=== PATIENT | female | born 1940 | race Caucasian/White ===

== ENCOUNTER 2017-02-07 16:03 | Inpatient (IN) | payer OTHER, MEDICARE ==
[2017-02-07] VITALS (15 sets, daily range): BP systolic 81–124; BP diastolic 44–97; PULSE 28–76; RESP 14–15; TEMP 98–98.2; O2SAT 91–100
[~2017-02-07] VITALS: Ht 167.6 cm; Wt 81.4 kg
[~2017-02-07 16:03] MED LIST: ADVA250A INH; AMLO5TAB96 PO; ARIP1TAB5 PO; BUPR150T3 PO; DIGO.125 PO; FOLI400T30 PO; METO25 PO; OMEP20CA5 PO; REST15CA PO
[2017-02-07] MEDS ORDERED: ATROPINE SULFATE 1 MG/10 ML SYRINGE ONE (16:15)
[2017-02-07] MEDS ORDERED: SODIUM CHLOR 0.9% 1000 ML INJ 1,000 ML IV ONE (16:18)
[2017-02-07] MEDS ORDERED: ATROPINE SULFATE 1 MG/10 ML SYRINGE IV PUSH ONE ×2 (16:30→16:45)
[2017-02-07] MEDS ORDERED: SODIUM CHLORIDE 0.9% FLUSH 10 ML FLUSH IVF PRN (16:30)
[2017-02-07] MEDS ORDERED: DIGOXIN IMMUNE FAB INJ 400 MG in SODIUM CHLORIDE 0.9% INJ 50 ML IV ONE (16:45)
[2017-02-07 16:55] LABS: AUTOMATED NEUTROPHIL # 12.4 TH/MM3 (1.8-7.7); BASOPHIL % 0.3 % (0.0-2.0); EOSINOPHIL # 0.1 TH/MM3 (0-0.4); EOSINOPHIL % 0.6 % (0.0-4.0); HEMATOCRIT 38.3 % (35.0-46.0); HEMO FLAGS DIFF FINAL; LYMPH % 9.5 % (9.0-44.0); LYMPHOCYTE # 1.4 TH/MM3 (1.0-4.8); MEAN CELL VOLUME 77.4 FL (80.0-100.0); MONO % 3.8 % (0.0-8.0); NEUT % 85.8 % (16.0-70.0); PLATELET COUNT 342 TH/MM3 (150-450); RED BLOOD COUNT 4.95 MIL/MM3 (4.00-5.30); RED CELL DISTRIBUTION WIDTH 19.1 % (11.6-17.2); WHITE BLOOD COUNT 14.4 TH/MM3 (4.0-11.0)
[2017-02-07 16:58] LABS: APTT (PATIENT) 44.5 SEC (24.3-30.1); INTERNATIONAL NORMALIZED RATIO 3.6 RATIO
[2017-02-07 17:09] LABS: ANION GAP 11 MEQ/L (5-15); AST (GOT) 56 U/L (15-37); BICARBONATE 18.8 MEQ/L (21.0-32.0); BLOOD UREA NITROGEN 31 MG/DL (7-18); CHLORIDE 109 MEQ/L (98-107); GLOMERULAR FILTRATION RATE 18 ML/MIN (>89); MAGNESIUM 2.1 MG/DL (1.5-2.5); POTASSIUM 5.4 MEQ/L (3.5-5.1); SODIUM (NA) 139 MEQ/L (136-145)
[2017-02-07 17:24] LABS: ALKALINE PHOSPHATASE 109 U/L (45-117); ALT (GPT) 38 U/L (10-53); DIGOXIN 0.1 NG/ML (0.8-2.0); TOTAL BILIRUBIN ADULT 0.3 MG/DL (0.2-1.0)
[2017-02-07 17:25] LABS: CREATINE KINASE 95 U/L (26-192)
--- NOTE | 2017-02-07 17:41 | PD ---
HPI Chief Complaint: bradycardia Time Seen by Provider: 16:22 Travel History International Travel<30 days: No Contact w/Intl Traveler<30days: No History of Present Illness HPI Patient is a 76-year-old female who presents to emergency room with complaints of possible nasal bone fracture. Patient reports that she is feeling weak and dizzy for the past month, reports that she was in the bathroom today and had a syncopal episode. Reports that she is feeling lightheaded and dizzy prior to this. patient reports that when she fell, she hit her face on the toilet, patient does admit to taking Coumadin as she has history of atrial fibrillation. Patient reports that she did have loss of consciousness. Patient followed up with her primary care doctor one hour prior to presenting to the emergency room, she was told to go to the ER for possible nasal bone fracture. Patient presents to ER bradycardic with a HR of 30's. She is currently on digoxin for afib. She does follow up with Dr. Mercer with cardiology. 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) Neurologic: Yes (HX MIGRAINES) Psychiatric: Yes (ANXIETY / DEPRESSION) Respiratory: Yes (SOB - NO DIAGNOSIS) Thyroid Disease: No Past Surgical History Abdominal Surgery: Yes (APPENDECTOMY) AICD: No Cardiac Surgery: No Ear Surgery: No Endocrine Surgery: No Eye Surgery: No Genitourinary Surgery: No Gynecologic Surgery: Yes (HYSTERECTOMY) Joint Replacement: Yes Pacemaker: No Thoracic Surgery: No Social History Alcohol Use: No Tobacco Use: No Substance Use: No Allergies-Medications (Allergen,Severity, Reaction): Coded Allergies: No Known Allergies (Verified , 02/07/17) Reported Meds & Prescriptions Reported Meds & Active Scripts Active Reported Vesicare (Solifenacin) 5 Mg Tab 5 Mg PO DAILY Ferrous Sulfate DR (Ferrous Sulfate) 325 Mg Tabdr 325 Mg PO DAILY Fenofibrate 160 Mg Tab 160 Mg PO DAILY Namenda (Memantine) 5 Mg Tab 5 Mg PO DAILY Risperidone 1 Mg Tab 1 Mg PO DAILY Trazodone HCl 150 Mg Tablet 150 Mg PO HS Zetia (Ezetimibe) 10 Mg Tab 10 Mg PO DAILY Warfarin 3 Mg Tab 3 Mg PO DAILY Tricor (Fenofibrate) 145 Mg Tab 145 Mg PO DAILY Take with food. Omeprazole 20 Mg Tab 40 Mg PO DAILY Metoprolol Tartrate 100 Mg Tab 100 Mg PO BID Lovastatin 40 Mg Tab 40 Mg PO HS Lisinopril 10 Mg Tab 10 Mg PO DAILY [place] (Hydrocodone-Acetaminophen) 10-325 Mg Tab 1 Tab PO Q6H PRN Wellbutrin Xl 24 HR (Bupropion HCl) 150 Mg Tab 150 Mg PO DAILY Biotin 1,000 Mcg Tab 1,000 Mg PO DAILY Aspirin Adult Low Strength (Aspirin) 81 Mg Tabdr 81 Mg PO DAILY Amlodipine (Amlodipine Besylate) 10 Mg Tab 10 Mg PO DAILY Abilify (Aripiprazole) 2 Mg Tab 2 Mg PO DAILY Review of Systems General / Constitutional: No: Fever Eyes: No: Visual changes HENT: Positive: Headaches Cardiovascular: Positive: Irregular Rhythm, No: Chest Pain or Discomfort Respiratory: No: Shortness of Breath Gastrointestinal: No: Abdominal Pain Genitourinary: No: Dysuria Musculoskeletal: No: Pain Skin: No Rash Neurologic: No: Weakness Psychiatric: No: Depression Endocrine: No: Polydipsia Hematologic/Lymphatic: No: Easy Bruising Physical Exam Narrative GENERAL: moderate distress SKIN: Focused skin assessment warm/dry. HEAD: Atraumatic. Normocephalic. EYES: Pupils equal and round. No scleral icterus. No injection or drainage. ENT: No nasal bleeding or discharge. Mucous membranes pink and moist. NECK: Trachea midline. No JVD. CARDIOVASCULAR: bradycardic. No murmur appreciated. RESPIRATORY: No accessory muscle use. Clear to auscultation. Breath sounds equal bilaterally. GASTROINTESTINAL: Abdomen soft, non-tender, nondistended. Hepatic and splenic margins not palpable. MUSCULOSKELETAL: No obvious deformities. No clubbing. No cyanosis. No edema. NEUROLOGICAL: Awake and alert. No obvious cranial nerve deficits. Motor grossly within normal limits. Normal speech. PSYCHIATRIC: Appropriate mood and affect; insight and judgment normal. Data Data Last Documented VS Vital Signs Date Time Temp Pulse Resp B/P Pulse Ox O2 Delivery O2 Flow Rate FiO2 02/07/17 19:17 48 14 100/49 97 Ventilator 100 02/07/17 18:13 15 02/07/17 18:06 98.1 Orders Atropine Inj (Atropine Inj) (02/07/17 16:15) Complete Blood Count With Diff (02/07/17 16:18) Comprehensive Metabolic Panel (02/07/17 16:18) Magnesium (Mg) (02/07/17 16:18) B-Type Natriuretic Peptide (02/07/17 16:18) Ckmb (Isoenzyme) Profile (02/07/17 16:18) Troponin I (02/07/17 16:18) Act Partial Throm Time (Ptt) (02/07/17 16:18) Prothrombin Time / Inr (Pt) (02/07/17 16:18) Urinalysis - C+S If Indicated (02/07/17 16:18) Chest, Single Ap (02/07/17 16:18) Ct Brain W/O Iv Contrast(Rout) (02/07/17 16:18) Ct Cerv Spine W/O Contrast (02/07/17 16:18) Blood Glucose (02/07/17 16:18) Ecg Monitoring (02/07/17 16:18) Iv Access Insert/Monitor (02/07/17 16:18) Oximetry (02/07/17 16:18) Sodium Chloride 0.9% Flush (Ns Flush) (02/07/17 16:30) Sodium Chlor 0.9% 1000 Ml Inj (Ns 1000 M (02/07/17 16:18) Digoxin (02/07/17 16:18) Ct Facial Bones W/O Iv Cont (02/07/17 ) Atropine Inj (Atropine Inj) (02/07/17 16:30) Atropine Inj (Atropine Inj) (02/07/17 16:45) Digoxin Immune Brady Inj (Digibind Inj) (02/07/17 16:45) ^ Infusion (02/07/17 18:00) Isoproterenol Inj (Isuprel Inj) (02/07/17 18:00) ^ Infusion (02/07/17 ) Dopamine Inj Premix (Dopamine Inj Premix (02/07/17 18:15) Dopamine Inj Premix (Dopamine Inj Premix (02/07/17 18:02) Electrocardiogram (02/07/17 16:10) Ondansetron Inj (Zofran Inj) (02/07/17 18:26) Norepinephrine Inj (Levophed Inj) (02/07/17 18:40) Ondansetron Inj (Zofran Inj) (02/07/17 18:50) Midazolam Inj (Versed Inj) (02/07/17 18:55) Midazolam Inj (Versed Inj) (02/07/17 19:00) Admit To Inpatient (02/07/17 ) Code Status (02/07/17 19:05) Vital Signs (Adult) ERICA.Q1H (02/07/17 19:05) Activity Bed Rest (02/07/17 19:05) ^ Elevate Head Of Bed (02/07/17 19:05) Neuro Checks . ORDERED (02/07/17 19:05) Intake + Output Q1H (02/07/17 19:05) Diet Tube Feed Only (02/08/17 Breakfast) Sodium Chlor 0.9% 1000 Ml Inj (Ns 1000 M (02/07/17 19:05) Sodium Chloride 0.9% Flush (Ns Flush) (02/07/17 19:15) Sodium Chloride 0.9% Flush (Ns Flush) (02/07/17 21:00) Acetaminophen (Tylenol) (02/07/17 19:15) Morphine Inj (Morphine Inj) (02/07/17 19:15) Famotidine Inj (Pepcid Inj) (02/07/17 21:00) Artificial Tears Opth Soln (Tears Natura (02/08/17 09:00) Ondansetron Inj (Zofran Inj) (02/07/17 19:15) Metoclopramide Inj (Reglan Inj) (02/07/17 19:15) Prochlorperazine Supp (Compazine Supp) (02/07/17 19:15) Albuterol-Ipratropium Neb (Duoneb Neb) (02/07/17 22:00) Albuterol-Ipratropium Neb (Duoneb Neb) (02/07/17 19:15) Complete Blood Count With Diff (02/08/17 04:00) Comprehensive Metabolic Panel (02/08/17 04:00) Prothrombin Time / Inr (Pt) (02/08/17 04:00) Magnesium (Mg) (02/08/17 04:00) Phosphorus (Po4) (02/08/17 04:00) Chest, Single Ap (02/08/17 ) Electrocardiogram (02/07/17 19:15) Electrocardiogram (02/08/17 01:15) Electrocardiogram (02/08/17 07:15) Electrocardiogram (02/08/17 13:15) Electrocardiogram (02/08/17 19:15) Arterial Blood Gas (Abg) (02/07/17 ) Pt Request For Service (02/07/17 19:05) Consult Cardiology (02/07/17 ) Cut Off Saw Set Up Operator / Telemetry ERICA.Q8H (02/07/17 19:05) Scd Bilateral/Knee High ERICA.BID (02/07/17 19:05) Brenden Bilateral/Knee High ERICA.QSHIFT (02/07/17 19:05) ^ Initiate Protocol (02/07/17 19:05) ^ Instruction (02/07/17 19:05) Misc Nursing Information (02/07/17 19:15) Chlorhexidine 2% Cloth (Chlorhexidine 2% (02/08/17 04:00) Chlorhexidine 2% Cloth (Chlorhexidine 2% (02/07/17 19:15) Mrsa Pcr Surveillance (02/07/17 19:05) Docusate Sodium-Senna (Masha-Colace) (02/07/17 21:00) Magnesium Hydroxide Liq (Milk Of Magnesi (02/07/17 19:15) Sennosides (Senokot) (02/07/17 19:15) Bisacodyl Supp (Dulcolax Supp) (02/07/17 19:15) Lactulose Liq (Lactulose Liq) (02/07/17 19:15) Midazolam Inj (Versed Inj) (02/07/17 19:15) Neurological Rass Scale Q30MX2,Q2HX4,Q4H (02/07/17 19:05) Neurological Rass Scale Q30MX2,Q2HX4,Q4H (02/07/17 19:05) Fentanyl Drip (Fentanyl Drip) (02/07/17 19:15) Inpatient Certification (02/07/17 ) Tube Feeding 08,20 (02/07/17 19:05) Chest, Single Ap (02/07/17 19:12) Admit Order (Ed Use Only) (02/07/17 19:33) Labs Laboratory Tests Test 02/07/17 02/07/17 16:15 19:33 White Blood Count 14.4 TH/MM3 Red Blood Count 4.95 MIL/MM3 Hemoglobin 11.9 GM/DL Hematocrit 38.3 % Mean Corpuscular Volume 77.4 FL Mean Corpuscular Hemoglobin 24.0 PG Mean Corpuscular Hemoglobin 31.0 % Concent Red Cell Distribution Width 19.1 % Platelet Count 342 TH/MM3 Mean Platelet Volume 7.8 FL Neutrophils (%) (Auto) 85.8 % Lymphocytes (%) (Auto) 9.5 % Monocytes (%) (Auto) 3.8 % Eosinophils (%) (Auto) 0.6 % Basophils (%) (Auto) 0.3 % Neutrophils # (Auto) 12.4 TH/MM3 Lymphocytes # (Auto) 1.4 TH/MM3 Monocytes # (Auto) 0.5 TH/MM3 Eosinophils # (Auto) 0.1 TH/MM3 Basophils # (Auto) 0.0 TH/MM3 CBC Comment DIFF FINAL Differential Comment Prothrombin Time 42.0 SEC Prothromb Time International 3.6 RATIO Ratio Activated Partial 44.5 SEC Thromboplast Time Sodium Level 139 MEQ/L Potassium Level 5.4 MEQ/L Chloride Level 109 MEQ/L Carbon Dioxide Level 18.8 MEQ/L Anion Gap 11 MEQ/L Blood Urea Nitrogen 31 MG/DL Creatinine 2.60 MG/DL Estimat Glomerular Filtration 18 ML/MIN Rate Random Glucose 131 MG/DL Calcium Level 8.9 MG/DL Magnesium Level 2.1 MG/DL Total Bilirubin 0.3 MG/DL Aspartate Amino Transf 56 U/L (AST/SGOT) Alanine Aminotransferase 38 U/L (ALT/SGPT) Alkaline Phosphatase 109 U/L Total Creatine Kinase 95 U/L Troponin I LESS THAN 0.02 NG/ML B-Type Natriuretic Peptide 170 PG/ML Total Protein 7.4 GM/DL Albumin 3.2 GM/DL Digoxin Level 0.1 NG/ML Urine Color YELLOW Urine Turbidity HAZY Urine pH 5.0 Urine Specific [place] 1.010 Urine Protein 30 mg/dL Urine Glucose (UA) NEG mg/dL Urine Ketones NEG mg/dL Urine Occult Blood TRACE Urine Nitrite NEG Urine Bilirubin NEG Urine Urobilinogen LESS THAN 2.0 MG/DL Urine Leukocyte Esterase MOD Urine RBC 1 /hpf Urine WBC 2 /hpf Urine Squamous Epithelial 1 /hpf Cells Urine Amorphous Sediment FEW Urine Mucus FEW /lpf Microscopic Urinalysis Comment CULT NOT INDICATED MDM Medical Decision Making Medical Screen Exam Complete: Yes Emergency Medical Condition: Yes Interpretation(s) EKG: afib at 34bpm, qt/qtc: 525/418 Vital Signs Date Time Temp Pulse Resp B/P Pulse Ox O2 Delivery O2 Flow Rate FiO2 02/07/17 19:17 48 14 100/49 97 Ventilator 100 02/07/17 19:07 54 14 97/51 94 Ventilator 100 02/07/17 19:00 14 94 Ventilator 100 02/07/17 18:15 29 14 81/44 97 Non-Rebreather 02/07/17 18:13 30 16 97 Non-Rebreather 15 02/07/17 18:06 98.1 28 14 123/57 97 02/07/17 17:00 28 123/57 02/07/17 16:20 33 15 124/97 97 Room Air Laboratory Tests Test 02/07/17 16:15 White Blood Count 14.4 TH/MM3 (4.0-11.0) Red Blood Count 4.95 MIL/MM3 (4.00-5.30) Hemoglobin 11.9 GM/DL (11.6-15.3) Hematocrit 38.3 % (35.0-46.0) Mean Corpuscular Volume 77.4 FL (80.0-100.0) Mean Corpuscular Hemoglobin 24.0 PG (27.0-34.0) Mean Corpuscular Hemoglobin 31.0 % Concent (32.0-36.0) Red Cell Distribution Width 19.1 % (11.6-17.2) Platelet Count 342 TH/MM3 (150-450) Mean Platelet Volume 7.8 FL (7.0-11.0) Neutrophils (%) (Auto) 85.8 % (16.0-70.0) Lymphocytes (%) (Auto) 9.5 % (9.0-44.0) Monocytes (%) (Auto) 3.8 % (0.0-8.0) Eosinophils (%) (Auto) 0.6 % (0.0-4.0) Basophils (%) (Auto) 0.3 % (0.0-2.0) Neutrophils # (Auto) 12.4 TH/MM3 (1.8-7.7) Lymphocytes # (Auto) 1.4 TH/MM3 (1.0-4.8) Monocytes # (Auto) 0.5 TH/MM3 (0-0.9) Eosinophils # (Auto) 0.1 TH/MM3 (0-0.4) Basophils # (Auto) 0.0 TH/MM3 (0-0.2) CBC Comment DIFF FINAL Differential Comment Prothrombin Time 42.0 SEC (9.8-11.6) Prothromb Time International 3.6 RATIO Ratio Activated Partial 44.5 SEC Thromboplast Time (24.3-30.1) Sodium Level 139 MEQ/L (136-145) Potassium Level 5.4 MEQ/L (3.5-5.1) Chloride Level 109 MEQ/L (98-107) Carbon Dioxide Level 18.8 MEQ/L (21.0-32.0) Anion Gap 11 MEQ/L (5-15) Blood Urea Nitrogen 31 MG/DL (7-18) Creatinine 2.60 MG/DL (0.50-1.00) Estimat Glomerular Filtration 18 ML/MIN (>89) Rate Random Glucose 131 MG/DL (74-106) Calcium Level 8.9 MG/DL (8.5-10.1) Magnesium Level 2.1 MG/DL (1.5-2.5) Total Bilirubin 0.3 MG/DL (0.2-1.0) Aspartate Amino Transf 56 U/L (15-37) (AST/SGOT) Alanine Aminotransferase 38 U/L (10-53) (ALT/SGPT) Alkaline Phosphatase 109 U/L (45-117) Total Creatine Kinase 95 U/L (26-192) Troponin I LESS THAN 0.02 NG/ML (0.02-0.05) B-Type Natriuretic Peptide 170 PG/ML (0-100) Total Protein 7.4 GM/DL (6.4-8.2) Albumin 3.2 GM/DL (3.4-5.0) Digoxin Level 0.1 NG/ML (0.8-2.0) Differential Diagnosis Medication reaction, cardiogenic shock, intracranial hemorrhage, electrolyte abnormality Narrative Course Patient is a 76-year-old female who presents to emergency room for evaluation of possible nasal bone fracture. Patient reports that she was at home today, reports that she had a syncopal episode in her bathroom, reports that she fell and hit her nose. Return to their primary care doctor and was told to come to the emergency room for evaluation. Upon arrival to the emergency room, patient' s heart rate was in the 20s to 30s. Patient was immediately placed on director of reimbursement, pads were placed on patient. Attempt was made to transcutaneously pace her, there was no capture. Patient is on digoxin - concern that symptoms may be due to dig toxicity, Digibind ordered and dig level ordered. Patient was initially stable with SBP' s in the 120's. She was mentating well. 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 Digibind should be in consideration if dig level is elevated. Consideration for isoproterenol or dopamine gtt. We did not have isoproterenol emergency room , dopamine was started via peripheral line. Patient then became hypotensive with systolic blood pressures in the 50s to 70s, please of central line. Because her INR of 3.7, I did obtain femoral access. Once femoral access was obtained, and dopamine was started through the right femoral line. Patient became hypoxic and complaint of shortness of breath after central line, decision was to intubate patient for airway protection. Patient was intubated with no complications, patient's vss after intubation and central line placement with pressors. Case reviewed with Dr. Johnson who accepts pt to service Critical Care Narrative Aggregate critical care time was 60 minutes. Time to perform other separately billable procedures was not included in the critical care time. My time did not include minutes spent treating any other patients simultaneously or on activities that did not directly contribute to the patient's treatment. The services I provided to this patient were to treat and/or prevent clinically significant deterioration that could result in: , decompensation, deterioration I provided critical care services requiring my management, as noted below: Chart data review, documentation time, medication orders and management, vital sign assessments/reviewing monitor data, ordering and reviewing lab tests, ordering and interpreting/reviewing x-rays and diagnostic studies, care of the patient and discussion of the patient with the admitting physicians. Procedures Procedure Narrative Verbal consent obtained by patient, family provided written consent CENTRAL VENOUS LINE: The site was prepped with Betadine and sterilely draped. It was infiltrated with 1% lidocaine plain. The deep vein was cannulated using normal Seldinger technique. A triple lumen central line was placed in the right femoral vein site and secured with simple interrupted suture. The site was sterilely dressed. The patient tolerated the procedure well. After the risks and benefits were discussed the following procedure was performed: INTUBATION: The patient was put in optimal position for the procedure. Rapid sequence intubation was initiated by me using 20 milligrams of etomidate IV and 10 milligrams of Succinocholine IV. The patient was intubated with a [-] cuffed endotracheal tube. Tube placement was confirmed by visualization of the tube and balloon passing through the cords, capnometry and subsequent chest x-ray. Breath sounds were equal and well aerated bilaterally postintubation. No breath sounds over stomach. Patient tolerated procedure well. Physician Communication Physician Communication Dr Johnson accepts pt to service Diagnosis Primary Impression: Cardiogenic shock Admitting Information Admitting Physician Requests: Lis Michel DO February 07, 2017 17:41
[2017-02-07] MEDS ORDERED: DOPamine INJ PREMIX 500 ML ONE (18:02)
--- NOTE | 2017-02-07 18:13 | RADRPT ---
EXAM DATE/TIME: 02/07/2017 16:36 [facility] COMPARISON: No previous studies available for comparison. INDICATIONS : Short of breath. MEDICAL HISTORY : None. SURGICAL HISTORY : None. ENCOUNTER: Initial ACUITY: 1 day PAIN SCORE: 4/10 LOCATION: Bilateral chest FINDINGS: Single AP view of the chest. The lungs are clear. Cardiomediastinal silhouette within normal limits. No evidence of pleural effusion or pneumothorax. CONCLUSION: No acute cardiopulmonary disease identified. Angel Laguna MD on February 07, 2017 at 18:11 Board Certified Radiologist. This report was verified electronically.
[2017-02-07] MEDS ORDERED: DOPamine INJ PREMIX 500 ML IV SCH ×2 (18:15→23:00)
--- NOTE | 2017-02-07 18:21 | RADRPT ---
EXAM DATE/TIME: 02/07/2017 17:54 [facility] COMPARISON: No previous studies available for comparison. INDICATIONS : Evaluate for Syncope. RADIATION DOSE: 32.92 CTDIvol (mGy) MEDICAL HISTORY : Diabetes mellitus type 2. Hypertension. Cardiovascular disease SURGICAL HISTORY : Appendectomy. Hysterectomy. ENCOUNTER: Initial ACUITY: 1 day PAIN SCALE: Non-responsive LOCATION: Bilateral cranial TECHNIQUE: Multiple contiguous axial images were obtained of the head. Using automated exposure control and adj ustment of the mA and/or kV according to patient size, radiation dose was kept as low as reasonably a chievable to obtain optimal diagnostic quality images. FINDINGS: CEREBRUM: Extensive periventricular low attenuation change consistent with chronic small vessel ischemic change . A more focal area of decreased density is seen within the left frontal lobe. This involves the george ex and underlying white matter. No mass effect. The ventricles are normal for age. No evidence of mi dline shift, mass lesion, hemorrhage or acute infarction. No extra-axial fluid collections are seen. POSTERIOR FOSSA: The cerebellum and brainstem are intact. The 4th ventricle is midline. The cerebellopontine angle i s unremarkable. EXTRACRANIAL: The visualized portion of the orbits is intact. SKULL: The calvaria is intact. No evidence of skull fracture. CONCLUSION: 1. Chronic small vessel ischemic change. 2. Area of encephalomalacia involving the left frontal lobe. 3. No acute intracranial abnormality. Armaan Suresh Jr., MD on February 07, 2017 at 18:16 Board Certified Radiologist. This report was verified electronically.
--- NOTE | 2017-02-07 18:25 | RADRPT ---
EXAM DATE/TIME: 02/07/2017 17:54 [facility] COMPARISON: No previous studies available for comparison. INDICATIONS : Evaluate for Syncope. RADIATION DOSE: 30.92 CTDIvol (mGy) MEDICAL HISTORY : Diabetes mellitus type 2. Congestive heart failure. Hypertension. SURGICAL HISTORY : Appendectomy. Hysterectomy. ENCOUNTER: Initial ACUITY: 1 day PAIN SCORE: Non-responsive LOCATION: Bilateral facial region. TECHNIQUE: Volumetric scanning of the facial bones was performed. Using automated exposure control and adjustme nt of the mA and/or kV according to patient size, radiation dose was kept as low as reasonably achiev able to obtain optimal diagnostic quality images. FINDINGS: ORBITS: The orbital and infraorbital osseous structures are intact. The retroconal structures have a normal configuration. No radiopaque foreign bodies are seen. NASAL BONE: The nasal bone and maxillary spine are intact ZYGOMATIC ARCHES: Symmetric without evidence of fracture. SINUSES: The maxillary, ethmoid and frontal sinuses are intact. No air-fluid levels seen. NASAL CAVITY: The nasal septum is intact and midline. The lacrimal ducts are intact. SOFT TISSUES: No radiopaque foreign bodies seen. No soft-tissue swelling is seen. INTRACRANIAL: No intracranial air seen. CRIBIFORM PLATE: Grossly intact. CONCLUSION: Normal examination. Armaan Suresh Jr., MD on February 07, 2017 at 18:21 Board Certified Radiologist. This report was verified electronically.
[2017-02-07] MEDS ORDERED: ONDANSETRON HCL 4 MG/2 ML VIAL ONE ×2 (18:26→18:50)
--- NOTE | 2017-02-07 18:36 | RADRPT ---
EXAM DATE/TIME: 02/07/2017 17:54 [facility] COMPARISON: No previous studies available for comparison. INDICATIONS : Evaluate for Syncope. RADIATION DOSE: 20.66 CTDIvol (mGy) MEDICAL HISTORY : Diabetes mellitus type 2. Hypertension. Cardiovascular disease SURGICAL HISTORY : Appendectomy. Hysterectomy. ENCOUNTER: Initial ACUITY: 1 day PAIN SCALE: Non-responsive LOCATION: Bilateral neck TECHNIQUE: Volumetric scanning of the cervical spine was performed. Multiplanar reconstructions in the sagittal, coronal and oblique axial planes were performed. Using automated exposure control and adjustment o f the mA and/or kV according to patient size, radiation dose was kept as low as reasonably achievable to obtain optimal diagnostic quality images. FINDINGS: VERTEBRAE: No evidence of fracture. Prominent hypertrophic changes at C1-2 anteriorly. ALIGNMENT: No evidence of subluxation. C2-C3: Bilateral facet arthrosis. No evidence of focal disc protrusion. Central canal normal diameter. Neura l foraminal diameters within normal limits. Bony fusion is left-sided facet joint. C3-C4: Severe right-sided facet arthrosis. Broad-based disc osteophyte complex. Mild right neural foraminal narrowing. Bony fusion right-sided facet joint. C4-C5: Severe bilateral facet arthrosis. Broad-based disc bulge. Mild central canal narrowing. Mild bilatera l neural foraminal narrowing. C5-C6: Broad-based disc osteophyte complex and bilateral facet arthrosis. Moderate central canal narrowing m oderate bilateral neural foraminal narrowing. C6-C7: Bilateral facet arthrosis. No evidence of focal disc protrusion. Central canal normal diameter. Neura l foraminal diameters within normal limits. C7-T1: No evidence of focal disc protrusion. Central canal normal diameter. Neural foraminal diameters withi n normal limits. CONCLUSION: No evidence of fracture. Degenerative findings most prominent at C5-6. Angel Laguna MD on February 07, 2017 at 18:30 Board Certified Radiologist. This report was verified electronically.
[2017-02-07] MEDS ORDERED: NOREPINEPHRINE 4 MG/4 ML AMP ONE (18:40)
[2017-02-07] MEDS ORDERED: MIDAZOLAM HCL 5 MG/ML VIAL (1 ML) ONE (18:55)
[2017-02-07] MEDS ORDERED: MIDAZOLAM 100 MG/NS 100 ML DRIP Premix IV SCH (19:00)
[2017-02-07] MEDS ORDERED: SODIUM CHLOR 0.9% 1000 ML INJ 1,000 ML IV SCH (19:05)
[2017-02-07] MEDS ORDERED: MAGNESIUM HYDROXIDE SUSP 30 ML CUP PO PRN (19:15)
[2017-02-07] MEDS ORDERED: ONDANSETRON HCL 4 MG/2 ML VIAL IV PRN (19:15)
[2017-02-07] MEDS ORDERED: CHLORHEXIDINE GLUCONATE 2 % 1 PACK (2 CLOTHS) TOP PRN (19:15)
[2017-02-07] MEDS ORDERED: LACTULOSE SYRUP 20 GM/30 ML CUP PO PRN (19:15)
[2017-02-07] MEDS ORDERED: SENNOSIDES 8.6 MG TAB PO PRN (19:15)
[2017-02-07] MEDS ORDERED: BISACODYL 10 MG SUPP RECTAL PRN (19:15)
[2017-02-07] MEDS ORDERED: SODIUM CHLORIDE 0.9% FLUSH 10 ML FLUSH PRN (19:15)
[2017-02-07] MEDS ORDERED: fentaNYL DRIP 250 ML IV SCH (19:15)
[2017-02-07] MEDS ORDERED: RESP: ALBUTEROL 2.5 MG/IPRATROPIUM 0.5 MG NEB (PRN) INH (19:15)
[2017-02-07] MEDS ORDERED: PROCHLORPERAZINE 25 MG SUPP RECTAL PRN (19:15)
[2017-02-07] MEDS ORDERED: MIDAZOLAM 100 MG/ML INJ 100 ML IV SCH (19:15)
[2017-02-07] MEDS ORDERED: MISCELLANEOUS NURSING INFORMATION XX SCH (19:15)
[2017-02-07] MEDS ORDERED: METOCLOPRAMIDE HCL 10 MG/2 ML VIAL IV PRN (19:15)
--- NOTE | 2017-02-07 19:17 | HHI.HP ---
HPI Service Critical Care Medicine Primary Care Physician Ted Watts MD Admission Diagnosis Diagnosis: Travel History International Travel<30 Days: No Contact w/Intl Traveler <30 Da: No Traveled to Known Affected Are: No History of Present Illness 76-year-old female who presents with complaints of possible nasal bone fracture. Per medical record she was feeling weak and dizzy for the past month , reports that she was in the bathroom today and had a syncopal episode. Reports that she is feeling lightheaded and dizzy prior to this. patient reports that when she fell, she hit her face on the toilet, patient does admit to taking Coumadin as she has history of atrial fibrillation. Patient reports that she did have loss of consciousness. She is also on digoxin for rate control. In the emergency department she was found to be bradycardic at the heart rate of 30s. She does follow up with Dr. Mercer with cardiology. She became hypotensive and hypoxemic and was intubated by ED attending for an airway protection. 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 Omeprazole 20 Mg Tab 40 Mg PO DAILY Metoprolol Tartrate 100 Mg Tab 100 Mg PO BID Lovastatin 40 Mg Tab 40 Mg PO HS Lisinopril 10 Mg Tab 10 Mg PO DAILY [place] (Hydrocodone-Acetaminophen) 10-325 Mg Tab 1 Tab PO Q6H PRN Wellbutrin Xl 24 HR (Bupropion HCl) 150 Mg Tab 150 Mg PO DAILY Biotin 1,000 Mcg Tab 1,000 Mg PO DAILY Aspirin Adult Low Strength (Aspirin) 81 Mg Tabdr 81 Mg PO DAILY Amlodipine (Amlodipine Besylate) 10 Mg Tab 10 Mg PO DAILY Abilify (Aripiprazole) 2 Mg Tab 2 Mg PO DAILY Active Ordered Medications Current Medications Medications (Trade) Dose Ordered Sig/Brandon Route PRN Reason Start Time Stop Time Status Last Admin Dose Admin Isoproterenol HCl 2 mg/Dextrose 260 ml @ 0 mls/hr TITRATE IV 02/07/17 18:00 02/07/17 19:42 Dopamine HCl/ Dextrose 500 ml @ 0 mls/hr TITRATE IV 02/07/17 18:15 02/07/17 19:42 Midazolam HCl 100 ml @ 0 mls/hr TITRATE IV 02/07/17 19:00 Sodium Chloride (NS 1000 ml Inj) 1,000 ml @ 84 mls/hr [id number] IV 02/07/17 19:05 Sodium Chloride (NS Flush) 2 ml UNSCH PRN .XX FLUSH AFTER USING IV ACCESS 02/07/17 19:15 Sodium Chloride (NS Flush) 2 ml BID .XX 02/07/17 21:00 Acetaminophen (Tylenol) 650 mg Q6H PRN PO FEVER >101F 02/07/17 19:15 Morphine Sulfate (Morphine Inj) 2 mg Q2H PRN IV PAIN SCALE 6 TO 10 02/07/17 19:15 Famotidine (Pepcid Inj) 10 mg Q12HR IV PUSH 02/07/17 21:00 Artificial Tears (Tears Naturale Opth Soln) 1 drop TID EACH EYE 02/08/17 09:00 Ondansetron HCl (Zofran Inj) 4 mg Q6H PRN IV NAUSEA OR VOMITING 02/07/17 19:15 Metoclopramide HCl (Reglan Inj) 5 mg Q6H PRN IV NAUSEA OR VOMITING 02/07/17 19:15 Prochlorperazine (Compazine Supp) 25 mg Q12H PRN RECTAL NAUSEA OR VOMITING 02/07/17 19:15 Miscellaneous Information 1 [id number] XX 02/07/17 19:15 Chlorhexidine Gluconate (Chlorhexidine 2% Cloth) 3 pack Taper DAILY@04 TOP 02/08/17 04:00 02/04/18 03:59 Chlorhexidine Gluconate (Chlorhexidine 2% Cloth) 3 pack UNSCH PRN TOP HYGIENIC CARE 02/07/17 19:15 Senna/Docusate Sodium (Masha-Colace) 1 tab BID PO 02/07/17 21:00 Magnesium Hydroxide (Milk Of Maci Fischer) 30 ml Q12H PRN PO MILD - MODERATE CONSTIPATION 02/07/17 19:15 Sennosides (Senokot) 17.2 mg Q12H PRN PO MODERATE - SEVERE CONSTIPATION 02/07/17 19:15 Bisacodyl (Dulcolax Supp) 10 mg DAILY PRN RECTAL SEVERE CONSITIPATION 02/07/17 19:15 Lactulose 30 ml 30 ml DAILY PRN PO SEVERE CONSITIPATION 02/07/17 19:15 Midazolam HCl 100 ml @ 0 mls/hr TITRATE IV 02/07/17 19:15 02/07/17 21:47 Fentanyl Citrate (fentaNYL DRIP) 250 ml @ 0 mls/hr TITRATE IV 02/07/17 19:15 02/07/17 21:47 Family History Noncontributory Social History Negative 3 Physical Exam Vital Signs Vital Signs Date Time Temp Pulse Resp B/P Pulse Ox O2 Delivery O2 Flow Rate FiO2 02/07/17 19:07 54 14 97/51 94 Ventilator 100 02/07/17 18:15 29 14 81/44 97 Non-Rebreather 02/07/17 18:13 30 16 97 Non-Rebreather 15 02/07/17 18:06 98.1 28 14 123/57 97 Physical Exam GENERAL: Obese elderly woman sedated and intubated SKIN: Warm and dry. HEAD: Normocephalic. EYES: No scleral icterus. No injection or drainage. NECK: Supple, trachea midline. No JVD or lymphadenopathy. CARDIOVASCULAR: Regular rate and rhythm without murmurs, gallops, or rubs. RESPIRATORY: Breath sounds equal bilaterally. No accessory muscle use. GASTROINTESTINAL: Abdomen soft, non-tender, nondistended. MUSCULOSKELETAL: No cyanosis, or edema. BACK: Nontender without obvious deformity. No CVA tenderness. EXTREMITIES: No clubbing cyanosis or edema Laboratory Laboratory Tests Test 02/07/17 16:15 White Blood Count 14.4 Red Blood Count 4.95 Hemoglobin 11.9 Hematocrit 38.3 Mean Corpuscular Volume 77.4 Mean Corpuscular Hemoglobin 24.0 Mean Corpuscular Hemoglobin 31.0 Concent Red Cell Distribution Width 19.1 Platelet Count 342 Mean Platelet Volume 7.8 Neutrophils (%) (Auto) 85.8 Lymphocytes (%) (Auto) 9.5 Monocytes (%) (Auto) 3.8 Eosinophils (%) (Auto) 0.6 Basophils (%) (Auto) 0.3 Neutrophils # (Auto) 12.4 Lymphocytes # (Auto) 1.4 Monocytes # (Auto) 0.5 Eosinophils # (Auto) 0.1 Basophils # (Auto) 0.0 CBC Comment DIFF FINAL Differential Comment Prothrombin Time 42.0 Prothromb Time International 3.6 Ratio Activated Partial 44.5 Thromboplast Time Sodium Level 139 Potassium Level 5.4 Chloride Level 109 Carbon Dioxide Level 18.8 Anion Gap 11 Blood Urea Nitrogen 31 Creatinine 2.60 Estimat Glomerular Filtration 18 Rate Random Glucose 131 Calcium Level 8.9 Magnesium Level 2.1 Total Bilirubin 0.3 Aspartate Amino Transf 56 (AST/SGOT) Alanine Aminotransferase 38 (ALT/SGPT) Alkaline Phosphatase 109 Total Creatine Kinase 95 Troponin I LESS THAN 0.02 B-Type Natriuretic Peptide 170 Total Protein 7.4 Albumin 3.2 Digoxin Level 0.1 Result Diagram: 02/07/17 1615 02/07/171614 Imaging Last 24 hours Impressions Chest X-Ray 02/07/17 191 Signed Impressions: Service Date/Time: Tuesday, February 07, 2017 19:22 - CONCLUSION: 1. Tip of the endotracheal tube within the orifice of the right mainstem bronchus. 2. Volume loss involving the left hemithorax likely due to the position of the endotracheal tube. 3. Patchy parenchymal consolidation throughout the left lung. This may be in part due to the volume loss representing atelectasis. Armaan Suresh Jr., MD Head CT 02/07/171617 Signed Impressions: Service Date/Time: Tuesday, February 07, 2017 17:54 - CONCLUSION: 1. Chronic small vessel ischemic change. 2. Area of encephalomalacia involving the left frontal lobe. 3. No acute intracranial abnormality. Armaan Suresh Jr., MD Chest X-Ray 02/07/171617 Signed Impressions: Service Date/Time: Tuesday, February 07, 2017 16:36 - CONCLUSION: No acute cardiopulmonary disease identified. Angel Laguna MD Cervical Spine CT 02/07/171617 Signed Impressions: Service Date/Time: Tuesday, February 07, 2017 17:54 - CONCLUSION: No evidence of fracture. Degenerative findings most prominent at C5-6. Angel Laguna MD Maxillofacial CT 02/07/17 0000 Signed Impressions: Service Date/Time: Tuesday, February 07, 2017 17:54 - CONCLUSION: Normal examination. Armaan Suresh Jr., MD Assessment and Plan Assessment and Plan Acute respiratory failure - Intubated for an airway protection - Due to cardiogenic shock - SBT and weaning when hemodynamically more stable - Chest x-ray and ABG a.m. Bradycardia - Most likely due to medications - Digoxin toxicity - Agonists administered in the ED - Dopamine drip - Further per cardiology Atrial fibrillation - Cardiology evaluation - Hold digoxin due to bradycardia toxicity - Continue Coumadin anticoagulation Acute kidney injury - Dehydration - Unknown baseline creatinine - Gentle hydration IV - Metal urine output and creatinine and electrolytes Diabetes mellitus - Insulin sliding scale DVT GI prophylaxis - Coumadin/Pepcid Critical Care: The total critical care time was 35 minutes. Time to perform other separately billable procedures was not included in the critical care time. iTm Johnson MD February 07, 2017 19:17
[2017-02-07] MEDS: ISOPROTERENOL INJ 2 MG in DEXTROSE 5% IN WATER INJ 250 ML IV SCH ×2 (19:42)
[2017-02-07 19:50] LABS: BLOOD, URINE TRACE (NEG); COMMENT (UR) CULT NOT INDICATED; CULTURE IF INDICATED CULT NOT INDICATED; GLUCOSE,URINE NEG (NEG); KETONE, URINE NEG (NEG); MUCUS URINE FEW /lpf (OCC); NITRITE,URINE NEG (NEG); SQUAMOUS EPITHELIAL CELL URINE 1 /hpf (0-5); URINE COLOR YELLOW (YELLW/STRAW)
--- NOTE | 2017-02-07 19:50 | RADRPT ---
EXAM DATE/TIME: 02/07/2017 19:22 [facility] COMPARISON: CHEST SINGLE AP, February 07, 2017, 16:36. INDICATIONS : Post intubation. MEDICAL HISTORY : None. SURGICAL HISTORY : None. ENCOUNTER: Initial ACUITY: 1 day PAIN SCORE: Non-responsive. LOCATION: Bilateral chest FINDINGS: A single portable frontal view of the chest shows the tip of the endotracheal tube within the right m ainstem bronchus. Patchy parenchymal infiltrate throughout the left lung. Left lung volume loss noted with elevation left hemidiaphragm. Right lung is clear. Heart is normal in size. CONCLUSION: 1. Tip of the endotracheal tube within the orifice of the right mainstem bronchus. 2. Volume loss involving the left hemithorax likely due to the position of the endotracheal tube. 3. Patchy parenchymal consolidation throughout the left lung. This may be in part due to the volume l oss representing atelectasis. Armaan Suresh Jr., MD on February 07, 2017 at 19:47 Board Certified Radiologist. This report was verified electronically.
[2017-02-07] MEDS ORDERED: VECURONIUM BROMIDE 10 MG VIAL IV PUSH ONE (20:00)
[2017-02-07] MEDS ORDERED: ETOMIDATE 20 MG/10 ML VIAL IV PUSH ONE (20:00)
[2017-02-07] MEDS: RESP: ALBUTEROL 2.5 MG/IPRATROPIUM 0.5 MG NEB (SCH) INH ×2 (20:05→22:10)
[2017-02-07 20:17] LABS: BLOOD GAS BASE EXCESS -13.5 mmol/L (-2-2); BLOOD GAS CARBOXYHEMOGLOBIN 0.5 % (0-4); BLOOD GAS HCO3 13 mmol/L (22-26); BLOOD GAS METHEMOGLOBIN 0.9 % (0-2); BLOOD GAS O2 HGB SATURATION 96 % (90-100); BLOOD GAS OXYGEN CONTENT 15.8 Vol % (12.0-20.0); BLOOD GAS PCO2 38 mmHg (38-42); BLOOD GAS PO2 129 mmHG (61-120); BLOOD GAS TOTAL HGB 11.5 G/DL (12.0-16.0); TEMP CORR TO 98.6
[2017-02-07 20:18] LABS: CRITICAL VALUE YES; OXYGEN DEVICE VENT
[2017-02-07 20:19] LABS: DRAW SITE LT RADIAL; FIO2 100 %; NUMBER OF ARTERIAL PUNCTURES 1; STAT YES; ULNAR PULSE PRESENT; VENT SETTINGS VAC/14/500/PEEP5
[2017-02-07] MEDS ORDERED: ASPI1TAB91 PO (20:33)
[2017-02-07] MEDS ORDERED: RISP1TAB2 PO (20:33)
[2017-02-07] MEDS ORDERED: FENO160T PO (20:33)
[2017-02-07] MEDS ORDERED: LISI10TA3 PO (20:33)
[2017-02-07] MEDS ORDERED: ZETI10TA5 PO (20:33)
[2017-02-07] MEDS ORDERED: VESI5TAB PO (20:33)
[2017-02-07] MEDS ORDERED: FENO50TA PO (20:33)
[2017-02-07] MEDS ORDERED: BIOT1000 PO (20:33)
[2017-02-07] MEDS ORDERED: WARF-58 PO (20:33)
[2017-02-07] MEDS ORDERED: FERR325T2 PO (20:33)
[2017-02-07] MEDS ORDERED: BUPR150XL PO (20:33)
[2017-02-07] MEDS ORDERED: LOVA40TA PO (20:33)
[2017-02-07] MEDS ORDERED: NAME5TAB2 PO (20:33)
[2017-02-07] MEDS ORDERED: AMLO10TA2 PO (20:33)
[2017-02-07] MEDS ORDERED: OMEP20TA PO (20:33)
[2017-02-07] MEDS ORDERED: TRAZ1TAB45 PO (20:33)
[2017-02-07] MEDS ORDERED: METO100T PO (20:33)
[2017-02-07] MEDS ORDERED: HYDR-3366 PO (20:33)
[2017-02-07] MEDS ORDERED: ABIL2TAB2 PO (20:33)
[2017-02-07] MEDS ORDERED: TERBUTALINE INJ 1 MG/ML AMP SQ PRN (23:00)
[2017-02-07] MEDS: FAMOTIDINE 20 MG/2 ML VIAL IV PUSH SCH (23:24)
[2017-02-07] MEDS: SODIUM CHLORIDE 0.9% FLUSH 10 ML FLUSH SCH (23:24)
[2017-02-07] MEDS: DOCUSATE SODIUM 50 MG/SENNA 8.6 MG TAB PO SCH (23:24)
[2017-02-08] VITALS (17 sets, daily range): BP systolic 102–118; BP diastolic 48–67; PULSE 69–126; RESP 14–24; TEMP 97.9–99.2; O2SAT 92–99
[2017-02-08] MEDS: ISOPROTERENOL INJ 2 MG in DEXTROSE 5% IN WATER INJ 250 ML IV SCH ×2 (02:49)
[2017-02-08] MEDS: RESP: ALBUTEROL 2.5 MG/IPRATROPIUM 0.5 MG NEB (SCH) INH ×4 (03:56→21:52)
[2017-02-08] MEDS: CHLORHEXIDINE GLUCONATE 2 % 1 PACK (2 CLOTHS) TOP SCH (04:00)
--- NOTE | 2017-02-08 05:01 | RADRPT ---
EXAM DATE/TIME: 02/08/2017 04:19 [facility] COMPARISON: CHEST SINGLE AP, February 07, 2017, 19:22. INDICATIONS : Shortness of breath, possible pulmonary disease. MEDICAL HISTORY : None. SURGICAL HISTORY : None. ENCOUNTER: Subsequent ACUITY: 2 days PAIN SCORE: Non-responsive. LOCATION: Bilateral chest FINDINGS: Endotracheal tube is present in good position with tip several centimeters above the hien. Nasogast alexandria tube descends into the stomach. There has been slight improvement in aeration with decrease in co nfluence of left lung infiltrates. Cardiac contour is grossly stable. CONCLUSION: Slight improvement in aeration Larry Phelps MD on February 08, 2017 at 4:58 Board Certified Radiologist. This report was verified electronically.
[2017-02-08 05:10] LABS: AUTOMATED NEUTROPHIL # 10.3 TH/MM3 (1.8-7.7); BASOPHIL % 0.2 % (0.0-2.0); EOSINOPHIL % 0.1 % (0.0-4.0); HEMATOCRIT 31.5 % (35.0-46.0); HEMO FLAGS DIFF FINAL; LYMPH % 8.8 % (9.0-44.0); LYMPHOCYTE # 1.1 TH/MM3 (1.0-4.8); MEAN CELL VOLUME 76.7 FL (80.0-100.0); MEAN CORPUSCULAR HEMOGLOBIN 25.5 PG (27.0-34.0); MEAN CORPUSCULAR HGB CONC 33.3 % (32.0-36.0); MONO % 8.8 % (0.0-8.0); NEUT % 82.1 % (16.0-70.0); PLATELET COUNT 261 TH/MM3 (150-450); RED CELL DISTRIBUTION WIDTH 18.2 % (11.6-17.2); WHITE BLOOD COUNT 12.6 TH/MM3 (4.0-11.0)
[2017-02-08 05:11] LABS: INTERNATIONAL NORMALIZED RATIO 4.3 RATIO; PROTHROMBIN TIME - PATIENT 50.9 SEC (9.8-11.6)
[2017-02-08 05:15] LABS: BLOOD GAS BASE EXCESS -13.9 mmol/L (-2-2); BLOOD GAS HCO3 12 mmol/L (22-26); BLOOD GAS METHEMOGLOBIN 1.4 % (0-2); BLOOD GAS O2 HGB SATURATION 96 % (90-100); BLOOD GAS OXYGEN CONTENT 14.4 Vol % (12.0-20.0); BLOOD GAS PCO2 32 mmHg (38-42); BLOOD GAS PO2 146 mmHg (61-120); BLOOD GAS TOTAL HGB 10.4 G/DL (12.0-16.0); TEMP CORR TO 98.6
[2017-02-08 05:16] LABS: CRITICAL VALUE YES; FIO2 75 %; OXYGEN DEVICE VENTILATOR; VENT SETTINGS AC 14/500/5PEEP
[2017-02-08 05:17] LABS: DRAW SITE RT BRACHIAL; NUMBER OF ARTERIAL PUNCTURES 1; STAT NO
[2017-02-08 05:35] LABS: ALT (GPT) 67 U/L (10-53); ANION GAP 13 MEQ/L (5-15); AST (GOT) 82 U/L (15-37); BICARBONATE 15.8 MEQ/L (21.0-32.0); BLOOD UREA NITROGEN 32 MG/DL (7-18); CHLORIDE 111 MEQ/L (98-107); GLOMERULAR FILTRATION RATE 17 ML/MIN (>89); MAGNESIUM 1.6 MG/DL (1.5-2.5); POTASSIUM 4.2 MEQ/L (3.5-5.1); SODIUM (NA) 140 MEQ/L (136-145)
[2017-02-08 05:36] LABS: ALKALINE PHOSPHATASE 89 U/L (45-117); TOTAL BILIRUBIN ADULT 0.3 MG/DL (0.2-1.0)
[2017-02-08] MEDS: SODIUM BICARBONATE 8.4% INJ 150 MEQ in DEXTROSE 5% IN WATE 1000ML INJ 1,000 ML IV SCH ×4 (06:32→18:00)
--- NOTE | 2017-02-08 07:42 | EKG ---
Date Performed: 02/07/2017 Time Performed: 19:27:24 PTAGE: 76 years EKG: SINUS BRADYCARDIA WITH SHORT AL INTERVAL MINIMAL ST DEPRESSION PROLONGED QT INTERVAL ABNORM AL ECG PREVIOUS TRACING : 02/07/2017 16.10 Compared to the previous tracing, now in sinus bradycardia DOCTOR: Sreedhar Hicks Interpretating Date/Time 02/08/2017 07:41:43
--- NOTE | 2017-02-08 08:04 | EKG ---
Date Performed: 02/07/2017 Time Performed: 16:10:58 PTAGE: 76 years EKG: ATRIAL FIBRILLATION WITH SLOW VENTRICULAR RESPONSE POSSIBLE INFERIOR MYOCARDIAL INFARCTION ABNORMAL RHYTHM ECG INTERPRETATION BASED ON A DEFAULT AGE OF 40 YEARS PREVIOUS TRACING : 11/26/2014 10.52 Compared to the previous tracing, rate has slowed DOCTOR: Sreedhar Hicks Interpretating Date/Time 02/08/2017 08:03:10
--- NOTE | 2017-02-08 08:32 | MB ---
cc: KARINA LOPEZ MD DATE OF CONSULTATION 02/08/2017 REASON FOR CONSULTATION Syncope and bradycardia. HISTORY OF PRESENT ILLNESS Ms. Susannah Pryor is a 76-year-old patient of mine who does have a history of atrial fibrillation, hypertension and diabetes. The patient presented to the emergency room after a syncopal episode. She apparently was feeling weak and dizzy for the last month and had a syncopal episode yesterday in the bathroom. She was seen in the emergency room and reported that she was dizzy and fell hitting her face on the toilet. She presented in the emergency room with a heart rate in the 30s. The patient is currently intubated and unable to give any direct history. Thus the history is per her records. PAST MEDICAL HISTORY Significant for - 1. Atrial fibrillation with a CHADS-VASc score of 5 (greater than 75, female, hypertension and diabetes). 2. She also has a history of left renal cancer. 3. Diabetes. 4. Degenerative arthritis in her spine. 5. Migraines. 6. Anxiety. 7. Shortness of breath. PAST SURGICAL HISTORY 1. Appendectomy. 2. Hysterectomy. SOCIAL HISTORY The patient does not drink or smoke. ALLERGIES No known drug allergies. OUTPATIENT MEDICATIONS 1. Iron. 2. Fenofibrate. 3. Namenda. 4. Risperidone. 5. Trazodone. 6. Zetia. 7. Warfarin. 8. Tricor. 9. Metoprolol. 10. Lovastatin. 11. Lisinopril. 12. Gypsum. 13. Wellbutrin. 14. Amlodipine. 15. Aspirin. REVIEW OF SYSTEMS and FAMILY HISTORY Unable. PHYSICAL EXAMINATION CURRENT VITAL SIGNS: 97.7, 75, 14, with 102/48. IN GENERAL: She is a well-appearing female who is in no apparent distress, intubated on the ventilator. NECK: Free from JVD. LUNGS: Bilaterally clear to auscultation. CARDIOVASCULAR EXAMINATION: She has a normal S1 and S2. I did not appreciate any murmurs, rubs or gallops. ABDOMEN: Soft. EXTREMITIES: Free from edema. LABORATORY VALUE White count of 14.4 on arrival. Her creatinine is 2.74. The troponin is less than 0.02. ASSESSMENT AND PLAN Bradycardia - The patient was bradycardic on arrival. She is currently on dopamine. This does appear to be likely related to a combination of problems. Certainly there is a large component from her metoprolol which will wear off. Additionally, the patient does appear to be obviously in respiratory failure and with significant renal insufficiency likely due to profound dehydration. The bradycardia is most likely secondary to her profound dehydration and metoprolol. The digoxin level was quite low. Obviously we will continue to hold her metoprolol. Acute kidney injury and dehydration - This will be managed by the ICU team. Atrial fibrillation - With have a CHADS-VASc score of 5, I do agree with continuing her Coumadin. I will continue to follow with you. Karina Lopez M.D. JASON /8:02 AM /8:15 AM
[2017-02-08 08:57] LABS: CREATINE KINASE 60 U/L (26-192)
[2017-02-08] MEDS: ARTIFICIAL TEARS OPTH SOLN 15 ML BTL EACH EYE SCH ×3 (09:00→18:00)
[2017-02-08] MEDS: FAMOTIDINE 20 MG/2 ML VIAL IV PUSH SCH ×2 (09:31→21:00)
[2017-02-08] MEDS: DOCUSATE SODIUM 50 MG/SENNA 8.6 MG TAB PO SCH ×2 (09:31→21:00)
[2017-02-08] MEDS: SODIUM CHLORIDE 0.9% FLUSH 10 ML FLUSH SCH ×2 (09:32→21:00)
--- NOTE | 2017-02-08 09:48 | EKG ---
Date Performed: 02/08/2017 Time Performed: 06:45:46 PTAGE: 76 years EKG: Sinus rhythm Possible inferior infarct - age undetermined Lateral ST-T changes may be due to myocardial ischemia Abnormal ECG PREVIOUS TRACING : 02/08/2017 01.36 Compared to prior tracing no significant change DOCTOR: Sreedhar Hicks Interpretating Date/Time 02/08/2017 09:46:54
--- NOTE | 2017-02-08 10:53 | HHI.CCPN ---
Subjective Remarks/Hospital Course 02/07: 76-year-old female who presents with complaints of possible nasal bone fracture. Per medical record she was feeling weak and dizzy for the past month , reports that she was in the bathroom today and had a syncopal episode. Reports that she is feeling lightheaded and dizzy prior to this. patient reports that when she fell, she hit her face on the toilet, patient does admit to taking Coumadin as she has history of atrial fibrillation. Patient reports that she did have loss of consciousness. She is also on digoxin for rate control. In the emergency department she was found to be bradycardic at the heart rate of 30s. She does follow up with Dr. Mercer with cardiology. She became hypotensive and hypoxemic and was intubated by ED attending for airway protection. 02/08: Remains sedated, orally intubated on mechanical ventilation. On dopamine 15 mics per KG per minute and isopropyl 6 mics per minute. On tube feeds. Objective Vital Signs Date Time Temp Pulse Resp B/P Pulse Ox O2 Delivery O2 Flow Rate FiO2 02/08/17 08:52 99 55 02/08/17 07:36 76 02/08/17 07:15 98.7 20 102/49 02/07/17 20:19 Ventilator 02/07/17 18:13 15 Result Diagram: 02/08/17 0455 02/08/17 0455 Other Results Laboratory Tests Test 02/07/17 02/08/17 20:03 05:00 Blood Gas Puncture Site LT RADIAL RT BRACHIAL Blood Gas Patient Temperature 98.6 98.6 Blood Gas HCO3 13 mmol/L 12 mmol/L (22-26) (22-26) Blood Gas Base Excess -13.5 mmol/L -13.9 mmol/L (-2-2) (-2-2) Blood Gas Oxygen Saturation 96 % (90-100) 96 % (90-100) Arterial Blood pH 7.17 7.21 (7.380-7.420) (7.380-7.420) Arterial Blood Partial 38 mmHg (38-42) 32 mmHg (38-42) Pressure CO2 Arterial Blood Partial 129 mmHG 146 mmHg Pressure O2 (61-120) (61-120) Arterial Blood Oxygen Content 15.8 Vol % 14.4 Vol % (12.0-20.0) (12.0-20.0) Arterial Blood 0.5 % (0-4) 1.0 % (0-4) Carboxyhemoglobin Arterial Blood Methemoglobin 0.9 % (0-2) 1.4 % (0-2) Blood Gas Hemoglobin 11.5 G/DL 10.4 G/DL (12.0-16.0) (12.0-16.0) Oxygen Delivery Device VENT VENTILATOR Blood Gas Ventilator Setting VAC/14/500/PEEP5 AC 14/500/5PEEP Blood Gas Inspired Oxygen 100 % 75 % Imaging Last 24 hours Impressions Chest X-Ray 02/07/17 191 Signed Impressions: Service Date/Time: Tuesday, February 07, 2017 19:22 - CONCLUSION: 1. Tip of the endotracheal tube within the orifice of the right mainstem bronchus. 2. Volume loss involving the left hemithorax likely due to the position of the endotracheal tube. 3. Patchy parenchymal consolidation throughout the left lung. This may be in part due to the volume loss representing atelectasis. Armaan Suresh Jr., MD Head CT 02/07/178 Signed Impressions: Service Date/Time: Tuesday, February 07, 2017 17:54 - CONCLUSION: 1. Chronic small vessel ischemic change. 2. Area of encephalomalacia involving the left frontal lobe. 3. No acute intracranial abnormality. Armaan Suresh Jr., MD Chest X-Ray 02/07/171617 Signed Impressions: Service Date/Time: Tuesday, February 07, 2017 16:36 - CONCLUSION: No acute cardiopulmonary disease identified. Angel Laguna MD Cervical Spine CT 02/07/17 1618 Signed Impressions: Service Date/Time: Tuesday, February 07, 2017 17:54 - CONCLUSION: No evidence of fracture. Degenerative findings most prominent at C5-6. Angel Laguna MD Maxillofacial CT 02/07/17 0000 Signed Impressions: Service Date/Time: Tuesday, February 07, 2017 17:54 - CONCLUSION: Normal examination. Armaan Suresh Jr., MD Objective Remarks GENERAL: Obese elderly woman sedated and intubated SKIN: Warm and dry. HEAD: Normocephalic. EYES: No scleral icterus. No injection or drainage. NECK: Supple, trachea midline. No JVD or lymphadenopathy. CARDIOVASCULAR: Regular rate and rhythm without murmurs, gallops, or rubs. RESPIRATORY: Breath sounds equal bilaterally. No accessory muscle use. GASTROINTESTINAL: Abdomen soft, non-tender, nondistended. MUSCULOSKELETAL: No cyanosis, or edema. BACK: Nontender without obvious deformity. No CVA tenderness. EXTREMITIES: No clubbing cyanosis or edema A/P Assessment and Plan Neuro: Syncope On sedation with Versed/fentanyl. We will discontinue fentanyl gtt. Daily sedation vacation. Follow neuro status. Acute respiratory failure - Intubated for an airway protection - Due to cardiogenic shock - SBT and weaning when hemodynamically more stable. Bradycardia/ hypotension - Most likely due to metoprolol - Digoxin level low-continue to hold digoxin and metoprolol. - Agonists administered in the ED - Continue Dopamine drip, attempt to titrate off Isoproterenol gtt. Follow-up 2 -D echo - Further recommendations per cardiology-Dr. Mercer Atrial fibrillation - Cardiology evaluation - Hold digoxin/metoprolol due to bradycardia - Continue Coumadin anticoagulation Acute kidney injury - Dehydration - Unknown baseline creatinine - Gentle hydration IV - Metal urine output and creatinine and electrolytes Diabetes mellitus - Insulin sliding scale DVT GI prophylaxis - Coumadin/Pepcid Critical Care: The total critical care time was 35 minutes. Time to perform other separately billable procedures was not included in the critical care time. Efren Webster MD Feb 08, 2017 10:53
--- NOTE | 2017-02-08 11:28 | EKG ---
Date Performed: 02/08/2017 Time Performed: 01:36:40 PTAGE: 76 years EKG: Sinus rhythm Possible inferior infarct - age undetermined Septal and lateral ST-T changes are nonspecific Abnorma l ECG PREVIOUS TRACING : 02/07/2017 19.27 Compared to prior tracing no significant change DOCTOR: Sreedhar Hicks Interpretating Date/Time 02/08/2017 11:27:34
--- NOTE | 2017-02-08 12:42 | EC ---
Study Study Date:02/08/2017 STUDY CONCLUSIONS SUMMARY - Left ventricle: The cavity size was normal. Wall thickness was normal. Systolic function was normal. The estimated ejection fraction was in the range of 55% to 60%. Wall motion was normal; there were no regional wall motion abnormalities. - Mitral valve: Calcified annulus. Mild regurgitation. - Tricuspid valve: Mild regurgitation. - Pulmonary arteries: PA peak pressure: 41mm Hg (S). If LV function is below 40, please consider prescribing an ACEI or ARB or document rationale for non-use. PROCEDURE DATA STUDY STATUS: Elective. Procedure: Transthoracic echocardiography. Image quality was good. Scanning was performed from the parasternal, apical, and subcostal acoustic windows. Study completion: The patient tolerated the procedure well. Transthoracic echocardiography. M-mode, complete 2D, complete spectral Doppler, and color Doppler. Patient status: Inpatient. CARDIAC ANATOMY LEFT VENTRICLE: The cavity size was normal. Wall thickness was normal. Systolic function was normal. The estimated ejection fraction was in the range of 55% to 60%. Wall motion was normal; there were no regional wall motion abnormalities. AORTIC VALVE: Trileaflet; normal thickness leaflets. Doppler: Transvalvular velocity was within the normal range. There was no stenosis. No regurgitation. AORTA: Aortic root: The aortic root was normal in size. MITRAL VALVE: Calcified annulus. Doppler: Transvalvular velocity was within the normal range. There was no evidence for stenosis. Mild regurgitation. Peak gradient: 3mm Hg (D). LEFT ATRIUM: The atrium was normal in size. RIGHT VENTRICLE: The cavity size was normal. Wall thickness was normal. PULMONIC VALVE: Doppler: Transvalvular velocity was within the normal range. There was no evidence for stenosis. No regurgitation. TRICUSPID VALVE: Structurally normal valve. Doppler: Transvalvular velocity was within the normal range. Mild regurgitation. PULMONARY ARTERY: The main pulmonary artery was normal-sized. Systolic pressure was within the normal range. RIGHT ATRIUM: The atrium was normal in size. PERICARDIUM: There was no pericardial effusion. SYSTEMIC VEINS: Inferior vena cava: The vessel was normal in size. BASIC MEASUREMENTS ADULT Normal Left ventricle LV internal dimension, ED, chordal level, *42.6 mm 43-52 PLAX LV internal dimension, ES, chordal level, 31.2 mm 23-38 PLAX Fractional shortening, chordal level, PLAX *27 % >29 LV posterior wall thickness, ED 11.6 mm IVS/LVPW ratio, ED 0.93 <1.3 Ventricular septum Septal thickness, ED 10.8 mm Aortic valve Leaflet separation 20 mm 15-26 Right ventricle RV internal dimension, ED, PLAX 29.2 mm 19-38 BASIC MEASUREMENTS ADULT Normal Aortic valve Leaflet separation 20 mm 15-26 Aorta Root diameter, ED 35 mm 20-37 Left atrium Anterior-posterior dimension, ES 38 mm 19-40 LA/aortic root ratio 1.09 DOPPLER MEASUREMENTS ADULT Normal Main pulmonary artery Pressure, S *41 mm Hg =30 Mitral valve Peak E-wave velocity 85.9 cm/s Peak A-wave velocity 75.5 cm/s Peak gradient, D 3 mm Hg Peak E/A ratio 1.1 Tricuspid valve Regurgitant peak velocity 277 cm/s Peak RV-RA gradient, S 31 mm Hg Systemic veins Estimated CVP 10 mm Hg Right ventricle RV pressure, S *41 mm Hg <30 LEGEND: Mean values are shown as u=mean value. Asterisk (*) rodoñez values outside specified normal range. Prepared and signed by Travis Barbosa [id number]
[2017-02-09] VITALS (17 sets, daily range): BP systolic 90–138; BP diastolic 54–85; PULSE 101–132; RESP 12–20; TEMP 97.9–99.8; O2SAT 86–96
[2017-02-09] MEDS: CHLORHEXIDINE GLUCONATE 2 % 1 PACK (2 CLOTHS) TOP SCH (01:10)
[2017-02-09] MEDS: RESP: ALBUTEROL 2.5 MG/IPRATROPIUM 0.5 MG NEB (SCH) INH ×4 (04:56→21:25)
[2017-02-09] MEDS: SODIUM BICARBONATE 8.4% INJ 150 MEQ in DEXTROSE 5% IN WATE 1000ML INJ 1,000 ML IV SCH ×4 (05:43→16:52)
[2017-02-09 06:15] LABS: AUTOMATED NEUTROPHIL # 8.3 TH/MM3 (1.8-7.7); BASOPHIL % 0.1 % (0.0-2.0); EOSINOPHIL % 0.1 % (0.0-4.0); HEMATOCRIT 32.1 % (35.0-46.0); HEMO FLAGS DIFF FINAL; LYMPH % 7.3 % (9.0-44.0); LYMPHOCYTE # 0.7 TH/MM3 (1.0-4.8); MEAN CELL VOLUME 74.8 FL (80.0-100.0); MEAN CORPUSCULAR HEMOGLOBIN 24.8 PG (27.0-34.0); MEAN CORPUSCULAR HGB CONC 33.2 % (32.0-36.0); MONO % 5.8 % (0.0-8.0); NEUT % 86.7 % (16.0-70.0); PLATELET COUNT 266 TH/MM3 (150-450); RED CELL DISTRIBUTION WIDTH 18.8 % (11.6-17.2); WHITE BLOOD COUNT 9.5 TH/MM3 (4.0-11.0)
[2017-02-09 06:53] LABS: ALKALINE PHOSPHATASE 88 U/L (45-117); ALT (GPT) 49 U/L (10-53); ANION GAP 7 MEQ/L (5-15); AST (GOT) 29 U/L (15-37); BICARBONATE 26.2 MEQ/L (21.0-32.0); BLOOD UREA NITROGEN 21 MG/DL (7-18); CHLORIDE 107 MEQ/L (98-107); GLOMERULAR FILTRATION RATE 34 ML/MIN (>89); POTASSIUM 4.4 MEQ/L (3.5-5.1); SODIUM (NA) 140 MEQ/L (136-145); TOTAL BILIRUBIN ADULT 0.4 MG/DL (0.2-1.0)
--- NOTE | 2017-02-09 07:09 | PD.CARD.PN ---
Subjective Subjective Remarks Pt responsive on vent Objective Vital Signs / I&O Vital Signs Date Time Temp Pulse Resp B/P Pulse Ox O2 Delivery O2 Flow Rate FiO2 02/09/17 04:56 94 55 02/09/17 03:00 60 02/09/17 03:00 99.1 126 15 111/60 94 02/08/17 23:00 60 02/08/17 23:00 99.1 126 15 103/67 94 02/08/17 19:00 60 02/08/17 19:00 99.2 116 24 118/63 93 02/08/17 16:22 95 50 02/08/17 15:00 50 02/08/17 15:00 98.3 69 17 113/55 94 02/08/17 15:00 69 02/08/17 12:00 99 50 02/08/17 11:13 76 02/08/17 11:12 98.5 78 16 105/50 95 02/08/17 11:12 65 02/08/17 08:52 99 55 02/08/17 07:40 99 65 02/08/17 07:36 76 02/08/17 07:15 98.7 80 20 102/49 95 02/08/17 07:15 65 I/O 02/08/17 02/08/17 02/08/17 02/09/17 02/09/17 02/09/17 07:00 15:00 23:00 07:00 15:00 23:00 Intake Total 1978 ml 2683 ml 2200 ml Output Total 200 ml 550 ml 2050 ml Balance 1778 ml 2133 ml 150 ml Intake IV Total 1932 ml 2200 ml 1768 ml Tube Feeding 46 ml 363 ml 372 ml Tube Irrigant 60 ml Other 120 ml Output Urine Total 200 ml 550 ml 2050 ml Stool Total 0 ml # Bowel Movements 0 1 Physical Exam GENERAL: Well developed, well nourished. No acute distress on vent HEENT: Jugular venous pressure is normal. CHEST: Lungs clear to auscultation bilaterally. Unlabored respiratory effort. CARDIAC: irregular rate and rhythm, tachy, without S3, S4, or murmur. ABDOMEN: Soft, nontender, no hepatosplenomegaly. Bowel sounds present. EXTREMITIES: No clubbing, cyanosis, or edema. Laboratory Laboratory Tests Test 02/08/17 02/09/17 12:48 05:30 Total Creatine Kinase 81 U/L White Blood Count 9.5 TH/MM3 Red Blood Count 4.30 MIL/MM3 Hemoglobin 10.7 GM/DL Hematocrit 32.1 % Mean Corpuscular Volume 74.8 FL Mean Corpuscular Hemoglobin 24.8 PG Mean Corpuscular Hemoglobin 33.2 % Concent Red Cell Distribution Width 18.8 % Platelet Count 266 TH/MM3 Mean Platelet Volume 7.7 FL Neutrophils (%) (Auto) 86.7 % Lymphocytes (%) (Auto) 7.3 % Monocytes (%) (Auto) 5.8 % Eosinophils (%) (Auto) 0.1 % Basophils (%) (Auto) 0.1 % Neutrophils # (Auto) 8.3 TH/MM3 Lymphocytes # (Auto) 0.7 TH/MM3 Monocytes # (Auto) 0.5 TH/MM3 Eosinophils # (Auto) 0.0 TH/MM3 Basophils # (Auto) 0.0 TH/MM3 CBC Comment DIFF FINAL Differential Comment Sodium Level 140 MEQ/L Potassium Level 4.4 MEQ/L Chloride Level 107 MEQ/L Carbon Dioxide Level 26.2 MEQ/L Anion Gap 7 MEQ/L Blood Urea Nitrogen 21 MG/DL Creatinine 1.51 MG/DL Estimat Glomerular Filtration 34 ML/MIN Rate Random Glucose 171 MG/DL Calcium Level 8.2 MG/DL Total Bilirubin 0.4 MG/DL Aspartate Amino Transf 29 U/L (AST/SGOT) Alanine Aminotransferase 49 U/L (ALT/SGPT) Alkaline Phosphatase 88 U/L Total Protein 5.9 GM/DL Albumin 2.2 GM/DL Assessment and Plan Assessment and Plan Bradycardia - The patient was bradycardic on arrival. She is currently on dopamine. This does appear to be likely related to a combination of problems. Certainly there is a large component from her metoprolol which will wear off. The digoxin level was quite low. Dehydration exacerbating problem as well. 6/2 tachy today- nursing weaning dopamine Respiratory Failure- on vent per [facility] -I do not feel bradycardia explains her respiratory failure Acute kidney injury and dehydration - better, per [facility] Atrial fibrillation - CHADS-VASc score of 5, -Coumadin for target INR 2-3. -wean dopamine Evi Mercer MD Feb 09, 2017 07:09
[2017-02-09] MEDS: FAMOTIDINE 20 MG/2 ML VIAL IV PUSH SCH ×2 (08:50→21:48)
[2017-02-09] MEDS: SODIUM CHLORIDE 0.9% FLUSH 10 ML FLUSH SCH ×2 (08:50→21:49)
[2017-02-09] MEDS: DOCUSATE SODIUM 50 MG/SENNA 8.6 MG TAB PO SCH ×2 (08:50→21:00)
[2017-02-09] MEDS: ARTIFICIAL TEARS OPTH SOLN 15 ML BTL EACH EYE SCH ×3 (08:55→18:00)
--- NOTE | 2017-02-09 09:27 | HHI.CCPN ---
Subjective Remarks/Hospital Course 02/07: 76-year-old female who presents with complaints of possible nasal bone fracture. Per medical record she was feeling weak and dizzy for the past month , reports that she was in the bathroom today and had a syncopal episode. Reports that she is feeling lightheaded and dizzy prior to this. patient reports that when she fell, she hit her face on the toilet, patient does admit to taking Coumadin as she has history of atrial fibrillation. Patient reports that she did have loss of consciousness. She is also on digoxin for rate control. In the emergency department she was found to be bradycardic at the heart rate of 30s. She does follow up with Dr. Mercer with cardiology. She became hypotensive and hypoxemic and was intubated by ED attending for airway protection. 02/08: Remains sedated, orally intubated on mechanical ventilation. On dopamine 15 mics per KG per minute and isopropyl 6 mics per minute. On tube feeds. 02/09: Arouses of sedation, orally intubated on mechanical ventilation. Tolerating tube feeds. Off Isuprel. Dopamine at 5 mics per kg per minute this morning. Objective Vital Signs Date Time Temp Pulse Resp B/P Pulse Ox O2 Delivery O2 Flow Rate FiO2 02/09/17 09:04 90 50 02/09/17 08:00 99.8 120 16 90/57 02/07/17 20:19 Ventilator 02/07/17 18:13 15 Intake and Output 02/08/17 02/08/17 02/09/17 08:00 16:00 00:00 Intake Total 1978 ml 2683 ml Output Total 200 ml 550 ml Balance 1778 ml 2133 ml Result Diagram: 02/09/17 0530 02/09/17 0530 Imaging Last 24 hours Impressions Chest X-Ray 02/07/17 1912 Signed Impressions: Service Date/Time: Tuesday, February 07, 2017 19:22 - CONCLUSION: 1. Tip of the endotracheal tube within the orifice of the right mainstem bronchus. 2. Volume loss involving the left hemithorax likely due to the position of the endotracheal tube. 3. Patchy parenchymal consolidation throughout the left lung. This may be in part due to the volume loss representing atelectasis. Armaan Suresh Jr., MD Head CT 02/07/17 1618 Signed Impressions: Service Date/Time: Tuesday, February 07, 2017 17:54 - CONCLUSION: 1. Chronic small vessel ischemic change. 2. Area of encephalomalacia involving the left frontal lobe. 3. No acute intracranial abnormality. Armaan Suresh Jr., MD Chest X-Ray 02/07/17 1618 Signed Impressions: Service Date/Time: Tuesday, February 07, 2017 16:36 - CONCLUSION: No acute cardiopulmonary disease identified. Angel Laguna MD Cervical Spine CT 02/07/17 1618 Signed Impressions: Service Date/Time: Tuesday, February 07, 2017 17:54 - CONCLUSION: No evidence of fracture. Degenerative findings most prominent at C5-6. Angel Laguna MD Maxillofacial CT 02/07/17 0000 Signed Impressions: Service Date/Time: Tuesday, February 07, 2017 17:54 - CONCLUSION: Normal examination. Armaan Suresh Jr., MD Objective Remarks GENERAL: Obese elderly woman sedated, and intubated SKIN: Warm and dry. HEAD/ Neuro: Normocephalic. Sedated, arousable, moves both upper extremities, orally intubated on mechanical ventilation EYES: No scleral icterus. No injection or drainage. NECK: Supple, trachea midline. No JVD or lymphadenopathy. CARDIOVASCULAR: Regular rate and rhythm without murmurs, gallops, or rubs. RESPIRATORY: Orally intubated on mechanical ventilation, Breath sounds equal bilaterally. No wheezing or crackles. Scattered rhonchi GASTROINTESTINAL: Abdomen soft, non-tender, nondistended. MUSCULOSKELETAL: No cyanosis, or edema. BACK: Nontender without obvious deformity. No CVA tenderness. EXTREMITIES: No clubbing cyanosis or edema A/P Assessment and Plan Neuro: Syncope On sedation with Versed. Off fentanyl gtt. Daily sedation vacation. Follow neuro status. Acute respiratory failure - Intubated for airway protection - On mechanical ventilation. Daily C Pap trials to decide extubation. Bradycardia/ hypotension - Most likely due to metoprolol - Digoxin level low-continue to hold digoxin and metoprolol. - Agonists administered in the ED - Continue Dopamine drip, attempt to titrate off Isoproterenol gtt. Follow-up 2 -D echo - Further recommendations per cardiology-Dr. Mercer Atrial fibrillation - Cardiology evaluation - Hold digoxin/metoprolol due to bradycardia - Continue Coumadin anticoagulation Acute kidney injury - Dehydration - Unknown baseline creatinine - Gentle hydration IV - Metal urine output and creatinine and electrolytes Diabetes mellitus - Insulin sliding scale DVT GI prophylaxis - Coumadin/Pepcid Critical Care: The total critical care time was 35 minutes. Time to perform other separately billable procedures was not included in the critical care time. Efren Webster MD Feb 09, 2017 09:27
[2017-02-09] MEDS ORDERED: FUROSEMIDE 20 MG/2 ML VIAL IV PUSH ONE (10:00)
[2017-02-09] MEDS: METOPROLOL TARTRATE 5 MG/5 ML VIAL IV PUSH SCH ×3 (10:03→21:48)
--- NOTE | 2017-02-09 10:27 | RADRPT ---
EXAM DATE/TIME: 02/09/2017 09:39 [facility] COMPARISON: CHEST SINGLE AP, February 08, 2017, 4:19. INDICATIONS : Follow Up Respiratory Failure MEDICAL HISTORY : Hypertension. Renal Ca, Atrial Fibrillation SURGICAL HISTORY : None. ENCOUNTER: Subsequent ACUITY: 3 days PAIN SCORE: 0/10 LOCATION: Bilateral chest FINDINGS: Single AP view of the chest. Left lower lobe consolidation with air bronchograms more defined than on comparison study. Patchy left midlung opacity is also now seen. Right lung clear. No evidence of ple ural effusion or pneumothorax. Cardiomediastinal silhouette unchanged. CONCLUSION: Increasing left lower lobe consolidation. Angel Laguna MD on February 09, 2017 at 10:25 Board Certified Radiologist. This report was verified electronically.
[2017-02-09] MEDS ORDERED: DIGOXIN 0.5 MG/2 ML VIAL IV PUSH ONE (11:00)
[2017-02-09] MEDS: MORPHINE SULFATE 4 MG/ML INJ IV PRN ×2 (12:34→21:51)
--- NOTE | 2017-02-09 12:35 | EKG ---
Date Performed: 02/08/2017 Time Performed: 20:01:00 PTAGE: 76 years EKG: Atrial fibrillation with rapid ventricular response Extensive ST-T changes may be due to my ocardial ischemia Abnormal ECG Atrial fibrillation is new since prior tracing Clinical correlation is recommended. PREVIOUS TRACING : 02/08/2017 06.45 DOCTOR: Sotero Cruz Interpretating Date/Time 02/09/2017 12:34:13
[2017-02-09] MEDS ORDERED: AMIODARONE 150 MG/D5W 97 ML BOLUS 60 MINUTES IV ONE ×2 (14:00)
[2017-02-09] MEDS: AMIODARONE INJ 450 MG in D5W (EXCEL BAG) 241 ML IV SCH (15:02)
[2017-02-10] VITALS (10 sets, daily range): BP systolic 100–166; BP diastolic 54–84; PULSE 65–116; RESP 12–22; TEMP 97.4–98.8; O2SAT 93–97
[2017-02-10] MEDS: AMIODARONE INJ 450 MG in D5W (EXCEL BAG) 241 ML IV SCH ×2 (02:54→16:07)
[2017-02-10] MEDS: MORPHINE SULFATE 4 MG/ML INJ IV PRN (02:55)
[2017-02-10] MEDS: CHLORHEXIDINE GLUCONATE 2 % 1 PACK (2 CLOTHS) TOP SCH (04:00)
[2017-02-10] MEDS: RESP: ALBUTEROL 2.5 MG/IPRATROPIUM 0.5 MG NEB (SCH) INH ×4 (04:37→22:18)
[2017-02-10] MEDS: METOPROLOL TARTRATE 5 MG/5 ML VIAL IV PUSH SCH ×4 (05:01→22:00)
[2017-02-10] MEDS: SODIUM BICARBONATE 8.4% INJ 150 MEQ in DEXTROSE 5% IN WATE 1000ML INJ 1,000 ML IV SCH ×2 (05:02)
--- NOTE | 2017-02-10 08:28 | HHI.CCPN ---
Subjective Remarks/Hospital Course 02/07: 76-year-old female who presents with complaints of possible nasal bone fracture. Per medical record she was feeling weak and dizzy for the past month , reports that she was in the bathroom today and had a syncopal episode. Reports that she is feeling lightheaded and dizzy prior to this. patient reports that when she fell, she hit her face on the toilet, patient does admit to taking Coumadin as she has history of atrial fibrillation. Patient reports that she did have loss of consciousness. She is also on digoxin for rate control. In the emergency department she was found to be bradycardic at the heart rate of 30s. She does follow up with Dr. Mercer with cardiology. She became hypotensive and hypoxemic and was intubated by ED attending for airway protection. 02/08: Remains sedated, orally intubated on mechanical ventilation. On dopamine 15 mics per KG per minute and isopropyl 6 mics per minute. On tube feeds. 02/09: Arouses off sedation, orally intubated on mechanical ventilation. Tolerating tube feeds. Off Isuprel. Dopamine at 5 mics per kg per minute this morning. 02/10: Patient extubated on 02/09. On partial rebreather currently. Diuresed with Lasix yesterday. Started on amiodarone drip per cardiology on he remains in A. fib with heart rate going up to 130s. Received 1 dose of digoxin 0.5 mg IV on 02/09 and was started on IV Lopressor. She is awake and alert, following commands. Objective Vital Signs Date Time Temp Pulse Resp B/P Pulse Ox O2 Delivery O2 Flow Rate FiO2 02/10/17 06:15 93 Partial Rebreather 13.00 02/10/17 03:00 116 02/10/17 03:00 97.7 18 130/81 02/09/17 09:55 70 Intake and Output 02/09/17 02/09/17 02/09/17 07:59 15:59 23:59 Intake Total 2200 ml 1284 ml Output Total 2050 ml 2950 ml Balance 150 ml -1666 ml Result Diagram: 02/09/17 0530 02/09/17 0530 Imaging Last 24 hours Impressions Chest X-Ray 02/07/17 1912 Signed Impressions: Service Date/Time: Tuesday, February 07, 2017 19:22 - CONCLUSION: 1. Tip of the endotracheal tube within the orifice of the right mainstem bronchus. 2. Volume loss involving the left hemithorax likely due to the position of the endotracheal tube. 3. Patchy parenchymal consolidation throughout the left lung. This may be in part due to the volume loss representing atelectasis. Armaan Suresh Jr., MD Head CT 02/07/17 1618 Signed Impressions: Service Date/Time: Tuesday, February 07, 2017 17:54 - CONCLUSION: 1. Chronic small vessel ischemic change. 2. Area of encephalomalacia involving the left frontal lobe. 3. No acute intracranial abnormality. Armaan Suresh Jr., MD Chest X-Ray 02/07/171617 Signed Impressions: Service Date/Time: Tuesday, February 07, 2017 16:36 - CONCLUSION: No acute cardiopulmonary disease identified. Angel Laguna MD Cervical Spine CT 02/07/17 1618 Signed Impressions: Service Date/Time: Tuesday, February 07, 2017 17:54 - CONCLUSION: No evidence of fracture. Degenerative findings most prominent at C5-6. Angel Laguna MD Maxillofacial CT 02/07/17 0000 Signed Impressions: Service Date/Time: Tuesday, February 07, 2017 17:54 - CONCLUSION: Normal examination. Armaan Suresh Jr., MD Objective Remarks GENERAL: Obese elderly woman laying in bed on partial rebreather. SKIN: Warm and dry. HEAD/ Neuro: Normocephalic. Pallor present. Awake alert oriented 3, moving all 4 extremities. EYES: No scleral icterus. No injection or drainage. NECK: Supple, trachea midline. No JVD or lymphadenopathy. CARDIOVASCULAR: Regular rate and rhythm without murmurs, gallops, or rubs. RESPIRATORY: Air entry decreased bilaterally at bases. No wheezing or crackles. Scattered rhonchi GASTROINTESTINAL: Abdomen soft, non-tender, nondistended. MUSCULOSKELETAL: No cyanosis, or edema. EXTREMITIES: No clubbing cyanosis or edema A/P Assessment and Plan Neuro: Syncope Sedatives discontinued on 02/09 and patient was extubated. Follow neuro status. Acute respiratory failure -Extubated on 02/09 following C Pap trial. On partial rebreather currently being diuresed. Bronchodilators as needed. Initiating Levaquin for left lower lobe consolidation to cover for pneumonia. Bradycardia/ hypotension(resolved) A. fib with RVR - Most likely due to metoprolol - Digoxin level low on admission. - off Isoproterenol/ dopamine gtt. Follow-up 2-D echo - Metoprolol 2.5 g IV every 6 hourly started on 02/09 for A. fib with RVR and increase to 5 mg IV every 6 hourly on 02/10. Started on amiodarone drip by cardiology on 02/09. Being diuresed with Lasix to mobilize fluid - Further recommendations per cardiology-Dr. Mercer - Continue Coumadin anticoagulation Acute kidney injury -Received IV fluids earlier on admission. - Unknown baseline creatinine -Strict intake output, monitor and replete electro lites, follow BUN/creatinine. - Being diuresed with Lasix to mobilize fluid Diabetes mellitus - Insulin sliding scale DVT GI prophylaxis - Coumadin/Pepcid Efren Webster MD Feb 10, 2017 08:28
[2017-02-10] MEDS ORDERED: FUROSEMIDE 20 MG/2 ML VIAL IV PUSH ONE (09:30)
[2017-02-10] MEDS ORDERED: POTASSIUM CHLORIDE 20 MEQ CONTROLLED RELEASE TAB PO ONE (09:30)
[2017-02-10] MEDS: LEVOFLOXACIN 500 MG PREMIX INJ 100 ML IV SCH (10:07)
[2017-02-10] MEDS: FAMOTIDINE 20 MG/2 ML VIAL IV PUSH SCH ×2 (10:08→21:00)
[2017-02-10] MEDS: DOCUSATE SODIUM 50 MG/SENNA 8.6 MG TAB PO SCH ×2 (10:08→21:00)
[2017-02-10] MEDS: ARTIFICIAL TEARS OPTH SOLN 15 ML BTL EACH EYE SCH ×3 (10:09→18:00)
[2017-02-10] MEDS: SODIUM CHLORIDE 0.9% FLUSH 10 ML FLUSH SCH ×2 (10:09→21:00)
--- NOTE | 2017-02-10 11:54 | PD.CARD.PN ---
Subjective Subjective Remarks Pt was extubated, doing well. Objective Medications Administered Medications Medications (Trade) Dose Ordered Sig/Brandon Route PRN Reason Start Time Stop Time Status Last Admin Dose Admin Isoproterenol HCl/ Dextrose (Isuprel Inj/D5W Inj) 260 ml @ 0 mls/hr TITRATE IV 02/07/17 18:00 02/08/17 02:49 Sodium Chloride (NS Flush) 2 ml BID .XX 02/07/17 21:00 02/10/17 10:09 Morphine Sulfate (Morphine Inj) 2 mg Q2H PRN IV PAIN SCALE 6 TO 10 02/07/17 19:15 02/10/17 02:55 Famotidine (Pepcid Inj) 10 mg Q12HR IV PUSH 02/07/17 21:00 02/10/17 10:08 Artificial Tears (Tears Naturale Opth Soln) 1 drop TID EACH EYE 02/08/17 09:00 02/10/17 10:09 Miscellaneous Information 1 [id number] XX 02/07/17 19:15 02/07/17 23:24 Chlorhexidine Gluconate (Chlorhexidine 2% Cloth) 3 pack Taper DAILY@04 TOP 02/08/17 04:00 02/04/18 03:59 02/09/17 01:10 Senna/Docusate Sodium 1 tab 1 tab BID PO 02/07/17 21:00 02/10/17 10:08 Midazolam HCl 100 ml @ 0 mls/hr TITRATE IV 02/07/17 19:15 02/07/17 21:47 Dopamine HCl/ Dextrose 500 ml @ 9.113 mls/ hr TITRATE IV 02/07/17 23:00 02/09/17 05:43 Sodium Bicarbonate 150 meq/Dextrose 1,150 ml @ 100 mls/hr [id number] IV 02/08/17 06:30 02/10/17 05:02 Amiodarone HCl/ Dextrose (Cordarone Inj/ D5W ([place]) Inj) 250 ml @ 0 mls/hr CONTINUOUS IV 02/09/17 14:00 02/10/17 02:54 Metoprolol Tartrate 5 mg 5 mg Q6H IV PUSH 02/10/17 10:00 02/10/17 10:07 Levofloxacin/ Dextrose (Levaquin 500 Mg Premix Inj) 100 ml @ 100 mls/hr Q24H IV 02/10/17 10:00 02/10/17 10:07 Vital Signs / I&O Vital Signs Date Time Temp Pulse Resp B/P Pulse Ox O2 Delivery O2 Flow Rate FiO2 02/10/17 11:00 107 02/10/17 11:00 98.8 107 22 112/81 96 02/10/17 09:42 95 Partial Rebreather 13.00 02/10/17 07:00 98.4 95 22 112/81 97 02/10/17 07:00 95 02/10/17 06:15 93 Partial Rebreather 13.00 02/10/17 03:00 116 02/10/17 03:00 97.7 114 18 130/81 97 02/10/17 03:00 18 02/09/17 23:00 98.2 124 18 132/73 94 02/09/17 23:00 127 02/09/17 21:26 96 Partial Rebreather 15.00 02/09/17 19:00 97.9 118 18 138/85 95 02/09/17 19:00 118 02/09/17 16:00 132 02/09/17 15:00 119 02/09/17 15:00 98.2 122 20 92/75 93 02/09/17 12:00 119 I/O 02/09/17 02/09/17 02/09/17 02/10/17 02/10/17 02/10/17 07:00 15:00 23:00 07:00 15:00 23:00 Intake Total 2200 ml 1284 ml 1762 ml Output Total 2050 ml 2950 ml 2800 ml Balance 150 ml -1666 ml -1038 ml Intake IV Total 1768 ml 1163 ml 1762 ml Tube Feeding 372 ml 121 ml Tube Irrigant 60 ml Output Urine Total 2050 ml 2950 ml 2800 ml # Bowel Movements 1 1 0 Physical Exam GENERAL: This is a well-nourished, well-developed patient, in no apparent distress. CARDIOVASCULAR: Regular rate and rhythm without murmurs, gallops, or rubs. RESPIRATORY: Clear to auscultation. Breath sounds equal bilaterally. No wheezes , rales, or rhonchi. GASTROINTESTINAL: Abdomen soft, non-tender, nondistended. Normal active bowel sounds MUSCULOSKELETAL: Extremities without clubbing, cyanosis, or edema. NEURO: Alert & Oriented x4 to person, place, time, situation. Moves all ext x4 Imaging Last Impressions Chest X-Ray 02/09/17 0000 Signed Impressions: Service Date/Time: Thursday, February 09, 2017 09:39 - CONCLUSION: Increasing left lower lobe consolidation. Angel Laguna MD Head CT 02/07/17 1618 Signed Impressions: Service Date/Time: Tuesday, February 07, 2017 17:54 - CONCLUSION: 1. Chronic small vessel ischemic change. 2. Area of encephalomalacia involving the left frontal lobe. 3. No acute intracranial abnormality. Armaan Suresh Jr., MD Cervical Spine CT 02/07/17 1618 Signed Impressions: Service Date/Time: Sunday, February 07, 2017 17:54 - CONCLUSION: No evidence of fracture. Degenerative findings most prominent at C5-6. Angel Laguna MD Maxillofacial CT 02/07/17 0000 Signed Impressions: Service Date/Time: Tuesday, February 07, 2017 17:54 - CONCLUSION: Normal examination. Armaan Suresh Jr., MD Assessment and Plan Problem List: (1) Cardiogenic shock Assessment and Plan: multi-organ involvement, improved w/ fluids and dopamine which is now off; Cr. decreasing (2) Atrial fibrillation Assessment and Plan: currently on amio ggt, will add low dose cardizem try to get her off ggt. Will ask for pharmacy to dose warfarin Joey Patel MD Feb 10, 2017 11:54
[2017-02-10] MEDS ORDERED: PHENYLEPH/NS 1000 MCG/10 ML SYR IV ONE (12:00)
[2017-02-10] MEDS ORDERED: SODIUM CHLORID 0.9% 500 ML INJ 500 ML IV ONE (12:00)
[2017-02-10] MEDS ORDERED: ETOMIDATE 20 MG/10 ML VIAL IV PUSH ONE (12:00)
[2017-02-10] MEDS ORDERED: LACTATED RINGER'S 1000 ML INJ 1,000 ML IV ONE (12:00)
[2017-02-10] MEDS ORDERED: NORMOSOL R INJ 2,000 ML IV ONE (12:00)
[2017-02-10] MEDS ORDERED: ONDANSETRON HCL 4 MG/2 ML VIAL IV PUSH ONE (12:00)
[2017-02-10 13:00] LABS: INTERNATIONAL NORMALIZED RATIO 1.9 RATIO; PROTHROMBIN TIME - PATIENT 21.4 SEC (9.8-11.6)
[2017-02-10] MEDS: DILTIAZEM HCL 30 MG TAB PO SCH ×3 (13:29→21:00)
[2017-02-10] MEDS: ACETAMINOPHEN 325 MG TAB PO PRN (13:50)
[2017-02-10] MEDS ORDERED: WARFARIN SOD 3 MG TAB PO SCH (16:00)
[2017-02-10] MEDS ORDERED: SODIUM CHLOR 0.9% 250 ML INJ 250 ML IV ONE ×2 (17:45→19:00)
[2017-02-10] MEDS ORDERED: PHYTONADIONE INJ 10 MG in SODIUM CHLORIDE 0.9% INJ 50 ML IV ONE (17:45)
[2017-02-10] MEDS ORDERED: IODIXANOL 320 MG/ML 10 ML VIAL (for Rad CT) IV ONE (18:27)
[2017-02-10 18:50] LABS: HEMATOCRIT 26.3 % (35.0-46.0); MEAN CELL VOLUME 76.3 FL (80.0-100.0); MEAN CORPUSCULAR HEMOGLOBIN 24.6 PG (27.0-34.0); MEAN CORPUSCULAR HGB CONC 32.2 % (32.0-36.0); PLATELET COUNT 276 TH/MM3 (150-450); RED BLOOD COUNT 3.44 MIL/MM3 (4.00-5.30); RED CELL DISTRIBUTION WIDTH 18.2 % (11.6-17.2); REVIEW FLAG FINAL; WHITE BLOOD COUNT 11.5 TH/MM3 (4.0-11.0)
--- NOTE | 2017-02-10 18:57 | RADRPT ---
EXAM DATE/TIME: 02/10/2017 18:04 [facility] COMPARISON: No previous studies available for comparison. INDICATIONS : Right groin hematoma post central line removal. ORAL CONTRAST: No oral contrast ingested. RADIATION DOSE: 12.51 CTDIvol (mGy) MEDICAL HISTORY : None SURGICAL HISTORY : Appendectomy. Hysterectomy.hip. ENCOUNTER: Initial ACUITY: 1 day PAIN SCALE: 8/10 LOCATION: Bilateral abdomen. TECHNIQUE: Volumetric scanning of the abdomen and pelvis was performed. Using automated exposure control and ad justment of the mA and/or kV according to patient size, radiation dose was kept as low as reasonably achievable to obtain optimal diagnostic quality images. FINDINGS: Noncontrast CT abdomen and pelvis was performed. There is a large right proximal thigh hematoma invo lving the rectus muscles with the right rectus measuring up to 6.8 cm in AP dimension. No enlargemen t of the iliac as R. psoas muscle. No evidence of retroperitoneal hematoma. Pessary and Ocampo meliza ter in place.. There are bilateral small pleural effusions measuring up to 2.2 cm in thickness. There is dependent atelectasis/consolidation in both lower lungs. Diffuse fatty change of the liver. Multiple calcifie d gallstones measuring up to 1.8 cm in dimension. There is abnormal appearance the midpole of the le ft kidney with an exophytic masslike lesion measuring 2.8 cm in containing some flocculent calcificat ions along the inner margin. The right kidney is of normal appearance. The spleen, pancreas, adrena l glands, and aorta are intact. Mildly dilated loops of small bowel in the midabdomen measuring up t o 3.3 cm. Wide windows for bony detail demonstrate moderate degenerative changes in the posterior el ements of the lumbar spine and a right total hip arthroplasty. A rounded device is present in the ri ght gluteal musculature.. CONCLUSION: 1. Large proximal right thigh hematoma without extension into the retroperitoneum. 2. Gallstones. 3. Abnormal appearance the left kidney with an exophytic mass with punctate calcifications medially. 4. Bilateral pleural effusions and atelectasis lower lungs. 5. Mild dilation of loops of small bowel with air-fluid levels. Armaan Buckley MD on February 10, 2017 at 18:51 Board Certified Radiologist. This report was verified electronically.
[2017-02-10] MEDS ORDERED: HEPARIN SODIUM - SQ 10,000 UNITS/ML VIAL ONE (19:36)
[2017-02-10] MEDS ORDERED: HEPARIN SODIUM - IV 10,000 UNITS/10 ML VIAL ONE (19:41)
[2017-02-10] MEDS ORDERED: ALBUMIN HUMAN 5% 12.5 GM/250 ML BOTTLE IV ONE (19:53)
[2017-02-10] MEDS ORDERED: ACETAMINOPHEN 1000 MG/100 ML VIAL IV ONE (20:33)
[2017-02-10] MEDS ORDERED: PROTAMINE SULFATE 50 MG/5 ML VIAL ONE (20:33)
[2017-02-10 21:19] LABS: MEAN CELL VOLUME 79.6 FL (80.0-100.0); PLATELET COUNT 133 TH/MM3 (150-450); RED BLOOD COUNT 2.55 MIL/MM3 (4.00-5.30); RED CELL DISTRIBUTION WIDTH 17.9 % (11.6-17.2); WHITE BLOOD COUNT 9.9 TH/MM3 (4.0-11.0)
--- NOTE | 2017-02-10 21:19 | PD.VS.CON ---
History of Present Illness Chief Complaint: right groin pain. Consult Requested by: History of Present Illness 76 year old female admitted to the CVICU for bradycardia. Had right groin venous line placed in ER. Once removed today expanding hematoma with hypotension. Findings of arterial extravasation on CTA and Duplex US with pseudoaneurysm right groin. Neck of pseduoaneurysm could not be identified. 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 Omeprazole 20 Mg Tab 40 Mg PO DAILY Metoprolol Tartrate 100 Mg Tab 100 Mg PO BID Lovastatin 40 Mg Tab 40 Mg PO HS Lisinopril 10 Mg Tab 10 Mg PO DAILY [place] (Hydrocodone-Acetaminophen) 10-325 Mg Tab 1 Tab PO Q6H PRN Wellbutrin Xl 24 HR (Bupropion HCl) 150 Mg Tab 150 Mg PO DAILY Biotin 1,000 Mcg Tab 1,000 Mg PO DAILY Aspirin Adult Low Strength (Aspirin) 81 Mg Tabdr 81 Mg PO DAILY Amlodipine (Amlodipine Besylate) 10 Mg Tab 10 Mg PO DAILY Abilify (Aripiprazole) 2 Mg Tab 2 Mg PO DAILY Home Medications Reported Medications Solifenacin (Vesicare)5 Mg Tab5 Mg PO DAILY #30 TAB Ref 0 02/07/[address] 325 Mg [id number] Mg PO DAILY 02/07/17 Fenofibrate 160 Mg [id number] Mg PO DAILY #30 TAB Ref 0 02/07/17 Memantine (Namenda)5 Mg Tab5 Mg PO DAILY #30 TAB Ref 0 02/07/17 Risperidone 1 Mg Tab1 Mg PO DAILY #30 TAB Ref 0 02/07/17 Trazodone HCl 150 Mg [id number] Mg PO HS 02/07/17 Ezetimibe (Zetia)10 Mg Tab10 Mg PO DAILY #30 TAB Ref 0 02/07/17 Warfarin 3 Mg Tab3 Mg PO DAILY #30 TAB Ref 0 02/07/17 Fenofibrate (Tricor)145 Mg [id number] Mg PO DAILY #30 TAB Ref 0 Take with food. 02/07/17 Omeprazole 20 Mg Tab40 Mg PO DAILY #30 TAB Ref 0 02/07/17 Metoprolol Tartrate 100 Mg [id number] Mg PO BID #60 TAB Ref 0 02/07/17 Lovastatin 40 Mg Tab40 Mg PO HS #30 TAB Ref 0 02/07/17 Lisinopril 10 Mg Tab10 Mg PO DAILY #30 TAB Ref 0 02/07/17 Hydrocodone-Acetaminophen ([place])10-325 Mg Tab1 Tab PO Q6H PRN (PAIN) Ref 0 02/07/17 Bupropion HCl ER 24 HR (Wellbutrin Xl 24 HR)150 Mg [id number] Mg PO DAILY Ref 0 02/07/17 Biotin 1,000 Mcg Tab1,000 Mg PO DAILY #1 BOTTLE 02/07/[address] (Aspirin Adult Low Strength)81 Mg [id number] Mg PO DAILY 02/07/17 Amlodipine 10 Mg Tab10 Mg PO DAILY #30 TAB Ref 0 02/07/17 Aripiprazole (Abilify)2 Mg Tab2 Mg PO DAILY #30 TAB Ref 0 02/07/17 Coded Allergies: No Known Allergies (Verified , 02/07/17) Review of Systems Except as stated in HPI: all other systems reviewed are Neg Physical Exam Vitals/I&O Date Time Temp Pulse Resp B/P Pulse Ox O2 Delivery O2 Flow Rate FiO2 02/10/17 15:00 98.1 87 20 110/55 94 02/10/17 15:00 87 02/10/17 11:00 107 02/10/17 11:00 98.8 107 22 112/81 96 02/10/17 09:42 95 Partial Rebreather 13.00 02/10/17 07:00 98.4 95 22 112/81 97 02/10/17 07:00 95 02/10/17 06:15 93 Partial Rebreather 13.00 02/10/17 03:00 116 02/10/17 03:00 97.7 114 18 130/81 97 02/10/17 03:00 18 02/09/17 23:00 98.2 124 18 132/73 94 02/09/17 23:00 127 02/09/17 21:26 96 Partial Rebreather 15.00 02/10/17 02/10/17 02/10/17 07:00 15:00 23:00 Intake Total 1762 ml 1428 ml Output Total 2800 ml 3250 ml Balance -1038 ml -1822 ml Neuro: Alert but distressed with right thigh pain. Neck: supple Heart: irregular Lungs: CTA Abdomen: soft and nondistended. Vascular: right DP signal noted. Right groin tense and tender from inguinal crease approaching the mid thigh. Laboratory Tests Test 02/10/17 02/10/17 02/10/17 02/10/17 12:43 18:27 18:30 18:47 Prothrombin Time 21.4 Prothromb Time International 1.9 Ratio Blood Type AB POSITIVE AB POSITIVE Antibody Screen POSITIVE Antibody Identification Non-Specific Agglutinin Blood Bank Comment White Blood Count 11.5 Red Blood Count 3.44 Hemoglobin 8.4 Hematocrit 26.3 Mean Corpuscular Volume 76.3 Mean Corpuscular Hemoglobin 24.6 Mean Corpuscular Hemoglobin 32.2 Concent Red Cell Distribution Width 18.2 Platelet Count 276 Mean Platelet Volume 7.4 Crossmatch Leukocyte-Reduced Red Blood Cells Test 02/10/17 20:53 Blood Bank Comment Last 48 hours Impressions Abdomen/Pelvis CT 02/10/17 0000 Signed Impressions: Service Date/Time: Friday, February 10, 2017 18:04 - CONCLUSION: 1. Large proximal right thigh hematoma without extension into the retroperitoneum. 2. Gallstones. 3. Abnormal appearance the left kidney with an exophytic mass with punctate calcifications medially. 4. Bilateral pleural effusions and atelectasis lower lungs. 5. Mild dilation of loops of small bowel with air-fluid levels. Armaan Buckley MD Chest X-Ray 02/09/17 0000 Signed Impressions: Service Date/Time: Thursday, February 09, 2017 09:39 - CONCLUSION: Increasing left lower lobe consolidation. Angel Laguna MD Assessment and Plan Assessment: (1) Atrial fibrillation Status: Acute (2) Pseudoaneurysm of femoral artery Status: Acute Plan This is a 76 year old female with a hx of central venous line in the right groin. When removed the patient had an expanding hematoma. CTA and carotid US show pseudoaneurysm from SFA. Was not able to tolerate compression tx for this expanding pseudoaneurysm and I could not safely identify the neck. Suspect complex pseudoaneurysm (VIA SFA to Femoral vein?) with hypotension. Will take emergently to OR for repair of Right SFA pseudoaneurysm repair. Patient understands risks and benefits of procedure. Son contacted before proceeding to the OR. Maury Delgadillo DO, FACS [employer] [facility] /Maury Ram DO Feb 10, 2017 21:19
--- NOTE | 2017-02-10 21:23 | HHI.PR ---
Immediate Post Op Note Procedure Date: Feb 10, 2017 Pre Op Diagnosis: (1) Pseudoaneurysm of femoral artery Post Op Diagnosis: (1) Pseudoaneurysm of femoral artery Surgeon: Maury Delgadillo Mine Development Engineer(s): Miguel Kolb Procedure: Repair of right SFA (anterior wall with bovine patch, posterior wall with interrupted U stitches) pseudoaneurysm Repair of right femoral vein. Findings: Holes anterior and posterior SFA and anterior femoral vein. Large cavernous hematoma sac. Additional Information: NA Complications: None Specimen(s) removed: Clot Estimated blood loss: 500 cc Anesthesia: General Drains: CUBA Fluids: 3 liters crystalloid and 2 units ffp and 2 units PRBCs IVF, PRBC, FFP Tourniquet time (min at mmHg) NA Patient to: PACU Patient Condition: Good Implant/Devices: Other Date/Time of Procedure: Other Maury Delgadillo DO Feb 10, 2017 21:23
[2017-02-10 21:26] LABS: BLOOD GAS BASE EXCESS -0.6 mmol/L (-2-2); BLOOD GAS CARBOXYHEMOGLOBIN 1.9 % (0-4); BLOOD GAS HCO3 24 mmol/L (22-26); BLOOD GAS METHEMOGLOBIN 1.3 % (0-2); BLOOD GAS O2 HGB SATURATION 95 % (90-100); BLOOD GAS OXYGEN CONTENT 9.5 Vol % (12.0-20.0); BLOOD GAS PCO2 42 mmHg (38-42); BLOOD GAS PO2 104 mmHg (61-120); BLOOD GAS TOTAL HGB 6.9 G/DL (12.0-16.0); TEMP CORR TO 98.6
[2017-02-10 21:27] LABS: FIO2 90 %
[2017-02-10 21:28] LABS: BLOOD GAS BASE EXCESS -2.2 mmol/L (-2-2); BLOOD GAS CARBOXYHEMOGLOBIN 1.8 % (0-4); BLOOD GAS HCO3 23 mmol/L (22-26); BLOOD GAS METHEMOGLOBIN 1.4 % (0-2); BLOOD GAS O2 HGB SATURATION 95 % (90-100); BLOOD GAS OXYGEN CONTENT 9.2 Vol % (12.0-20.0); BLOOD GAS PCO2 41 mmHg (38-42); BLOOD GAS PO2 115 mmHg (61-120); BLOOD GAS TOTAL HGB 6.7 G/DL (12.0-16.0); TEMP CORR TO 98.6
[2017-02-10 21:28] LABS: DRAW SITE O.R. ABG; STAT YES
[2017-02-10 21:29] LABS: CRITICAL VALUE YES; FIO2 100 %; OXYGEN DEVICE O.R. ABG; STAT YES
--- NOTE | 2017-02-10 21:29 | PD.VS.PN ---
Subjective POD #: 0 Procedure(s): Right SFA pseudoaneurysm repair Right Femoral vein Repair Objective Neuro: sedated Pulmonary: intubated Vascular: triphasic right DP and PT. Drains: Right 7 CUBA Laboratory Laboratory Tests Test 02/10/17 02/10/17 02/10/17 02/10/17 12:43 18:27 18:30 18:47 Prothrombin Time 21.4 Prothromb Time International 1.9 Ratio Blood Type AB POSITIVE AB POSITIVE Antibody Screen POSITIVE Antibody Identification Non-Specific Agglutinin Blood Bank Comment White Blood Count 11.5 Red Blood Count 3.44 Hemoglobin 8.4 Hematocrit 26.3 Mean Corpuscular Volume 76.3 Mean Corpuscular Hemoglobin 24.6 Mean Corpuscular Hemoglobin 32.2 Concent Red Cell Distribution Width 18.2 Platelet Count 276 Mean Platelet Volume 7.4 Crossmatch Leukocyte-Reduced Red Blood Cells Test 02/10/17 20:53 Blood Bank Comment Imaging Last 48 hours Impressions Abdomen/Pelvis CT 02/10/17 0000 Signed Impressions: Service Date/Time: Friday, February 10, 2017 18:04 - CONCLUSION: 1. Large proximal right thigh hematoma without extension into the retroperitoneum. 2. Gallstones. 3. Abnormal appearance the left kidney with an exophytic mass with punctate calcifications medially. 4. Bilateral pleural effusions and atelectasis lower lungs. 5. Mild dilation of loops of small bowel with air-fluid levels. Armaan Buckley MD Chest X-Ray 02/09/17 0000 Signed Impressions: Service Date/Time: Thursday, February 09, 2017 09:39 - CONCLUSION: Increasing left lower lobe consolidation. Angel Laguna MD Assessment and Plan Assessment: (1) Atrial fibrillation Status: Acute (2) Pseudoaneurysm of femoral artery Status: Acute Plan This is a 76 year old female with a hx of central venous line in the right groin. When removed the patient had an expanding hematoma. Found to have pseudoaneurysm of right SFA with anterior and posterior injury with femoral vein bleeding. Status post repair. Vascular checks in ICU. CUBA drain for 24-48 hours based on output. Dr. Johnson will manage blood products H/H 6.9/20.3 and extubation (possible this evening). Maury Delgadillo DO, FACS Senior Finance Manager of Vascular Surgery [facility]YLA/Maury Ram DO Feb 10, 2017 21:29
[2017-02-10 21:30] LABS: REVIEW FLAG AUTO DIFF
[2017-02-10] MEDS ORDERED: ONDANSETRON HCL 4 MG/2 ML VIAL IV PUSH PRN (21:30)
[2017-02-10] MEDS ORDERED: MORPHINE SULFATE 4 MG/ML INJ IV PRN (21:30)
[2017-02-10] MEDS ORDERED: POTASSIUM PHOSPHATE INJ 21 MMOL in SODIUM CHLOR 0.9% 250 ML INJ 250 ML IV PRN (21:30)
[2017-02-10] MEDS ORDERED: MAGNESIUM SULFATE 1 GM PREMIX 200 ML IV PRN (21:30)
[2017-02-10] MEDS ORDERED: SODIUM CHLORIDE 0.9% FLUSH 10 ML FLUSH IV FLUSH PRN (21:30)
[2017-02-10] MEDS ORDERED: ENOXAPARIN SODIUM 30 MG/0.3 ML SYRINGE SQ SCH (21:30)
[2017-02-10] MEDS ORDERED: POTASSIUM CHLOR 20 MEQ PREMIX 100 ML IV PRN (21:30)
[2017-02-10 21:32] LABS: HEMATOCRIT 20.3 % (35.0-46.0)
[2017-02-10 21:36] LABS: APTT (PATIENT) 36.4 SEC (24.3-30.1); INTERNATIONAL NORMALIZED RATIO 1.6 RATIO; PROTHROMBIN TIME - PATIENT 18.1 SEC (9.8-11.6)
[2017-02-10 21:51] LABS: BICARBONATE 26.8 MEQ/L (21.0-32.0); POTASSIUM 4.7 MEQ/L (3.5-5.1)
[2017-02-10 22:04] LABS: CALCIUM-PROTEIN CORRECTED 8.4 MG/DL (8.5-10.1)
[2017-02-10] MEDS ORDERED: LABETALOL HCL 100 MG/20 ML VIAL ONE (22:15)
[2017-02-10] MEDS ORDERED: MIDAZOLAM HCL 2 MG/2 ML VIAL ONE ×2 (22:23)
[2017-02-10] MEDS ORDERED: fentaNYL CITRATE 250 MCG/5 ML AMP ONE (22:24)
[2017-02-10] MEDS ORDERED: LABETALOL HCL 100 MG/20 ML VIAL IV ONE ×2 (22:30→23:00)
--- NOTE | 2017-02-10 23:02 | RADRPT ---
EXAM DATE/TIME: 02/10/2017 18:37 [facility] COMPARISON: No previous studies available for comparison. INDICATIONS : Severe swelling post procedure. MEDICAL HISTORY : Hypertension. Anxiety. Depression. Left kidney cancer. Arthritis. Anticoagulant therapy. Migraine s. Incontinence. Diabetes. SURGICAL HISTORY : Hysterectomy. Appendectomy. Right hip replacement. ENCOUNTER: Initial ACUITY: 1 day PAIN SCORE: 10/10 LOCATION: Right groin. AREA EVALUATED: Right proximal groin. FINDINGS: Real-time ultrasound examination was performed of right groin hematoma. There is evidence of active bleeding and increased flow seen on color Doppler in the proximal thigh. Direct pressure was applied for 5 minutes and upon rescanning, flow is seen within the hematoma. CONCLUSION: Active bleeding pre-and post direct manual compression in the proximal right thigh. Armaan Buckley MD on February 10, 2017 at 22:59 Board Certified Radiologist. This report was verified electronically.
--- NOTE | 2017-02-10 23:13 | RADRPT ---
EXAM DATE/TIME: 02/10/2017 18:17 [facility] COMPARISON: CT ABDOMEN & PELVIS W/O CONTRAST, February 10, 2017, 18:04. INDICATIONS : Right groin hematoma post central line removal. IV CONTRAST: 100 cc Visipaque (iodixanol) IV ORAL CONTRAST: No oral contrast ingested. RADIATION DOSE: 15.51 CTDIvol (mGy) MEDICAL HISTORY : None SURGICAL HISTORY : Appendectomy. Hysterectomy. ENCOUNTER: Initial ACUITY: 1 day PAIN SCALE: 5/10 LOCATION: Right groin TECHNIQUE: Volumetric scanning was performed using a multi-row detector CT scanner. The data was post processed with a variety of visualization algorithms including full volume maximum intensity projection, multi -planar sliding thin slab reformation, curved planar reformation, and surface rendering techniques. Using automated exposure control and adjustment of the mA and/or kV according to patient size, radiat ion dose was kept as low as reasonably achievable to obtain optimal diagnostic quality images. FINDINGS: Examination was performed to evaluate a right proximal thigh hematoma status post removal of femoral central line. There is evidence of active bleeding into the hematoma with a focal collection of cont rast centrally within the rectus muscles measuring 1.8 cm. The point of bleeding is not seen with ce rtainty; there is streak artifact from the right total hip arthroplasty hardware which obscures the f ine detail of the right femoral vessels. The rectus muscle in the right thigh measures 7.2 cm in AP dimension. No evidence of retroperitoneal hematoma. The right psoas and iliac is muscles are normal in size. There is a mass in the left midpole kidney was measured as 3.2 cm and demonstrates an inhomogeneous p attern of enhancement. The mass is transcortical and exophytic. Bilateral pleural effusions and compressive atelectasis. Several calcified gallstones. The abdominal aorta is normal in diameter. The renal arteries are normal in dimension without eviden ce of ostial stenosis. The celiac and SMA origins are normal in diameter. The the femoral arteries are symmetric in diameter. The diameter of the superficial femoral artery is symmetric and there is flow seen down to the popliteal region bilaterally. The right femoral artery is displaced posteriorl y due to the hematoma, but the diameter is normal. CONCLUSION: 1. There is evidence of active bleeding into the right anterior thigh 7 cm hematoma. The point of le akage is not identified with certainty. 2. 3 cm left renal mass demonstrates a heterogeneous pattern of enhancement. 3. No vessel truncation or significant luminal narrowing in the aorta, iliac vessels or thigh vessels . 4. 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 Armaan Buckley MD on February 10, 2017 at 23:01 Board Certified Radiologist. This report was verified electronically.
[2017-02-11] VITALS (16 sets, daily range): BP systolic 110–166; BP diastolic 5–70; PULSE 63–111; RESP 13–32; TEMP 97.6–99; O2SAT 92–98
[2017-02-11 01:43] LABS: REVIEW FLAG FINAL
[2017-02-11] MEDS ORDERED: DEXAMETHASONE SOD PHOS 20 MG/5 ML VIAL ONE (01:43)
[2017-02-11] MEDS: ceFAZolin 2 GM PREMIX 50 ML IV SCH ×3 (02:00→18:21)
[2017-02-11] MEDS: RESP: ALBUTEROL 2.5 MG/IPRATROPIUM 0.5 MG NEB (SCH) INH ×4 (03:40→20:58)
[2017-02-11] MEDS: CHLORHEXIDINE GLUCONATE 2 % 1 PACK (2 CLOTHS) TOP SCH (04:00)
[2017-02-11] MEDS: METOPROLOL TARTRATE 5 MG/5 ML VIAL IV PUSH SCH ×4 (04:00→22:00)
--- NOTE | 2017-02-11 04:33 | RADRPT ---
EXAM DATE/TIME: 02/11/2017 04:01 [facility] COMPARISON: CHEST SINGLE AP, February 09, 2017, 9:39. INDICATIONS : Shortness of breath, possible pulmonary disease. MEDICAL HISTORY : Hypertension. Renal Ca A-Fib SURGICAL HISTORY : None. ENCOUNTER: Subsequent ACUITY: 4 - 6 days PAIN SCORE: Non-responsive. LOCATION: Bilateral chest FINDINGS: ET tube is present with tip overlapping approximately 3 cm above the hien. There is mild degree of perivascular interstitial process may represent pulmonary edema. Heart and mediastinum are unremarkab le for technique. CONCLUSION: Probable mild pulmonary edema. Shelby Hayward MD on February 11, 2017 at 4:31 Board Certified Radiologist. This report was verified electronically.
[2017-02-11 04:44] LABS: AUTOMATED NEUTROPHIL # 9.4 TH/MM3 (1.8-7.7); BASOPHIL % 0.1 % (0.0-2.0); EOSINOPHIL % 0.5 % (0.0-4.0); HEMATOCRIT 27.1 % (35.0-46.0); HEMO FLAGS DIFF FINAL; LYMPH % 4.8 % (9.0-44.0); LYMPHOCYTE # 0.5 TH/MM3 (1.0-4.8); MEAN CELL VOLUME 79.1 FL (80.0-100.0); MEAN CORPUSCULAR HEMOGLOBIN 27.8 PG (27.0-34.0); MEAN CORPUSCULAR HGB CONC 35.2 % (32.0-36.0); MONO % 3.2 % (0.0-8.0); NEUT % 91.4 % (16.0-70.0); PLATELET COUNT 174 TH/MM3 (150-450); RED BLOOD COUNT 3.43 MIL/MM3 (4.00-5.30); RED CELL DISTRIBUTION WIDTH 16.4 % (11.6-17.2); WHITE BLOOD COUNT 10.3 TH/MM3 (4.0-11.0)
[2017-02-11 05:08] LABS: ALKALINE PHOSPHATASE 78 U/L (45-117); ALT (GPT) 25 U/L (10-53); ANION GAP 6 MEQ/L (5-15); AST (GOT) 18 U/L (15-37); BICARBONATE 27.6 MEQ/L (21.0-32.0); BLOOD UREA NITROGEN 15 MG/DL (7-18); CHLORIDE 104 MEQ/L (98-107); GLOMERULAR FILTRATION RATE 55 ML/MIN (>89); MAGNESIUM 1.6 MG/DL (1.5-2.5); POTASSIUM 4.1 MEQ/L (3.5-5.1); SODIUM (NA) 138 MEQ/L (136-145); TOTAL BILIRUBIN ADULT 4.3 MG/DL (0.2-1.0)
[2017-02-11] MEDS: PROPOFOL 1000 MG/100 ML IV SCH ×2 (06:07→12:07)
--- NOTE | 2017-02-11 08:26 | PD.CARD.PN ---
Subjective Subjective Remarks Events of yesterday noted; currently in afib, mildly fast, on amio ggt, intubated. Objective Medications Administered Medications Medications (Trade) Dose Ordered Sig/Brandon Route PRN Reason Start Time Stop Time Status Last Admin Dose Admin Isoproterenol HCl/ Dextrose (Isuprel Inj/D5W Inj) 260 ml @ 0 mls/hr TITRATE IV 02/07/17 18:00 02/08/17 02:49 Sodium Chloride (NS Flush) 2 ml BID .XX 02/07/17 21:00 02/10/17 10:09 Acetaminophen (Tylenol) 650 mg Q6H PRN PO FEVER >101F 02/07/17 19:15 02/10/17 13:50 Morphine Sulfate (Morphine Inj) 2 mg Q2H PRN IV PAIN SCALE 6 TO 10 02/07/17 19:15 02/10/17 02:55 Famotidine (Pepcid Inj) 10 mg Q12HR IV PUSH 02/07/17 21:00 02/10/17 10:08 Artificial Tears (Tears Naturale Opth Soln) 1 drop TID EACH EYE 02/08/17 09:00 02/10/17 13:29 Miscellaneous Information 1 Q361D XX 02/07/17 19:15 02/07/17 23:24 Chlorhexidine Gluconate (Chlorhexidine 2% Cloth) 3 pack Taper DAILY@04 TOP 02/08/17 04:00 02/04/18 03:59 02/11/17 04:00 Senna/Docusate Sodium 1 tab 1 tab BID PO 02/07/17 21:00 02/10/17 10:08 Midazolam HCl 100 ml @ 0 mls/hr TITRATE IV 02/07/17 19:15 02/07/17 21:47 Dopamine HCl/ Dextrose 500 ml @ 9.113 mls/ hr TITRATE IV 02/07/17 23:00 02/09/17 05:43 Amiodarone HCl/ Dextrose (Cordarone Inj/ D5W ([place]) Inj) 250 ml @ 0 mls/hr CONTINUOUS IV 02/09/17 14:00 02/10/17 16:07 Metoprolol Tartrate 5 mg 5 mg Q6H IV PUSH 02/10/17 10:00 02/11/17 04:00 Levofloxacin/ Dextrose (Levaquin 500 Mg Premix Inj) 100 ml @ 100 mls/hr Q24H IV 02/10/17 10:00 02/10/17 10:07 Diltiazem HCl (Cardizem) 30 mg QID PO 02/10/17 13:00 02/10/17 13:29 Warfarin Sodium 3 mg 3 mg DAILY@1600 PO 02/10/17 16:00 02/10/17 16:08 Sodium Chloride 250 ml @ 15 mls/hr ONCE ONCE IV 02/10/17 19:00 02/11/17 11:39 02/10/17 23:00 Cefazolin Sodium/ Dextrose 50 ml @ 100 mls/hr Q8H IV 02/11/17 02:00 02/11/17 18:29 02/11/17 02:00 Propofol (Diprivan 1000 Mg/100ml Inj) 100 ml @ 0 mls/hr TITRATE IV 02/10/17 20:35 02/11/17 06:07 Vital Signs / I&O Vital Signs Date Time Temp Pulse Resp B/P Pulse Ox O2 Delivery O2 Flow Rate FiO2 02/11/17 07:58 97 50 02/11/17 07:00 69 02/11/17 07:00 98.8 69 32 119/5 96 125/56 02/11/17 07:00 60 02/11/17 04:00 110 02/11/17 04:00 97.8 111 13 128/70 92 125/64 02/11/17 04:00 60 02/11/17 03:42 94 60 02/11/17 00:41 93 50 02/11/17 00:00 97.6 65 17 166/67 95 02/11/17 00:00 50 02/10/17 23:30 50 02/10/17 23:00 70 02/10/17 23:00 65 02/10/17 23:00 97.6 65 17 156/84 95 166/67 02/10/17 23:00 97.4 80 20 142/70 93 02/10/17 22:35 70 02/10/17 22:05 95 90 02/10/17 22:00 100 02/10/17 22:00 90 02/10/17 22:00 97.9 101 12 100/57 94 117/54 02/10/17 15:00 98.1 87 20 110/55 94 02/10/17 15:00 87 02/10/17 11:00 107 02/10/17 11:00 98.8 107 22 112/81 96 02/10/17 09:42 95 Partial Rebreather 13.00 I/O 02/10/17 02/10/17 02/10/17 02/11/17 02/11/17 02/11/17 07:00 15:00 23:00 07:00 15:00 23:00 Intake Total 1762 ml 1428 ml 935 ml Output Total 2800 ml 3250 ml 1500 ml Balance -1038 ml -1822 ml -565 ml Intake Oral 720 ml 0 ml IV Total 1762 ml 708 ml 435 ml Packed Cells 500 ml Output Urine Total 2800 ml 3250 ml 1390 ml Drainage Total 110 ml # Bowel Movements 0 0 0 Physical Exam GENERAL: Intubated but awake currently CARDIOVASCULAR: Mildly rapid rate and irregular rhythm without murmurs, gallops , or rubs. RESPIRATORY: Clear to auscultation. Breath sounds equal bilaterally. No wheezes , rales, or rhonchi. GASTROINTESTINAL: Abdomen soft, non-tender, nondistended. Normal active bowel sounds MUSCULOSKELETAL: Extremities without clubbing, cyanosis, or edema. NEURO: Intubated Laboratory Laboratory Tests Test 02/10/17 02/10/17 02/10/17 02/10/17 12:43 18:27 18:30 18:47 Prothrombin Time 21.4 SEC Prothromb Time International 1.9 RATIO Ratio Blood Type AB POSITIVE AB POSITIVE Antibody Screen POSITIVE Antibody Identification Non-Specific Agglutinin Blood Bank Comment White Blood Count 11.5 TH/MM3 Red Blood Count 3.44 MIL/MM3 Hemoglobin 8.4 GM/DL Hematocrit 26.3 % Mean Corpuscular Volume 76.3 FL Mean Corpuscular Hemoglobin 24.6 PG Mean Corpuscular Hemoglobin 32.2 % Concent Red Cell Distribution Width 18.2 % Platelet Count 276 TH/MM3 Mean Platelet Volume 7.4 FL Crossmatch Leukocyte-Reduced Red Blood Cells Test 02/10/17 02/10/17 02/10/17 02/10/17 19:48 20:44 20:45 20:53 Blood Gas Puncture Site O.R. ABG Blood Gas Patient Temperature 98.6 98.6 Blood Gas HCO3 24 mmol/L 23 mmol/L Blood Gas Base Excess -0.6 mmol/L -2.2 mmol/L Blood Gas Oxygen Saturation 95 % 95 % Arterial Blood pH 7.37 7.36 Arterial Blood Partial 42 mmHg 41 mmHg Pressure CO2 Arterial Blood Partial 104 mmHg 115 mmHg Pressure O2 Arterial Blood Oxygen Content 9.5 Vol % 9.2 Vol % Arterial Blood 1.9 % 1.8 % Carboxyhemoglobin Arterial Blood Methemoglobin 1.3 % 1.4 % Blood Gas Hemoglobin 6.9 G/DL 6.7 G/DL Blood Gas Inspired Oxygen 90 % 100 % Oxygen Delivery Device O.R. ABG White Blood Count 9.9 TH/MM3 Red Blood Count 2.55 MIL/MM3 Hemoglobin 6.9 GM/DL Hematocrit 20.3 % Mean Corpuscular Volume 79.6 FL Mean Corpuscular Hemoglobin 27.0 PG Mean Corpuscular Hemoglobin 34.0 % Concent Red Cell Distribution Width 17.9 % Platelet Count 133 TH/MM3 Mean Platelet Volume 7.5 FL Prothrombin Time 18.1 SEC Prothromb Time International 1.6 RATIO Ratio Activated Partial 36.4 SEC Thromboplast Time Sodium Level 138 MEQ/L Potassium Level 4.7 MEQ/L Chloride Level 102 MEQ/L Carbon Dioxide Level 26.8 MEQ/L Anion Gap 9 MEQ/L Blood Urea Nitrogen 14 MG/DL Creatinine 0.97 MG/DL Estimat Glomerular Filtration 56 ML/MIN Rate Random Glucose 134 MG/DL Calcium Level 6.8 MG/DL Protein Corrected Calcium 8.4 MG/DL Total Protein 4.2 GM/DL Blood Bank Comment Test 02/10/17 02/11/17 02/11/17 21:20 01:00 04:20 Crossmatch Leukocyte-Reduced Red Blood Cells Blood Bank Comment Hemoglobin 8.5 GM/DL 9.5 GM/DL Hematocrit 24.0 % 27.1 % White Blood Count 10.3 TH/MM3 Red Blood Count 3.43 MIL/MM3 Mean Corpuscular Volume 79.1 FL Mean Corpuscular Hemoglobin 27.8 PG Mean Corpuscular Hemoglobin 35.2 % Concent Red Cell Distribution Width 16.4 % Platelet Count 174 TH/MM3 Mean Platelet Volume 7.4 FL Neutrophils (%) (Auto) 91.4 % Lymphocytes (%) (Auto) 4.8 % Monocytes (%) (Auto) 3.2 % Eosinophils (%) (Auto) 0.5 % Basophils (%) (Auto) 0.1 % Neutrophils # (Auto) 9.4 TH/MM3 Lymphocytes # (Auto) 0.5 TH/MM3 Monocytes # (Auto) 0.3 TH/MM3 Eosinophils # (Auto) 0.0 TH/MM3 Basophils # (Auto) 0.0 TH/MM3 CBC Comment DIFF FINAL Differential Comment Sodium Level 138 MEQ/L Potassium Level 4.1 MEQ/L Chloride Level 104 MEQ/L Carbon Dioxide Level 27.6 MEQ/L Anion Gap 6 MEQ/L Blood Urea Nitrogen 15 MG/DL Creatinine 0.98 MG/DL Estimat Glomerular Filtration 55 ML/MIN Rate Random Glucose 127 MG/DL Calcium Level 8.0 MG/DL Phosphorus Level 3.2 MG/DL Magnesium Level 1.6 MG/DL Total Bilirubin 4.3 MG/DL Aspartate Amino Transf 18 U/L (AST/SGOT) Alanine Aminotransferase 25 U/L (ALT/SGPT) Alkaline Phosphatase 78 U/L Total Protein 5.5 GM/DL Albumin 2.4 GM/DL Imaging Last Impressions Chest X-Ray 02/11/17 0600 Signed Impressions: Service Date/Time: Saturday, February 11, 2017 04:01 - CONCLUSION: Probable mild pulmonary edema. Shelby Hayward MD Lower Extremity Ultrasound 02/10/17 0000 Signed Impressions: Service Date/Time: Friday, February 10, 2017 18:37 - CONCLUSION: Active bleeding pre-and post direct manual compression in the proximal right thigh. Armaan Buckley MD Abdomen/Pelvis CT 02/10/17 0000 Signed Impressions: Service Date/Time: Friday, February 10, 2017 18:17 - CONCLUSION: 1. There is evidence of active bleeding into the right anterior thigh 7 cm hematoma. The point of leakage is not identified with certainty. 2. 3 cm left renal mass demonstrates a heterogeneous pattern of enhancement. 3. No vessel truncation or significant luminal narrowing in the aorta, iliac vessels or thigh vessels . 4. 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 Armaan Buckley MD Head CT 02/07/17 1618 Signed Impressions: Service Date/Time: Tuesday, February 07, 2017 17:54 - CONCLUSION: 1. Chronic small vessel ischemic change. 2. Area of encephalomalacia involving the left frontal lobe. 3. No acute intracranial abnormality. Armaan Suresh Jr., MD Cervical Spine CT 02/07/17 1618 Signed Impressions: Service Date/Time: Tuesday, February 07, 2017 17:54 - CONCLUSION: No evidence of fracture. Degenerative findings most prominent at C5-6. Angel Laguna MD Maxillofacial CT 02/07/17 0000 Signed Impressions: Service Date/Time: Sunday, February 07, 2017 17:54 - CONCLUSION: Normal examination. Armaan Suresh Jr., MD Assessment and Plan Problem List: (1) Groin hematoma Assessment and Plan: s/p surgical repair; warfarin held for now until clear hemostasis (2) Cardiogenic shock Assessment and Plan: multi-organ involvement, improved w/ fluids and dopamine which is now off; Cr. stable (3) Atrial fibrillation Assessment and Plan: currently on amio ggt. Will ask for pharmacy to dose warfarin but on hold for now Problem Qualifiers (1) Atrial fibrillation: Qualified Code: I48.0 - Paroxysmal atrial fibrillation Joey Patel MD Feb 11, 2017 08:26
[2017-02-11] MEDS ORDERED: METOPROLOL TARTRATE 5 MG/5 ML VIAL IV PUSH PRN (08:30)
[2017-02-11] MEDS ORDERED: FUROSEMIDE 40 MG/4 ML VIAL ONE (08:48)
[2017-02-11] MEDS: DOCUSATE SODIUM 50 MG/SENNA 8.6 MG TAB PO SCH ×2 (09:00→22:25)
[2017-02-11] MEDS: SODIUM CHLORIDE 0.9% FLUSH 10 ML FLUSH IV FLUSH SCH ×2 (09:00→21:00)
[2017-02-11] MEDS: ASPIRIN EC 81 MG TABEC PO SCH (09:00)
[2017-02-11] MEDS: DILTIAZEM HCL 30 MG TAB PO SCH ×4 (09:00→22:25)
[2017-02-11] MEDS: SODIUM CHLORIDE 0.9% FLUSH 10 ML FLUSH SCH ×2 (09:00→21:00)
[2017-02-11] MEDS ORDERED: DEXAMETHASONE SOD PHOS 20 MG/5 ML VIAL IV PUSH SCH (09:00)
[2017-02-11] MEDS: AMIODARONE INJ 450 MG in D5W (EXCEL BAG) 241 ML IV SCH (09:00)
[2017-02-11] MEDS: FAMOTIDINE 20 MG/2 ML VIAL IV PUSH SCH ×2 (09:01→22:25)
--- NOTE | 2017-02-11 10:10 | PD.VS.PN ---
Subjective POD #: 1 Procedure(s): Right SFA pseudoaneurysm repair Right Femoral vein Repair Subjective/Hospital Course intubated but responsive SORENSEN moving R foot well Objective Vitals/I&O Date Time Temp Pulse Resp B/P Pulse Ox O2 Delivery O2 Flow Rate FiO2 02/11/17 09:08 96 45 02/11/17 09:08 45 02/11/17 07:58 97 50 02/11/17 07:00 69 02/11/17 07:00 98.8 69 32 119/5 96 125/56 02/11/17 07:00 60 02/11/17 04:00 110 02/11/17 04:00 97.8 111 13 128/70 92 125/64 02/11/17 04:00 60 02/11/17 03:42 94 60 02/11/17 00:41 93 50 02/11/17 00:00 97.6 65 17 166/67 95 02/11/17 00:00 50 02/10/17 23:30 50 02/10/17 23:00 70 02/10/17 23:00 65 02/10/17 23:00 97.6 65 17 156/84 95 166/67 02/10/17 23:00 97.4 80 20 142/70 93 02/10/17 22:35 70 02/10/17 22:05 95 90 02/10/17 22:00 100 02/10/17 22:00 90 02/10/17 22:00 97.9 101 12 100/57 94 117/54 02/10/17 15:00 98.1 87 20 110/55 94 02/10/17 15:00 87 02/10/17 11:00 107 02/10/17 11:00 98.8 107 22 112/81 96 Exam: Groin incision covered with VAC Mild fullness but appropriate Pulses: Strong Doppler signal R DP Incisions: covered with VAC CUBA 110, dark Laboratory Laboratory Tests Test 02/10/17 02/10/17 02/10/17 02/10/17 12:43 18:27 18:30 18:47 Prothrombin Time 21.4 Prothromb Time International 1.9 Ratio Blood Type AB POSITIVE AB POSITIVE Antibody Screen POSITIVE Antibody Identification Non-Specific Agglutinin Blood Bank Comment White Blood Count 11.5 Red Blood Count 3.44 Hemoglobin 8.4 Hematocrit 26.3 Mean Corpuscular Volume 76.3 Mean Corpuscular Hemoglobin 24.6 Mean Corpuscular Hemoglobin 32.2 Concent Red Cell Distribution Width 18.2 Platelet Count 276 Mean Platelet Volume 7.4 Crossmatch Leukocyte-Reduced Red Blood Cells Test 02/10/17 02/10/17 02/10/17 02/10/17 19:48 20:44 20:45 20:53 Blood Gas Puncture Site O.R. ABG Blood Gas Patient Temperature 98.6 98.6 Blood Gas HCO3 24 23 Blood Gas Base Excess -0.6 -2.2 Blood Gas Oxygen Saturation 95 95 Arterial Blood pH 7.37 7.36 Arterial Blood Partial 42 41 Pressure CO2 Arterial Blood Partial 104 115 Pressure O2 Arterial Blood Oxygen Content 9.5 9.2 Arterial Blood 1.9 1.8 Carboxyhemoglobin Arterial Blood Methemoglobin 1.3 1.4 Blood Gas Hemoglobin 6.9 6.7 Blood Gas Inspired Oxygen 90 100 Oxygen Delivery Device O.R. ABG White Blood Count 9.9 Red Blood Count 2.55 Hemoglobin 6.9 Hematocrit 20.3 Mean Corpuscular Volume 79.6 Mean Corpuscular Hemoglobin 27.0 Mean Corpuscular Hemoglobin 34.0 Concent Red Cell Distribution Width 17.9 Platelet Count 133 Mean Platelet Volume 7.5 Prothrombin Time 18.1 Prothromb Time International 1.6 Ratio Activated Partial 36.4 Thromboplast Time Sodium Level 138 Potassium Level 4.7 Chloride Level 102 Carbon Dioxide Level 26.8 Anion Gap 9 Blood Urea Nitrogen 14 Creatinine 0.97 Estimat Glomerular Filtration 56 Rate Random Glucose 134 Calcium Level 6.8 Protein Corrected Calcium 8.4 Total Protein 4.2 Blood Bank Comment Test 02/10/17 02/11/17 02/11/17 21:20 01:00 04:20 Crossmatch Leukocyte-Reduced Red Blood Cells Blood Bank Comment Hemoglobin 8.5 9.5 Hematocrit 24.0 27.1 White Blood Count 10.3 Red Blood Count 3.43 Mean Corpuscular Volume 79.1 Mean Corpuscular Hemoglobin 27.8 Mean Corpuscular Hemoglobin 35.2 Concent Red Cell Distribution Width 16.4 Platelet Count 174 Mean Platelet Volume 7.4 Neutrophils (%) (Auto) 91.4 Lymphocytes (%) (Auto) 4.8 Monocytes (%) (Auto) 3.2 Eosinophils (%) (Auto) 0.5 Basophils (%) (Auto) 0.1 Neutrophils # (Auto) 9.4 Lymphocytes # (Auto) 0.5 Monocytes # (Auto) 0.3 Eosinophils # (Auto) 0.0 Basophils # (Auto) 0.0 CBC Comment DIFF FINAL Differential Comment Sodium Level 138 Potassium Level 4.1 Chloride Level 104 Carbon Dioxide Level 27.6 Anion Gap 6 Blood Urea Nitrogen 15 Creatinine 0.98 Estimat Glomerular Filtration 55 Rate Random Glucose 127 Calcium Level 8.0 Phosphorus Level 3.2 Magnesium Level 1.6 Total Bilirubin 4.3 Aspartate Amino Transf 18 (AST/SGOT) Alanine Aminotransferase 25 (ALT/SGPT) Alkaline Phosphatase 78 Total Protein 5.5 Albumin 2.4 Assessment and Plan Assessment: (1) Atrial fibrillation Status: Acute (2) Pseudoaneurysm of femoral artery Status: Acute Plan Hct 27, stable Weaning to extubate Successful repair of pseudoaneurysm Leave CUBA in for now Continue to hold anticoagulation Problem Qualifiers (1) Atrial fibrillation: Qualified Code: I48.0 - Paroxysmal atrial fibrillation Joshua Garcia MD Feb 11, 2017 10:09
[2017-02-11] MEDS: ARTIFICIAL TEARS OPTH SOLN 15 ML BTL EACH EYE SCH ×3 (10:11→18:21)
[2017-02-11] MEDS: MORPHINE SULFATE 4 MG/ML INJ IV PRN ×2 (10:30→13:28)
[2017-02-11] MEDS: LEVOFLOXACIN 500 MG PREMIX INJ 100 ML IV SCH (10:42)
--- NOTE | 2017-02-11 10:44 | HHI.CCPN ---
Subjective Remarks/Hospital Course 02/07: 76-year-old female who presents with complaints of possible nasal bone fracture. Per medical record she was feeling weak and dizzy for the past month , reports that she was in the bathroom today and had a syncopal episode. Reports that she is feeling lightheaded and dizzy prior to this. patient reports that when she fell, she hit her face on the toilet, patient does admit to taking Coumadin as she has history of atrial fibrillation. Patient reports that she did have loss of consciousness. She is also on digoxin for rate control. In the emergency department she was found to be bradycardic at the heart rate of 30s. She does follow up with Dr. Mercer with cardiology. She became hypotensive and hypoxemic and was intubated by ED attending for airway protection. 02/08: Remains sedated, orally intubated on mechanical ventilation. On dopamine 15 mics per KG per minute and isopropyl 6 mics per minute. On tube feeds. 02/09: Arouses off sedation, orally intubated on mechanical ventilation. Tolerating tube feeds. Off Isuprel. Dopamine at 5 mics per kg per minute this morning. 02/10: Patient extubated on 02/09. On partial rebreather currently. Diuresed with Lasix yesterday. Started on amiodarone drip per cardiology on he remains in A. fib with heart rate going up to 130s. Received 1 dose of digoxin 0.5 mg IV on 02/09 and was started on IV Lopressor. She is awake and alert, following commands. 02/11: Patient developed an expanding groin hematoma following removal of central line yesterday. Underwent stat CTA which showed a large hematoma and pseudoaneurysm in the right groin. Vascular surgery was consulted and I discussed the case with Dr. Delgadillo in CAT scan. Patient received vitamin K as well as FFP and was taken emergently to the OR and underwent exploration with patch repair of SFA and femoral vein with evacuation of hematoma under general anesthesia by Dr. Sanchez. She received 4 units of PRBCs 3 units of FFP and was subsequently transferred to CVICU kept intubated overnight. She did not have a cuff leak postoperatively and was started on IV Decadron. She remains on mechanical ventilation this morning and time of my evaluation. Objective Vital Signs Date Time Temp Pulse Resp B/P Pulse Ox O2 Delivery O2 Flow Rate FiO2 02/11/17 09:08 96 45 02/11/17 07:00 69 02/11/17 07:00 98.8 32 119/5 125/56 02/10/17 09:42 Partial Rebreather 13.00 Intake and Output 02/10/17 02/10/17 02/11/17 08:00 16:00 00:00 Intake Total 1762 ml 1428 ml Output Total 2800 ml 3250 ml Balance -1038 ml -1822 ml Result Diagram: 02/11/17 0420 02/11/17 0420 Other Results Laboratory Tests Test 02/10/17 02/10/17 02/10/17 02/10/17 12:43 18:27 18:30 18:47 Prothrombin Time 21.4 SEC Prothromb Time International 1.9 RATIO Ratio Blood Type AB POSITIVE AB POSITIVE Antibody Screen POSITIVE Antibody Identification Non-Specific Agglutinin Blood Bank Comment White Blood Count 11.5 TH/MM3 Red Blood Count 3.44 MIL/MM3 Hemoglobin 8.4 GM/DL Hematocrit 26.3 % Mean Corpuscular Volume 76.3 FL Mean Corpuscular Hemoglobin 24.6 PG Mean Corpuscular Hemoglobin 32.2 % Concent Red Cell Distribution Width 18.2 % Platelet Count 276 TH/MM3 Mean Platelet Volume 7.4 FL Crossmatch Leukocyte-Reduced Red Blood Cells Test 02/10/17 02/10/17 02/10/17 02/10/17 19:48 20:44 20:45 20:53 Blood Gas Puncture Site O.R. ABG Blood Gas Patient Temperature 98.6 98.6 Blood Gas HCO3 24 mmol/L 23 mmol/L Blood Gas Base Excess -0.6 mmol/L -2.2 mmol/L Blood Gas Oxygen Saturation 95 % 95 % Arterial Blood pH 7.37 7.36 Arterial Blood Partial 42 mmHg 41 mmHg Pressure CO2 Arterial Blood Partial 104 mmHg 115 mmHg Pressure O2 Arterial Blood Oxygen Content 9.5 Vol % 9.2 Vol % Arterial Blood 1.9 % 1.8 % Carboxyhemoglobin Arterial Blood Methemoglobin 1.3 % 1.4 % Blood Gas Hemoglobin 6.9 G/DL 6.7 G/DL Blood Gas Inspired Oxygen 90 % 100 % Oxygen Delivery Device O.R. ABG White Blood Count 9.9 TH/MM3 Red Blood Count 2.55 MIL/MM3 Hemoglobin 6.9 GM/DL Hematocrit 20.3 % Mean Corpuscular Volume 79.6 FL Mean Corpuscular Hemoglobin 27.0 PG Mean Corpuscular Hemoglobin 34.0 % Concent Red Cell Distribution Width 17.9 % Platelet Count 133 TH/MM3 Mean Platelet Volume 7.5 FL Prothrombin Time 18.1 SEC Prothromb Time International 1.6 RATIO Ratio Activated Partial 36.4 SEC Thromboplast Time Sodium Level 138 MEQ/L Potassium Level 4.7 MEQ/L Chloride Level 102 MEQ/L Carbon Dioxide Level 26.8 MEQ/L Anion Gap 9 MEQ/L Blood Urea Nitrogen 14 MG/DL Creatinine 0.97 MG/DL Estimat Glomerular Filtration 56 ML/MIN Rate Random Glucose 134 MG/DL Calcium Level 6.8 MG/DL Protein Corrected Calcium 8.4 MG/DL Total Protein 4.2 GM/DL Blood Bank Comment Test 02/10/17 02/11/17 02/11/17 21:20 01:00 04:20 Crossmatch Leukocyte-Reduced Red Blood Cells Blood Bank Comment Hemoglobin 8.5 GM/DL 9.5 GM/DL Hematocrit 24.0 % 27.1 % White Blood Count 10.3 TH/MM3 Red Blood Count 3.43 MIL/MM3 Mean Corpuscular Volume 79.1 FL Mean Corpuscular Hemoglobin 27.8 PG Mean Corpuscular Hemoglobin 35.2 % Concent Red Cell Distribution Width 16.4 % Platelet Count 174 TH/MM3 Mean Platelet Volume 7.4 FL Neutrophils (%) (Auto) 91.4 % Lymphocytes (%) (Auto) 4.8 % Monocytes (%) (Auto) 3.2 % Eosinophils (%) (Auto) 0.5 % Basophils (%) (Auto) 0.1 % Neutrophils # (Auto) 9.4 TH/MM3 Lymphocytes # (Auto) 0.5 TH/MM3 Monocytes # (Auto) 0.3 TH/MM3 Eosinophils # (Auto) 0.0 TH/MM3 Basophils # (Auto) 0.0 TH/MM3 CBC Comment DIFF FINAL Differential Comment Sodium Level 138 MEQ/L Potassium Level 4.1 MEQ/L Chloride Level 104 MEQ/L Carbon Dioxide Level 27.6 MEQ/L Anion Gap 6 MEQ/L Blood Urea Nitrogen 15 MG/DL Creatinine 0.98 MG/DL Estimat Glomerular Filtration 55 ML/MIN Rate Random Glucose 127 MG/DL Calcium Level 8.0 MG/DL Phosphorus Level 3.2 MG/DL Magnesium Level 1.6 MG/DL Total Bilirubin 4.3 MG/DL Aspartate Amino Transf 18 U/L (AST/SGOT) Alanine Aminotransferase 25 U/L (ALT/SGPT) Alkaline Phosphatase 78 U/L Total Protein 5.5 GM/DL Albumin 2.4 GM/DL Imaging Last 48 hours Impressions Chest X-Ray 02/11/17 0600 Signed Impressions: Service Date/Time: Saturday, February 11, 2017 04:01 - CONCLUSION: Probable mild pulmonary edema. Shelby Hayward MD Lower Extremity Ultrasound 02/10/17 0000 Signed Impressions: Service Date/Time: Friday, February 10, 2017 18:37 - CONCLUSION: Active bleeding pre-and post direct manual compression in the proximal right thigh. Armaan Buckley MD Abdomen/Pelvis CT 02/10/17 0000 Signed Impressions: Service Date/Time: Friday, February 10, 2017 18:17 - CONCLUSION: 1. There is evidence of active bleeding into the right anterior thigh 7 cm hematoma. The point of leakage is not identified with certainty. 2. 3 cm left renal mass demonstrates a heterogeneous pattern of enhancement. 3. No vessel truncation or significant luminal narrowing in the aorta, iliac vessels or thigh vessels . 4. 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 Armaan Buckley MD Abdomen/Pelvis CT 02/10/17 0000 Signed Impressions: Service Date/Time: Friday, February 10, 2017 18:04 - CONCLUSION: 1. Large proximal right thigh hematoma without extension into the retroperitoneum. 2. Gallstones. 3. Abnormal appearance the left kidney with an exophytic mass with punctate calcifications medially. 4. Bilateral pleural effusions and atelectasis lower lungs. 5. Mild dilation of loops of small bowel with air-fluid levels. Armaan Buckley MD Last 24 hours Impressions Chest X-Ray 02/07/17 191 Signed Impressions: Service Date/Time: Tuesday, February 07, 2017 19:22 - CONCLUSION: 1. Tip of the endotracheal tube within the orifice of the right mainstem bronchus. 2. Volume loss involving the left hemithorax likely due to the position of the endotracheal tube. 3. Patchy parenchymal consolidation throughout the left lung. This may be in part due to the volume loss representing atelectasis. Armaan Suresh Jr., MD Head CT 02/07/17 1618 Signed Impressions: Service Date/Time: Tuesday, February 07, 2017 17:54 - CONCLUSION: 1. Chronic small vessel ischemic change. 2. Area of encephalomalacia involving the left frontal lobe. 3. No acute intracranial abnormality. Armaan Suresh Jr., MD Chest X-Ray 02/07/171617 Signed Impressions: Service Date/Time: Tuesday, February 07, 2017 16:36 - CONCLUSION: No acute cardiopulmonary disease identified. Angel Laguna MD Cervical Spine CT 02/07/17 1618 Signed Impressions: Service Date/Time: Tuesday, February 07, 2017 17:54 - CONCLUSION: No evidence of fracture. Degenerative findings most prominent at C5-6. Angel Laguna MD Maxillofacial CT 02/07/17 0000 Signed Impressions: Service Date/Time: Tuesday, February 07, 2017 17:54 - CONCLUSION: Normal examination. Armaan Suresh Jr., MD Objective Remarks GENERAL: Obese elderly woman laying in bed on partial rebreather. SKIN: Warm and dry. HEAD/ Neuro: Normocephalic. Pallor present. Awake alert oriented 3, moving all 4 extremities. EYES: No scleral icterus. No injection or drainage. NECK: Supple, trachea midline. No JVD or lymphadenopathy. CARDIOVASCULAR: Regular rate and rhythm without murmurs, gallops, or rubs. RESPIRATORY: Air entry decreased bilaterally at bases. No wheezing or crackles. Scattered rhonchi GASTROINTESTINAL: Abdomen soft, non-tender, nondistended. MUSCULOSKELETAL: No cyanosis, or edema. EXTREMITIES: No clubbing cyanosis or edema Urinary Catheter: Yes Assessment to: Continue A/P Assessment and Plan Neuro: Syncope Reintubated on 02/10 for emergent surgery for right groin hematoma. Propofol for sedation as needed. Morphine when necessary for pain. Daily sedation vacation Follow neuro status. Acute respiratory failure -Extubated on 02/09 following C Pap trial. She was diuresed and was down to 5 L nasal cannula however required reintubation for emergent evacuation of right groin hematoma on 02/10 evening. Bronchodilators as needed. Started Levaquin on 02/10 for left lower lobe consolidation to cover for pneumonia. -Started on Decadron as patient did not have a cuff leak postoperatively. Daily C Pap trials to decide extubation. Being diuresed. Bradycardia/ hypotension(resolved) A. fib with RVR - Most likely due to metoprolol - Digoxin level low on admission. - off Isoproterenol/ dopamine gtt. Follow-up 2-D echo - Metoprolol 2.5 g IV every 6 hourly started on 02/09 for A. fib with RVR and increase to 5 mg IV every 6 hourly on 02/10. Started on amiodarone drip by cardiology on 02/09. - Received 4 units PRBCs, 3 units FFP and a liter normal saline bolus emergently last evening for acute blood loss secondary to right groin hematoma. Being diuresed with Lasix to mobilize fluid - Further recommendations per cardiology-Dr. Mercer -Hold anticoagulation until cleared by vascular surgery in view of right groin hematoma status post repair of SFA and femoral vein on 02/10. Right groin hematoma status post repair of SFA and right femoral vein on 02/10 -Status post 4 units PRBCs, 2 units FFP and vitamin K. Coumadin held. Follow CBC. Being followed by vascular surgery. Acute kidney injury -Strict intake output, monitor and replete electro lites, follow BUN/creatinine. - Being diuresed with Lasix to mobilize fluid Diabetes mellitus - Insulin sliding scale DVT GI prophylaxis - Coumadin on hold. Continue Pepcid. Lovenox cleared by vascular surgery. Condition critical Time spent on critical care excluding procedures 35 minutes Efren Webster MD Feb 11, 2017 10:44
[2017-02-11] MEDS ORDERED: LORazepam 2 MG/ML VIAL IV PUSH ONE (14:45)
[2017-02-11] MEDS ORDERED: FUROSEMIDE 20 MG/2 ML VIAL IV PUSH ONE (14:45)
[2017-02-11] MEDS ORDERED: RESP: RACEPINEPHRINE 2.25% 0.5 ML NEB NEB PRN (15:00)
[2017-02-11] MEDS: DEXMEDETOMIDINE INJ 200 MCG in SODIUM CHLORIDE 0.9% INJ 50 ML IV SCH ×2 (15:41→22:26)
[2017-02-11] MEDS: ENOXAPARIN SODIUM 30 MG/0.3 ML SYRINGE SQ SCH (22:48)
[2017-02-12] VITALS (9 sets, daily range): BP systolic 114–147; BP diastolic 52–75; PULSE 56–100; RESP 16–24; TEMP 98.1–98.8; O2SAT 94–97
[2017-02-12] MEDS: AMIODARONE INJ 450 MG in D5W (EXCEL BAG) 241 ML IV SCH (02:14)
[2017-02-12] MEDS: METOPROLOL TARTRATE 5 MG/5 ML VIAL IV PUSH SCH ×4 (04:00→21:26)
[2017-02-12] MEDS: CHLORHEXIDINE GLUCONATE 2 % 1 PACK (2 CLOTHS) TOP SCH (04:00)
--- NOTE | 2017-02-12 04:38 | RADRPT ---
EXAM DATE/TIME: 02/12/2017 03:38 [facility] COMPARISON: CHEST SINGLE AP, February 11, 2017, 4:01. INDICATIONS : Shortness of breath, possible pulmonary disease. MEDICAL HISTORY : Hypertension. Renal Ca, A-Fib SURGICAL HISTORY : None. ENCOUNTER: Subsequent ACUITY: 1 week PAIN SCORE: Non-responsive. LOCATION: Bilateral chest FINDINGS: A single view of the chest demonstrates perhaps some elevation left hemidiaphragm with some volume lo ss left lower lobe could be atelectasis. The rest of lungs are grossly clear. Is no visible pneumotho rax. Minimal atelectasis right lower lobe. The cardiomediastinal contours are unremarkable. Osseous structures are intact. CONCLUSION: Increased density in both lung bases with mild indistinctness of the hemidiaphragms could be bilatera l atelectasis left greater than right. I believe slightly worst than on the fourth. Travis Westbrook MD on February 12, 2017 at 4:35 Board Certified Radiologist. This report was verified electronically.
[2017-02-12 06:02] LABS: AUTOMATED NEUTROPHIL # 7.8 TH/MM3 (1.8-7.7); BASOPHIL % 0.1 % (0.0-2.0); HEMATOCRIT 26.2 % (35.0-46.0); HEMO FLAGS DIFF FINAL; LYMPH % 7.9 % (9.0-44.0); LYMPHOCYTE # 0.7 TH/MM3 (1.0-4.8); MEAN CELL VOLUME 80.7 FL (80.0-100.0); MEAN CORPUSCULAR HEMOGLOBIN 27.6 PG (27.0-34.0); MEAN CORPUSCULAR HGB CONC 34.2 % (32.0-36.0); MONO % 6.5 % (0.0-8.0); NEUT % 85.5 % (16.0-70.0); PLATELET COUNT 194 TH/MM3 (150-450); RED BLOOD COUNT 3.25 MIL/MM3 (4.00-5.30); WHITE BLOOD COUNT 9.1 TH/MM3 (4.0-11.0)
[2017-02-12 06:13] LABS: PROTHROMBIN TIME - PATIENT 11.6 SEC (9.8-11.6)
[2017-02-12 06:27] LABS: ANION GAP 10 MEQ/L (5-15); AST (GOT) 17 U/L (15-37); BICARBONATE 25.9 MEQ/L (21.0-32.0); BLOOD UREA NITROGEN 25 MG/DL (7-18); CHLORIDE 101 MEQ/L (98-107); GLOMERULAR FILTRATION RATE 47 ML/MIN (>89); POTASSIUM 3.5 MEQ/L (3.5-5.1); SODIUM (NA) 137 MEQ/L (136-145)
[2017-02-12 06:28] LABS: ALT (GPT) 20 U/L (10-53)
[2017-02-12 06:30] LABS: ALKALINE PHOSPHATASE 82 U/L (45-117); TOTAL BILIRUBIN ADULT 3.7 MG/DL (0.2-1.0)
--- NOTE | 2017-02-12 07:04 | PD.CARD.PN ---
Subjective Subjective Remarks Pt reports fatigue Objective Medications Current Medications Medications (Trade) Dose Ordered Sig/Brandon Route Start Time Stop Time Status Last Admin (NS Flush) 2 ml UNSCH PRN .XX 02/07/17 19:15 (NS Flush) 2 ml BID .XX 02/07/17 21:00 02/11/17 09:00 (Tylenol) 650 mg Q6H PRN PO 02/07/17 19:15 02/10/17 13:50 (Morphine Inj) 2 mg Q2H PRN IV 02/07/17 19:15 02/11/17 13:28 (Pepcid Inj) 10 mg Q12HR IV PUSH 02/07/17 21:00 02/11/17 22:25 (Tears Naturale Opth Soln) 1 drop TID EACH EYE 02/08/17 09:00 02/11/17 18:21 (Reglan Inj) 5 mg Q6H PRN IV 02/07/17 19:15 (Compazine Supp) 25 mg Q12H PRN RECTAL 02/07/17 19:15 Miscellaneous Information 1 Q361D XX 02/07/17 19:15 02/07/17 23:24 (Chlorhexidine 2% Cloth) 3 pack Taper DAILY@04 TOP 02/08/17 04:00 02/04/18 03:59 02/12/17 04:00 (Chlorhexidine 2% Cloth) 3 pack UNSCH PRN TOP 02/07/17 19:15 (Masha-Colace) 1 tab BID PO 02/07/17 21:00 02/11/17 22:25 (Milk Of Magnesia Liq) 30 ml Q12H PRN PO 02/07/17 19:15 (Senokot) 17.2 mg Q12H PRN PO 02/07/17 19:15 (Dulcolax Supp) 10 mg DAILY PRN RECTAL 02/07/17 19:15 (Lactulose Liq) 30 ml DAILY PRN PO 02/07/17 19:15 Terbutaline Sulfate 1 mg 1 mg UNSCH PRN SQ 02/07/17 23:00 (Cordarone Inj/ D5W ([place]) Inj) 250 ml @ 0 mls/hr CONTINUOUS IV 02/09/17 14:00 02/12/17 02:14 Metoprolol Tartrate 5 mg 5 mg Q6H IV PUSH 02/10/17 10:00 02/11/17 16:18 (Levaquin 500 Mg Premix Inj) 100 ml @ 100 mls/hr Q24H IV 02/10/17 10:00 02/11/17 10:42 Diltiazem HCl 30 mg 30 mg QID PO 02/10/17 13:00 02/11/17 22:25 (Coumadin Consult Pharmacy) 0 ml @ 0 mls/hr UNSCH OTHER 02/10/17 12:00 (Coumadin) 3 mg DAILY@1600 PO 02/10/17 16:00 Hold 02/10/17 16:08 (Morphine Inj) 4 mg Q4H PRN IV PUSH 02/10/17 17:45 (NS Flush) 2 ml UNSCH PRN IV FLUSH 02/10/17 21:30 Sodium Chloride 2 ml 2 ml BID IV FLUSH 02/11/17 09:00 02/11/17 09:00 Potassium Chloride 100 ml @ 50 mls/hr UNSCH PRN IV 02/10/17 21:30 Potassium Phosphate 21 mmol/ Sodium Chloride 257 ml @ 41.7 mls/hr UNSCH PRN IV 02/10/17 21:30 (Magnesium Sulfate 1 Gm Premix) 200 ml @ 100 mls/hr UNSCH PRN IV 02/10/17 21:30 (Zofran Inj) 4 mg Q6H PRN IV PUSH 02/10/17 21:30 (Roxicodone) 7.5 mg Q4H PRN PO 02/10/17 21:30 (Morphine Inj) 4 mg Q1H PRN IV 02/10/17 21:30 (Ecotrin Ec) 81 mg DAILY PO 02/11/17 09:00 (Lovenox Inj) 30 mg Q24H SQ 02/11/17 22:00 02/11/17 22:48 Metoprolol Tartrate 5 mg 5 mg Q6H PRN IV PUSH 02/11/17 08:30 (Precedex Inj/NS Inj) 52 ml @ 0 mls/hr TITRATE IV 02/11/17 14:45 02/11/17 22:26 Lorazepam 1 mg 1 mg Q6H PRN IV 02/11/17 17:30 (Magnesium Sulfate 1 Gm Premix) 100 ml @ 100 mls/hr Q1H IV 02/12/17 06:45 02/12/17 08:44 Vital Signs / I&O Vital Signs Date Time Temp Pulse Resp B/P Pulse Ox O2 Delivery O2 Flow Rate FiO2 02/12/17 03:00 97 Venturi Mask 50 02/12/17 03:00 98.8 56 16 117/64 96 114/57 02/12/17 03:00 56 02/11/17 23:00 99.0 70 18 116/67 94 131/59 02/11/17 23:00 95 Venturi Mask 50 02/11/17 23:00 67 02/11/17 20:58 95 Venturi Mask 6.00 50 02/11/17 19:00 96 Venturi Mask 50 02/11/17 19:00 63 02/11/17 19:00 98.8 66 20 115/63 94 110/58 02/11/17 16:00 78 02/11/17 15:00 98.1 77 30 132/59 97 02/11/17 15:00 77 02/11/17 14:30 96 Venturi Mask 50 02/11/17 14:30 96 Venturi Mask 6 35 02/11/17 14:09 97 45 02/11/17 11:00 108 02/11/17 11:00 60 02/11/17 11:00 98.7 108 23 119/64 97 118/61 02/11/17 10:32 98 45 02/11/17 09:08 96 45 02/11/17 09:08 45 02/11/17 07:58 97 50 I/O 02/11/17 02/11/17 02/11/17 02/12/17 02/12/17 02/12/17 07:00 15:00 23:00 07:00 15:00 23:00 Intake Total 935 ml 380 ml 540 ml Output Total 1500 ml 3130 ml 690 ml Balance -565 ml -2750 ml -150 ml Intake Oral 0 ml 120 ml 240 ml IV Total 435 ml 260 ml 300 ml Packed Cells 500 ml Output Urine Total 1390 ml 3050 ml 670 ml Drainage Total 110 ml 80 ml 20 ml # Bowel Movements 0 0 0 Physical Exam GENERAL: Well developed, well nourished. No acute distress on vent HEENT: Jugular venous pressure is normal. CHEST: Lungs clear to auscultation bilaterally. Unlabored respiratory effort. CARDIAC: regular rate and rhythm, tachy, without S3, S4, or murmur. ABDOMEN: Soft, nontender, no hepatosplenomegaly. Bowel sounds present. EXTREMITIES: No clubbing, cyanosis, or edema. Laboratory Laboratory Tests Test 02/12/17 04:50 White Blood Count 9.1 TH/MM3 Red Blood Count 3.25 MIL/MM3 Hemoglobin 9.0 GM/DL Hematocrit 26.2 % Mean Corpuscular Volume 80.7 FL Mean Corpuscular Hemoglobin 27.6 PG Mean Corpuscular Hemoglobin 34.2 % Concent Red Cell Distribution Width 17.0 % Platelet Count 194 TH/MM3 Mean Platelet Volume 7.6 FL Neutrophils (%) (Auto) 85.5 % Lymphocytes (%) (Auto) 7.9 % Monocytes (%) (Auto) 6.5 % Eosinophils (%) (Auto) 0.0 % Basophils (%) (Auto) 0.1 % Neutrophils # (Auto) 7.8 TH/MM3 Lymphocytes # (Auto) 0.7 TH/MM3 Monocytes # (Auto) 0.6 TH/MM3 Eosinophils # (Auto) 0.0 TH/MM3 Basophils # (Auto) 0.0 TH/MM3 CBC Comment DIFF FINAL Differential Comment Prothrombin Time 11.6 SEC Prothromb Time International 1.0 RATIO Ratio Sodium Level 137 MEQ/L Potassium Level 3.5 MEQ/L Chloride Level 101 MEQ/L Carbon Dioxide Level 25.9 MEQ/L Anion Gap 10 MEQ/L Blood Urea Nitrogen 25 MG/DL Creatinine 1.12 MG/DL Estimat Glomerular Filtration 47 ML/MIN Rate Random Glucose 149 MG/DL Calcium Level 8.3 MG/DL Total Bilirubin 3.7 MG/DL Aspartate Amino Transf 17 U/L (AST/SGOT) Alanine Aminotransferase 20 U/L (ALT/SGPT) Alkaline Phosphatase 82 U/L Total Protein 6.2 GM/DL Albumin 2.3 GM/DL Assessment and Plan Problem List: (1) Groin hematoma (2) Cardiogenic shock (3) Atrial fibrillation Assessment and Plan Atrial fibrillation - CHADS-VASc score of 5, in NSR, amio to PO Respiratory Failure-off vent s/p pseudoaneurysm repair Problem Qualifiers (1) Atrial fibrillation: Qualified Code: I48.0 - Paroxysmal atrial fibrillation Evi Mercer MD Feb 12, 2017 07:04
[2017-02-12] MEDS: LORazepam 2 MG/ML VIAL IV PRN ×3 (07:28→21:26)
[2017-02-12] MEDS: MAGNESIUM SULFATE 1 GM PREMIX 100 ML IV SCH ×2 (07:46→07:47)
--- NOTE | 2017-02-12 08:43 | MP ---
cc: EMY TESFAYE DO DATE OF SURGERY: 02/10/2017. PREOPERATIVE DIAGNOSIS: 1. Expanding pseudoaneurysm right groin. 2. Hypotension. POSTOPERATIVE DIAGNOSIS: 1. Expanding pseudoaneurysm right groin. 2. Hypotension. OPERATION: 1. Repair of right superficial femoral artery with bovine patch. 2. Repair of right femoral vein with primary repair. SURGEON: Emy Tesfaye DO. OCCUPATIONAL THERAPIST'S ASSISTANT: Joshua Kolb. IV FLUIDS: 3 liters of crystalloid. 2 units of fresh frozen plasma. 2 units of packed red blood cells. ESTIMATED BLOOD LOSS: 500 cc. COMPLICATIONS: None. DISPOSITION: To post-anesthesia care unit. DESCRIPTION OF THE PROCEDURE IN DETAIL: The patient was prepped and draped from the abdomen through the right lower extremity to the foot after being given 1 gram of IV Vancomycin. I used a scalpel and electrocautery and dissected down over the anterior surface of below the right inguinal crease with a scalpel and electrocautery. I dissected through a hematoma where there was active bleeding from the superficial femoral artery and the vein. I put a 5-0 and a BV-1 stitch through the vein to control it. I heparinized the patient to an ACT greater than 200 and used pediatric profunda clamps to control the proximal and distal superficial femoral artery. I opened it with a #11 blade and Mulligan scissors. There was a through and through hole in the anterior and posterior wall of the superficial femoral artery and at the anterior surface of the right superficial femoral vein. I used three 7-0 Prolene U stitches in the posterior wall and irrigated the vessel. I then used a 0.8 x 8 bovine patch, which was trimmed down and sewn in with 5-0 and BV-1. Afterwards I did use two 6-0 Prolene correction stitches. There was a large hematoma that was irrigated and removed during the procedure. I did use electrocautery and multiple small and medium clips in order to tie off branches of crossing veins and different vessels in this cavernous hematoma sac. It should be noted that this was about the size of a softball. The patient afterwards had a good signal and palpable pulse in the posterior tibial artery. The signals were triphasic in the dorsalis pedis and posterior tibial distributions. I did use Micheline and snow for hemostasis and closed the potential space with interrupted 2-0 vicryl stitches and a 3-0 vicryl running stitch. I did reverse the heparin and I used a #7 Grzegorz-Edge drain through a separate stab incision inferior to my incision which was closed with a 4-0 monocryl stitch. We placed a wound VAC, a Prevena VAC, over the right groin at the end of the procedure. The patient tolerated the procedure well and was taken to the CVICU at the end of the case. DO GIN Elias/KACI /9:06 PM /8:42 AM MTDLatosha
[2017-02-12] MEDS: FAMOTIDINE 20 MG/2 ML VIAL IV PUSH SCH ×2 (09:00→21:26)
[2017-02-12] MEDS: ARTIFICIAL TEARS OPTH SOLN 15 ML BTL EACH EYE SCH ×3 (09:36→17:35)
[2017-02-12] MEDS: SODIUM CHLORIDE 0.9% FLUSH 10 ML FLUSH SCH ×2 (09:36→21:29)
[2017-02-12] MEDS: SODIUM CHLORIDE 0.9% FLUSH 10 ML FLUSH IV FLUSH SCH ×2 (09:36→21:00)
[2017-02-12] MEDS: DILTIAZEM HCL 30 MG TAB PO SCH ×4 (09:37→21:28)
[2017-02-12] MEDS: ASPIRIN EC 81 MG TABEC PO SCH (09:37)
[2017-02-12] MEDS: LEVOFLOXACIN 500 MG PREMIX INJ 100 ML IV SCH (09:37)
[2017-02-12] MEDS: AMIODARONE 200 MG TAB PO SCH (09:37)
[2017-02-12] MEDS: DOCUSATE SODIUM 50 MG/SENNA 8.6 MG TAB PO SCH ×2 (09:37→21:28)
--- NOTE | 2017-02-12 09:38 | PD.VS.PN ---
Subjective POD #: 2 Procedure(s): Right SFA pseudoaneurysm repair Right Femoral vein Repair Subjective/Hospital Course Pt awake extubated with NR in place/responsive Pt w/o complaints Wound vac/CUBA drain intact to RLE (Samantha Crowley) Objective Vitals/I&O Date Time Temp Pulse Resp B/P Pulse Ox O2 Delivery O2 Flow Rate FiO2 02/12/17 08:36 95 Venturi Mask 6.00 50 02/12/17 07:00 61 02/12/17 07:00 98.7 61 24 142/59 94 130/55 02/12/17 07:00 94 Venturi Mask 50 02/12/17 03:00 97 Venturi Mask 50 02/12/17 03:00 98.8 56 16 117/64 96 114/57 02/12/17 03:00 56 02/11/17 23:00 99.0 70 18 116/67 94 131/59 02/11/17 23:00 95 Venturi Mask 50 02/11/17 23:00 67 02/11/17 20:58 95 Venturi Mask 6.00 50 02/11/17 19:00 96 Venturi Mask 50 02/11/17 19:00 63 02/11/17 19:00 98.8 66 20 115/63 94 110/58 02/11/17 16:00 78 02/11/17 15:00 98.1 77 30 132/59 97 02/11/17 15:00 77 02/11/17 14:30 96 Venturi Mask 50 02/11/17 14:30 96 Venturi Mask 6 35 02/11/17 14:09 97 45 02/11/17 11:00 108 02/11/17 11:00 60 02/11/17 11:00 98.7 108 23 119/64 97 118/61 02/11/17 10:32 98 45 02/12/17 02/12/17 02/12/17 07:00 15:00 23:00 Intake Total 540 ml Output Total 690 ml Balance -150 ml Exam: GENERAL: Awake alert responsive SKIN: Warm and dry/ R groin with wound vac intact no hematoma CARDIOVASCULAR: RRR RESPIRATORY: No accessory muscle use. GASTROINTESTINAL: Abdomen soft, non-tender MUSCULOSKELETAL: No cyanosis, or edema/ Pt moves BLE without difficulty BLE warm with motor intact Strong Palpable R DP Pulses: Palpable R DP Incisions: Wound Vac intact to R groin region No hematoma Laboratory Laboratory Tests Test 02/12/17 04:50 White Blood Count 9.1 Red Blood Count 3.25 Hemoglobin 9.0 Hematocrit 26.2 Mean Corpuscular Volume 80.7 Mean Corpuscular Hemoglobin 27.6 Mean Corpuscular Hemoglobin 34.2 Concent Red Cell Distribution Width 17.0 Platelet Count 194 Mean Platelet Volume 7.6 Neutrophils (%) (Auto) 85.5 Lymphocytes (%) (Auto) 7.9 Monocytes (%) (Auto) 6.5 Eosinophils (%) (Auto) 0.0 Basophils (%) (Auto) 0.1 Neutrophils # (Auto) 7.8 Lymphocytes # (Auto) 0.7 Monocytes # (Auto) 0.6 Eosinophils # (Auto) 0.0 Basophils # (Auto) 0.0 CBC Comment DIFF FINAL Differential Comment Prothrombin Time 11.6 Prothromb Time International 1.0 Ratio Sodium Level 137 Potassium Level 3.5 Chloride Level 101 Carbon Dioxide Level 25.9 Anion Gap 10 Blood Urea Nitrogen 25 Creatinine 1.12 Estimat Glomerular Filtration 47 Rate Random Glucose 149 Calcium Level 8.3 Total Bilirubin 3.7 Aspartate Amino Transf 17 (AST/SGOT) Alanine Aminotransferase 20 (ALT/SGPT) Alkaline Phosphatase 82 Total Protein 6.2 Albumin 2.3 (Samantha Crowley) Assessment and Plan Assessment: (1) Atrial fibrillation Status: Acute (2) Pseudoaneurysm of femoral artery Status: Acute Plan Plan Pt doing well this am Continue to hold anticoagulation CUBA to remain intact for the next 24-48 hours Samantha WATERS [facility] [phone] (Samantha Crowley) Plan Looks good, extubated and neuro intact Groin soft. Palp DP Leave CUBA in place and VAC on for now. Hold anticoagulation. (Joshua Garcia MD) Problem Qualifiers (1) Atrial fibrillation: Qualified Code: I48.0 - Paroxysmal atrial fibrillation Samantha Crowley Feb 12, 2017 09:38 Joshua Garcia MD Feb 12, 2017 10:39
--- NOTE | 2017-02-12 12:03 | HHI.CCPN ---
Subjective Remarks/Hospital Course 02/07: 76-year-old female who presents with complaints of possible nasal bone fracture. Per medical record she was feeling weak and dizzy for the past month , reports that she was in the bathroom today and had a syncopal episode. Reports that she is feeling lightheaded and dizzy prior to this. patient reports that when she fell, she hit her face on the toilet, patient does admit to taking Coumadin as she has history of atrial fibrillation. Patient reports that she did have loss of consciousness. She is also on digoxin for rate control. In the emergency department she was found to be bradycardic at the heart rate of 30s. She does follow up with Dr. Mercer with cardiology. She became hypotensive and hypoxemic and was intubated by ED attending for airway protection. 02/08: Remains sedated, orally intubated on mechanical ventilation. On dopamine 15 mics per KG per minute and isopropyl 6 mics per minute. On tube feeds. 02/09: Arouses off sedation, orally intubated on mechanical ventilation. Tolerating tube feeds. Off Isuprel. Dopamine at 5 mics per kg per minute this morning. 02/10: Patient extubated on 02/09. On partial rebreather currently. Diuresed with Lasix yesterday. Started on amiodarone drip per cardiology on he remains in A. fib with heart rate going up to 130s. Received 1 dose of digoxin 0.5 mg IV on 02/09 and was started on IV Lopressor. She is awake and alert, following commands. 02/11: Patient developed an expanding groin hematoma following removal of central line yesterday. Underwent stat CTA which showed a large hematoma and pseudoaneurysm in the right groin. Vascular surgery was consulted and I discussed the case with Dr. Delgadillo in CAT scan. Patient received vitamin K as well as FFP and was taken emergently to the OR and underwent exploration with patch repair of SFA and femoral vein with evacuation of hematoma under general anesthesia by Dr. Sanchez. She received 4 units of PRBCs 3 units of FFP and was subsequently transferred to CVICU kept intubated overnight. She did not have a cuff leak postoperatively and was started on IV Decadron. She remains on mechanical ventilation this morning and time of my evaluation. 02/12: Extubated yesterday. On 35% Ventimask today. Breathing better. Diuresed with Lasix yesterday. Objective Vital Signs Date Time Temp Pulse Resp B/P Pulse Ox O2 Delivery O2 Flow Rate FiO2 02/12/17 11:00 70 02/12/17 11:00 95 Nasal Cannula 4.00 02/12/17 11:00 98.8 20 136/74 Arterial Line 02/12/17 08:36 50 Intake and Output 02/11/17 02/11/17 02/12/17 08:00 16:00 00:00 Intake Total 935 ml 380 ml Output Total 1500 ml 3130 ml Balance -565 ml -2750 ml Result Diagram: 02/12/17 0450 02/12/17 0450 Imaging Last 48 hours Impressions Chest X-Ray 02/11/17 0600 Signed Impressions: Service Date/Time: Saturday, February 11, 2017 04:01 - CONCLUSION: Probable mild pulmonary edema. Shelby Hayward MD Lower Extremity Ultrasound 02/10/17 0000 Signed Impressions: Service Date/Time: Friday, February 10, 2017 18:37 - CONCLUSION: Active bleeding pre-and post direct manual compression in the proximal right thigh. Armaan Buckley MD Abdomen/Pelvis CT 02/10/17 0000 Signed Impressions: Service Date/Time: Friday, February 10, 2017 18:17 - CONCLUSION: 1. There is evidence of active bleeding into the right anterior thigh 7 cm hematoma. The point of leakage is not identified with certainty. 2. 3 cm left renal mass demonstrates a heterogeneous pattern of enhancement. 3. No vessel truncation or significant luminal narrowing in the aorta, iliac vessels or thigh vessels . 4. 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 Armaan Buckley MD Abdomen/Pelvis CT 02/10/17 0000 Signed Impressions: Service Date/Time: Friday, February 10, 2017 18:04 - CONCLUSION: 1. Large proximal right thigh hematoma without extension into the retroperitoneum. 2. Gallstones. 3. Abnormal appearance the left kidney with an exophytic mass with punctate calcifications medially. 4. Bilateral pleural effusions and atelectasis lower lungs. 5. Mild dilation of loops of small bowel with air-fluid levels. Armaan Bucklye MD Last 24 hours Impressions Chest X-Ray 02/07/17 191 Signed Impressions: Service Date/Time: Tuesday, February 07, 2017 19:22 - CONCLUSION: 1. Tip of the endotracheal tube within the orifice of the right mainstem bronchus. 2. Volume loss involving the left hemithorax likely due to the position of the endotracheal tube. 3. Patchy parenchymal consolidation throughout the left lung. This may be in part due to the volume loss representing atelectasis. Araman Suresh Jr., MD Head CT 02/07/171617 Signed Impressions: Service Date/Time: Tuesday, February 07, 2017 17:54 - CONCLUSION: 1. Chronic small vessel ischemic change. 2. Area of encephalomalacia involving the left frontal lobe. 3. No acute intracranial abnormality. Armaan Suresh Jr., MD Chest X-Ray 02/07/171617 Signed Impressions: Service Date/Time: Tuesday, February 07, 2017 16:36 - CONCLUSION: No acute cardiopulmonary disease identified. Angel Laguna MD Cervical Spine CT 02/07/171617 Signed Impressions: Service Date/Time: Tuesday, February 07, 2017 17:54 - CONCLUSION: No evidence of fracture. Degenerative findings most prominent at C5-6. Angel Laguna MD Maxillofacial CT 02/07/17 0000 Signed Impressions: Service Date/Time: Tuesday, February 07, 2017 17:54 - CONCLUSION: Normal examination. Armaan Suresh Jr., MD Objective Remarks GENERAL: Obese elderly woman laying in bed on Ventimask 35% at the time of my evaluation this morning. SKIN: Warm and dry. HEAD/ Neuro: Normocephalic. Pallor present. Awake alert oriented 3, moving all 4 extremities. EYES: No scleral icterus. No injection or drainage. NECK: Supple, trachea midline. No JVD or lymphadenopathy. CARDIOVASCULAR: Regular rate and rhythm without murmurs, gallops, or rubs. RESPIRATORY: Air entry decreased bilaterally at bases. No wheezing or crackles. Scattered rhonchi GASTROINTESTINAL: Abdomen soft, non-tender, nondistended. MUSCULOSKELETAL: No cyanosis, or edema. EXTREMITIES: No clubbing cyanosis or edema. Dressing over right groin surgical site, CUBA drain in place with minimal serosanguineous drainage. A/P Assessment and Plan Neuro: Syncope Reintubated on 02/10 for emergent surgery for right groin hematoma. Propofol for sedation as needed. Morphine when necessary for pain. Daily sedation vacation Follow neuro status. Acute respiratory failure -Extubated on 02/09 following C Pap trial. She was diuresed and was down to 5 L nasal cannula however required reintubation for emergent evacuation of right groin hematoma on 02/10 evening. Bronchodilators as needed. Started Levaquin on 02/10 for left lower lobe consolidation to cover for pneumonia. -Started on Decadron as patient did not have a cuff leak postoperatively. Extubated on 02/11 partial rebreather and subsequently diuresed and down to 35% Ventimask. Bradycardia/ hypotension(resolved) A. fib with RVR - Most likely due to metoprolol - Digoxin level low on admission. - off Isoproterenol/ dopamine gtt. Follow-up 2-D echo - Metoprolol 2.5 g IV every 6 hourly started on 02/09 for A. fib with RVR and increase to 5 mg IV every 6 hourly on 02/10. Started on amiodarone drip by cardiology on 02/09. - Received 4 units PRBCs, 3 units FFP and a liter normal saline bolus emergently 02/10 evening for acute blood loss secondary to right groin hematoma. Being diuresed with Lasix to mobilize fluid - Further recommendations per cardiology-Dr. Mercer -Hold anticoagulation until cleared by vascular surgery in view of right groin hematoma status post repair of SFA and femoral vein on 02/10. Right groin hematoma status post repair of SFA and right femoral vein on 02/10 -Status post 4 units PRBCs, 2 units FFP and vitamin K. Coumadin held. Follow CBC. Being followed by vascular surgery. Acute kidney injury -Strict intake output, monitor and replete electro lites, follow BUN/creatinine. - Diuresed with Lasix to mobilize fluid Diabetes mellitus - Insulin sliding scale DVT GI prophylaxis - Coumadin on hold. Continue Pepcid. Lovenox cleared by vascular surgery. Efren Webster MD Feb 12, 2017 12:03
[2017-02-12] MEDS: ENOXAPARIN SODIUM 30 MG/0.3 ML SYRINGE SQ SCH (21:28)
[2017-02-13 03:00] VITALS: BP 117/70; PULSE 108; PULSE 112; RESP 22; TEMP 98.7; O2SAT 94
[2017-02-13] MEDS: CHLORHEXIDINE GLUCONATE 2 % 1 PACK (2 CLOTHS) TOP SCH (04:00)
[2017-02-13] MEDS: METOPROLOL TARTRATE 5 MG/5 ML VIAL IV PUSH SCH (04:33)
[2017-02-13] MEDS: LORazepam 2 MG/ML VIAL IV PRN (05:37)
[2017-02-13 05:57] LABS: AUTOMATED NEUTROPHIL # 9.2 TH/MM3 (1.8-7.7); BASOPHIL % 0.1 % (0.0-2.0); EOSINOPHIL % 0.1 % (0.0-4.0); HEMATOCRIT 29.1 % (35.0-46.0); LYMPH % 12.7 % (9.0-44.0); LYMPHOCYTE # 1.5 TH/MM3 (1.0-4.8); MEAN CELL VOLUME 81.5 FL (80.0-100.0); MEAN CORPUSCULAR HEMOGLOBIN 26.9 PG (27.0-34.0); MONO % 8.7 % (0.0-8.0); NEUT % 78.4 % (16.0-70.0); PLATELET COUNT 264 TH/MM3 (150-450); RED BLOOD COUNT 3.57 MIL/MM3 (4.00-5.30); RED CELL DISTRIBUTION WIDTH 17.7 % (11.6-17.2); WHITE BLOOD COUNT 11.7 TH/MM3 (4.0-11.0)
[2017-02-13 06:01] LABS: HEMO FLAGS AUTO DIFF
[2017-02-13 06:06] LABS: PROTHROMBIN TIME - PATIENT 11.1 SEC (9.8-11.6)
[2017-02-13 06:31] LABS: ALKALINE PHOSPHATASE 95 U/L (45-117); ALT (GPT) 27 U/L (10-53); ANION GAP 9 MEQ/L (5-15); AST (GOT) 30 U/L (15-37); BICARBONATE 24.4 MEQ/L (21.0-32.0); BLOOD UREA NITROGEN 28 MG/DL (7-18); CHLORIDE 105 MEQ/L (98-107); GLOMERULAR FILTRATION RATE 47 ML/MIN (>89); MAGNESIUM 2.2 MG/DL (1.5-2.5); POTASSIUM 3.3 MEQ/L (3.5-5.1); SODIUM (NA) 138 MEQ/L (136-145); TOTAL BILIRUBIN ADULT 2.4 MG/DL (0.2-1.0)
[2017-02-13 06:41] LABS: BANDS 1 % (0-6); METAMYELOCYTES 1 % (0-1); MYELOCYTES 1 % (0-0); NEUTROPHIL # MANUAL DIFF 8.1 TH/MM3 (1.8-7.7); POLYS (SEG NEUTROPHILS) 66 % (16-70); WBC DIFF SAMPLE 100
[2017-02-13 06:42] LABS: OVALOCYTES 1+ (NORMAL); SCAN/DIFF FINAL DIFF MANUAL
--- NOTE | 2017-02-13 06:57 | PD.CARD.PN ---
Subjective Subjective Remarks Pt without complaints Objective Medications Current Medications Medications (Trade) Dose Ordered Sig/Brandon Route Start Time Stop Time Status Last Admin (NS Flush) 2 ml UNSCH PRN .XX 02/07/17 19:15 (NS Flush) 2 ml BID .XX 02/07/17 21:00 02/12/17 21:29 (Tylenol) 650 mg Q6H PRN PO 02/07/17 19:15 02/10/17 13:50 (Morphine Inj) 2 mg Q2H PRN IV 02/07/17 19:15 02/11/17 13:28 (Pepcid Inj) 10 mg Q12HR IV PUSH 02/07/17 21:00 02/12/17 21:26 (Tears Naturale Opth Soln) 1 drop TID EACH EYE 02/08/17 09:00 02/12/17 17:35 (Reglan Inj) 5 mg Q6H PRN IV 02/07/17 19:15 (Compazine Supp) 25 mg Q12H PRN RECTAL 02/07/17 19:15 Miscellaneous Information 1 Q361D XX 02/07/17 19:15 02/07/17 23:24 (Chlorhexidine 2% Cloth) Taper DAILY@04 TOP 02/08/17 04:00 02/04/18 03:59 02/13/17 04:00 (Chlorhexidine 2% Cloth) 3 pack UNSCH PRN TOP 02/07/17 19:15 (Masha-Colace) 1 tab BID PO 02/07/17 21:00 02/12/17 21:28 (Milk Of Magnesia Liq) 30 ml Q12H PRN PO 02/07/17 19:15 (Senokot) 17.2 mg Q12H PRN PO 02/07/17 19:15 (Dulcolax Supp) 10 mg DAILY PRN RECTAL 02/07/17 19:15 (Lactulose Liq) 30 ml DAILY PRN PO 02/07/17 19:15 (Brethine Inj) 1 mg UNSCH PRN SQ 02/07/17 23:00 Metoprolol Tartrate 5 mg 5 mg Q6H IV PUSH 02/10/17 10:00 02/13/17 04:33 (Levaquin 500 Mg Premix Inj) 100 ml @ 100 mls/hr Q24H IV 02/10/17 10:00 02/12/17 09:37 Diltiazem HCl 30 mg 30 mg QID PO 02/10/17 13:00 02/12/17 21:28 (Coumadin Consult Pharmacy) 0 ml @ 0 mls/hr UNSCH OTHER 02/10/17 12:00 (Coumadin) 3 mg DAILY@1600 PO 02/10/17 16:00 Hold 02/10/17 16:08 (Morphine Inj) 4 mg Q4H PRN IV PUSH 02/10/17 17:45 (NS Flush) 2 ml UNSCH PRN IV FLUSH 02/10/17 21:30 Sodium Chloride 2 ml 2 ml BID IV FLUSH 02/11/17 09:00 02/12/17 09:36 Potassium Chloride 100 ml @ 50 mls/hr UNSCH PRN IV 02/10/17 21:30 Potassium Phosphate 21 mmol/ Sodium Chloride 257 ml @ 41.7 mls/hr UNSCH PRN IV 02/10/17 21:30 (Magnesium Sulfate 1 Gm Premix) 200 ml @ 100 mls/hr UNSCH PRN IV 02/10/17 21:30 (Zofran Inj) 4 mg Q6H PRN IV PUSH 02/10/17 21:30 (Roxicodone) 7.5 mg Q4H PRN PO 02/10/17 21:30 (Morphine Inj) 4 mg Q1H PRN IV 02/10/17 21:30 (Ecotrin Ec) 81 mg DAILY PO 02/11/17 09:00 02/12/17 09:37 (Lovenox Inj) 30 mg Q24H SQ 02/11/17 22:00 02/12/17 21:28 Metoprolol Tartrate 5 mg 5 mg Q6H PRN IV PUSH 02/11/17 08:30 (Precedex Inj/NS Inj) 52 ml @ 0 mls/hr TITRATE IV 02/11/17 14:45 02/11/17 22:26 (Ativan Inj) 1 mg Q6H PRN IV 02/11/17 17:30 02/13/17 05:37 (Cordarone) 200 mg DAILY PO 02/12/17 09:00 02/12/17 09:37 Vital Signs / I&O Vital Signs Date Time Temp Pulse Resp B/P Pulse Ox O2 Delivery O2 Flow Rate FiO2 02/13/17 03:00 98.7 112 22 117/70 94 02/13/17 03:00 108 02/13/17 03:00 94 Nasal Cannula 2.00 02/12/17 23:00 96 Nasal Cannula 2.00 02/12/17 23:00 98.4 100 20 137/64 97 02/12/17 23:00 95 02/12/17 20:15 95 Nasal Cannula 2.00 02/12/17 19:00 98.6 81 24 147/75 94 02/12/17 19:00 95 Nasal Cannula 2.00 02/12/17 19:00 79 02/12/17 16:21 97 Nasal Cannula 2.00 02/12/17 15:00 98.1 70 20 128/52 94 02/12/17 15:00 74 02/12/17 15:00 94 Nasal Cannula 4.00 02/12/17 11:00 70 02/12/17 11:00 95 Nasal Cannula 4.00 02/12/17 11:00 98.8 65 20 136/74 95 Arterial Line 02/12/17 08:36 95 Venturi Mask 6.00 50 02/12/17 07:00 61 02/12/17 07:00 98.7 61 24 142/59 94 130/55 02/12/17 07:00 94 Venturi Mask 50 I/O 02/12/17 02/12/17 02/12/17 02/13/17 02/13/17 02/13/17 07:00 15:00 23:00 07:00 15:00 23:00 Intake Total 540 ml 1140 ml 480 ml Output Total 690 ml 850 ml 2390 ml Balance -150 ml 290 ml -1910 ml Intake Oral 240 ml 840 ml 480 ml IV Total 300 ml 300 ml Output Urine Total 670 ml 800 ml 2350 ml Drainage Total 20 ml 50 ml 40 ml # Bowel Movements 0 0 0 Physical Exam GENERAL: Well developed, well nourished. No acute distress on vent HEENT: Jugular venous pressure is normal. CHEST: Lungs rales to auscultation bilaterally. Unlabored respiratory effort. CARDIAC: irregular rate and rhythm, tachy, without S3, S4, or murmur. ABDOMEN: Soft, nontender, no hepatosplenomegaly. Bowel sounds present. EXTREMITIES: No clubbing, cyanosis, or edema. Laboratory Laboratory Tests Test 02/13/17 05:13 White Blood Count 11.7 TH/MM3 Red Blood Count 3.57 MIL/MM3 Hemoglobin 9.6 GM/DL Hematocrit 29.1 % Mean Corpuscular Volume 81.5 FL Mean Corpuscular Hemoglobin 26.9 PG Mean Corpuscular Hemoglobin 33.0 % Concent Red Cell Distribution Width 17.7 % Platelet Count 264 TH/MM3 Mean Platelet Volume 7.4 FL Neutrophils (%) (Auto) 78.4 % Lymphocytes (%) (Auto) 12.7 % Monocytes (%) (Auto) 8.7 % Eosinophils (%) (Auto) 0.1 % Basophils (%) (Auto) 0.1 % Neutrophils # (Auto) 9.2 TH/MM3 Lymphocytes # (Auto) 1.5 TH/MM3 Monocytes # (Auto) 1.0 TH/MM3 Eosinophils # (Auto) 0.0 TH/MM3 Basophils # (Auto) 0.0 TH/MM3 CBC Comment AUTO DIFF Differential Total Cells 100 Counted Neutrophils % (Manual) 66 % Band Neutrophils % 1 % Lymphocytes % 21 % Monocytes % 10 % Neutrophils # (Manual) 8.1 TH/MM3 Metamyelocytes 1 % Myelocytes 1 % Differential Comment FINAL DIFF MANUAL Ovalocytes 1+ Prothrombin Time 11.1 SEC Prothromb Time International 1.0 RATIO Ratio Sodium Level 138 MEQ/L Potassium Level 3.3 MEQ/L Chloride Level 105 MEQ/L Carbon Dioxide Level 24.4 MEQ/L Anion Gap 9 MEQ/L Blood Urea Nitrogen 28 MG/DL Creatinine 1.13 MG/DL Estimat Glomerular Filtration 47 ML/MIN Rate Random Glucose 78 MG/DL Calcium Level 8.1 MG/DL Magnesium Level 2.2 MG/DL Total Bilirubin 2.4 MG/DL Aspartate Amino Transf 30 U/L (AST/SGOT) Alanine Aminotransferase 27 U/L (ALT/SGPT) Alkaline Phosphatase 95 U/L Total Protein 6.3 GM/DL Albumin 2.3 GM/DL Imaging Last 72 hours Impressions Chest X-Ray 02/12/17 0700 Signed Impressions: Service Date/Time: Sunday, February 12, 2017 03:38 - CONCLUSION: Increased density in both lung bases with mild indistinctness of the hemidiaphragms could be bilateral atelectasis left greater than right. I believe slightly worst than on the fourth. Travis Westbrook MD Chest X-Ray 02/11/17 0600 Signed Impressions: Service Date/Time: Saturday, February 11, 2017 04:01 - CONCLUSION: Probable mild pulmonary edema. Shelby Hayward MD Assessment and Plan Problem List: (1) Groin hematoma (2) Cardiogenic shock (3) Atrial fibrillation Assessment and Plan Atrial fibrillation - CHADS-VASc score of 5, in AF 110=> increase O cardizem Respiratory Failure-off vent, add IS s/p pseudoaneurysm repair Problem Qualifiers (1) Atrial fibrillation: Qualified Code: I48.0 - Paroxysmal atrial fibrillation Evi Mercer MD Feb 13, 2017 06:57
[2017-02-13 07:00] VITALS: BP 147/88; PULSE 118; PULSE 95; RESP 20; TEMP 98.2; O2SAT 96
[2017-02-13] MEDS ORDERED: DILTIAZEM HCL 30 MG TAB PO PRN (07:00)
[2017-02-13] MEDS: DILTIAZEM HCL 60 MG TAB PO SCH ×3 (08:00→20:26)
[2017-02-13] MEDS: FUROSEMIDE 20 MG TAB PO SCH (08:34)
[2017-02-13] MEDS: POTASSIUM CHLORIDE 10 MEQ CONTROLLED RELEASE TAB PO SCH (08:34)
[2017-02-13] MEDS: ASPIRIN EC 81 MG TABEC PO SCH (08:34)
[2017-02-13] MEDS: DOCUSATE SODIUM 50 MG/SENNA 8.6 MG TAB PO SCH ×2 (08:34→20:26)
[2017-02-13] MEDS: AMIODARONE 200 MG TAB PO SCH (08:34)
[2017-02-13] MEDS: SODIUM CHLORIDE 0.9% FLUSH 10 ML FLUSH SCH ×2 (08:35→20:27)
[2017-02-13] MEDS: MORPHINE SULFATE 4 MG/ML INJ IV PUSH PRN ×2 (08:35→15:39)
[2017-02-13] MEDS: FAMOTIDINE 20 MG/2 ML VIAL IV PUSH SCH ×2 (08:35→20:26)
[2017-02-13] MEDS: LEVOFLOXACIN 500 MG PREMIX INJ 100 ML IV SCH (08:36)
[2017-02-13] MEDS: ARTIFICIAL TEARS OPTH SOLN 15 ML BTL EACH EYE SCH ×3 (08:49→18:00)
[2017-02-13] MEDS: SODIUM CHLORIDE 0.9% FLUSH 10 ML FLUSH IV FLUSH SCH ×2 (08:49→20:27)
[2017-02-13] MEDS ORDERED: POTASSIUM CHLORIDE 20 MEQ CONTROLLED RELEASE TAB PO ONE (12:00)
[2017-02-13 14:48] VITALS: O2SAT 94
[2017-02-13 15:00] VITALS: BP 130/72; PULSE 100; PULSE 106; RESP 20; TEMP 98; O2SAT 96
--- NOTE | 2017-02-13 16:28 | PD.VS.PN ---
Subjective POD #: 3 Procedure(s): Right SFA pseudoaneurysm repair Right Femoral vein Repair Subjective/Hospital Course Extubated, feels well overall No motor dysfunction Objective Vitals/I&O Date Time Temp Pulse Resp B/P Pulse Ox O2 Delivery O2 Flow Rate FiO2 02/13/17 14:48 94 Nasal Cannula 2.00 02/13/17 07:00 98.2 118 20 147/88 96 02/13/17 07:00 95 02/13/17 07:00 96 Nasal Cannula 2.00 02/13/17 03:00 98.7 112 22 117/70 94 02/13/17 03:00 108 02/13/17 03:00 94 Nasal Cannula 2.00 02/12/17 23:00 96 Nasal Cannula 2.00 02/12/17 23:00 98.4 100 20 137/64 97 02/12/17 23:00 95 02/12/17 20:15 95 Nasal Cannula 2.00 02/12/17 19:00 98.6 81 24 147/75 94 02/12/17 19:00 95 Nasal Cannula 2.00 02/12/17 19:00 79 02/13/17 02/13/17 02/13/17 06:59 14:59 22:59 Intake Total 480 ml Output Total 2390 ml Balance -1910 ml Exam: R groin with VAC in place Dark venous blood around gauze around CUBA drain Minimal fullness of R thigh R foot motor intact Pulses: Palpable DP/PT Laboratory Laboratory Tests Test 02/13/17 05:13 White Blood Count 11.7 Red Blood Count 3.57 Hemoglobin 9.6 Hematocrit 29.1 Mean Corpuscular Volume 81.5 Mean Corpuscular Hemoglobin 26.9 Mean Corpuscular Hemoglobin 33.0 Concent Red Cell Distribution Width 17.7 Platelet Count 264 Mean Platelet Volume 7.4 Neutrophils (%) (Auto) 78.4 Lymphocytes (%) (Auto) 12.7 Monocytes (%) (Auto) 8.7 Eosinophils (%) (Auto) 0.1 Basophils (%) (Auto) 0.1 Neutrophils # (Auto) 9.2 Lymphocytes # (Auto) 1.5 Monocytes # (Auto) 1.0 Eosinophils # (Auto) 0.0 Basophils # (Auto) 0.0 CBC Comment AUTO DIFF Differential Total Cells 100 Counted Neutrophils % (Manual) 66 Band Neutrophils % 1 Lymphocytes % 21 Monocytes % 10 Neutrophils # (Manual) 8.1 Metamyelocytes 1 Myelocytes 1 Differential Comment FINAL DIFF MANUAL Ovalocytes 1+ Prothrombin Time 11.1 Prothromb Time International 1.0 Ratio Sodium Level 138 Potassium Level 3.3 Chloride Level 105 Carbon Dioxide Level 24.4 Anion Gap 9 Blood Urea Nitrogen 28 Creatinine 1.13 Estimat Glomerular Filtration 47 Rate Random Glucose 78 Calcium Level 8.1 Magnesium Level 2.2 Total Bilirubin 2.4 Aspartate Amino Transf 30 (AST/SGOT) Alanine Aminotransferase 27 (ALT/SGPT) Alkaline Phosphatase 95 Total Protein 6.3 Albumin 2.3 Assessment and Plan Assessment: (1) Atrial fibrillation Status: Acute (2) Pseudoaneurysm of femoral artery Status: Acute Plan Leave CUBA in place Ok to start OOB/WBAT with PT ok to slowly restart anticoagulation Continue diuresis Problem Qualifiers (1) Atrial fibrillation: Qualified Code: I48.0 - Paroxysmal atrial fibrillation Joshua Garcia MD Feb 13, 2017 16:28
--- NOTE | 2017-02-13 16:48 | HHI.PR ---
Subjective Remarks Deferred entry, patient seen earlier at 11: 20 am Case discussed with RN. Patient was very confused this a.m., however no better. Potassium noted to be 3.3 The patient denies any chest pain or shortness of breath 80 fibrillation on telemetry which is rate controlled The rest of the vital signs seem stable. Objective Vitals Vital Signs Date Time Temp Pulse Resp B/P Pulse Ox O2 Delivery O2 Flow Rate FiO2 02/13/17 14:48 94 Nasal Cannula 2.00 02/13/17 07:00 98.2 118 20 147/88 96 02/13/17 07:00 95 02/13/17 07:00 96 Nasal Cannula 2.00 02/13/17 03:00 98.7 112 22 117/70 94 02/13/17 03:00 108 02/13/17 03:00 94 Nasal Cannula 2.00 02/12/17 23:00 96 Nasal Cannula 2.00 02/12/17 23:00 98.4 100 20 137/64 97 02/12/17 23:00 95 02/12/17 20:15 95 Nasal Cannula 2.00 02/12/17 19:00 98.6 81 24 147/75 94 02/12/17 19:00 95 Nasal Cannula 2.00 02/12/17 19:00 79 I/O 02/12/17 02/12/17 02/12/17 02/13/17 02/13/17 02/13/17 07:00 15:00 23:00 07:00 15:00 23:00 Intake Total 540 ml 1140 ml 480 ml Output Total 690 ml 850 ml 2390 ml Balance -150 ml 290 ml -1910 ml Intake Oral 240 ml 840 ml 480 ml IV Total 300 ml 300 ml Output Urine Total 670 ml 800 ml 2350 ml Drainage Total 20 ml 50 ml 40 ml # Bowel Movements 0 0 0 Result Diagram: 02/13/1751202/13/17512 Imaging Last Impressions Chest X-Ray 02/12/17 07 Signed Impressions: Service Date/Time: Sunday, February 12, 2017 03:38 - CONCLUSION: Increased density in both lung bases with mild indistinctness of the hemidiaphragms could be bilateral atelectasis left greater than right. I believe slightly worst than on the fourth. Travis Westbrook MD Lower Extremity Ultrasound 02/10/17 0000 Signed Impressions: Service Date/Time: Friday, February 10, 2017 18:37 - CONCLUSION: Active bleeding pre-and post direct manual compression in the proximal right thigh. Armaan Buckley MD Abdomen/Pelvis CT 02/10/17 0000 Signed Impressions: Service Date/Time: Friday, February 10, 2017 18:17 - CONCLUSION: 1. There is evidence of active bleeding into the right anterior thigh 7 cm hematoma. The point of leakage is not identified with certainty. 2. 3 cm left renal mass demonstrates a heterogeneous pattern of enhancement. 3. No vessel truncation or significant luminal narrowing in the aorta, iliac vessels or thigh vessels . 4. 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 Armaan Buckley MD Head CT 02/07/17 1618 Signed Impressions: Service Date/Time: Tuesday, February 07, 2017 17:54 - CONCLUSION: 1. Chronic small vessel ischemic change. 2. Area of encephalomalacia involving the left frontal lobe. 3. No acute intracranial abnormality. Armaan Suresh Jr., MD Cervical Spine CT 02/07/178 Signed Impressions: Service Date/Time: Tuesday, February 07, 2017 17:54 - CONCLUSION: No evidence of fracture. Degenerative findings most prominent at C5-6. Angel Laguna MD Maxillofacial CT 02/07/17 0000 Signed Impressions: Service Date/Time: Tuesday, February 07, 2017 17:54 - CONCLUSION: Normal examination. Armaan Suresh Jr., MD Objective Remarks GENERAL: Obese elderly woman laying in bed on nasal canula. SKIN: Warm and dry. HEAD/ Neuro: Normocephalic. Pallor present. Awake alert oriented 3, moving all 4 extremities. EYES: No scleral icterus. No injection or drainage. NECK: Supple, trachea midline. No JVD or lymphadenopathy. CARDIOVASCULAR: Regular rate and rhythm without murmurs, gallops, or rubs. RESPIRATORY: Air entry decreased bilaterally at bases. No wheezing or crackles. GASTROINTESTINAL: Abdomen soft, non-tender, nondistended. MUSCULOSKELETAL: No cyanosis, or edema. EXTREMITIES: No clubbing cyanosis or edema. Dressing over right groin surgical site, CUBA drain in place with minimal serosanguineous drainage. Procedures sp Repair of pseudoaneurysm on the right groin on 02/10/17. Medications and IVs Current Medications Medications (Trade) Dose Ordered Sig/Brandon Route Start Time Stop Time Status Last Admin (NS Flush) 2 ml UNSCH PRN .XX 02/07/17 19:15 (NS Flush) 2 ml BID .XX 02/07/17 21:00 02/13/17 08:35 (Tylenol) 650 mg Q6H PRN PO 02/07/17 19:15 02/10/17 13:50 (Morphine Inj) 2 mg Q2H PRN IV 02/07/17 19:15 02/11/17 13:28 (Pepcid Inj) 10 mg Q12HR IV PUSH 02/07/17 21:00 02/13/17 08:35 (Tears Naturale Opth Soln) 1 drop TID EACH EYE 02/08/17 09:00 02/13/17 13:00 (Reglan Inj) 5 mg Q6H PRN IV 02/07/17 19:15 (Compazine Supp) 25 mg Q12H PRN RECTAL 02/07/17 19:15 Miscellaneous Information 1 Q361D XX 02/07/17 19:15 02/07/17 23:24 (Chlorhexidine 2% Cloth) Taper DAILY@04 TOP 02/08/17 04:00 02/04/18 03:59 02/13/17 04:00 (Chlorhexidine 2% Cloth) 3 pack UNSCH PRN TOP 02/07/17 19:15 (Masha-Colace) 1 tab BID PO 02/07/17 21:00 02/13/17 08:34 (Milk Of Magnesia Liq) 30 ml Q12H PRN PO 02/07/17 19:15 (Senokot) 17.2 mg Q12H PRN PO 02/07/17 19:15 (Dulcolax Supp) 10 mg DAILY PRN RECTAL 02/07/17 19:15 (Lactulose Liq) 30 ml DAILY PRN PO 02/07/17 19:15 Terbutaline Sulfate 1 mg 1 mg UNSCH PRN SQ 02/07/17 23:00 Levofloxacin/ Dextrose 100 ml @ 100 mls/hr Q24H IV 02/10/17 10:00 02/13/17 08:36 (Coumadin Consult Pharmacy) 0 ml @ 0 mls/hr UNSCH OTHER 02/10/17 12:00 (Coumadin) 3 mg DAILY@1600 PO 02/10/17 16:00 Hold 02/10/17 16:08 (Morphine Inj) 4 mg Q4H PRN IV PUSH 02/10/17 17:45 02/13/17 15:39 (NS Flush) 2 ml UNSCH PRN IV FLUSH 02/10/17 21:30 Sodium Chloride 2 ml 2 ml BID IV FLUSH 02/11/17 09:00 02/13/17 08:49 Potassium Chloride 100 ml @ 50 mls/hr UNSCH PRN IV 02/10/17 21:30 Potassium Phosphate 21 mmol/ Sodium Chloride 257 ml @ 41.7 mls/hr UNSCH PRN IV 02/10/17 21:30 (Magnesium Sulfate 1 Gm Premix) 200 ml @ 100 mls/hr UNSCH PRN IV 02/10/17 21:30 (Zofran Inj) 4 mg Q6H PRN IV PUSH 02/10/17 21:30 (Roxicodone) 7.5 mg Q4H PRN PO 02/10/17 21:30 (Morphine Inj) 4 mg Q1H PRN IV 02/10/17 21:30 (Ecotrin Ec) 81 mg DAILY PO 02/11/17 09:00 02/13/17 08:34 Enoxaparin Sodium 30 mg 30 mg Q24H SQ 02/11/17 22:00 02/12/17 21:28 (Precedex Inj/NS Inj) 52 ml @ 0 mls/hr TITRATE IV 02/11/17 14:45 02/11/17 22:26 (Ativan Inj) 1 mg Q6H PRN IV 02/11/17 17:30 02/13/17 05:37 (Cordarone) 200 mg DAILY PO 02/12/17 09:00 02/13/17 08:34 (Cardizem) 60 mg Q6H PO 02/13/17 08:00 02/13/17 15:37 (Cardizem) 30 mg Q6HR PRN PO 02/13/17 07:00 (Lasix) 20 mg DAILY PO 02/13/17 09:00 02/13/17 08:34 (KCl) 10 meq DAILY PO 02/13/17 09:00 02/13/17 08:34 A/P Assessment and Plan Is a 76-year-old female who presented to have this medicine with complaints of possible nasal bone fracture after a single episode. The patient was found to be bradycardic with heart rate in the 30s. Patient. Dr. Mercer as an outpatient. The patient became hypotensive and hypoxemic and was intubated in the emergency department by the emergency department physician for airway protection. The patient was admitted to the ICU and developed a right groin hematoma. At that time muscular surgery was consulted. Dr. Sanchez order a CAT scan, the patient received vitamin K as well as FFP and was taken emergently to the OR at the time underwent expiration with patch repair of SFA and femoral vein with questionable hematoma under general anesthesia by Dr. Delgadillo. The patient received 4 units of packed red blood cells, 3 units of frozen plasma and it was transferred eventually to the CVICU for further care. The patient was kept intubated overnight on 02/11 and then extubated on the same date. 1. Syncope: Likely secondary to symptomatic bradycardia which seems to have resolved. Patient had been evaluated by cardiology place patient on IV amiodarone which has been transitioned to oral. Patient denies any further symptoms of dizziness or lightheadedness. 2. Acute respiratory failure: The patient was extubated on 02/09 following a CPAP trial. Patient diuresed and down to 5 business cannula however required reintubation for emergent evacuation of right groin hematoma on 02/10. The patient was started on Decadron as he did not have a cuff leak postoperatively extubated on 02/11 and diuresed down to Ventimask and currently is on 2 L nasal cannula. Continue supplemental oxygen to keep oxygen saturation 192%. DuoNeb as needed. 3. Bradycardia and hypotension: Which have both resolved. Thought to be secondary to metoprolol and digoxin level on admission. Initially treated with isoproterenol/dopamine drip which have been discontinued. Patient with a started on metoprolol 2.5 mg IV every 6 hours on February 09 which was increased to 5 minutes IV every 6 hours when patient went into A. fib with RVR. The patient was then started on amiodarone drip by cardiology on 02/09. 4. Hypotension: Resolved after treatment with apparent drip, IV fluids and transfusion of 4 units of packed blood cells, [address] bhakta secondary to blood loss secondary to right groin hematoma. 5. Acute blood loss anemia: Secondary to hematomas mentioned above. Status post fusion of multiple units of blood products as stated above. 6. Right groin hematoma: Status post repair of SFA and right femoral vein on 02/10 by vascular surgery. Continue to follow-up recommendations. Coumadin held. 7. Acute kidney injury: Likely due to prerenal azotemia and hemodynamic instability due to hypotension secondary to right groin hematoma and acute blood loss. Treated with IV fluids, creatinine trending down and now stable at 1.13 possible CK V stage III, however there is no previous labs for comparison. Patient has a good urine output. Continue to monitor BMP, BUN/creatinine, strict I's and O's. Diuresis with Lasix. 8. Diabetes mellitus: Blood sugar seems to be stable. We'll check hemoglobin A1c if not previously done. Continue SSI with insulin NovoLog. 9. Hypokalemia: Replace orally and monitor BMP. 10. DVT prophylaxis: Coumadin on hold. 11. GI prophylaxis: Continue Pepcid. Is continue Ocampo catheter. Discharge Planning Okay to transfer to the medical floor with telemetry monitoring. Boo Galicia MD Feb 13, 2017 16:48
[2017-02-13 18:46] VITALS: BP 137/59; PULSE 102; RESP 20; TEMP 97.9; O2SAT 97
[2017-02-13 20:00] VITALS: BP 118/66; PULSE 110; PULSE 114; RESP 14; TEMP 97.8; O2SAT 98
[2017-02-13] MEDS: ENOXAPARIN SODIUM 30 MG/0.3 ML SYRINGE SQ SCH (20:27)
[2017-02-14] VITALS (9 sets, daily range): BP systolic 114–143; BP diastolic 59–99; PULSE 68–115; RESP 14–20; TEMP 97.6–98.2; O2SAT 96–99
[2017-02-14] MEDS: DILTIAZEM HCL 60 MG TAB PO SCH (03:00)
[2017-02-14] MEDS: CHLORHEXIDINE GLUCONATE 2 % 1 PACK (2 CLOTHS) TOP SCH (03:00)
--- NOTE | 2017-02-14 07:04 | PD.CARD.PN ---
Subjective Subjective Remarks Pt reports I am weak Objective Medications Current Medications Medications (Trade) Dose Ordered Sig/Brandon Route Start Time Stop Time Status Last Admin (NS Flush) 2 ml UNSCH PRN .XX 02/07/17 19:15 (NS Flush) 2 ml BID .XX 02/07/17 21:00 02/13/17 08:35 (Tylenol) 650 mg Q6H PRN PO 02/07/17 19:15 02/10/17 13:50 (Morphine Inj) 2 mg Q2H PRN IV 02/07/17 19:15 02/11/17 13:28 (Pepcid Inj) 10 mg Q12HR IV PUSH 02/07/17 21:00 02/13/17 20:26 (Tears Naturale Opth Soln) 1 drop TID EACH EYE 02/08/17 09:00 02/13/17 18:00 (Reglan Inj) 5 mg Q6H PRN IV 02/07/17 19:15 (Compazine Supp) 25 mg Q12H PRN RECTAL 02/07/17 19:15 Miscellaneous Information 1 Q361D XX 02/07/17 19:15 02/07/17 23:24 (Chlorhexidine 2% Cloth) Taper DAILY@04 TOP 02/08/17 04:00 02/04/18 03:59 02/14/17 03:00 (Chlorhexidine 2% Cloth) 3 pack UNSCH PRN TOP 02/07/17 19:15 (Masha-Colace) 1 tab BID PO 02/07/17 21:00 02/13/17 20:26 (Milk Of Magnesia Liq) 30 ml Q12H PRN PO 02/07/17 19:15 (Senokot) 17.2 mg Q12H PRN PO 02/07/17 19:15 (Dulcolax Supp) 10 mg DAILY PRN RECTAL 02/07/17 19:15 (Lactulose Liq) 30 ml DAILY PRN PO 02/07/17 19:15 Terbutaline Sulfate 1 mg 1 mg UNSCH PRN SQ 02/07/17 23:00 Levofloxacin/ Dextrose 100 ml @ 100 mls/hr Q24H IV 02/10/17 10:00 02/13/17 08:36 (Coumadin Consult Pharmacy) 0 ml @ 0 mls/hr UNSCH OTHER 02/10/17 12:00 (Coumadin) 3 mg DAILY@1600 PO 02/10/17 16:00 Hold 02/10/17 16:08 (Morphine Inj) 4 mg Q4H PRN IV PUSH 02/10/17 17:45 02/13/17 15:39 (NS Flush) 2 ml UNSCH PRN IV FLUSH 02/10/17 21:30 Sodium Chloride 2 ml 2 ml BID IV FLUSH 02/11/17 09:00 02/13/17 20:27 Potassium Chloride 100 ml @ 50 mls/hr UNSCH PRN IV 02/10/17 21:30 Potassium Phosphate 21 mmol/ Sodium Chloride 257 ml @ 41.7 mls/hr UNSCH PRN IV 02/10/17 21:30 (Magnesium Sulfate 1 Gm Premix) 200 ml @ 100 mls/hr UNSCH PRN IV 02/10/17 21:30 (Zofran Inj) 4 mg Q6H PRN IV PUSH 02/10/17 21:30 (Roxicodone) 7.5 mg Q4H PRN PO 02/10/17 21:30 (Morphine Inj) 4 mg Q1H PRN IV 02/10/17 21:30 (Ecotrin Ec) 81 mg DAILY PO 02/11/17 09:00 02/13/17 08:34 Enoxaparin Sodium 30 mg 30 mg Q24H SQ 02/11/17 22:00 02/13/17 20:27 (Precedex Inj/NS Inj) 52 ml @ 0 mls/hr TITRATE IV 02/11/17 14:45 02/11/17 22:26 (Ativan Inj) 1 mg Q6H PRN IV 02/11/17 17:30 02/13/17 05:37 (Cordarone) 200 mg DAILY PO 02/12/17 09:00 02/13/17 08:34 (Cardizem) 60 mg Q6H PO 02/13/17 08:00 02/14/17 03:00 (Cardizem) 30 mg Q6HR PRN PO 02/13/17 07:00 (Lasix) 20 mg DAILY PO 02/13/17 09:00 02/13/17 08:34 (KCl) 10 meq DAILY PO 02/13/17 09:00 02/13/17 08:34 Vital Signs / I&O Vital Signs Date Time Temp Pulse Resp B/P Pulse Ox O2 Delivery O2 Flow Rate FiO2 02/14/17 04:00 98.1 82 16 114/59 98 02/14/17 00:00 97.6 68 14 120/60 99 02/13/17 20:00 97.8 110 14 118/66 98 02/13/17 20:00 Nasal Cannula 3.00 02/13/17 18:46 97.9 102 20 137/59 97 02/13/17 15:44 20 02/13/17 15:00 106 02/13/17 15:00 94 Nasal Cannula 2.00 02/13/17 15:00 98.0 100 20 130/72 96 02/13/17 14:48 94 Nasal Cannula 2.00 I/O 02/13/17 02/13/17 02/13/17 02/14/17 02/14/17 02/14/17 07:00 15:00 23:00 07:00 15:00 23:00 Intake Total 480 ml 400 ml 150 ml Output Total 2390 ml 1720 ml 400 ml Balance -1910 ml -1320 ml -250 ml Intake Oral 480 ml 400 ml 150 ml Output Urine Total 2350 ml 1700 ml 400 ml Drainage Total 40 ml 20 ml # Bowel Movements 0 0 0 Physical Exam GENERAL: Well developed, well nourished. No acute distress on vent HEENT: Jugular venous pressure is normal. CHEST: Lungs CTA to auscultation bilaterally. Unlabored respiratory effort. CARDIAC: irregular rate and rhythm, tachy, without S3, S4, or murmur. ABDOMEN: Soft, nontender, no hepatosplenomegaly. Bowel sounds present. EXTREMITIES: No clubbing, cyanosis, or edema. Assessment and Plan Problem List: (1) Groin hematoma (2) Cardiogenic shock (3) Atrial fibrillation Assessment and Plan Atrial fibrillation - CHADS-VASc score of 5, -episodes of RVR with activity ==> long acting PO s/p pseudoaneurysm repair Problem Qualifiers (1) Atrial fibrillation: Qualified Code: I48.0 - Paroxysmal atrial fibrillation Evi Mercer MD Feb 14, 2017 07:04
[2017-02-14 07:06] LABS: PROTHROMBIN TIME - PATIENT 10.9 SEC (9.8-11.6)
[2017-02-14 07:09] LABS: AUTOMATED NEUTROPHIL # 7.1 TH/MM3 (1.8-7.7); BASOPHIL % 0.2 % (0.0-2.0); EOSINOPHIL # 0.1 TH/MM3 (0-0.4); EOSINOPHIL % 1.1 % (0.0-4.0); HEMATOCRIT 26.8 % (35.0-46.0); LYMPH % 16.4 % (9.0-44.0); LYMPHOCYTE # 1.6 TH/MM3 (1.0-4.8); MEAN CORPUSCULAR HEMOGLOBIN 28.2 PG (27.0-34.0); MEAN CORPUSCULAR HGB CONC 34.4 % (32.0-36.0); MONO % 8.7 % (0.0-8.0); NEUT % 73.6 % (16.0-70.0); PLATELET COUNT 258 TH/MM3 (150-450); RED BLOOD COUNT 3.27 MIL/MM3 (4.00-5.30); RED CELL DISTRIBUTION WIDTH 17.8 % (11.6-17.2); WHITE BLOOD COUNT 9.7 TH/MM3 (4.0-11.0)
[2017-02-14 07:17] LABS: HEMO FLAGS AUTO DIFF
[2017-02-14 07:20] LABS: ANION GAP 10 MEQ/L (5-15); AST (GOT) 30 U/L (15-37); BICARBONATE 20.6 MEQ/L (21.0-32.0); BLOOD UREA NITROGEN 31 MG/DL (7-18); CHLORIDE 107 MEQ/L (98-107); GLOMERULAR FILTRATION RATE 53 ML/MIN (>89); POTASSIUM 3.9 MEQ/L (3.5-5.1); SODIUM (NA) 138 MEQ/L (136-145)
[2017-02-14 07:26] LABS: ALKALINE PHOSPHATASE 107 U/L (45-117); ALT (GPT) 28 U/L (10-53); TOTAL BILIRUBIN ADULT 1.7 MG/DL (0.2-1.0)
[2017-02-14 08:22] LABS: BANDS 2 % (0-6); EOSINOPHILS 1 % (0-4); METAMYELOCYTES 2 % (0-1); MYELOCYTES 2 % (0-0); NEUTROPHIL # MANUAL DIFF 7.3 TH/MM3 (1.8-7.7); POLYS (SEG NEUTROPHILS) 69 % (16-70); WBC DIFF SAMPLE 100
[2017-02-14 08:23] LABS: OVALOCYTES 1+ (NORMAL); PLATELET ESTIMATE SMEAR NORMAL (NORMAL); PLATELET MORPHOLOGY NORMAL (NORMAL); SCAN/DIFF FINAL DIFF MANUAL
[2017-02-14] MEDS: DILTIAZEM-CD 240 MG CAP ER PO SCH (08:52)
[2017-02-14] MEDS: AMIODARONE 200 MG TAB PO SCH (08:52)
[2017-02-14] MEDS: DOCUSATE SODIUM 50 MG/SENNA 8.6 MG TAB PO SCH ×2 (08:52→20:41)
[2017-02-14] MEDS: LEVOFLOXACIN 500 MG PREMIX INJ 100 ML IV SCH (08:52)
[2017-02-14] MEDS: FUROSEMIDE 20 MG TAB PO SCH (08:52)
[2017-02-14] MEDS: ASPIRIN EC 81 MG TABEC PO SCH (08:52)
[2017-02-14] MEDS: POTASSIUM CHLORIDE 10 MEQ CONTROLLED RELEASE TAB PO SCH (08:52)
[2017-02-14] MEDS: FAMOTIDINE 20 MG/2 ML VIAL IV PUSH SCH ×2 (08:53→20:41)
[2017-02-14] MEDS: SODIUM CHLORIDE 0.9% FLUSH 10 ML FLUSH IV FLUSH SCH ×2 (08:53→20:40)
[2017-02-14] MEDS: ARTIFICIAL TEARS OPTH SOLN 15 ML BTL EACH EYE SCH ×3 (10:14→17:20)
--- NOTE | 2017-02-14 10:53 | RADRPT ---
EXAM DATE/TIME: 02/14/2017 10:18 [facility] COMPARISON: CHEST SINGLE AP, February 12, 2017, 3:38. INDICATIONS : Short of breath. MEDICAL HISTORY : Hypertension. renal cancer, atrial fibrillation SURGICAL HISTORY : None. ENCOUNTER: Initial ACUITY: 1 week PAIN SCORE: 0/10 LOCATION: Bilateral chest FINDINGS: A single portable frontal view of the chest shows a better inspiratory effort. Linear atelectasis rem ains within the medial left lung base. This is less pronounced than on the prior study. Right lung is now clear. No infiltrates or effusions. Heart is normal in size. CONCLUSION: Minimal residual atelectasis within the left lung base. Armaan Suresh Jr., MD on February 14, 2017 at 10:50 Board Certified Radiologist. This report was verified electronically.
--- NOTE | 2017-02-14 14:13 | HHI.PR ---
Subjective Remarks Patient denies cp/sob denies fevers/chills Vital signs stable Patient and patient's son want the patient to go home Objective Vitals Vital Signs Date Time Temp Pulse Resp B/P Pulse Ox O2 Delivery O2 Flow Rate FiO2 02/14/17 12:00 98.2 115 20 125/60 96 02/14/17 08:50 Nasal Cannula 2.00 02/14/17 08:28 98 Nasal Cannula 3.00 02/14/17 08:00 98.2 88 20 121/63 98 02/14/17 04:00 98.1 82 16 114/59 98 02/14/17 00:00 97.6 68 14 120/60 99 02/13/17 20:00 97.8 110 14 118/66 98 02/13/17 20:00 Nasal Cannula 3.00 02/13/17 20:00 114 02/13/17 18:46 97.9 102 20 137/59 97 02/13/17 15:44 20 02/13/17 15:00 106 02/13/17 15:00 94 Nasal Cannula 2.00 02/13/17 15:00 98.0 100 20 130/72 96 02/13/17 14:48 94 Nasal Cannula 2.00 I/O 02/13/17 02/13/17 02/13/17 02/14/17 02/14/17 02/14/17 07:00 15:00 23:00 07:00 15:00 23:00 Intake Total 480 ml 400 ml 150 ml Output Total 2390 ml 1720 ml 400 ml Balance -1910 ml -1320 ml -250 ml Intake Oral 480 ml 400 ml 150 ml Output Urine Total 2350 ml 1700 ml 400 ml Drainage Total 40 ml 20 ml # Bowel Movements 0 0 0 Result Diagram: 02/14/17 0624 02/14/17 0624 Imaging Last Impressions Chest X-Ray 02/14/17 0000 Signed Impressions: Service Date/Time: Tuesday, February 14, 2017 10:18 - CONCLUSION: Minimal residual atelectasis within the left lung base. Armaan Suresh Jr., MD Lower Extremity Ultrasound 02/10/17 0000 Signed Impressions: Service Date/Time: Friday, February 10, 2017 18:37 - CONCLUSION: Active bleeding pre-and post direct manual compression in the proximal right thigh. Armaan Buckley MD Abdomen/Pelvis CT 02/10/17 0000 Signed Impressions: Service Date/Time: Friday, February 10, 2017 18:17 - CONCLUSION: 1. There is evidence of active bleeding into the right anterior thigh 7 cm hematoma. The point of leakage is not identified with certainty. 2. 3 cm left renal mass demonstrates a heterogeneous pattern of enhancement. 3. No vessel truncation or significant luminal narrowing in the aorta, iliac vessels or thigh vessels . 4. 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 Armaan Buckley MD Head CT 02/07/17 1618 Signed Impressions: Service Date/Time: Tuesday, February 07, 2017 17:54 - CONCLUSION: 1. Chronic small vessel ischemic change. 2. Area of encephalomalacia involving the left frontal lobe. 3. No acute intracranial abnormality. Armaan Suresh Jr., MD Cervical Spine CT 02/07/17 1618 Signed Impressions: Service Date/Time: Tuesday, February 07, 2017 17:54 - CONCLUSION: No evidence of fracture. Degenerative findings most prominent at C5-6. Angel Laguna MD Maxillofacial CT 02/07/17 0000 Signed Impressions: Service Date/Time: Tuesday, February 07, 2017 17:54 - CONCLUSION: Normal examination. Armaan Suresh Jr., MD Objective Remarks GENERAL: Obese elderly woman laying in bed on nasal canula. SKIN: Warm and dry. HEAD/ Neuro: Normocephalic. Pallor present. Awake alert oriented 3, moving all 4 extremities. EYES: No scleral icterus. No injection or drainage. NECK: Supple, trachea midline. No JVD or lymphadenopathy. CARDIOVASCULAR: Regular rate and rhythm without murmurs, gallops, or rubs. RESPIRATORY: Air entry decreased bilaterally at bases. No wheezing or crackles. GASTROINTESTINAL: Abdomen soft, non-tender, nondistended. MUSCULOSKELETAL: No cyanosis, or edema. EXTREMITIES: No clubbing cyanosis or edema. Dressing over right groin surgical site, CUBA drain in place with minimal serosanguineous drainage. Procedures sp Repair of pseudoaneurysm on the right groin on 02/10/17. Medications and IVs Current Medications Medications (Trade) Dose Ordered Sig/Brandon Route Start Time Stop Time Status Last Admin (Tylenol) 650 mg Q6H PRN PO 02/07/17 19:15 02/10/17 13:50 (Morphine Inj) 2 mg Q2H PRN IV 02/07/17 19:15 02/11/17 13:28 (Pepcid Inj) 10 mg Q12HR IV PUSH 02/07/17 21:00 02/14/17 08:53 (Tears Naturale Opth Soln) 1 drop TID EACH EYE 02/08/17 09:00 02/14/17 10:14 (Reglan Inj) 5 mg Q6H PRN IV 02/07/17 19:15 (Compazine Supp) 25 mg Q12H PRN RECTAL 02/07/17 19:15 Miscellaneous Information 1 Q361D XX 02/07/17 19:15 02/07/17 23:24 (Chlorhexidine 2% Cloth) Taper DAILY@04 TOP 02/08/17 04:00 02/04/18 03:59 02/14/17 03:00 (Chlorhexidine 2% Cloth) 3 pack UNSCH PRN TOP 02/07/17 19:15 (Masha-Colace) 1 tab BID PO 02/07/17 21:00 02/14/17 08:52 (Milk Of Magnesia Liq) 30 ml Q12H PRN PO 02/07/17 19:15 (Senokot) 17.2 mg Q12H PRN PO 02/07/17 19:15 (Dulcolax Supp) 10 mg DAILY PRN RECTAL 02/07/17 19:15 (Lactulose Liq) 30 ml DAILY PRN PO 02/07/17 19:15 Terbutaline Sulfate 1 mg 1 mg UNSCH PRN SQ 02/07/17 23:00 Levofloxacin/ Dextrose 100 ml @ 100 mls/hr Q24H IV 02/10/17 10:00 02/14/17 08:52 (Coumadin Consult Pharmacy) 0 ml @ 0 mls/hr UNSCH OTHER 02/10/17 12:00 (Coumadin) 3 mg DAILY@1600 PO 02/10/17 16:00 Hold 02/10/17 16:08 (Morphine Inj) 4 mg Q4H PRN IV PUSH 02/10/17 17:45 02/13/17 15:39 (NS Flush) 2 ml UNSCH PRN IV FLUSH 02/10/17 21:30 Sodium Chloride 2 ml 2 ml BID IV FLUSH 02/11/17 09:00 02/14/17 08:53 Potassium Chloride 100 ml @ 50 mls/hr UNSCH PRN IV 02/10/17 21:30 Potassium Phosphate 21 mmol/ Sodium Chloride 257 ml @ 41.7 mls/hr UNSCH PRN IV 02/10/17 21:30 (Magnesium Sulfate 1 Gm Premix) 200 ml @ 100 mls/hr UNSCH PRN IV 02/10/17 21:30 (Zofran Inj) 4 mg Q6H PRN IV PUSH 02/10/17 21:30 (Roxicodone) 7.5 mg Q4H PRN PO 02/10/17 21:30 (Morphine Inj) 4 mg Q1H PRN IV 02/10/17 21:30 (Ecotrin Ec) 81 mg DAILY PO 02/11/17 09:00 02/14/17 08:52 Enoxaparin Sodium 30 mg 30 mg Q24H SQ 02/11/17 22:00 02/13/17 20:27 (Precedex Inj/NS Inj) 52 ml @ 0 mls/hr TITRATE IV 02/11/17 14:45 02/11/17 22:26 (Ativan Inj) 1 mg Q6H PRN IV 02/11/17 17:30 02/13/17 05:37 (Cordarone) 200 mg DAILY PO 02/12/17 09:00 02/14/17 08:52 (Cardizem) 30 mg Q6HR PRN PO 02/13/17 07:00 (Lasix) 20 mg DAILY PO 02/13/17 09:00 02/14/17 08:52 (KCl) 10 meq DAILY PO 02/13/17 09:00 02/14/17 08:52 (Cardizem Cd) 240 mg DAILY PO 02/14/17 09:00 02/14/17 08:52 Urinary Catheter: No Vascular Central Line Catheter: No A/P Assessment and Plan Is a 76-year-old female who presented to have this medicine with complaints of possible nasal bone fracture after a single episode. The patient was found to be bradycardic with heart rate in the 30s. Patient. Dr. Mercer as an outpatient. The patient became hypotensive and hypoxemic and was intubated in the emergency department by the emergency department physician for airway protection. The patient was admitted to the ICU and developed a right groin hematoma. At that time muscular surgery was consulted. Dr. Sanchez order a CAT scan, the patient received vitamin K as well as FFP and was taken emergently to the OR at the time underwent expiration with patch repair of SFA and femoral vein with questionable hematoma under general anesthesia by Dr. Delgadillo. The patient received 4 units of packed red blood cells, 3 units of frozen plasma and it was transferred eventually to the CVICU for further care. The patient was kept intubated overnight on 02/11 and then extubated on the same date. 1. Syncope: Likely secondary to symptomatic bradycardia which seems to have resolved. Patient had been evaluated by cardiology place patient on IV amiodarone which has been transitioned to oral. Patient denies any further symptoms of dizziness or lightheadedness. 2. Acute respiratory failure: The patient was extubated on 02/09 following a CPAP trial. Patient diuresed and down to 5 business cannula however required reintubation for emergent evacuation of right groin hematoma on 02/10. The patient was started on Decadron as he did not have a cuff leak postoperatively extubated on 02/11 and diuresed down to Ventimask and currently is on 2 L nasal cannula. Continue supplemental oxygen to keep oxygen saturation >92%. DuoNeb as needed. 02/14 Patient today is on 3 liters nasal canula, will check A respiratory walk test to see if patient needs home oxygen. 3. Bradycardia and hypotension: Which have both resolved. Thought to be secondary to metoprolol and digoxin level on admission. Initially treated with isoproterenol/dopamine drip which have been discontinued. Patient with a started on metoprolol 2.5 mg IV every 6 hours on February 09 which was increased to 5 minutes IV every 6 hours when patient went into A. fib with RVR. The patient was then started on amiodarone drip by cardiology on 02/09. 4. Hypotension: Resolved after treatment with apparent drip, IV fluids and transfusion of 4 units of packed blood cells, [address] be secondary to blood loss secondary to right groin hematoma. 5. Acute blood loss anemia: Secondary to hematomas mentioned above. Status post fusion of multiple units of blood products as stated above. 6. Right groin hematoma: Status post repair of SFA and right femoral vein on 02/10 by vascular surgery. Continue to follow-up recommendations. Coumadin held. 7. Acute kidney injury: Likely due to prerenal azotemia and hemodynamic instability due to hypotension secondary to right groin hematoma and acute blood loss. Treated with IV fluids, creatinine trending down and now stable at 1.02 possible CKD stage III, however there is no previous labs for comparison. Patient has a good urine output. Continue to monitor BMP, BUN/creatinine, strict I's and O's. Diuresis with Lasix. 8. Diabetes mellitus: Blood sugar seems to be stable. We'll check hemoglobin A1c if not previously done. Continue SSI with insulin NovoLog. 9. Hypokalemia: Replace orally and monitor BMP. 10. DVT prophylaxis: Coumadin on hold. 11. GI prophylaxis: Continue Pepcid. Ocampo catheter discontinued. Discharge Planning As per it service manager note family agrees on patient going to [facility], however the patient's son and the patient herself told me that they want to go home with home health. Will clarify and discharge in am pending oxygen walk test. Boo Galicia MD Feb 14, 2017 14:13
[2017-02-14] MEDS: ENOXAPARIN SODIUM 30 MG/0.3 ML SYRINGE SQ SCH (20:41)
[2017-02-14 21:04] LABS: CRITICAL VALUE YES
[2017-02-14] MEDS: LORazepam 2 MG/ML VIAL IV PRN (22:35)
[2017-02-14] MEDS: MORPHINE SULFATE 4 MG/ML INJ IV PUSH PRN (22:47)
[2017-02-15] VITALS (9 sets, daily range): BP systolic 104–136; BP diastolic 57–67; PULSE 20–79; RESP 16–21; TEMP 97.2–98.3; O2SAT 93–100
[2017-02-15] MEDS: CHLORHEXIDINE GLUCONATE 2 % 1 PACK (2 CLOTHS) TOP SCH (03:50)
[2017-02-15] MEDS: ARTIFICIAL TEARS OPTH SOLN 15 ML BTL EACH EYE SCH ×3 (08:25→16:35)
[2017-02-15] MEDS: SODIUM CHLORIDE 0.9% FLUSH 10 ML FLUSH IV FLUSH SCH ×2 (08:26→21:57)
[2017-02-15] MEDS: FUROSEMIDE 20 MG TAB PO SCH (08:26)
[2017-02-15] MEDS: ASPIRIN EC 81 MG TABEC PO SCH (08:26)
[2017-02-15] MEDS: DILTIAZEM-CD 240 MG CAP ER PO SCH (08:26)
[2017-02-15] MEDS: POTASSIUM CHLORIDE 10 MEQ CONTROLLED RELEASE TAB PO SCH (08:26)
[2017-02-15] MEDS: AMIODARONE 200 MG TAB PO SCH (08:26)
[2017-02-15] MEDS: DOCUSATE SODIUM 50 MG/SENNA 8.6 MG TAB PO SCH ×2 (08:26→21:00)
[2017-02-15] MEDS: LEVOFLOXACIN 500 MG PREMIX INJ 100 ML IV SCH (08:27)
[2017-02-15] MEDS: FAMOTIDINE 20 MG/2 ML VIAL IV PUSH SCH ×2 (08:27→21:57)
--- NOTE | 2017-02-15 12:10 | HHI.PR ---
Subjective Remarks denies cp/sob wants to go home Objective Vitals Vital Signs Date Time Temp Pulse Resp B/P Pulse Ox O2 Delivery O2 Flow Rate FiO2 02/15/17 12:08 97.6 20 20 111/57 98 02/15/17 08:01 98.1 71 21 129/60 100 02/15/17 08:00 Room Air 02/15/17 07:40 73 02/15/17 04:00 97.8 70 16 120/61 95 02/15/17 00:00 98.0 76 16 136/64 93 02/14/17 20:54 97 21 02/14/17 20:45 Room Air 02/14/17 20:01 78 02/14/17 20:00 97.9 79 16 141/63 96 02/14/17 16:00 97.9 108 20 143/89 96 I/O 02/14/17 02/14/17 02/14/17 02/15/17 02/15/17 02/15/17 07:00 15:00 23:00 07:00 15:00 23:00 Intake Total 150 ml 240 ml 244 ml 364 ml Output Total 400 ml 475 ml 665 ml 825 ml Balance -250 ml -235 ml -421 ml -461 ml Intake Oral 150 ml 240 ml 240 ml 360 ml IV Total 4 ml 4 ml Output Urine Total 400 ml 475 ml 600 ml 800 ml Drainage Total 65 ml 25 ml # Voids 1 # Bowel Movements 0 0 0 0 Result Diagram: 02/14/17 0624 02/14/17 0624 Imaging Last Impressions Chest X-Ray 02/14/17 0000 Signed Impressions: Service Date/Time: Tuesday, February 14, 2017 10:18 - CONCLUSION: Minimal residual atelectasis within the left lung base. Armaan Suresh Jr., MD Lower Extremity Ultrasound 02/10/17 0000 Signed Impressions: Service Date/Time: Friday, February 10, 2017 18:37 - CONCLUSION: Active bleeding pre-and post direct manual compression in the proximal right thigh. Armaan Buckley MD Abdomen/Pelvis CT 02/10/17 0000 Signed Impressions: Service Date/Time: Friday, February 10, 2017 18:17 - CONCLUSION: 1. There is evidence of active bleeding into the right anterior thigh 7 cm hematoma. The point of leakage is not identified with certainty. 2. 3 cm left renal mass demonstrates a heterogeneous pattern of enhancement. 3. No vessel truncation or significant luminal narrowing in the aorta, iliac vessels or thigh vessels . 4. 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 Armaan Buckley MD Head CT 02/07/17 1618 Signed Impressions: Service Date/Time: Tuesday, February 07, 2017 17:54 - CONCLUSION: 1. Chronic small vessel ischemic change. 2. Area of encephalomalacia involving the left frontal lobe. 3. No acute intracranial abnormality. Armaan Suresh Jr., MD Cervical Spine CT 02/07/17 1618 Signed Impressions: Service Date/Time: Tuesday, February 07, 2017 17:54 - CONCLUSION: No evidence of fracture. Degenerative findings most prominent at C5-6. Angel Laguna MD Maxillofacial CT 02/07/17 0000 Signed Impressions: Service Date/Time: Tuesday, February 07, 2017 17:54 - CONCLUSION: Normal examination. Armaan Suresh Jr., MD Objective Remarks GENERAL: Obese elderly woman laying in bed on nasal canula. SKIN: Warm and dry. HEAD/ Neuro: Normocephalic. Pallor present. Awake alert oriented 3, moving all 4 extremities. EYES: No scleral icterus. No injection or drainage. NECK: Supple, trachea midline. No JVD or lymphadenopathy. CARDIOVASCULAR: Regular rate and rhythm without murmurs, gallops, or rubs. RESPIRATORY: Air entry decreased bilaterally at bases. No wheezing or crackles. GASTROINTESTINAL: Abdomen soft, non-tender, nondistended. MUSCULOSKELETAL: No cyanosis, or edema. EXTREMITIES: No clubbing cyanosis or edema. Dressing over right groin surgical site, CUBA drain in place with minimal serosanguineous drainage. Procedures sp Repair of pseudoaneurysm on the right groin on 02/10/17. Medications and IVs Current Medications Medications (Trade) Dose Ordered Sig/Brandon Route Start Time Stop Time Status Last Admin (Tylenol) 650 mg Q6H PRN PO 02/07/17 19:15 02/16/17 08:13 (Morphine Inj) 2 mg Q2H PRN IV 02/07/17 19:15 02/11/17 13:28 (Pepcid Inj) 10 mg Q12HR IV PUSH 02/07/17 21:00 02/16/17 08:13 (Tears Naturale Opth Soln) 1 drop TID EACH EYE 02/08/17 09:00 02/16/17 13:00 (Reglan Inj) 5 mg Q6H PRN IV 02/07/17 19:15 (Compazine Supp) 25 mg Q12H PRN RECTAL 02/07/17 19:15 Miscellaneous Information 1 Q361D XX 02/07/17 19:15 02/07/17 23:24 (Chlorhexidine 2% Cloth) Taper DAILY@04 TOP 02/08/17 04:00 02/04/18 03:59 02/15/17 03:50 (Chlorhexidine 2% Cloth) 3 pack UNSCH PRN TOP 02/07/17 19:15 (Masha-Colace) 1 tab BID PO 02/07/17 21:00 02/16/17 08:14 (Milk Of Magnesia Liq) 30 ml Q12H PRN PO 02/07/17 19:15 (Senokot) 17.2 mg Q12H PRN PO 02/07/17 19:15 (Dulcolax Supp) 10 mg DAILY PRN RECTAL 02/07/17 19:15 (Lactulose Liq) 30 ml DAILY PRN PO 02/07/17 19:15 Terbutaline Sulfate 1 mg 1 mg UNSCH PRN SQ 02/07/17 23:00 Levofloxacin/ Dextrose 100 ml @ 100 mls/hr Q24H IV 02/10/17 10:00 02/16/17 10:00 (Coumadin Consult Pharmacy) 0 ml @ 0 mls/hr UNSCH OTHER 02/10/17 12:00 (Coumadin) 3 mg DAILY@1600 PO 02/10/17 16:00 Hold 02/10/17 16:08 (Morphine Inj) 4 mg Q4H PRN IV PUSH 02/10/17 17:45 02/14/17 22:47 (NS Flush) 2 ml UNSCH PRN IV FLUSH 02/10/17 21:30 Sodium Chloride 2 ml 2 ml BID IV FLUSH 02/11/17 09:00 02/16/17 08:12 Potassium Chloride 100 ml @ 50 mls/hr UNSCH PRN IV 02/10/17 21:30 Potassium Phosphate 21 mmol/ Sodium Chloride 257 ml @ 41.7 mls/hr UNSCH PRN IV 02/10/17 21:30 (Magnesium Sulfate 1 Gm Premix) 200 ml @ 100 mls/hr UNSCH PRN IV 02/10/17 21:30 (Zofran Inj) 4 mg Q6H PRN IV PUSH 02/10/17 21:30 (Roxicodone) 7.5 mg Q4H PRN PO 02/10/17 21:30 02/15/17 22:00 (Morphine Inj) 4 mg Q1H PRN IV 02/10/17 21:30 (Ecotrin Ec) 81 mg DAILY PO 02/11/17 09:00 02/16/17 08:14 Enoxaparin Sodium 30 mg 30 mg Q24H SQ 02/11/17 22:00 02/15/17 21:57 (Precedex Inj/NS Inj) 52 ml @ 0 mls/hr TITRATE IV 02/11/17 14:45 02/11/17 22:26 (Ativan Inj) 1 mg Q6H PRN IV 02/11/17 17:30 02/14/17 22:35 (Cordarone) 200 mg DAILY PO 02/12/17 09:00 02/16/17 08:14 (Cardizem) 30 mg Q6HR PRN PO 02/13/17 07:00 (Cardizem Cd) 180 mg DAILY PO 02/17/17 09:00 Urinary Catheter: No Vascular Central Line Catheter: No A/P Assessment and Plan Is a 76-year-old female who presented to have this medicine with complaints of possible nasal bone fracture after a single episode. The patient was found to be bradycardic with heart rate in the 30s. Patient. Dr. Mercer as an outpatient. The patient became hypotensive and hypoxemic and was intubated in the emergency department by the emergency department physician for airway protection. The patient was admitted to the ICU and developed a right groin hematoma. At that time muscular surgery was consulted. Dr. Sanchez order a CAT scan, the patient received vitamin K as well as FFP and was taken emergently to the OR at the time underwent expiration with patch repair of SFA and femoral vein with questionable hematoma under general anesthesia by Dr. Delgadillo. The patient received 4 units of packed red blood cells, 3 units of frozen plasma and it was transferred eventually to the CVICU for further care. The patient was kept intubated overnight on 02/11 and then extubated on the same date. 1. Syncope: Likely secondary to symptomatic bradycardia which seems to have resolved. Patient had been evaluated by cardiology place patient on IV amiodarone which has been transitioned to oral. Patient denies any further symptoms of dizziness or lightheadedness. 2. Acute respiratory failure: The patient was extubated on 02/09 following a CPAP trial. Patient diuresed and down to 5 business cannula however required reintubation for emergent evacuation of right groin hematoma on 02/10. The patient was started on Decadron as he did not have a cuff leak postoperatively extubated on 02/11 and diuresed down to Ventimask and currently is on 2 L nasal cannula. Continue supplemental oxygen to keep oxygen saturation >92%. DuoNeb as needed. Patient is off oxygen and sating well. Oxygen walk test attempted however patient could not ambulate. Home O2 was not recommended. 3. Bradycardia and hypotension: Which have both resolved. Thought to be secondary to metoprolol and digoxin level on admission. Initially treated with isoproterenol/dopamine drip which have been discontinued. Patient with a started on metoprolol 2.5 mg IV every 6 hours on February 09 which was increased to 5 minutes IV every 6 hours when patient went into A. fib with RVR. The patient was then started on amiodarone drip by cardiology on 02/09. 4. Hypotension: Resolved after treatment with apparent drip, IV fluids and transfusion of 4 units of packed blood cells, [address] be secondary to blood loss secondary to right groin hematoma. 5. Acute blood loss anemia: Secondary to hematomas mentioned above. Status post fusion of multiple units of blood products as stated above. 6. Right groin hematoma: Status post repair of SFA and right femoral vein on 02/10 by vascular surgery. Discussed the case with vascular surgery RAKESH Singh was advised keeping the patient for 1 more day because of presence of CUBA drain. 7. Acute kidney injury: Likely due to prerenal azotemia and hemodynamic instability due to hypotension secondary to right groin hematoma and acute blood loss. Treated with IV fluids, creatinine trending down and now stable at 1.02 possible CKD stage III, however there is no previous labs for comparison. Patient has a good urine output. Continue to monitor BMP, BUN/creatinine, strict I's and O's. Diuresis with Lasix. 8. Diabetes mellitus: Blood sugar seems to be stable. We'll check hemoglobin A1c if not previously done. Continue SSI with insulin NovoLog. 9. Hypokalemia: Replace orally and monitor BMP. 10. DVT prophylaxis: Coumadin on hold. 11. GI prophylaxis: Continue Pepcid. Ocampo catheter discontinued. Discharge Planning As per automotive internet sales manager note family agrees on patient going to [facility], however the patient's son and the patient herself told me that they want to go home with home health. Patient still has CUBA drain. Discharge pending vascular surgery clearance. Boo Galicia MD Feb 15, 2017 12:10
--- NOTE | 2017-02-15 14:16 | PD.VS.PN ---
Subjective POD #: 5 Procedure(s): Right SFA pseudoaneurysm repair Right Femoral vein Repair Subjective/Hospital Course Pt sitting in chair Alert in nad Reported SOB better No motor dysfunction Objective Vitals/I&O Date Time Temp Pulse Resp B/P Pulse Ox O2 Delivery O2 Flow Rate FiO2 02/15/17 12:08 97.6 20 20 111/57 98 02/15/17 12:00 Room Air 02/15/17 08:01 98.1 71 21 129/60 100 02/15/17 08:00 Room Air 02/15/17 07:40 73 02/15/17 04:00 97.8 70 16 120/61 95 02/15/17 00:00 98.0 76 16 136/64 93 02/14/17 20:54 97 21 02/14/17 20:45 Room Air 02/14/17 20:01 78 02/14/17 20:00 97.9 79 16 141/63 96 02/14/17 16:00 97.9 108 20 143/89 96 02/15/17 02/15/17 02/15/17 07:00 15:00 23:00 Intake Total 364 ml Output Total 825 ml Balance -461 ml Exam: GENERAL: Alert and oriented, NAD SKIN: Warm and dry. Incision to right groin intact w/o drainage, swelling, odor or redness CARDIOVASCULAR: + S1,S2 RESPIRATORY: BS CTA GASTROINTESTINAL: Abdomen soft, non-tender, nondistended. CUBA drain intact to RLE No motor dysfunction noted Bilat LE warm Palpable R and L DP/PT Pulses: + r/l DP/PT Incisions: Right groin incision intact Assessment and Plan Assessment: (1) Atrial fibrillation Status: Acute (2) Pseudoaneurysm of femoral artery Status: Acute Plan Plan Leave CUBA in place Encourage ambulation/OOB and WBAT Removed Wound vac from Right groin Leave right groin incision open to air Samantha WATERS [facility]/Code42 Discharge Planning Potentially tomorrow Problem Qualifiers (1) Atrial fibrillation: Qualified Code: I48.0 - Paroxysmal atrial fibrillation Samantha Crowley Feb 15, 2017 14:16
--- NOTE | 2017-02-15 18:37 | PD.CARD.PN ---
Subjective Subjective Remarks Pt without complaints, wants d/c Objective Medications Current Medications Medications (Trade) Dose Ordered Sig/Brandon Route Start Time Stop Time Status Last Admin (Tylenol) 650 mg Q6H PRN PO 02/07/17 19:15 02/10/17 13:50 (Morphine Inj) 2 mg Q2H PRN IV 02/07/17 19:15 02/11/17 13:28 (Pepcid Inj) 10 mg Q12HR IV PUSH 02/07/17 21:00 02/15/17 08:27 (Tears Naturale Opth Soln) 1 drop TID EACH EYE 02/08/17 09:00 02/14/17 17:20 (Reglan Inj) 5 mg Q6H PRN IV 02/07/17 19:15 (Compazine Supp) 25 mg Q12H PRN RECTAL 02/07/17 19:15 Miscellaneous Information 1 Q361D XX 02/07/17 19:15 02/07/17 23:24 (Chlorhexidine 2% Cloth) Taper DAILY@04 TOP 02/08/17 04:00 02/04/18 03:59 02/15/17 03:50 (Chlorhexidine 2% Cloth) 3 pack UNSCH PRN TOP 02/07/17 19:15 (Masha-Colace) 1 tab BID PO 02/07/17 21:00 02/15/17 08:26 (Milk Of Magnesia Liq) 30 ml Q12H PRN PO 02/07/17 19:15 (Senokot) 17.2 mg Q12H PRN PO 02/07/17 19:15 (Dulcolax Supp) 10 mg DAILY PRN RECTAL 02/07/17 19:15 (Lactulose Liq) 30 ml DAILY PRN PO 02/07/17 19:15 Terbutaline Sulfate 1 mg 1 mg UNSCH PRN SQ 02/07/17 23:00 Levofloxacin/ Dextrose 100 ml @ 100 mls/hr Q24H IV 02/10/17 10:00 02/15/17 08:27 (Coumadin Consult Pharmacy) 0 ml @ 0 mls/hr UNSCH OTHER 02/10/17 12:00 (Coumadin) 3 mg DAILY@1600 PO 02/10/17 16:00 Hold 02/10/17 16:08 (Morphine Inj) 4 mg Q4H PRN IV PUSH 02/10/17 17:45 02/14/17 22:47 (NS Flush) 2 ml UNSCH PRN IV FLUSH 02/10/17 21:30 Sodium Chloride 2 ml 2 ml BID IV FLUSH 02/11/17 09:00 02/15/17 08:26 Potassium Chloride 100 ml @ 50 mls/hr UNSCH PRN IV 02/10/17 21:30 Potassium Phosphate 21 mmol/ Sodium Chloride 257 ml @ 41.7 mls/hr UNSCH PRN IV 02/10/17 21:30 (Magnesium Sulfate 1 Gm Premix) 200 ml @ 100 mls/hr UNSCH PRN IV 02/10/17 21:30 (Zofran Inj) 4 mg Q6H PRN IV PUSH 02/10/17 21:30 (Roxicodone) 7.5 mg Q4H PRN PO 02/10/17 21:30 02/15/17 16:54 (Morphine Inj) 4 mg Q1H PRN IV 02/10/17 21:30 (Ecotrin Ec) 81 mg DAILY PO 02/11/17 09:00 02/15/17 08:26 Enoxaparin Sodium 30 mg 30 mg Q24H SQ 02/11/17 22:00 02/14/17 20:41 (Precedex Inj/NS Inj) 52 ml @ 0 mls/hr TITRATE IV 02/11/17 14:45 02/11/17 22:26 (Ativan Inj) 1 mg Q6H PRN IV 02/11/17 17:30 02/14/17 22:35 (Cordarone) 200 mg DAILY PO 02/12/17 09:00 02/15/17 08:26 (Cardizem) 30 mg Q6HR PRN PO 02/13/17 07:00 (Lasix) 20 mg DAILY PO 02/13/17 09:00 02/15/17 08:26 (KCl) 10 meq DAILY PO 02/13/17 09:00 02/15/17 08:26 (Cardizem Cd) 240 mg DAILY PO 02/14/17 09:00 02/15/17 08:26 Vital Signs / I&O Vital Signs Date Time Temp Pulse Resp B/P Pulse Ox O2 Delivery O2 Flow Rate FiO2 02/15/17 16:00 Room Air 02/15/17 12:08 97.6 20 20 111/57 98 02/15/17 12:00 Room Air 02/15/17 08:01 98.1 71 21 129/60 100 02/15/17 08:00 Room Air 02/15/17 07:40 73 02/15/17 04:00 97.8 70 16 120/61 95 02/15/17 00:00 98.0 76 16 136/64 93 02/14/17 20:54 97 21 02/14/17 20:45 Room Air 02/14/17 20:01 78 02/14/17 20:00 97.9 79 16 141/63 96 I/O 02/14/17 02/14/17 02/14/17 02/15/17 02/15/17 02/15/17 07:00 15:00 23:00 07:00 15:00 23:00 Intake Total 150 ml 240 ml 244 ml 364 ml 462 ml Output Total 400 ml 475 ml 665 ml 825 ml 640 ml Balance -250 ml -235 ml -421 ml -461 ml -178 ml Intake Oral 150 ml 240 ml 240 ml 360 ml 360 ml IV Total 4 ml 4 ml 102 ml Output Urine Total 400 ml 475 ml 600 ml 800 ml 600 ml Drainage Total 65 ml 25 ml 40 ml # Voids 1 # Bowel Movements 0 0 0 0 0 Physical Exam GENERAL: Well developed, well nourished. No acute distress on vent HEENT: Jugular venous pressure is normal. CHEST: Lungs CTA to auscultation bilaterally. Unlabored respiratory effort. CARDIAC: irregular rate and rhythm, tachy, without S3, S4, or murmur. ABDOMEN: Soft, nontender, no hepatosplenomegaly. Bowel sounds present. EXTREMITIES: No clubbing, cyanosis, or edema. Assessment and Plan Problem List: (1) Groin hematoma (2) Cardiogenic shock (3) Atrial fibrillation Assessment and Plan Atrial fibrillation - CHADS-VASc score of 5, -eduardo on arrival felt related to metoprolol (pt not taking meds correctly) -doing great on present meds - (HR of 20 at noon was in error as tele shows stable HR) Syncope- likely secondary to eduardo and dehydration -no further episodes -no pauses this hospitalization Shock- resolved, dehydration- with Cr 2.7 on arrival vs other s/p pseudoaneurysm repair Dispo- ok for d/c from CV perspective Problem Qualifiers (1) Atrial fibrillation: Qualified Code: I48.0 - Paroxysmal atrial fibrillation Evi Mercer MD Feb 15, 2017 18:37
[2017-02-15] MEDS: ENOXAPARIN SODIUM 30 MG/0.3 ML SYRINGE SQ SCH (21:57)
[2017-02-16] VITALS: BP 105/58; PULSE 74; RESP 18; TEMP 98; O2SAT 96
[2017-02-16] MEDS: CHLORHEXIDINE GLUCONATE 2 % 1 PACK (2 CLOTHS) TOP SCH (03:56)
[2017-02-16 04:00] VITALS: BP 128/60; PULSE 70; RESP 20; TEMP 98.2; O2SAT 97
--- NOTE | 2017-02-16 07:13 | PD.VS.PN ---
Subjective POD #: 6 Procedure(s): Right SFA pseudoaneurysm repair Right Femoral vein Repair Subjective/Hospital Course doing well; c/o generalized weakness and R groin sore but no foot pain Objective Vitals/I&O Date Time Temp Pulse Resp B/P Pulse Ox O2 Delivery O2 Flow Rate FiO2 02/16/17 04:00 98.2 70 20 128/60 97 02/16/17 00:00 98.0 74 18 105/58 96 02/15/17 20:07 70 02/15/17 20:03 97.2 78 20 104/67 97 02/15/17 19:44 Room Air 02/15/17 18:30 79 02/15/17 16:00 Room Air 02/15/17 16:00 98.3 68 20 114/57 97 02/15/17 12:08 97.6 20 20 111/57 98 02/15/17 12:00 Room Air 02/15/17 08:01 98.1 71 21 129/60 100 02/15/17 08:00 Room Air 02/15/17 07:40 73 02/16/17 02/16/17 02/16/17 07:00 15:00 23:00 Intake Total 220 ml Output Total 500 ml Balance -280 ml Exam: R groin with minimal swelling and appropriate ecchymoses and slight hematoma palpable R DP Motor intact Assessment and Plan Assessment: (1) Atrial fibrillation Status: Acute (2) Pseudoaneurysm of femoral artery Status: Acute Plan CUBA removed this morning Ok to d/c from my standpoint. Will RTC Wed for wound check Discharge Planning Potentially today Problem Qualifiers (1) Atrial fibrillation: Qualified Code: I48.0 - Paroxysmal atrial fibrillation Joshua Garcia MD Feb 16, 2017 07:12
[2017-02-16 08:00] VITALS: BP 121/64; PULSE 74; RESP 20; TEMP 98; O2SAT 94
[2017-02-16] MEDS: SODIUM CHLORIDE 0.9% FLUSH 10 ML FLUSH IV FLUSH SCH (08:12)
[2017-02-16] MEDS: POTASSIUM CHLORIDE 10 MEQ CONTROLLED RELEASE TAB PO SCH (08:13)
[2017-02-16] MEDS: DILTIAZEM-CD 240 MG CAP ER PO SCH (08:13)
[2017-02-16] MEDS: FAMOTIDINE 20 MG/2 ML VIAL IV PUSH SCH (08:13)
[2017-02-16] MEDS: ACETAMINOPHEN 325 MG TAB PO PRN ×2 (08:13→17:53)
[2017-02-16] MEDS: FUROSEMIDE 20 MG TAB PO SCH (08:14)
[2017-02-16] MEDS: ASPIRIN EC 81 MG TABEC PO SCH (08:14)
[2017-02-16] MEDS: AMIODARONE 200 MG TAB PO SCH (08:14)
[2017-02-16] MEDS: DOCUSATE SODIUM 50 MG/SENNA 8.6 MG TAB PO SCH (08:14)
[2017-02-16] MEDS: ARTIFICIAL TEARS OPTH SOLN 15 ML BTL EACH EYE SCH ×2 (08:15→13:00)
[2017-02-16] MEDS: LEVOFLOXACIN 500 MG PREMIX INJ 100 ML IV SCH (10:00)
--- NOTE | 2017-02-16 10:32 | PD.CARD.PN ---
Subjective Subjective Remarks Pt without complaints, she reports outside holter was done Objective Medications Current Medications Medications (Trade) Dose Ordered Sig/Brandon Route Start Time Stop Time Status Last Admin (Tylenol) 650 mg Q6H PRN PO 02/07/17 19:15 02/16/17 08:13 (Morphine Inj) 2 mg Q2H PRN IV 02/07/17 19:15 02/11/17 13:28 (Pepcid Inj) 10 mg Q12HR IV PUSH 02/07/17 21:00 02/16/17 08:13 (Tears Naturale Opth Soln) 1 drop TID EACH EYE 02/08/17 09:00 02/16/17 08:15 (Reglan Inj) 5 mg Q6H PRN IV 02/07/17 19:15 (Compazine Supp) 25 mg Q12H PRN RECTAL 02/07/17 19:15 Miscellaneous Information 1 Q361D XX 02/07/17 19:15 02/07/17 23:24 (Chlorhexidine 2% Cloth) Taper DAILY@04 TOP 02/08/17 04:00 02/04/18 03:59 02/15/17 03:50 (Chlorhexidine 2% Cloth) 3 pack UNSCH PRN TOP 02/07/17 19:15 (Masha-Colace) 1 tab BID PO 02/07/17 21:00 02/16/17 08:14 (Milk Of Magnesia Liq) 30 ml Q12H PRN PO 02/07/17 19:15 (Senokot) 17.2 mg Q12H PRN PO 02/07/17 19:15 (Dulcolax Supp) 10 mg DAILY PRN RECTAL 02/07/17 19:15 (Lactulose Liq) 30 ml DAILY PRN PO 02/07/17 19:15 Terbutaline Sulfate 1 mg 1 mg UNSCH PRN SQ 02/07/17 23:00 Levofloxacin/ Dextrose 100 ml @ 100 mls/hr Q24H IV 02/10/17 10:00 02/15/17 08:27 (Coumadin Consult Pharmacy) 0 ml @ 0 mls/hr UNSCH OTHER 02/10/17 12:00 (Coumadin) 3 mg DAILY@1600 PO 02/10/17 16:00 Hold 02/10/17 16:08 (Morphine Inj) 4 mg Q4H PRN IV PUSH 02/10/17 17:45 02/14/17 22:47 (NS Flush) 2 ml UNSCH PRN IV FLUSH 02/10/17 21:30 Sodium Chloride 2 ml 2 ml BID IV FLUSH 02/11/17 09:00 02/16/17 08:12 Potassium Chloride 100 ml @ 50 mls/hr UNSCH PRN IV 02/10/17 21:30 Potassium Phosphate 21 mmol/ Sodium Chloride 257 ml @ 41.7 mls/hr UNSCH PRN IV 02/10/17 21:30 (Magnesium Sulfate 1 Gm Premix) 200 ml @ 100 mls/hr UNSCH PRN IV 02/10/17 21:30 (Zofran Inj) 4 mg Q6H PRN IV PUSH 02/10/17 21:30 (Roxicodone) 7.5 mg Q4H PRN PO 02/10/17 21:30 02/15/17 22:00 (Morphine Inj) 4 mg Q1H PRN IV 02/10/17 21:30 (Ecotrin Ec) 81 mg DAILY PO 02/11/17 09:00 02/16/17 08:14 Enoxaparin Sodium 30 mg 30 mg Q24H SQ 02/11/17 22:00 02/15/17 21:57 (Precedex Inj/NS Inj) 52 ml @ 0 mls/hr TITRATE IV 02/11/17 14:45 02/11/17 22:26 (Ativan Inj) 1 mg Q6H PRN IV 02/11/17 17:30 02/14/17 22:35 (Cordarone) 200 mg DAILY PO 02/12/17 09:00 02/16/17 08:14 (Cardizem) 30 mg Q6HR PRN PO 02/13/17 07:00 (Lasix) 20 mg DAILY PO 02/13/17 09:00 02/16/17 08:14 (KCl) 10 meq DAILY PO 02/13/17 09:00 02/16/17 08:13 (Cardizem Cd) 240 mg DAILY PO 02/14/17 09:00 02/16/17 08:13 Vital Signs / I&O Vital Signs Date Time Temp Pulse Resp B/P Pulse Ox O2 Delivery O2 Flow Rate FiO2 02/16/17 08:00 98.0 74 20 121/64 94 02/16/17 04:00 98.2 70 20 128/60 97 02/16/17 00:00 98.0 74 18 105/58 96 02/15/17 20:07 70 02/15/17 20:03 97.2 78 20 104/67 97 02/15/17 19:44 Room Air 02/15/17 18:30 79 02/15/17 16:00 Room Air 02/15/17 16:00 98.3 68 20 114/57 97 02/15/17 12:08 97.6 20 20 111/57 98 02/15/17 12:00 Room Air I/O 02/15/17 02/15/17 02/15/17 02/16/17 02/16/17 02/16/17 07:00 15:00 23:00 07:00 15:00 23:00 Intake Total 364 ml 462 ml 240 ml 220 ml Output Total 825 ml 640 ml 420 ml 500 ml Balance -461 ml -178 ml -180 ml -280 ml Intake Oral 360 ml 360 ml 240 ml 220 ml IV Total 4 ml 102 ml Output Urine Total 800 ml 600 ml 420 ml 500 ml Drainage Total 25 ml 40 ml # Bowel Movements 0 0 0 0 Physical Exam GENERAL: Well developed, well nourished. No acute distress on vent HEENT: Jugular venous pressure is normal. CHEST: Lungs CTA to auscultation bilaterally. Unlabored respiratory effort. CARDIAC: irregular rate and rhythm, tachy, without S3, S4, or murmur. ABDOMEN: Soft, nontender, no hepatosplenomegaly. Bowel sounds present. EXTREMITIES: No clubbing, cyanosis, or edema. Imaging Holter - done 02/01 and read 02/15/17 shows multiple pauses to 7 seconds Assessment and Plan Problem List: (1) Groin hematoma (2) Cardiogenic shock (3) Atrial fibrillation Assessment and Plan Atrial fibrillation - CHADS-VASc score of 5, -holter from PCP: prior to arrival on 02/01 does show pauses to 7 sec => pt reports sometimes she did take double meds accidently -eduardo on arrival felt related to metoprolol (pt not taking meds correctly) -BP a bit low=> decrease cardizem and stop lasix/potassium Syncope- likely secondary to eduardo and dehydration -no further episodes -no pauses this hospitalization Shock- resolved, dehydration- with Cr 2.7 on arrival vs other s/p pseudoaneurysm repair Dispo- ok for d/c from CV perspective Problem Qualifiers (1) Atrial fibrillation: Qualified Code: I48.0 - Paroxysmal atrial fibrillation Evi Mercer MD Feb 16, 2017 10:32 Evi Mercer MD Feb 16, 2017 10:32
[2017-02-16 12:00] VITALS: BP 122/74; PULSE 59; RESP 20; TEMP 97.6; O2SAT 98
--- NOTE | 2017-02-16 13:41 | HHI.PR ---
Subjective Remarks denies cp/sob stable vital signs - bp on the lower side this am - better now. vitals stable Objective Vitals Vital Signs Date Time Temp Pulse Resp B/P Pulse Ox O2 Delivery O2 Flow Rate FiO2 02/16/17 08:00 98.0 74 20 121/64 94 02/16/17 08:00 96 Room Air 02/16/17 04:00 98.2 70 20 128/60 97 02/16/17 00:00 98.0 74 18 105/58 96 02/15/17 20:07 70 02/15/17 20:03 97.2 78 20 104/67 97 02/15/17 19:44 Room Air 02/15/17 18:30 79 02/15/17 16:00 Room Air 02/15/17 16:00 98.3 68 20 114/57 97 I/O 02/15/17 02/15/17 02/15/17 02/16/17 02/16/17 02/16/17 07:00 15:00 23:00 07:00 15:00 23:00 Intake Total 364 ml 462 ml 240 ml 220 ml Output Total 825 ml 640 ml 420 ml 500 ml Balance -461 ml -178 ml -180 ml -280 ml Intake Oral 360 ml 360 ml 240 ml 220 ml IV Total 4 ml 102 ml Output Urine Total 800 ml 600 ml 420 ml 500 ml Drainage Total 25 ml 40 ml # Bowel Movements 0 0 0 0 Result Diagram: 02/14/17 0624 02/14/17 0624 Imaging Last Impressions Chest X-Ray 02/14/17 0000 Signed Impressions: Service Date/Time: Tuesday, February 14, 2017 10:18 - CONCLUSION: Minimal residual atelectasis within the left lung base. Armaan Suresh Jr., MD Lower Extremity Ultrasound 02/10/17 0000 Signed Impressions: Service Date/Time: Friday, February 10, 2017 18:37 - CONCLUSION: Active bleeding pre-and post direct manual compression in the proximal right thigh. Armaan Buckley MD Abdomen/Pelvis CT 02/10/17 0000 Signed Impressions: Service Date/Time: Friday, February 10, 2017 18:17 - CONCLUSION: 1. There is evidence of active bleeding into the right anterior thigh 7 cm hematoma. The point of leakage is not identified with certainty. 2. 3 cm left renal mass demonstrates a heterogeneous pattern of enhancement. 3. No vessel truncation or significant luminal narrowing in the aorta, iliac vessels or thigh vessels . 4. 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 Armaan Buckley MD Head CT 02/07/17 1618 Signed Impressions: Service Date/Time: Tuesday, February 07, 2017 17:54 - CONCLUSION: 1. Chronic small vessel ischemic change. 2. Area of encephalomalacia involving the left frontal lobe. 3. No acute intracranial abnormality. Armaan Suresh Jr., MD Cervical Spine CT 02/07/17 1618 Signed Impressions: Service Date/Time: Tuesday, February 07, 2017 17:54 - CONCLUSION: No evidence of fracture. Degenerative findings most prominent at C5-6. Angel Laguna MD Maxillofacial CT 02/07/17 0000 Signed Impressions: Service Date/Time: Tuesday, February 07, 2017 17:54 - CONCLUSION: Normal examination. Armaan Suresh Jr., MD Objective Remarks GENERAL: Obese elderly woman laying in bed on nasal canula. SKIN: Warm and dry. HEAD/ Neuro: Normocephalic. Pallor present. Awake alert oriented 3, moving all 4 extremities. EYES: No scleral icterus. No injection or drainage. NECK: Supple, trachea midline. No JVD or lymphadenopathy. CARDIOVASCULAR: Regular rate and rhythm without murmurs, gallops, or rubs. RESPIRATORY: Air entry decreased bilaterally at bases. No wheezing or crackles. GASTROINTESTINAL: Abdomen soft, non-tender, nondistended. MUSCULOSKELETAL: No cyanosis, or edema. EXTREMITIES: No clubbing cyanosis or edema. Right groin surgical site looks clean - no drainage. Procedures sp Repair of pseudoaneurysm on the right groin on 02/10/17. Medications and IVs Current Medications Medications (Trade) Dose Ordered Sig/Brandon Route Start Time Stop Time Status Last Admin (Tylenol) 650 mg Q6H PRN PO 02/07/17 19:15 02/16/17 08:13 (Morphine Inj) 2 mg Q2H PRN IV 02/07/17 19:15 02/11/17 13:28 (Pepcid Inj) 10 mg Q12HR IV PUSH 02/07/17 21:00 02/16/17 08:13 (Tears Naturale Opth Soln) 1 drop TID EACH EYE 02/08/17 09:00 02/16/17 13:00 (Reglan Inj) 5 mg Q6H PRN IV 02/07/17 19:15 (Compazine Supp) 25 mg Q12H PRN RECTAL 02/07/17 19:15 Miscellaneous Information 1 Q361D XX 02/07/17 19:15 02/07/17 23:24 (Chlorhexidine 2% Cloth) Taper DAILY@04 TOP 02/08/17 04:00 02/04/18 03:59 02/15/17 03:50 (Chlorhexidine 2% Cloth) 3 pack UNSCH PRN TOP 02/07/17 19:15 (Masha-Colace) 1 tab BID PO 02/07/17 21:00 02/16/17 08:14 (Milk Of Magnesia Liq) 30 ml Q12H PRN PO 02/07/17 19:15 (Senokot) 17.2 mg Q12H PRN PO 02/07/17 19:15 (Dulcolax Supp) 10 mg DAILY PRN RECTAL 02/07/17 19:15 (Lactulose Liq) 30 ml DAILY PRN PO 02/07/17 19:15 Terbutaline Sulfate 1 mg 1 mg UNSCH PRN SQ 02/07/17 23:00 Levofloxacin/ Dextrose 100 ml @ 100 mls/hr Q24H IV 02/10/17 10:00 02/16/17 10:00 (Coumadin Consult Pharmacy) 0 ml @ 0 mls/hr UNSCH OTHER 02/10/17 12:00 (Coumadin) 3 mg DAILY@1600 PO 02/10/17 16:00 Hold 02/10/17 16:08 (Morphine Inj) 4 mg Q4H PRN IV PUSH 02/10/17 17:45 02/14/17 22:47 (NS Flush) 2 ml UNSCH PRN IV FLUSH 02/10/17 21:30 Sodium Chloride 2 ml 2 ml BID IV FLUSH 02/11/17 09:00 02/16/17 08:12 Potassium Chloride 100 ml @ 50 mls/hr UNSCH PRN IV 02/10/17 21:30 Potassium Phosphate 21 mmol/ Sodium Chloride 257 ml @ 41.7 mls/hr UNSCH PRN IV 02/10/17 21:30 (Magnesium Sulfate 1 Gm Premix) 200 ml @ 100 mls/hr UNSCH PRN IV 02/10/17 21:30 (Zofran Inj) 4 mg Q6H PRN IV PUSH 02/10/17 21:30 (Roxicodone) 7.5 mg Q4H PRN PO 02/10/17 21:30 02/15/17 22:00 (Morphine Inj) 4 mg Q1H PRN IV 02/10/17 21:30 (Ecotrin Ec) 81 mg DAILY PO 02/11/17 09:00 02/16/17 08:14 Enoxaparin Sodium 30 mg 30 mg Q24H SQ 02/11/17 22:00 02/15/17 21:57 (Precedex Inj/NS Inj) 52 ml @ 0 mls/hr TITRATE IV 02/11/17 14:45 02/11/17 22:26 (Ativan Inj) 1 mg Q6H PRN IV 02/11/17 17:30 02/14/17 22:35 (Cordarone) 200 mg DAILY PO 02/12/17 09:00 02/16/17 08:14 (Cardizem) 30 mg Q6HR PRN PO 02/13/17 07:00 (Cardizem Cd) 180 mg DAILY PO 02/17/17 09:00 Urinary Catheter: No Vascular Central Line Catheter: No A/P Assessment and Plan Is a 76-year-old female who presented to have this medicine with complaints of possible nasal bone fracture after a single episode. The patient was found to be bradycardic with heart rate in the 30s. Patient. Dr. Mercer as an outpatient. The patient became hypotensive and hypoxemic and was intubated in the emergency department by the emergency department physician for airway protection. The patient was admitted to the ICU and developed a right groin hematoma. At that time muscular surgery was consulted. Dr. Sanchez order a CAT scan, the patient received vitamin K as well as FFP and was taken emergently to the OR at the time underwent expiration with patch repair of SFA and femoral vein with questionable hematoma under general anesthesia by Dr. Delgadillo. The patient received 4 units of packed red blood cells, 3 units of frozen plasma and it was transferred eventually to the CVICU for further care. The patient was kept intubated overnight on 02/11 and then extubated on the same date. 1. Syncope: Likely secondary to symptomatic bradycardia which seems to have resolved. Patient had been evaluated by cardiology place patient on IV amiodarone which has been transitioned to oral. Patient denies any further symptoms of dizziness or lightheadedness. 2. Acute respiratory failure: The patient was extubated on 02/09 following a CPAP trial. Patient diuresed and down to 5 business cannula however required reintubation for emergent evacuation of right groin hematoma on 02/10. The patient was started on Decadron as he did not have a cuff leak postoperatively extubated on 02/11 and diuresed down to Ventimask and currently is on 2 L nasal cannula. Continue supplemental oxygen to keep oxygen saturation >92%. DuoNeb as needed. Patient will be discharged on oral Levaquin. Oxygen walk test was done on the patient, however oxygen was not recommended upon discharge. 3. Bradycardia and hypotension: Which have both resolved. Thought to be secondary to metoprolol and digoxin level on admission. Initially treated with isoproterenol/dopamine drip which have been discontinued. Patient with a started on metoprolol 2.5 mg IV every 6 hours on February 09 which was increased to 5 minutes IV every 6 hours when patient went into A. fib with RVR. The patient was then started on amiodarone drip by cardiology on 02/09 which was switched to oral. Patient will be discharged on amiodarone for rate control. 4. Hypotension: Resolved after treatment with apparent drip, IV fluids and transfusion of 4 units of packed blood cells, 3 units of FFP. Thought to be secondary to blood loss secondary to right groin hematoma. 5. Acute blood loss anemia: Secondary to hematomas mentioned above. Status post fusion of multiple units of blood products as stated above. 6. Right groin hematoma: Status post repair of SFA and right femoral vein on 02/10 by vascular surgery. Continue to follow-up recommendations. Coumadin held. 7. Acute kidney injury: Likely due to prerenal azotemia and hemodynamic instability due to hypotension secondary to right groin hematoma and acute blood loss. Treated with IV fluids, creatinine trending down and now stable at 1.02 possible CKD stage III, however there is no previous labs for comparison. Patient has a good urine output. Continue to monitor BMP, BUN/creatinine, strict I's and O's. Diuresis with Lasix. 8. Diabetes mellitus: Blood sugar seems to be stable. We'll check hemoglobin A1c if not previously done. Continue SSI with insulin NovoLog. 9. Hypokalemia: Replace orally and monitor BMP. 10. DVT prophylaxis: Coumadin on hold. 11. GI prophylaxis: Continue Pepcid. Ocampo catheter discontinued. Discharge Planning As per wastewater project manager note family agrees on patient going to [facility], however the patient's son and the patient herself told me that they want to go home with home health. Will discharge home today with home health. Boo Galicia MD Feb 16, 2017 13:41
[2017-02-16] MEDS ORDERED: LEVA500T20 PO (14:53)
[2017-02-16] MEDS ORDERED: AMIO200T PO (14:53)
[2017-02-16] MEDS ORDERED: CARD180C5 PO (14:53)
--- NOTE | 2017-02-16 14:53 | HHI.DCPOC ---
Discharge Care Plan Diagnosis: (1) Cardiogenic shock (2) Atrial fibrillation (3) Pseudoaneurysm of femoral artery (4) Groin hematoma Goals to Promote Your Health * To prevent worsening of your condition and complications * To maintain your health at the optimal level Directions to Meet Your Goals Take your medications as prescribed Follow your dietary instruction Follow activity as directed Keep your appointments as scheduled Take your immunizations and boosters as scheduled If your symptoms worsen call your PCP, if no PCP go to Urgent Care Center or Emergency Room Smoking is Dangerous to Your Health. Avoid second hand smoke Call the 24-hour hour crisis hotline for domestic abuse at Boo Galicia MD Feb 16, 2017 14:53
--- NOTE | 2017-02-16 15:01 | HHI.FF ---
Face to Face Verification Diagnosis: (1) Fall (2) Groin hematoma (3) Cardiogenic shock (4) Atrial fibrillation (5) Pseudoaneurysm of femoral artery (6) Acute respiratory failure (7) PNA (pneumonia) (8) Weakness Physical Therapy Order: Improve ambulation, Strength and gait training Home Health Nursing Order: Signs/symptoms of disease process Nursing assessment with vital signs I have seen patient Susannah Pyror on 02/16/17. My clinical findings support the need for the requested home health care services because: Deconditioned w/ increased weakness Limited ability to care for self Need for psychosocial assistance High risk of falls I certify that my clinical findings support that this patient is homebound because: Unsteady gait/balance Unsafe to leave home unassisted Need for psychosocial assistance Unable to use public transportation Boo Galicia MD Feb 16, 2017 15:01
[2017-02-16] MEDS ORDERED: LACTTAB8 PO (15:02)
--- NOTE | 2017-02-16 15:20 | HHI.DS ---
Discharge Summary Admission Date February 07, 2017 at 19:34 Discharge Date: Feb 16, 2017 Admitting Diagnosis (1) Acute respiratory failure ICD Code: J96.00 Diagnosis: Principal (2) Cardiogenic shock ICD Code: R57.0 Diagnosis: Principal (3) Atrial fibrillation ICD Code: I48.91 Diagnosis: Principal (4) Weakness ICD Code: R53.1 Diagnosis: Principal (5) Fall ICD Code: W19.XXXA Diagnosis: Principal (6) Groin hematoma ICD Code: S30.1XXA Diagnosis: Principal (7) Pseudoaneurysm of femoral artery ICD Code: I72.4 Diagnosis: Principal (8) PNA (pneumonia) ICD Code: J18.9 Diagnosis: Principal Procedures sp Repair of pseudoaneurysm on the right groin on 02/10/17. Brief History - From Admission 76-year-old female who presents with complaints of possible nasal bone fracture. Per medical record she was feeling weak and dizzy for the past month , reports that she was in the bathroom today and had a syncopal episode. Reports that she is feeling lightheaded and dizzy prior to this. patient reports that when she fell, she hit her face on the toilet, patient does admit to taking Coumadin as she has history of atrial fibrillation. Patient reports that she did have loss of consciousness. She is also on digoxin for rate control. In the emergency department she was found to be bradycardic at the heart rate of 30s. She does follow up with Dr. Mercer with cardiology. She became hypotensive and hypoxemic and was intubated by ED attending for an airway protection. CBC/BMP: 02/14/17 0624 02/14/17 0624 Significant Findings Laboratory Tests Test 02/14/17 06:24 Red Blood Count 3.27 MIL/MM3 (4.00-5.30) Hemoglobin 9.2 GM/DL (11.6-15.3) Hematocrit 26.8 % (35.0-46.0) Red Cell Distribution Width 17.8 % (11.6-17.2) Neutrophils (%) (Auto) 73.6 % (16.0-70.0) Monocytes (%) (Auto) 8.7 % (0.0-8.0) Monocytes % 10 % (0-8) Metamyelocytes 2 % (0-1) Myelocytes 2 % (0-0) Ovalocytes 1+ (NORMAL) Carbon Dioxide Level 20.6 MEQ/L (21.0-32.0) Blood Urea Nitrogen 31 MG/DL (7-18) Creatinine 1.02 MG/DL (0.50-1.00) Estimat Glomerular Filtration 53 ML/MIN (>89) Rate Calcium Level 8.2 MG/DL (8.5-10.1) Total Bilirubin 1.7 MG/DL (0.2-1.0) Total Protein 5.9 GM/DL (6.4-8.2) Albumin 2.2 GM/DL (3.4-5.0) Imaging Last Impressions Chest X-Ray 02/14/17 0000 Signed Impressions: Service Date/Time: Tuesday, February 14, 2017 10:18 - CONCLUSION: Minimal residual atelectasis within the left lung base. Armaan Suresh Jr., MD Lower Extremity Ultrasound 02/10/17 0000 Signed Impressions: Service Date/Time: Friday, February 10, 2017 18:37 - CONCLUSION: Active bleeding pre-and post direct manual compression in the proximal right thigh. Armaan Buckley MD Abdomen/Pelvis CT 02/10/17 0000 Signed Impressions: Service Date/Time: Friday, February 10, 2017 18:17 - CONCLUSION: 1. There is evidence of active bleeding into the right anterior thigh 7 cm hematoma. The point of leakage is not identified with certainty. 2. 3 cm left renal mass demonstrates a heterogeneous pattern of enhancement. 3. No vessel truncation or significant luminal narrowing in the aorta, iliac vessels or thigh vessels . 4. 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 Armaan Buckley MD Head CT 02/07/178 Signed Impressions: Service Date/Time: Tuesday, February 07, 2017 17:54 - CONCLUSION: 1. Chronic small vessel ischemic change. 2. Area of encephalomalacia involving the left frontal lobe. 3. No acute intracranial abnormality. Armaan Suresh Jr., MD Cervical Spine CT 02/07/171617 Signed Impressions: Service Date/Time: Tuesday, February 07, 2017 17:54 - CONCLUSION: No evidence of fracture. Degenerative findings most prominent at C5-6. Angel Laguna MD Maxillofacial CT 02/07/17 0000 Signed Impressions: Service Date/Time: Tuesday, February 07, 2017 17:54 - CONCLUSION: Normal examination. Armaan Suresh Jr., MD PE at Discharge GENERAL: Obese elderly woman laying in bed on nasal canula. SKIN: Warm and dry. HEAD/ Neuro: Normocephalic. Pallor present. Awake alert oriented 3, moving all 4 extremities. EYES: No scleral icterus. No injection or drainage. NECK: Supple, trachea midline. No JVD or lymphadenopathy. CARDIOVASCULAR: Regular rate and rhythm without murmurs, gallops, or rubs. RESPIRATORY: Air entry decreased bilaterally at bases. No wheezing or crackles. GASTROINTESTINAL: Abdomen soft, non-tender, nondistended. MUSCULOSKELETAL: No cyanosis, or edema. EXTREMITIES: No clubbing cyanosis or edema. Right groin surgical site looks clean - no drainage. Hospital Course Is a 76-year-old female who presented to have this medicine with complaints of possible nasal bone fracture after a single episode. The patient was found to be bradycardic with heart rate in the 30s. Patient. Dr. Mercer as an outpatient. The patient became hypotensive and hypoxemic and was intubated in the emergency department by the emergency department physician for airway protection. The patient was admitted to the ICU and developed a right groin hematoma. At that time muscular surgery was consulted. Dr. Sanchez order a CAT scan, the patient received vitamin K as well as FFP and was taken emergently to the OR at the time underwent expiration with patch repair of SFA and femoral vein with questionable hematoma under general anesthesia by Dr. Delgadillo. The patient received 4 units of packed red blood cells, 3 units of frozen plasma and it was transferred eventually to the CVICU for further care. The patient was kept intubated overnight on 02/11 and then extubated on the same date. 1. Syncope: Likely secondary to symptomatic bradycardia which seems to have resolved. Patient had been evaluated by cardiology place patient on IV amiodarone which has been transitioned to oral. Patient denied any further symptoms of dizziness or lightheadedness prior to discharge. 2. Acute respiratory failure: The patient was extubated on 02/09 following a CPAP trial. Patient diuresed and down to 5 liters cannula however required reintubation for emergent evacuation of right groin hematoma on 02/10. The patient was started on Decadron as he did not have a cuff leak postoperatively extubated on 02/11 and diuresed down to Ventimask and currently is on 2 L nasal cannula. Continue supplemental oxygen to keep oxygen saturation >92%. DuoNeb as needed. Patient discharged on oral Levaquin. Oxygen walk test was done on the patient, however oxygen was not recommended upon discharge. 3. Bradycardia and hypotension: Which have both resolved. Thought to be secondary to metoprolol and digoxin level on admission. Initially treated with isoproterenol/dopamine drip which have been discontinued. Patient with a started on metoprolol 2.5 mg IV every 6 hours on February 09 which was increased to 5 minutes IV every 6 hours when patient went into A. fib with RVR. The patient was then started on amiodarone drip by cardiology on 02/09 which was switched to oral. Patient will be discharged on amiodarone for rate control. 4. Hypotension: Resolved after Neosynephrin drip, IV fluids and transfusion of 4 units of packed blood cells, 3 units of FFP. Thought to be secondary to blood loss secondary to right groin hematoma. 5. Acute blood loss anemia: Secondary to hematomas mentioned above. Status post fusion of multiple units of blood products as stated above. 6. Right groin hematoma: Status post repair of SFA and right femoral vein on 02/10 by vascular surgery. Continue to follow-up recommendations. Coumadin held. 7. Acute kidney injury: Likely due to prerenal azotemia and hemodynamic instability due to hypotension secondary to right groin hematoma and acute blood loss. Treated with IV fluids, creatinine trending down and now stable at 1.02 possible CKD stage III, however there were no previous labs for comparison. Patient has a good urine output. Monitored BMP, BUN/creatinine, strict I's and O's. Diuresed with Lasix. 8. Diabetes mellitus: Blood sugar seems to be stable. Placed on SSI with insulin Novolog. 9. Hypokalemia: Replaced orally and monitored BMP during hospital stay. 10. DVT prophylaxis: Coumadin on hold. 11. GI prophylaxis: Continue Pepcid. Ocampo catheter discontinued. Pt Condition on Discharge: Stable Discharge Disposition: Disch w/ Home Health Serv Discharge Time: > 30 minutes Discharge Instructions DIET: Follow Instructions for: Heart Healthy Diet, Coumadin (Warfarin) Diet Activities you can perform: See Additionl Instruction Other Activity Instructions: Out of bed with assistance only - FU physical therapy instructions Follow up Referrals: Cardiology - 2 Weeks with Evi Mercer MD PCP Follow-up - 1 Week Vascular Surgery - 2-3 Days with Joshua Garcia MD New Medications: Lactobacillus Acidophilus (Lactobacillus Acidophilus) 1 Tab Tab 1 TAB PO TIDAC Nutritional Supplement #30 Ref 0 TAB Levofloxacin (Levaquin) 500 Mg Tablet 500 MG PO DAILY Infection #7 TAB Amiodarone (Amiodarone) 200 Mg Tab 200 MG PO DAILY afib #31 TAB Diltiazem CD 24 HR (Cardizem CD 24 HR) 180 Mg Caper 180 MG PO DAILY afib #31 CAP Continued Medications: Aripiprazole (Abilify) 2 Mg Tab 2 MG PO DAILY #30 Ref [address] (Aspirin Adult Low Strength) 81 Mg Tabdr 81 MG PO DAILY TAB Biotin (Biotin) 1,000 Mcg Tab 1000 MG PO DAILY #1 BOTTLE Ezetimibe (Zetia) 10 Mg Tab 10 MG PO DAILY #30 Ref 0 TAB Fenofibrate (Fenofibrate) 160 Mg Tab 160 MG PO DAILY #30 Ref [address] (Ferrous Sulfate DR) 325 Mg Tabdr 325 MG PO DAILY Hydrocodone-Acetaminophen (Malin) 10-325 Mg Tab 1 TAB PO Q6H PRN PAIN Ref 0 TAB Lovastatin (Lovastatin) 40 Mg Tab 40 MG PO HS Cholesterol Management #30 Ref 0 TAB Memantine (Namenda) 5 Mg Tab 5 MG PO DAILY Alzheimer's Dementia #30 Ref 0 TAB Omeprazole (Omeprazole) 20 Mg Tab 40 MG PO DAILY #30 Ref 0 TAB Solifenacin (Vesicare) 5 Mg Tab 5 MG PO DAILY Urinary Symptom Managemen #30 Ref 0 TAB Discontinued Medications: Amlodipine (Amlodipine) 10 Mg Tab 10 MG PO DAILY Blood Pressure Management #30 Ref 0 TAB Bupropion HCl ER 24 HR (Wellbutrin Xl 24 HR) 150 Mg Tab 150 MG PO DAILY Control Depression Ref 0 TAB Fenofibrate (Tricor) 145 Mg Tab 145 MG PO DAILY Take with food. #30 Ref 0 TAB Lisinopril (Lisinopril) 10 Mg Tab 10 MG PO DAILY #30 Ref 0 TAB Metoprolol Tartrate (Metoprolol Tartrate) 100 Mg Tab 100 MG PO BID #60 Ref 0 TAB Risperidone (Risperidone) 1 Mg Tab 1 MG PO DAILY #30 Ref 0 TAB Trazodone HCl (Trazodone HCl) 150 Mg Tablet 150 MG PO HS Warfarin (Warfarin) 3 Mg Tab 3 MG PO DAILY Blood Clot Prevention #30 Ref 0 TAB Boo Galicia MD Feb 16, 2017 15:20
[2017-02-16 16:00] VITALS: BP 133/71; PULSE 65; RESP 20; TEMP 97.5; O2SAT 98
[2017-02-17] MEDS ORDERED: DILTIAZEM-CD 180 MG CAP ER PO SCH (09:00)
--- NOTE | 2017-02-23 19:43 | MA ---
cc: EMY TESFAYE DATE: 02/23/2017. PREOPERATIVE DIAGNOSIS: 1. Non-maturing right upper extremity AV fistula. 2. End-stage renal disease. POSTOPERATIVE DIAGNOSIS: 1. Non-maturing right upper extremity AV fistula. 2. End-stage renal disease. OPERATIVE PROCEDURE PERFORMED: 1. Fistulogram right upper extremity. 2. Balloon angioplasty of right cephalic vein in the tatyana-anastomotic area with a 5 mm x 40 mm Bard Conquest balloon. 3. Balloon angioplasty in the mid cephalic vein with a 5 mm x 40 mm Conquest balloon. 4. Balloon angioplasty of the cephalic vein as it approached the axilla with a 6 mm x 100 mm Conquest balloon. SURGEON: Emy Tesfaye DO. ANESTHESIA: Moderate sedation. ESTIMATED BLOOD LOSS: Minimal. URINE OUTPUT: Not calculated. COMPLICATIONS: None. DISPOSITION: Post-anesthesia care unit. DESCRIPTION OF THE PROCEDURE IN DETAIL: The patient's right upper extremity was prepped and draped in sterile fashion after being under moderate sedation. I got access to the cephalic vein using the landmarks and pulses and palpable thrill. I accessed it in the mid cephalic vein with a 21-gauge needle exchanged over a 4-Swazi micropuncture catheter and exchanged for a 6-Swazi Brite Tip sheath. A fistulogram showed that there were multiple stenoses along the length of the cephalic vein. Just distal to the anastomosis, there was a short segment stenosis that was high-grade critical. There was also a moderate stenosis in the mid cephalic vein and then there was high-grade stenosis of the cephalic vein it approached the axilla. I gave the patient a total of 4000 units of heparin. I performed balloon angioplasty with a 5 mm x 40 mm Bard balloon. After I did this, there was resolution of this stenosis. I then accessed the vessel closer to the antecubital fossa and then advanced a 6-Swazi sheath towards the axilla over a stiff angled Glidewire and then performed balloon angioplasty of the distal lesion towards axilla with a 6 mm x 100 mm balloon and then in the mid cephalic vein with a 5 mm x 40 mm balloon. There was resolution of all the stenotic segments. It should be noted that the central venous including axillary and subclavian veins appeared to be open and there was a catheter somewhat obscuring the view in the area of the internal jugular / subclavian into the innominate vein. So in conclusion, the patient had multiple stenoses along the outflow cephalic vein that were treated with balloon angioplasty. The patient had improvement in the thrill and a resolution via the angiogram of the multiple areas of stenoses. DO GIN Elias/KACI /3:04 PM /7:34 PM
== END 2017-02-16 18:00 | disposition home health service (06) | DRG 252 ==
LOC: NEPE 16:03 → NEDA 19:34 → HCVR 21:05 → N04B 02-13 18:30
PROVIDERS: ADMIT Hospitalist; ATTEND Hospitalist
PROC: 5A1945Z Respiratory Ventilation, 24-96 Consecutive Hours (ICD-10-PCS; 2017-02-07)
PROC: 0BH17EZ Insertion of Endotracheal Airway into Trachea, Via Natural or Artificial Opening (ICD-10-PCS; 2017-02-07)
PROC: 04UK0KZ Supplement Right Femoral Artery with Nonautologous Tissue Substitute, Open Approach (ICD-10-PCS; 2017-02-10)
PROC: 06U Lower Veins, Supplement (ICD-10-PCS; 2017-02-10)
PROC: 06QM0ZZ Repair Right Femoral Vein, Open Approach (ICD-10-PCS; 2017-02-10)
PROC: 06U Lower Veins, Supplement (ICD-10-PCS; 2017-02-10)
PROC: 30233K1 Transfusion of Nonautologous Frozen Plasma into Peripheral Vein, Percutaneous Approach (ICD-10-PCS; 2017-02-10)
PROC: 30233N1 Transfusion of Nonautologous Red Blood Cells into Peripheral Vein, Percutaneous Approach (ICD-10-PCS; 2017-02-10)
PROC: 06HM33Z Insertion of Infusion Device into Right Femoral Vein, Percutaneous Approach (ICD-10-PCS; 2017-02-10)
PROC: 04QK0ZZ Repair Right Femoral Artery, Open Approach (ICD-10-PCS; principal; 2017-02-10 19:01)
DX: R00.1 Bradycardia, unspecified (principal); R57.0 Cardiogenic shock; J96.01 Acute respiratory failure with hypoxia; N17.9 Acute kidney failure, unspecified; J18.9 Pneumonia, unspecified organism; E86.0 Dehydration; D62 Acute posthemorrhagic anemia; E11.9 Type 2 diabetes mellitus without complications; I97.638 Postprocedural hematoma of a circulatory system organ or structure following other circulatory system procedure; I72.4 Aneurysm of artery of lower extremity; I48.0 Paroxysmal atrial fibrillation; I10 Essential (primary) hypertension; F32.9 Major depressive disorder, single episode, unspecified; T44.7X5A Adverse effect of beta-adrenoreceptor antagonists, initial encounter; Z85.528 Personal history of other malignant neoplasm of kidney; W01.198A Fall on same level from slipping, tripping and stumbling with subsequent striking against other object, initial encounter; Y93.89 Activity, other specified; Y92.002 Bathroom of unspecified non-institutional (private) residence as the place of occurrence of the external cause; Y99.9 Unspecified external cause status; Z96.641 Presence of right artificial hip joint; M47.9 Spondylosis, unspecified; G43.909 Migraine, unspecified, not intractable, without status migrainosus; F41.9 Anxiety disorder, unspecified; K59.00 Constipation, unspecified; S30.1XXA Contusion of abdominal wall, initial encounter; E87.6 Hypokalemia; Y84.8 Other medical procedures as the cause of abnormal reaction of the patient, or of later complication, without mention of misadventure at the time of the procedure; Y82.8 Other medical devices associated with adverse incidents; Y92.239 Unspecified place in hospital as the place of occurrence of the external cause
CPT/HCPCS: 31500; 36430; 36556; 36600; 51702; 70450; 70486; 71010; 72125; 74174; 74176; 76937; 80048; 80053; 80162; 81001; 82550; 82805; 83735; 83880; 84100; 84155; 84484; 85007; 85014; 85018; 85025; 85027; 85610; 85730; 86077; 86850; 86870; 86900; 86901; 86920; 86922; 86927; 87641; 93005; 93306; 93926; 94002; 94003; 94150; 94640; 94664; 96361; 96374; 96375; C1768; J0131; J0282; J0461; J0690; J1100; J1160; J1162; J1265; J1644; J1650; J1940; J1956; J2060; J2250; J2270; J2370; J2405; J2720; J3010; J3430; J3475; J7030; J7040; J7050; J7060; J7070; J7120; P9016; P9017; P9045; Q9967

== ENCOUNTER → 2017-04-05 | Outpatient (CLI) | payer MEDICARE, OTHER ==
[~2017-04-05] MED LIST changes: +ABIL2TAB2 PO; -ADVA250A INH; +AMIO200T PO; -AMLO5TAB96 PO; -ARIP1TAB5 PO; +ASPI1TAB91 PO; +BIOT1000 PO; -BUPR150T3 PO; +CARD180C5 PO; -DIGO.125 PO; +FENO160T PO; +FERR325T2 PO; -FOLI400T30 PO; +HYDR-3366 PO; +LACTTAB8 PO; +LEVA500T20 PO; +LOVA40TA PO; -METO25 PO; +NAME5TAB2 PO; -OMEP20CA5 PO; +OMEP20TA PO; -REST15CA PO; +VESI5TAB PO; +ZETI10TA5 PO
--- NOTE | 2017-04-09 10:19 | RSPPFT ---
DATE OF PROCEDURE: 04/05/17 COMMENTS: Spirometry with FVC of 1.7, FEV1 of 1.6, FEV1/FVC ratio at 97%. Post-bronchodilator study was not performed. IMPRESSION: 1. Decreased flow rates. 2. No gross obstruction. 3. Possible airways restriction. 4. If clinically warranted, lung volumes may be helpful.
== END ==
LOC: PHRSP 08:11
PROVIDERS: ATTEND Internal Medicine
DX: R06.00 Dyspnea, unspecified (principal); R06.02 Shortness of breath
CPT/HCPCS: 94010

== ENCOUNTER 2017-05-11 01:18 | Inpatient (IN) | payer MEDICARE, MEDICAID ==
[~2017-05-11] VITALS: Ht 167.6 cm; Wt 75.0 kg
[2017-05-11] VITALS (19 sets, daily range): BP systolic 130–167; BP diastolic 57–108; PULSE 35–127; RESP 24–52; TEMP 98–100; O2SAT 90–100
[2017-05-11] MEDS ORDERED: ATROPINE SULFATE 1 MG/ML VIAL IV PUSH ONE (01:30)
[2017-05-11] MEDS ORDERED: GLUCAGON 1 MG/ML VIAL IV PUSH ONE (01:30)
[2017-05-11] MEDS ORDERED: SODIUM CHLORIDE 0.9% FLUSH 10 ML FLUSH IVF PRN (01:30)
[2017-05-11] MEDS ORDERED: ONDANSETRON HCL 4 MG/2 ML VIAL IV PUSH ONE (01:30)
[2017-05-11] MEDS ORDERED: WARF-20 PO (01:44)
--- NOTE | 2017-05-11 01:52 | PD ---
HPI Chief Complaint: Cardiac Complaint Time Seen by Provider: 01:26 Travel History International Travel<30 days: No Contact w/Intl Traveler<30days: No Traveled to known affect area: No History of Present Illness HPI 76-year-old female with history of A. fib, HIV, diabetes, brought in by ambulance after she called 911 from home complaining of shortness of breath. EMS noted her heart rate in the 20s. They administered 1 mg of atropine and it improved to the 40s. Upon arrival to the emergency department the patient feels improved. She states her shortness of breath has significantly improved. She denies chest pain. No fevers or recent illness. She is on Cardizem and metoprolol, however states she is taking them as prescribed. PFSH Past Medical History Hx Anticoagulant Therapy: Yes Alzheimer's Disease: Yes Asthma: Yes Atrial Fibrillation: Yes Bipolar Disorder: Yes Depression: Yes Heart Rhythm Problems: Yes Cancer: Yes (LEFT KIDNEY) Cardiovascular Problems: Yes Congestive Heart Failure: Yes COPD: Yes Cerebrovascular Accident: Yes Dementia: Yes Diabetes: Yes (NO MEDS) Patient Takes Glucophage: No Endocrine: No Gastrointestinal Disorders: Yes (INCONTINENCE, FREQUENT DIARRHEA) Glaucoma: No Genitourinary: Yes (CANCER LEFT KIDNEY) Hepatitis: Yes (C) Hiatal Hernia: No Hypertension: Yes Immune Disorder: Yes (HIV) Medical other: Yes ( HIGH CHOLESTEROL) 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) Neurologic: Yes (HX MIGRAINES) Psychiatric: Yes (ANXIETY / DEPRESSION) Respiratory: Yes Schizophrenia: Yes Seizures: Yes Thyroid Disease: No Past Surgical History Abdominal Surgery: Yes (APPENDECTOMY) AICD: No Cardiac Surgery: No Ear Surgery: No Endocrine Surgery: No Eye Surgery: No Genitourinary Surgery: No Gynecologic Surgery: Yes (HYSTERECTOMY) Joint Replacement: Yes Pacemaker: No Thoracic Surgery: No Other Surgery: Yes Social History Alcohol Use: No Tobacco Use: No Substance Use: No Allergies-Medications (Allergen,Severity, Reaction): Coded Allergies: No Known Allergies (Verified , 05/11/17) Reported Meds & Prescriptions Reported Meds & Active Scripts Active Lactobacillus Acidophilus 1 Tab Tab 1 Tab PO TIDAC Cardizem CD 24 HR (Diltiazem CD 24 HR) 180 Mg Caper 180 Mg PO DAILY Amiodarone (Amiodarone HCl) 200 Mg Tab 200 Mg PO DAILY Reported Warfarin 4 Mg Tab 4 Mg PO DAILY Vesicare (Solifenacin) 5 Mg Tab 5 Mg PO DAILY Ferrous Sulfate DR (Ferrous Sulfate) 325 Mg Tabdr 325 Mg PO DAILY Fenofibrate 160 Mg Tab 160 Mg PO DAILY Namenda (Memantine) 5 Mg Tab 5 Mg PO DAILY Zetia (Ezetimibe) 10 Mg Tab 10 Mg PO DAILY Omeprazole 20 Mg Tab 40 Mg PO DAILY Lovastatin 40 Mg Tab 40 Mg PO HS [place] (Hydrocodone-Acetaminophen) 10-325 Mg Tab 1 Tab PO Q6H PRN Biotin 1,000 Mcg Tab 1,000 Mg PO DAILY Aspirin Adult Low Strength (Aspirin) 81 Mg Tabdr 81 Mg PO DAILY Abilify (Aripiprazole) 2 Mg Tab 2 Mg PO DAILY Review of Systems Except as stated in HPI: all other systems reviewed are Neg Physical Exam Narrative GENERAL: Well-developed, well-nourished, elderly-appearing female, awake, alert , no apparent distress. SKIN: Focused skin assessment warm/dry. No pallor. HEAD: Atraumatic. Normocephalic. EYES: Pupils equal and round. No scleral icterus. No injection or drainage. ENT: Mucous membranes pink and moist. NECK: Trachea midline. No JVD. CARDIOVASCULAR: Bradycardic. Irregularly irregular. RESPIRATORY: No accessory muscle use. Clear to auscultation. Breath sounds equal bilaterally. GASTROINTESTINAL: Abdomen soft, non-tender, nondistended. MUSCULOSKELETAL: No obvious deformities. No clubbing. No cyanosis. No edema. NEUROLOGICAL: Awake and alert. No obvious cranial nerve deficits. Motor grossly within normal limits. Normal speech. PSYCHIATRIC: Appropriate mood and affect; insight and judgment normal. Data Data Last Documented VS Vital Signs Date Time Temp Pulse Resp B/P (MAP) Pulse Ox O2 Delivery O2 Flow Rate FiO2 05/11/17 01:30 35 24 100 Nasal Cannula 3.00 05/11/17 01:25 98.0 163/108 (126) Orders Orders Electrocardiogram (05/11/17:26) B-Type Natriuretic Peptide (05/11/17:26) Ckmb (Isoenzyme) Profile (05/11/17:26) Complete Blood Count With Diff (05/11/17:) Comprehensive Metabolic Panel (05/11/17:) Magnesium (Mg) (05/11/17:26) Prothrombin Time / Inr (Pt) (05/11/17:26) Act Partial Throm Time (Ptt) (05/11/17:26) Troponin I (05/11/17:26) Chest, Single Ap (05/11/17:26) Ecg Monitoring (05/11/17:26) Bilateral Bp Monitoring (05/11/17:26) Iv Access Insert/Monitor (05/11/17:26) Oximetry (05/11/17:26) Oxygen Administration (05/11/17:26) Sodium Chloride 0.9% Flush (Ns Flush) (05/11/17 01:30) Glucagon Inj (Glucagon Inj) (05/11/17 01:30) Ondansetron Inj (Zofran Inj) (05/11/17:30) Atropine Inj (Atropine Inj) (05/11/17 01:30) Admit Order (Ed Use Only) (05/11/17 02:10) Labs Laboratory Tests Test 05/11/17 01:40 [facility] Medical Decision Making Medical Screen Exam Complete: Yes Emergency Medical Condition: Yes Differential Diagnosis A. fib with slow ventricular rate, third-degree heart block, metabolic abnormality, beta gayla/calcium channel gayla overdose Narrative Course Vital signs reviewed. Patient arrived with a heart rate in the high 30s, low 40s, A. fib with slow ventricular response. She was given a dose of IV glucagon and atropine with improvement in heart rate to the 50s. Shortly thereafter her heart rate came down to the 40s. She remains awake. Initial blood pressure was 160/100. Repeat blood pressure was 106/62. Case discussed with on-call practice management consultant Dr. Johnson who will admit the patient to his service. Labs pending at time of admission. Diagnosis Primary Impression: Atrial fibrillation with slow ventricular response Sanjeev Allen MD May 11, 2017 01:52
--- NOTE | 2017-05-11 02:02 | RADRPT ---
EXAM DATE/TIME: 05/11/2017 01:54 [facility] COMPARISON: CHEST SINGLE AP, February 14, 2017, 10:18. INDICATIONS : Chest pain and shortness of breath. MEDICAL HISTORY : Hypertension. Renal cancer. Atrial fibrillation. SURGICAL HISTORY : None. ENCOUNTER: Initial ACUITY: 1 day PAIN SCORE: 4/10 LOCATION: chest FINDINGS: Portable AP view of the chest demonstrates a normal-sized cardiac silhouette. No effusion, consolidat ion, or pneumothorax is visualized. The bones and soft tissues demonstrate no acute abnormality. Ther e is stable left glenohumeral joint osteoarthritis. CONCLUSION: No acute cardiopulmonary abnormality is identified. Larry Christianson MD on May 11, 2017 at 2:01 Board Certified Radiologist. This report was verified electronically.
[2017-05-11 02:21] LABS: ALKALINE PHOSPHATASE 131 U/L (45-117); CREATINE KINASE 120 U/L (26-192); TOTAL BILIRUBIN ADULT 0.2 MG/DL (0.2-1.0)
[2017-05-11] MEDS ORDERED: SODIUM CHLOR 0.9% 1000 ML INJ 1,000 ML IV SCH (02:21)
[2017-05-11 02:23] LABS: ALT (GPT) 94 U/L (10-53); ANION GAP 14 MEQ/L (5-15); AST (GOT) 149 U/L (15-37); BICARBONATE 15.5 MEQ/L (21.0-32.0); BLOOD UREA NITROGEN 35 MG/DL (7-18); CHLORIDE 108 MEQ/L (98-107); GLOMERULAR FILTRATION RATE 18 ML/MIN (>89); POTASSIUM 6.1 MEQ/L (3.5-5.1); SODIUM (NA) 137 MEQ/L (136-145)
[2017-05-11] MEDS ORDERED: CHLORHEXIDINE GLUCONATE 2 % 1 PACK (2 CLOTHS) TOP PRN (02:30)
[2017-05-11] MEDS ORDERED: MISCELLANEOUS NURSING INFORMATION XX SCH (02:30)
[2017-05-11] MEDS ORDERED: ACETAMINOPHEN/HYDROcodone 325 MG/10 MG TAB PO PRN (02:30)
[2017-05-11] MEDS ORDERED: ACETAMINOPHEN 325 MG TAB PO PRN (02:30)
[2017-05-11] MEDS ORDERED: MAGNESIUM HYDROXIDE SUSP 30 ML CUP PO PRN (02:30)
[2017-05-11] MEDS ORDERED: RESP: ALBUTEROL 2.5 MG/IPRATROPIUM 0.5 MG NEB (PRN) INH (02:30)
[2017-05-11] MEDS ORDERED: SENNOSIDES 8.6 MG TAB PO PRN (02:30)
[2017-05-11] MEDS ORDERED: LACTULOSE SYRUP 20 GM/30 ML CUP PO PRN (02:30)
[2017-05-11] MEDS ORDERED: BISACODYL 10 MG SUPP RECTAL PRN (02:30)
[2017-05-11] MEDS ORDERED: SODIUM CHLORIDE 0.9% FLUSH 10 ML FLUSH PRN (02:30)
[2017-05-11 02:34] LABS: CKMB 1.7 NG/ML (0.5-3.6)
[2017-05-11 02:40] LABS: AUTOMATED NEUTROPHIL # 9.4 TH/MM3 (1.8-7.7); BASOPHIL % 0.1 % (0.0-2.0); EOSINOPHIL % 0.2 % (0.0-4.0); HEMATOCRIT 41.5 % (35.0-46.0); HEMO FLAGS DIFF FINAL; LYMPH % 13.3 % (9.0-44.0); LYMPHOCYTE # 1.5 TH/MM3 (1.0-4.8); MEAN CELL VOLUME 84.3 FL (80.0-100.0); MEAN CORPUSCULAR HEMOGLOBIN 27.1 PG (27.0-34.0); MEAN CORPUSCULAR HGB CONC 32.1 % (32.0-36.0); MONO % 2.4 % (0.0-8.0); PLATELET COUNT 298 TH/MM3 (150-450); RED BLOOD COUNT 4.92 MIL/MM3 (4.00-5.30); RED CELL DISTRIBUTION WIDTH 14.7 % (11.6-17.2); WHITE BLOOD COUNT 11.2 TH/MM3 (4.0-11.0)
[2017-05-11 02:54] LABS: APTT (PATIENT) 23.3 SEC (24.3-30.1); INTERNATIONAL NORMALIZED RATIO 1.4 RATIO; PROTHROMBIN TIME - PATIENT 15.4 SEC (9.8-11.6)
[2017-05-11] MEDS: FERROUS SULFATE 325 MG (65 MG ELEMENTAL IRON) TAB PO SCH ×2 (03:02→09:05)
[2017-05-11] MEDS ORDERED: INSULIN HUMAN REGULAR 1,000 UNITS/10 ML VIAL IV PUSH ONE ×2 (03:30→08:45)
[2017-05-11] MEDS ORDERED: DEXTROSE 50% IN WATER 50 ML SYRINGE IV PUSH ONE (03:30)
[2017-05-11] MEDS ORDERED: SODIUM BICARBONATE 8.4% INJ 50 MEQ/50 ML SYR IV PUSH ONE (03:30)
[2017-05-11] MEDS ORDERED: CALCIUM GLUCONATE INJ 2 GM in SODIUM CHLORIDE 0.9% INJ 100 ML IV ONE (03:30)
[2017-05-11] MEDS ORDERED: SODIUM BICARBONATE 8.4% INJ 50 ML ONE (04:22)
[2017-05-11] MEDS ORDERED: SODIUM BICARBONATE 8.4% INJ 150 MEQ in DEXTROSE 5% IN WATE 1000ML INJ 1,000 ML IV SCH ×2 (05:00)
[2017-05-11] MEDS: CHLORHEXIDINE GLUCONATE 2 % 1 PACK (2 CLOTHS) TOP SCH (05:00)
--- NOTE | 2017-05-11 05:19 | HHI.HP ---
HPI Service Critical Care Medicine Primary Care Physician Jurgen Lewis MD Admission Diagnosis A fib with slow ventricular response Diagnosis: Travel History International Travel<30 Days: No Contact w/Intl Traveler <30 Da: No Traveled to Known Affected Are: No History of Present Illness 76-year-old female with history of A. fib, diabetes, brought in by ambulance after she called 911 from home complaining of shortness of breath. EMS noted her heart rate in the 20s. They administered 1 mg of atropine and it improved to the 40s. Upon arrival to the emergency department the patient feels improved. She states her shortness of breath has significantly improved. She denies chest pain. No fevers or recent illness. She is on Cardizem and amiodarone, however states she is taking them as prescribed. Her video coordinator is Dr. Mercer. During my evaluation in the emergency department her blood pressure was 163/108. She was admitted here with the same issues February 07, 2017. Review of Systems Constitutional: COMPLAINS OF: Fatigue, Dizziness, DENIES: Diaphoretic episodes , Fever, Weight gain, Weight loss, Chills, Change in appetite, Night Sweats Endocrine: DENIES: Abnorml menstrual pattern, Heat/cold intolerance, Polydipsia , Polyuria, Polyphagia Eyes: DENIES: Blurred vision, Diplopia, Eye inflammation, Eye pain, Vision loss , Photosensitivity, Double Vision Ears, nose, mouth, throat: DENIES: Tinnitus, Hearing loss, Vertigo, Nasal discharge, Oral lesions, Throat pain, Hoarseness, Ear Pain, Running Nose, Epistaxis, Sinus Pain, Toothache, Odynophagia Respiratory: COMPLAINS OF: Shortness of breath, DENIES: Apneas, Cough, Snoring , Wheezing, Hemoptysis, Sputum production Cardiovascular: DENIES: Chest pain, Palpitations, Syncope, Dyspnea on Exertion , PND, Lower Extremity Edema, Orthopnea, Claudication Gastrointestinal: DENIES: Abdominal pain, Black stools, Bloody stools, Constipation, Diarrhea, Nausea, Vomiting, Difficulty Swallowing, Anorexia Genitourinary: DENIES: Abnormal vaginal bleeding, Dysmenorrhea, Dyspareunia, Sexual dysfunction, Urinary frequency, Urinary incontinence, Urgency, Hematuria , Dysuria, Nocturia, Vaginal discharge Musculoskeletal: DENIES: Joint pain, Muscle aches, Stiffness, Joint Swelling, Back pain, Neck pain Integumentary: DENIES: Abnormal pigmentation, Pruritus, Rash, Nail changes, Breast masses, Breast skin changes, Nipple discharge Hematologic/lymphatic: DENIES: Bruising, Lymphadenopathy Immunologic/allergic: DENIES: Eczema, Urticaria Neurologic: DENIES: Abnormal gait, Headache, Localized weakness, Paresthesias, Seizures, Speech Problems, Tremor, Poor Balance Psychiatric: DENIES: Anxiety, Confusion, Mood changes, Depression, Hallucinations, Agitation, Suicidal Ideation, Homicidal Ideation, Delusions Past Family Social History Allergies: Coded Allergies: No Known Allergies (Verified , 05/11/17) Past Medical History Left kidney cancer Atrial fibrillation Diabetes mellitus Hypertension 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 High-grade headaches Depressions and anxiety Past Surgical History Appendectomy Hysterectomy Joint replacement Reported Medications Reported Meds & Active Scripts Active Lactobacillus Acidophilus 1 Tab Tab 1 Tab PO TIDAC Cardizem CD 24 HR (Diltiazem CD 24 HR) 180 Mg Caper 180 Mg PO DAILY Amiodarone (Amiodarone HCl) 200 Mg Tab 200 Mg PO DAILY Reported Warfarin 4 Mg Tab 4 Mg PO DAILY Vesicare (Solifenacin) 5 Mg Tab 5 Mg PO DAILY Ferrous Sulfate DR (Ferrous Sulfate) 325 Mg Tabdr 325 Mg PO DAILY Fenofibrate 160 Mg Tab 160 Mg PO DAILY Namenda (Memantine) 5 Mg Tab 5 Mg PO DAILY Zetia (Ezetimibe) 10 Mg Tab 10 Mg PO DAILY Omeprazole 20 Mg Tab 40 Mg PO DAILY Lovastatin 40 Mg Tab 40 Mg PO HS [place] (Hydrocodone-Acetaminophen) 10-325 Mg Tab 1 Tab PO Q6H PRN Biotin 1,000 Mcg Tab 1,000 Mg PO DAILY Aspirin Adult Low Strength (Aspirin) 81 Mg Tabdr 81 Mg PO DAILY Abilify (Aripiprazole) 2 Mg Tab 2 Mg PO DAILY Active Ordered Medications Current Medications Medications (Trade) Dose Ordered Sig/Brandon Route PRN Reason Start Time Stop Time Status Last Admin Dose Admin Aripiprazole (Abilify) 2 mg DAILY PO 05/11/17 09:00 Aspirin (Ecotrin Ec) 81 mg DAILY PO 05/11/17 09:00 EZETIMIBE (Zetia) 10 mg DAILY PO 05/11/17 09:00 Acetaminophen/ Hydrocodone Bitart ([place] 10-325 Mg) 1 tab Q6H PRN PO PAIN 05/11/17 02:30 Lactobacillus Acidophilus (Lactinex) 1 tab TIDAC PO 05/11/17 08:00 Pravastatin Sodium (Pravachol) 40 mg HS PO 05/11/17 21:00 Memantine (Namenda) 5 mg DAILY PO 05/11/17 09:00 Warfarin Sodium (Coumadin) 4 mg DAILY@1600 PO 05/11/17 16:00 Fenofibrate (Tricor) 145 mg DAILY PO 05/11/17 09:00 Ferrous Sulfate (Ferrous Sulfate) 325 mg DAILY PO 05/11/17 02:45 05/11/17 03:02 Pantoprazole Sodium (Protonix) 40 mg DAILY PO 05/11/17 09:00 Tolterodine Tartrate (Detrol La) 2 mg DAILY PO 05/11/17 09:00 Sodium Chloride 1,000 ml @ 42 mls/hr [id number] IV 05/11/17 02:21 05/11/17 03:02 Sodium Chloride (NS Flush) 2 ml UNSCH PRN .XX FLUSH AFTER USING IV ACCESS 05/11/17 02:30 Sodium Chloride (NS Flush) 2 ml BID .XX 05/11/17 09:00 Acetaminophen (Tylenol) 650 mg Q6H PRN PO PAIN 1-10 AND/OR FEVER >101F 05/11/17 02:30 Ondansetron HCl (Zofran Inj) 4 mg Q6H PRN IV NAUSEA OR VOMITING 05/11/17 02:30 Zolpidem Tartrate (Ambien) 5 mg HS PRN PO INSOMNIA 05/11/17 02:30 Albuterol/ Ipratropium (Duoneb Neb) 1 ampule Q2HR NEB PRN INH WHEEZING 05/11/17 02:30 Miscellaneous Information 1 [id number] XX 05/11/17 02:30 Chlorhexidine Gluconate (Chlorhexidine 2% Cloth) 3 pack Taper DAILY@04 TOP 05/11/17 04:00 05/07/18 03:59 Chlorhexidine Gluconate (Chlorhexidine 2% Cloth) 3 pack UNSCH PRN TOP HYGIENIC CARE 05/11/17 02:30 Senna/Docusate Sodium (Masha-Colace) 1 tab BID PO 05/11/17 09:00 Magnesium Hydroxide (Milk Of Magnesia Liq) 30 ml Q12H PRN PO MILD - MODERATE CONSTIPATION 05/11/17 02:30 Sennosides (Senokot) 17.2 mg Q12H PRN PO MODERATE - SEVERE CONSTIPATION 05/11/17 02:30 Bisacodyl (Dulcolax Supp) 10 mg DAILY PRN RECTAL SEVERE CONSITIPATION 05/11/17 02:30 Lactulose (Lactulose Liq) 30 ml DAILY PRN PO SEVERE CONSITIPATION 05/11/17 02:30 Sodium Bicarbonate 150 meq/Dextrose 1,150 ml @ 75 mls/hr [id number] IV 05/11/17 05:00 Pharmacy Profile Note 0 ml @ 0 mls/hr UNSCH OTHER 05/11/17 03:30 Family History No family history of early coronary artery disease or malignancy Social History She denies smoking, alcohol or illicit drug abuse Physical Exam Vital Signs Vital Signs Date Time Temp Pulse Resp B/P (MAP) Pulse Ox O2 Delivery O2 Flow Rate FiO2 05/11/17 01:30 35 24 100 Nasal Cannula 3.00 05/11/17 01:30 100 Nasal Cannula 3.00 05/11/17 01:30 36 32 100 Nasal Cannula 3.00 05/11/17 01:25 98.0 59 32 163/108 (126) 95 Physical Exam GENERAL: Well-nourished, well-developed patient. Elderly mildly confused woman per patient is at her baseline. SKIN: Warm and dry. HEAD: Normocephalic. EYES: No scleral icterus. No injection or drainage. NECK: Supple, trachea midline. No JVD or lymphadenopathy. CARDIOVASCULAR: Regular rate and rhythm without murmurs, gallops, or rubs. RESPIRATORY: Breath sounds equal bilaterally. No accessory muscle use. GASTROINTESTINAL: Abdomen soft, non-tender, nondistended. MUSCULOSKELETAL: No cyanosis, or edema. BACK: Nontender without obvious deformity. NEURO EXAM: GCS: M 6 V 5 E 4 Mental Status: The patient is alert and oriented to person, place, and time with normal speech. Cranial Nerves: Visual acuity intact bilaterally. Visual yu normal in all quadrants. Pupils are round, reactive to light. Reflexes: Biceps, patellar, and Achilles are 2/4 bilaterally. No clonus. Laboratory Laboratory Tests Test 05/11/17 01:40 05/11/17 02:20 Blood Urea Nitrogen 35 Creatinine 2.53 Random Glucose 141 Total Protein 8.0 Albumin 3.4 Calcium Level 8.7 Magnesium Level 2.0 Alkaline Phosphatase 131 Aspartate Amino Transf (AST/SGOT) 149 Alanine Aminotransferase (ALT/SGPT) 94 Total Bilirubin 0.2 Sodium Level 137 Potassium Level 6.1 Chloride Level 108 Carbon Dioxide Level 15.5 Anion Gap 14 Estimat Glomerular Filtration Rate 18 Total Creatine Kinase 120 Creatine Kinase MB 1.7 Troponin I LESS THAN 0.02 B-Type Natriuretic Peptide 136 White Blood Count 11.2 Red Blood Count 4.92 Hemoglobin 13.3 Hematocrit 41.5 Mean Corpuscular Volume 84.3 Mean Corpuscular Hemoglobin 27.1 Mean Corpuscular Hemoglobin Concent 32.1 Red Cell Distribution Width 14.7 Platelet Count 298 Mean Platelet Volume 7.7 Neutrophils (%) (Auto) 84.0 Lymphocytes (%) (Auto) 13.3 Monocytes (%) (Auto) 2.4 Eosinophils (%) (Auto) 0.2 Basophils (%) (Auto) 0.1 Neutrophils # (Auto) 9.4 Lymphocytes # (Auto) 1.5 Monocytes # (Auto) 0.3 Eosinophils # (Auto) 0.0 Basophils # (Auto) 0.0 CBC Comment DIFF FINAL Differential Comment Prothrombin Time 15.4 Prothromb Time International Ratio 1.4 Activated Partial Thromboplast Time 23.3 Result Diagram: 05/11/17 0220 05/11/17 0140 Imaging Last 24 hours Impressions Chest X-Ray 05/11/17 0126 Signed Impressions: Service Date/Time: Thursday, May 11, 2017 01:54 - CONCLUSION: No acute cardiopulmonary abnormality is identified. MD Mell Pack VTE Risk Assessment Caprini VTE Risk Assessment: Mod/High Risk (score >= 2) Caprini Risk Assessment Model Point Value = 1 Point Value = 2 Point Value = 3 Point Value = 5 Age 41-60 Minor surgery BMI > 25 kg/m2 Swollen legs Varicose veins or History of unexplained or recurrent spontaneous Oral contraceptives or hormone replacement Sepsis (< 1 month) Serious lung disease, including pneumonia (< 1 month) Abnormal pulmonary function Acute myocardial infarction Congestive heart failure (< 1 month) History of inflammatory bowel disease Medical patient at bed rest Age 61-74 Arthroscopic surgery Major open surgery (> 45 min) Laparoscopic surgery (> 45 min) Malignancy Confined to bed (> 72 hours) Immobilizing plaster cast Central venous access Age >= 75 History of VTE Family history of VTE Factor V Leiden Prothrombin [id number] Lupus anticoagulant Anticardiolipin antibodies Elevated serum homocysteine Heparin-induced thrombocytopenia Other congenital or acquired thrombophilia Stroke (< 1 month) Elective arthroplasty Hip, pelvis, or leg fracture Acute spinal cord injury (< 1 month) Prophylaxis Regimen Total Risk Factor Score Risk Level Prophylaxis Regimen 0-1 Low Early ambulation 2 Moderate Order ONE of the following: *Sequential Compression Device (SCD) *Heparin 5000 units SQ BID 3-4 Higher Order ONE of the following medications: *Heparin 5000 units SQ TID *Enoxaparin/Lovenox 40 mg SQ daily (WT < 150 kg, CrCl > 30 mL/min) *Enoxaparin/Lovenox 30 mg SQ daily (WT < 150 kg, CrCl > 10-29 mL/min) *Enoxaparin/Lovenox 30 mg SQ BID (WT < 150 kg, CrCl > 30 mL/min) AND/OR *Sequential Compression Device (SCD) 5 or more Highest Order ONE of the following medications: *Heparin 5000 units SQ TID (Preferred with Epidurals) *Enoxaparin/Lovenox 40 mg SQ daily (WT < 150 kg, CrCl > 30 mL/min) *Enoxaparin/Lovenox 30 mg SQ daily (WT < 150 kg, CrCl > 10-29 mL/min) *Enoxaparin/Lovenox 30 mg SQ BID (WT < 150 kg, CrCl > 30 mL/min) AND *Sequential Compression Device (SCD) Assessment and Plan Assessment and Plan Bradycardia - Most likely due to medications - Hold amiodarone and Cardizem - Hemodynamically stable - Admit to ICU - Telemetry - Further per cardiology Atrial fibrillation - Cardiology evaluation - Hold amiodarone and Cardizem due to bradycardia - Continue Coumadin anticoagulation Severe metabolic acidosis Acute kidney injury Hyperkalemia - Insulin IV, D50W, bicarbonate IV push and drip, calcium gluconate - Dehydration - Aggressive hydration IV - Monitor urine output and creatinine and electrolytes - Consider nephrology evaluation if HD indicated Diabetes mellitus - Insulin sliding scale DVT GI prophylaxis - Coumadin/Pepcid Critical Care: The total critical care time was 35 minutes. Time to perform other separately billable procedures was not included in the critical care time. Tim Johnson MD May 11, 2017 05:19
[2017-05-11] MEDS ORDERED: GLUCAGON 1 MG/ML VIAL OTHER PRN (07:15)
[2017-05-11] MEDS ORDERED: DEXTROSE 50% IN WATER 50 ML VIAL(D50) IV PRN (07:15)
[2017-05-11] MEDS ORDERED: DEXTROSE 50% IN WATER 50 ML VIAL(D50) IV PUSH ONE (08:30)
[2017-05-11] MEDS ORDERED: CALCIUM GLUCONATE 10% 1 GM/10 ML VIAL SLOW IVP ONE (08:30)
[2017-05-11] MEDS ORDERED: SODIUM POLYSTYRENE SULFONATE SUSP 15 GM/60 ML CUP PO ONE (08:30)
[2017-05-11] MEDS ORDERED: SODIUM BICARBONATE 8.4% SOLN 50 MEQ/50 ML VIAL SLOW IVP ONE (08:30)
--- NOTE | 2017-05-11 08:48 | HHI.CCPN ---
Subjective Remarks/Hospital Course 76-year-old female with history of A. fib, diabetes, brought in by ambulance after she called 911 from home complaining of shortness of breath. EMS noted her heart rate in the 20s. They administered 1 mg of atropine and it improved to the 40s. Upon arrival to the emergency department the patient feels improved. She states her shortness of breath has significantly improved. She denies chest pain. No fevers or recent illness. She is on Cardizem and amiodarone, however states she is taking them as prescribed. Her hydrogen plant operator is Dr. Mercer. During my evaluation in the emergency department her blood pressure was 163/108. She was admitted here with the same issues February 07, 2017. Subjective 05/11: Heart rate currently in the 60s. Hemodynamically stable. Pleasantly confused. Objective Vital Signs Date Time Temp Pulse Resp B/P (MAP) Pulse Ox O2 Delivery O2 Flow Rate FiO2 05/11/17 06:00 60 05/11/17 01:30 24 100 Nasal Cannula 3.00 05/11/17 01:25 98.0 163/108 (126) Intake and Output 05/11/17 05/11/17 05/12/17 08:00 16:00 00:00 Intake Total 147 ml Balance 147 ml Result Diagram: 05/11/17 0220 05/11/17 0140 Imaging Last Impressions Chest X-Ray 05/11/17 0126 Signed Impressions: Service Date/Time: Thursday, May 11, 2017 01:54 - CONCLUSION: No acute cardiopulmonary abnormality is identified. Larry Christianson MD Objective Remarks GENERAL: 76-year-old female, pleasantly confused resting in bed in no acute distress SKIN: Warm and dry. Well perfused HEAD: Normocephalic. EYES: About 3 mm bilaterally and reactive. No injection or drainage. NECK: Supple, trachea midline. No JVD or lymphadenopathy. CARDIOVASCULAR: IRR. S1, S2. No S4. Without murmurs, gallops, or rubs. RESPIRATORY: Breath sounds equal bilaterally. No accessory muscle use. GASTROINTESTINAL: Abdomen soft, non-tender, nondistended. Hypoactive bowel sounds are appreciated MUSCULOSKELETAL: No significant peripheral. Edema. Status post groin right groin area BACK: Nontender without obvious deformity. NEURO EXAM: Cranial nerves II through XII grossly intact. Strength is equal and symmetrical. Normal sensation. A/P Assessment and Plan Neuro/psych: Dementia disorder NOS Depression anxiety Migraine headaches A left frontal CVA Continue memantine 5 mill grams daily Continue aripiprazole 2 mg by mouth daily Acetaminophen 650 mg every 6 hours when necessary fever Hydrocodone/acetaminophen 10/325 one tablet every 6 hours when necessary pain 1 through 10 CV: Atrial fibrillation/low Bradycardia Hypertension Dyslipidemia CHADS-VASc score is 5. Needs VKA management, however noncompliant. social staff worker consulted for compliance Cardiology/Dr. Mercer following Currently on diltiazem at 240 mg by mouth daily Echocardiogram 02/24 revealed EF 55-60%. SHEBA 41 mmHg. Mild TR/MR. Continue lovastatin 40 mg by mouth daily/hospital substitution is pravastatin Continue fenofibrate 160 mg by mouth daily Continue ezetimibe 10 mg by mouth daily Amiodarone 200 mg by mouth daily on hold Resp: History of COPD/asthma with restrictive PFTs Nasal cannula to maintain saturations greater than or equal to 92% Incentive spirometry while awake As needed albuterol/ipratropium aerosols every 2 hours GI: Gastroesophageal reflux disease Elevated transaminases History of hepatitis C unknown genotype unknown treatment History of tubular adenoma Heart healthy diet Currently on pantoprazole 40 mg by mouth daily/omeprazole 30 mg by mouth daily at home Docusate sodium/senna 1 tablet by mouth twice a day for bowel regimen Check liver ultrasound in a.m. if liver function tests do not resolve. Check ammonia level in a.m. : Urge incontinence On with solifenacin 5 mg daily at home Currently on tolterodine 2 mg by mouth daily Endo: Diabetes mellitus Sliding-scale insulin with Accu-Cheks to maintain euglycemia/novulog medium regimen Renal: Acute kidney injury Renal ultrasound/urine electrolytes and eosinophils pending Currently normal saline at 42 cc an hour. Recheck BMP in a.m. Heme: Leukocytosis Chronic warfarin use History of left RCC Warfarin 4 mg by mouth daily. Daily PT/INR. Pharmacy consultation. social staff worker consultation for compliance. Monitor CBC daily. Follow trends On iron sulfate 325 mg by mouth daily ID: HIV Follow up patient. Currently not onmedications Monitor for infection FEN: Hyperkalemia Calcium gluconate 1 g, D 50/insulin, Kayexalate 15 g 1. Recheck potassium in 3 hours MSK: Osteoarthritis History of right femoral artery/vein pseudoaneurysm PT evaluate and treat. Access - Utilize peripheral IV. Central line if indicated Prophylaxis - GI -pantoprazole - DVT - SCD/heparin/warfarin 20 additional minutes followed time Rebel ycardia - Most likely due to medications - Hold amiodarone and Cardizem - Hemodynamically stable - Admit to ICU - Telemetry - Further per cardiology Atrial fibrillation - Cardiology evaluation - Hold amiodarone and Cardizem due to bradycardia - Continue Coumadin anticoagulation Severe metabolic acidosis Acute kidney injury Hyperkalemia - Insulin IV, D50W, bicarbonate IV push and drip, calcium gluconate - Dehydration - Aggressive hydration IV - Monitor urine output and creatinine and electrolytes - Consider nephrology evaluation if HD indicated Diabetes mellitus - Insulin sliding scale DVT GI prophylaxis - Coumadin/Pepcid Critical Care: The total critical care time was 35 minutes. Time to perform other separately billable procedures was not included in the critical care time. Twin Morris MD May 11, 2017 08:48
[2017-05-11] MEDS ORDERED: ASPIRIN EC 81 MG TABEC PO SCH (09:00)
[2017-05-11] MEDS ORDERED: HEPARIN SODIUM - IV 10,000 UNITS/10 ML VIAL IV ONE (09:00)
[2017-05-11] MEDS ORDERED: NON-FORMULARY DRUG (Biotin 1,000 MG) PO SCH (09:00)
[2017-05-11] MEDS: EZETIMIBE 10 MG TAB PO SCH (09:05)
[2017-05-11] MEDS: SODIUM CHLORIDE 0.9% FLUSH 10 ML FLUSH SCH ×2 (09:05→22:23)
[2017-05-11] MEDS: DOCUSATE SODIUM 50 MG/SENNA 8.6 MG TAB PO SCH ×2 (09:05→22:23)
[2017-05-11] MEDS: LACTOBACILLUS ACIDOPHILUS TAB PO SCH ×3 (09:05→16:28)
[2017-05-11] MEDS: PANTOPRAZOLE SOD 40 MG DELAYED RELEASE TAB PO SCH (09:05)
[2017-05-11] MEDS: SODIUM BICARBONATE 8.4% INJ 150 MEQ in WATER STERILE FOR INJ 850 ML IV SCH ×2 (10:21→10:49)
[2017-05-11] MEDS: ONDANSETRON HCL 4 MG/2 ML VIAL IV PRN (10:22)
[2017-05-11] MEDS: MEMANTINE HCL 5 MG TAB PO SCH (10:48)
[2017-05-11] MEDS: TOLTERODINE TARTRATE 2 MG CAP LA PO SCH (10:48)
[2017-05-11] MEDS: ARIPiprazole 2 MG TAB PO SCH (10:48)
[2017-05-11] MEDS: FENOFIBRATE 145 MG TAB PO SCH (10:48)
[2017-05-11] MEDS: INSULIN NovoLIN REGULAR SUPPLEMENTAL SCALE SQ SCH ×3 (11:00→21:00)
[2017-05-11 11:29] LABS: HEMATOCRIT 37.5 % (35.0-46.0); MEAN CELL VOLUME 82.8 FL (80.0-100.0); MEAN CORPUSCULAR HEMOGLOBIN 26.5 PG (27.0-34.0); MEAN CORPUSCULAR HGB CONC 32.1 % (32.0-36.0); PLATELET COUNT 292 TH/MM3 (150-450); RED BLOOD COUNT 4.53 MIL/MM3 (4.00-5.30); RED CELL DISTRIBUTION WIDTH 14.5 % (11.6-17.2); REVIEW FLAG FINAL; WHITE BLOOD COUNT 12.1 TH/MM3 (4.0-11.0)
[2017-05-11 11:36] LABS: APTT (PATIENT) 27.9 SEC (24.3-30.1); INTERNATIONAL NORMALIZED RATIO 1.5 RATIO; PROTHROMBIN TIME - PATIENT 16.9 SEC (9.8-11.6)
[2017-05-11] MEDS: HEPARIN-D5W 25,000 U/250 ML 250 ML IV PRN (11:41)
[2017-05-11 11:59] LABS: BICARBONATE 19.7 MEQ/L (21.0-32.0); POTASSIUM 5.1 MEQ/L (3.5-5.1)
[2017-05-11] MEDS: SODIUM CHLOR 0.9% 1000 ML INJ 1,000 ML IV SCH ×2 (13:00→22:24)
[2017-05-11] MEDS ORDERED: HEPARIN SODIUM - IV 10,000 UNITS/10 ML VIAL IV PRN ×2 (14:00)
--- NOTE | 2017-05-11 15:52 | MB ---
cc: KARINA LOPEZ MD DATE OF CONSULTATION: 05/11/2017 REASON FOR CONSULTATION: Bradycardia HISTORY OF PRESENT ILLNESS Ms. Susannah Pryor is a 76-year-old female patient of [facility] who does have a history atrial fibrillation, hypertension, hyperlipidemia and diabetes. The patient in February was admitted for syncope and bradycardia. She had some difficulties with her medication management and poor p.o. fluid intake resulting in dehydration. She was medically optimized and subsequently went home. I did follow up with her in the office and discontinued her amiodarone in February. She subsequently no showed for her March appointment and she was doing quite well. Her granddaughter was helping with her medications at that time. Her granddaughter more recently has moved away. The patient rather adamantly stated that she is doing her medications herself and did not need any help. She reports that she was begin taking the amiodarone. She apparently became progressively lethargic and poor p.o. intake. This progressed the point where she can cannot get out of bed and her family subsequently called 9--1. Per the right. EMS found her heart rate to be in the 20s and gave atropine. This morning the patient's heart rate is in the 60s and she is conversing appropriately. She denies any specific cardiac complaints. PAST MEDICAL HISTORY: Significant for hypertension Hyperlipidemia Diabetes Atrial fibrillation with a CATHY'S Vas score of 5, over 75, female, hypertension and diabetes. She also has a history of anxiety. GI bleed Mitral regurgitation Renal insufficiency Renal cancer Mitral regurgitation. Dementia. PAST SURGICAL HISTORY: Appendectomy Hysterectomy. SOCIAL HISTORY The patient does not drink or smoke. ALLERGIES NO KNOWN DRUG ALLERGIES. OUTPATIENT MEDICATIONS Reportedly included 1. Coumadin, 2. Vesicare 3. Iron 4. Fenofibrate 5. Namenda 6. Zetia 7. Omeprazole. 8. Lovastatin. 9. [place] 10. Bioten 11. Aspirin 12. Abilify REVIEW OF SYSTEMS Except as mentioned in the history of present illness, all 12 systems are negative. PHYSICAL EXAMINATION: VITAL SIGNS: On physical examination vital signs are 98.0, 60, 20, 138/70. IN GENERAL: She is a well-appearing female who is in no apparent distress. NECK: Her neck is free from JVD. LUNGS: The lungs are bilaterally clear to auscultation. CARDIOVASCULAR SYSTEM: Cardiovascular examination she has an irregularly irregular rhythm. No rubs or gallops appreciated. There is a 10/16 systolic murmur. ABDOMEN: The abdomen is soft. EXTREMITIES: The extremities are free from edema. LABORATORY FINDINGS Significant for a white count of 11.2, hemoglobin of 13.3, and platelet count of 298. Her potassium is 6.1, creatinine is 2.53 and serial troponins of less than 0.38 / less than 0.02 units. IMPRESSION Atrial fibrillation with tourist guide with profound bradycardia. This is likely can secondary 82 inferring complaints with her medications as her granddaughter is normal in the helping her with her meds. I believe she be started in the artery and maintained on double dose her Cardizem and she has done in the past. Her heart rate has improved over 98 with hydration. At this point we will obviously hold be in the amiodarone. We will restart her diltiazem tomorrow morning. Her INR is 1.4 suggesting difficulties with compliance in this regard as well. For the short-term I am going to place her on the heparin drip. We can continue her coumadin and I am going to also see if she will have coverage for one of the newer agents. Preferably Pradaxa would be preferred given her prior history of gastrointestinal bleed and that she is less than 80 years old. Hypertension - we will continue the Cardizem as above. Social issues - I am going to get case management involved to assist with getting the newer agents but also we will need to get with her children to see if they can assist with the setting up her medications. If not, we will have to get some outside help in this regard. Karina Lopez M.D. Dee /8:11 AM /3:16 PM
--- NOTE | 2017-05-11 15:56 | RADRPT ---
EXAM DATE/TIME: 05/11/2017 10:53 [facility] COMPARISON: CT ABDOMEN & PELVIS W/O CONTRAST, February 10, 2017, 18:04. CTA ABDOMEN & PELVIS W 3D RECON, February 10 17, 18:17. INDICATIONS : Increased lab values. MEDICAL HISTORY : Hypertension. Dementia. Congestive heart failure. Alzheimer's disease. cva. a-fib. copd. diabetes. he patitis c. left kidney cancer. schizophrenia. bipolar disorder. hypercholesterolemia. hiv+. SURGICAL HISTORY : Appendectomy. Hysterectomy. Rgiht hip replacement. ENCOUNTER: Initial ACUITY: 1 day PAIN SCORE: 4/10 LOCATION: Bilateral flank MEASUREMENTS: RIGHT KIDNEY: 11.3 x 5.7 x 5.3 cm LEFT KIDNEY: 9.0 x 5.2 x 7.0 cm FINDINGS: RIGHT KIDNEY: Renal cortex is normal in thickness and echotexture. No hydronephrosis, stone, or mass. 2 simple cys ts are seen. The largest is exophytic from the lower pole measuring 1.7 cm. LEFT KIDNEY: There is a vague area of differing echogenicity involving the lower pole the left kidney. This correl ates to the mass seen on the prior CT. This measures approximately 4.7 x 4.1 x 3.5 cm. It is relative ly hypoechoic relative to the remaining liver parenchyma. An echogenic focus suggests some calcificat ion within it. No hydronephrosis. BLADDER: Within normal limits given the degree of distension. Incidental note it is made of multiple calcified gallstones. CONCLUSION: 1. Concern for left renal mass. This measures 4.7 cm in greatest dimension. CT scan versus MRI would be better for characterizing this lesion. 2. Cholelithiasis. Armaan Suresh Jr., MD on May 11, 2017 at 15:51 Board Certified Radiologist. This report was verified electronically.
[2017-05-11] MEDS ORDERED: WARFARIN SOD 4 MG TAB PO SCH (16:00)
[2017-05-11 17:46] LABS: APTT (PATIENT) 47.9 SEC (24.3-30.1)
--- NOTE | 2017-05-11 19:40 | EKG ---
Date Performed: 05/11/2017 Time Performed: 10:11:32 PTAGE: 76 years EKG: Sinus rhythm NONSPECIFIC T-WAVE ABNORMALITY NONSPECIFIC Q WAVES INFERIORLY BORDERLINE ECG PREVIOUS TRACING : 05/11/2017 01.24 Compared to the previous tracing, now in sinus rhythm DOCTOR: Sreedhar Hicks Interpretating Date/Time 05/11/2017 19:40:22
[2017-05-11] MEDS ORDERED: POTASSIUM CHLORIDE 20 MEQ CONTROLLED RELEASE TAB PO ONE (20:00)
[2017-05-11] MEDS: PRAVASTATIN SOD 40 MG TAB PO SCH (22:23)
[2017-05-11 23:29] LABS: APTT (PATIENT) 49.7 SEC (24.3-30.1)
[2017-05-12] VITALS (26 sets, daily range): BP systolic 85–157; BP diastolic 46–88; PULSE 39–137; RESP 14–44; TEMP 98.7–99.8; O2SAT 92–97
--- NOTE | 2017-05-12 00:31 | EKG ---
Date Performed: 05/11/2017 Time Performed: 01:24:11 PTAGE: 76 years EKG: ATRIAL FIBRILLATION WITH SLOW VENTRICULAR RESPONSE POSSIBLE INFERIOR MYOCARDIAL INFARCTION ABNORMAL ECG PREVIOUS TRACING : 02/08/2017 20.01 Compared to the previous tracing, rate has decreased DOCTOR: Sreedhar Hicks Interpretating Date/Time 05/12/2017 00:30:26
[2017-05-12] MEDS: CHLORHEXIDINE GLUCONATE 2 % 1 PACK (2 CLOTHS) TOP SCH (02:41)
[2017-05-12 04:58] LABS: AUTOMATED NEUTROPHIL # 7.4 TH/MM3 (1.8-7.7); BASOPHIL % 0.3 % (0.0-2.0); EOSINOPHIL # 0.1 TH/MM3 (0-0.4); EOSINOPHIL % 0.8 % (0.0-4.0); HEMATOCRIT 37.8 % (35.0-46.0); HEMO FLAGS DIFF FINAL; LYMPHOCYTE # 2.1 TH/MM3 (1.0-4.8); MEAN CORPUSCULAR HEMOGLOBIN 26.8 PG (27.0-34.0); MONO % 6.1 % (0.0-8.0); NEUT % 71.8 % (16.0-70.0); PLATELET COUNT 292 TH/MM3 (150-450); RED BLOOD COUNT 4.67 MIL/MM3 (4.00-5.30); RED CELL DISTRIBUTION WIDTH 14.1 % (11.6-17.2); WHITE BLOOD COUNT 10.2 TH/MM3 (4.0-11.0)
[2017-05-12 05:04] LABS: APTT (PATIENT) 49.2 SEC (24.3-30.1); INTERNATIONAL NORMALIZED RATIO 1.3 RATIO; PROTHROMBIN TIME - PATIENT 15.1 SEC (9.8-11.6)
[2017-05-12 05:13] LABS: ALKALINE PHOSPHATASE 122 U/L (45-117); ALT (GPT) 59 U/L (10-53); ANION GAP 8 MEQ/L (5-15); AST (GOT) 60 U/L (15-37); BICARBONATE 28.5 MEQ/L (21.0-32.0); BLOOD UREA NITROGEN 26 MG/DL (7-18); CHLORIDE 106 MEQ/L (98-107); GLOMERULAR FILTRATION RATE 36 ML/MIN (>89); MAGNESIUM 1.5 MG/DL (1.5-2.5); POTASSIUM 3.6 MEQ/L (3.5-5.1); SODIUM (NA) 142 MEQ/L (136-145); TOTAL BILIRUBIN ADULT 0.4 MG/DL (0.2-1.0)
[2017-05-12] MEDS: INSULIN NovoLIN REGULAR SUPPLEMENTAL SCALE SQ SCH ×4 (06:24→20:09)
[2017-05-12] MEDS: DOCUSATE SODIUM 50 MG/SENNA 8.6 MG TAB PO SCH ×2 (08:51→19:53)
[2017-05-12] MEDS: ARIPiprazole 2 MG TAB PO SCH (08:51)
[2017-05-12] MEDS: FENOFIBRATE 145 MG TAB PO SCH (08:51)
[2017-05-12] MEDS: TOLTERODINE TARTRATE 2 MG CAP LA PO SCH (08:52)
[2017-05-12] MEDS: LACTOBACILLUS ACIDOPHILUS TAB PO SCH ×3 (08:52→16:27)
[2017-05-12] MEDS: PANTOPRAZOLE SOD 40 MG DELAYED RELEASE TAB PO SCH (08:52)
[2017-05-12] MEDS: FERROUS SULFATE 325 MG (65 MG ELEMENTAL IRON) TAB PO SCH (08:52)
[2017-05-12] MEDS: MEMANTINE HCL 5 MG TAB PO SCH (08:52)
[2017-05-12] MEDS: SODIUM CHLORIDE 0.9% FLUSH 10 ML FLUSH SCH ×2 (08:52→19:53)
[2017-05-12] MEDS: EZETIMIBE 10 MG TAB PO SCH (08:52)
[2017-05-12] MEDS ORDERED: DILTIAZEM-CD 240 MG CAP ER PO SCH (09:00)
[2017-05-12] MEDS: ONDANSETRON HCL 4 MG/2 ML VIAL IV PRN (10:13)
[2017-05-12] MEDS ORDERED: DILTIAZEM HCL 25 MG/5 ML VIAL IV PUSH ONE (10:45)
[2017-05-12] MEDS ORDERED: POTASSIUM CHLORIDE 20 MEQ CONTROLLED RELEASE TAB PO ONE (10:45)
[2017-05-12] MEDS ORDERED: DILTIAZEM INJ 125 MG in SODIUM CHLORIDE 0.9% INJ 100 ML IV PRN (10:45)
--- NOTE | 2017-05-12 11:06 | HHI.CCPN ---
Subjective Remarks/Hospital Course 76-year-old female with history of A. fib, diabetes, brought in by ambulance after she called 911 from home complaining of shortness of breath. EMS noted her heart rate in the 20s. They administered 1 mg of atropine and it improved to the 40s. Upon arrival to the emergency department the patient feels improved. She states her shortness of breath has significantly improved. She denies chest pain. No fevers or recent illness. She is on Cardizem and amiodarone, however states she is taking them as prescribed. Her multifocal lens inspector is Dr. Mercer. During my evaluation in the emergency department her blood pressure was 163/108. She was admitted here with the same issues February 07, 2017. 05/11: Heart rate currently in the 60s. Hemodynamically stable. Pleasantly confused. Subjective 05/12: Heart rate currently in the 140s. Hemodynamically stable however. Wants to go home. Denies chest pain or shortness of breath. Objective Vital Signs Date Time Temp Pulse Resp B/P (MAP) Pulse Ox O2 Delivery O2 Flow Rate FiO2 05/12/17 10:23 97 05/12/17 10:00 137 05/12/17 08:00 27 122/81 (95) 05/12/17 04:00 98.7 05/11/17 01:30 Nasal Cannula 3.00 Intake and Output 05/12/17 05/12/17 05/13/17 08:00 16:00 00:00 Intake Total 1466 ml Output Total 2100 ml Balance -634 ml Result Diagram: 05/12/17 0430 05/12/17 0430 Other Results Microbiology Date/Time Source Procedure Growth Status 05/12/17 02:00 Urine Catheterized Urine Urine Culture Pending Received Imaging Last Impressions Chest X-Ray 05/11/17 0126 Signed Impressions: Service Date/Time: Thursday, May 11, 2017 01:54 - CONCLUSION: No acute cardiopulmonary abnormality is identified. Larry Christianson MD Renal Ultrasound 05/11/17 0000 Signed Impressions: Service Date/Time: Thursday, May 11, 2017 10:53 - CONCLUSION: 1. Concern for left renal mass. This measures 4.7 cm in greatest dimension. CT scan versus MRI would be better for characterizing this lesion. 2. Cholelithiasis. Armaan Suresh Jr., MD Objective Remarks GENERAL: 76-year-old female, pleasantly confused resting in bed in no acute distress SKIN: Warm and dry. Well perfused HEAD: Normocephalic. EYES: About 3 mm bilaterally and reactive. No injection or drainage. NECK: Supple, trachea midline. No JVD or lymphadenopathy. CARDIOVASCULAR: IRR. Tachycardia. S1, S2. No S4. Without murmurs, gallops, or rubs. RESPIRATORY: Breath sounds equal bilaterally. No accessory muscle use. GASTROINTESTINAL: Abdomen soft, non-tender, nondistended. Hypoactive bowel sounds are appreciated MUSCULOSKELETAL: No significant peripheral. Edema. Status post groin right groin area BACK: Nontender without obvious deformity. NEURO EXAM: Cranial nerves II through XII grossly intact. Strength is equal and symmetrical. Normal sensation. A/P Assessment and Plan Neuro/psych: Dementia disorder NOS Depression anxiety Migraine headaches A left frontal CVA Continue memantine 5 mill grams daily Continue aripiprazole 2 mg by mouth daily Acetaminophen 650 mg every 6 hours when necessary fever Hydrocodone/acetaminophen 10/325 one tablet every 6 hours when necessary pain 1 through 10 CV: Atrial fibrillation/low Bradycardia Hypertension Dyslipidemia CHADS-VASc score is 5. Needs VKA management, however noncompliant. police worker consulted for compliance Cardiology/Dr. Mercer following Currently on diltiazem at 240 mg by mouth daily. On 180 mg daily home. Start diltiazem drip to be initiated. As needed beta gayla. Echocardiogram 02/24 revealed EF 55-60%. SHEBA 41 mmHg. Mild TR/MR. Continue lovastatin 40 mg by mouth daily/hospital substitution is pravastatin Continue fenofibrate 160 mg by mouth daily Continue ezetimibe 10 mg by mouth daily Amiodarone 200 mg by mouth daily on hold Resp: History of COPD/asthma with restrictive PFTs Nasal cannula to maintain saturations greater than or equal to 92% Incentive spirometry while awake As needed albuterol/ipratropium aerosols every 2 hours GI: Gastroesophageal reflux disease Elevated transaminases History of hepatitis C unknown genotype unknown treatment History of tubular adenoma Heart healthy diet Currently on pantoprazole 40 mg by mouth daily/omeprazole 30 mg by mouth daily at home Docusate sodium/senna 1 tablet by mouth twice a day for bowel regimen Check liver ultrasound in a.m. if liver function tests do not resolve. Check ammonia level in a.m. : Urge incontinence On with solifenacin 5 mg daily at home Currently on tolterodine 2 mg by mouth daily Endo: Diabetes mellitus Sliding-scale insulin with Accu-Cheks to maintain euglycemia/novulog medium regimen Renal: Acute kidney injury - resolving Left 4.7 renal mass Renal ultrasound/urine electrolytes and eosinophils negative Currently normal saline at 42 cc an hour. Recheck BMP in a.m. 4.7 left renal mass on ultrasound. MRI recommended. See orders Mucomyst 4 dosages/fluid challenge after MRI ordered Heme: Leukocytosis Chronic warfarin use History of left RCC Warfarin 4 mg by mouth daily. Daily PT/INR. Pharmacy consultation. police worker consultation for compliance. Heparin drip initiated bridge Monitor CBC daily. Follow trends On iron sulfate 325 mg by mouth daily ID: HIV Follow up patient. Currently not on medications Monitor for infection FEN: Hyperkalemia - resolved Monitor BMP in a.m. replace electrolytes as clinically indicated MSK: Osteoarthritis History of right femoral artery/vein pseudoaneurysm PT evaluate and treat. Access - Utilize peripheral IV. Central line if indicated Prophylaxis - GI -pantoprazole - DVT - SCD/heparin/warfarin Level III follow-up Twin Morris MD May 12, 2017 11:06
[2017-05-12] MEDS ORDERED: GADOBENATE DIM PF 529 MG/ML 10ML VIAL (for RAD MRI) IV ONE (14:00)
--- NOTE | 2017-05-12 14:08 | HHI.PR ---
Subjective Remarks Doing ok No SOB Objective Vital Signs Date Time Temp Pulse Resp B/P (MAP) Pulse Ox O2 Delivery O2 Flow Rate FiO2 05/12/17 13:00 86 15 105/56 (72) 92 05/12/17 13:00 86 05/12/17 12:45 84 05/12/17 12:45 84 30 100/55 (70) 94 05/12/17 12:31 87 20 121/57 (78) 96 05/12/17 12:31 87 05/12/17 12:15 92 33 103/53 (70) 93 05/12/17 12:15 92 33 103/53 (70) 93 05/12/17 12:15 92 05/12/17 12:14 81 05/12/17 12:14 81 32 110/64 (79) 94 05/12/17 12:14 81 32 110/64 (79) 94 05/12/17 12:10 100 05/12/17 12:00 128 34 96 05/12/17 12:00 128 34 96 05/12/17 12:00 128 05/12/17 10:23 97 05/12/17 10:00 137 05/12/17 09:00 136 05/12/17 08:00 124 27 122/81 (95) 94 05/12/17 08:00 124 05/12/17 06:00 106 05/12/17 04:00 119 05/12/17 04:00 98.7 119 19 157/68 (97) 94 05/12/17 02:00 126 05/12/17 00:00 99.8 129 24 132/88 (103) 94 05/12/17 00:00 129 05/11/17 22:00 127 05/11/17 20:00 62 05/11/17 20:00 100.0 62 31 137/81 (99) 90 05/11/17 18:00 68 05/11/17 16:03 71 39 167/72 (103) 91 05/11/17 16:03 71 05/11/17 16:01 68 05/11/17 16:01 68 52 147/105 (119) 95 05/11/17 16:00 66 05/11/17 16:00 66 38 94 05/11/17 14:00 70 I/O 9/1/17 905/11/17 05/12/17 05/12/17 05/12/17 07:00 15:00 23:00 07:00 15:00 23:00 Intake Total 147 ml 1342 ml 520 ml 1466 ml Output Total 1600 ml 2100 ml Balance 147 ml 1342 ml -1080 ml -634 ml Intake Oral 520 ml 480 ml IV Total 147 ml 1342 ml 986 ml Output Urine Total 1600 ml 2100 ml # Bowel Movements 6 3 Result Diagram: 05/12/17 04305/12/17 043 Imaging Alert, fully orient, in bed Lungs: ventilated Heart: S1, S2 irregular, no gallop abdomen: soft, no mass Ext: no edema Last Impressions Chest X-Ray 05/11/17 0126 Signed Impressions: Service Date/Time: Thursday, May 11, 2017 01:54 - CONCLUSION: No acute cardiopulmonary abnormality is identified. Larry Christianson MD Renal Ultrasound 05/11/17 0000 Signed Impressions: Service Date/Time: Thursday, May 11, 2017 10:53 - CONCLUSION: 1. Concern for left renal mass. This measures 4.7 cm in greatest dimension. CT scan versus MRI would be better for characterizing this lesion. 2. Cholelithiasis. Armaan Suresh Jr., MD Current Medications Medications (Trade) Dose Ordered Sig/Brandon Route Start Time Stop Time Status Last Admin (Abilify) 2 mg DAILY PO 05/11/17 09:00 05/12/17 08:51 (Zetia) 10 mg DAILY PO 05/11/17 09:00 05/12/17 08:52 ([place] 10-325 Mg) 1 tab Q6H PRN PO 05/11/17 02:30 (Lactinex) 1 tab TIDAC PO 05/11/17 08:00 05/12/17 12:41 (Pravachol) 40 mg HS PO 05/11/17 21:00 05/11/17 22:23 (Namenda) 5 mg DAILY PO 05/11/17 09:00 05/12/17 08:52 (Coumadin) 4 mg DAILY@1600 PO 05/11/17 16:00 05/11/17 16:28 (Tricor) 145 mg DAILY PO 05/11/17 09:00 05/12/17 08:51 (Ferrous Sulfate) 325 mg DAILY PO 05/11/17 02:45 05/12/17 08:52 (Protonix) 40 mg DAILY PO 05/11/17 09:00 05/12/17 08:52 (Detrol La) 2 mg DAILY PO 05/11/17 09:00 05/12/17 08:52 (NS Flush) 2 ml UNSCH PRN .XX 05/11/17 02:30 (NS Flush) 2 ml BID .XX 05/11/17 09:00 05/11/17 22:23 (Tylenol) 650 mg Q6H PRN PO 05/11/17 02:30 (Zofran Inj) 4 mg Q6H PRN IV 05/11/17 02:30 05/12/17 10:13 (Ambien) 5 mg HS PRN PO 05/11/17 02:30 (Duoneb Neb) 1 ampule Q2HR NEB PRN INH 05/11/17 02:30 Miscellaneous Information 1 Q361D XX 05/11/17 02:30 (Chlorhexidine 2% Cloth) 3 pack Taper DAILY@04 TOP 05/11/17 04:00 05/07/18 03:59 05/12/17 02:41 (Chlorhexidine 2% Cloth) 3 pack UNSCH PRN TOP 05/11/17 02:30 (Masha-Colace) 1 tab BID PO 05/11/17 09:00 05/12/17 08:51 (Milk Of Magnesia Liq) 30 ml Q12H PRN PO 05/11/17 02:30 (Senokot) 17.2 mg Q12H PRN PO 05/11/17 02:30 (Dulcolax Supp) 10 mg DAILY PRN RECTAL 05/11/17 02:30 (Lactulose Liq) 30 ml DAILY PRN PO 05/11/17 02:30 Pharmacy Profile Note 0 ml @ 0 mls/hr UNSCH OTHER 05/11/17 03:30 (D50w (Vial) Inj) 50 ml UNSCH PRN IV 05/11/17 07:15 (Glucagon Inj) 1 mg UNSCH PRN OTHER 05/11/17 07:15 (NovoLIN R SUPPLEMENTAL SCALE) 1 ACHS SLIDING SCALE SQ 05/11/17 11:00 (Heparin Inj) 5,000 units UNSCH PRN IV 05/11/17 14:00 (Heparin Inj) 2,500 units UNSCH PRN IV 05/11/17 14:00 Heparin Sodium/ Dextrose 250 ml @ 9 mls/hr TITRATE PRN IV 05/11/17 09:00 05/11/17 11:41 (Cardizem Cd) 240 mg DAILY PO 05/12/17 09:00 05/12/17 08:51 (Mucomyst 20% Liq) 600 mg BID PO 05/12/17 21:00 05/14/17 09:01 Sodium Chloride 1,000 ml @ 84 mls/hr [id number] IV 05/12/17 18:00 05/13/17 05:54 Diltiazem HCl 125 mg/Sodium Chloride 125 ml @ 5 mls/hr TITRATE PRN IV 05/12/17 10:45 05/12/17 12:10 Assessment and Plan Problem List: (1) Atrial fibrillation with slow ventricular response ICD Codes: I48.91 - Unspecified atrial fibrillation Status: Acute Plan: In atrial fibrillation HR control Doing better SBP 78 but asymptomatic IV cardizem DC will continue on cardizem PO (2) Acute respiratory failure ICD Codes: J96.00 - Acute respiratory failure, unspecified whether with hypoxia or hypercapnia Status: Acute Plan: No SOB In bed. Doing better Amari Fuentes MD May 12, 2017 14:08
[2017-05-12] MEDS: SODIUM CHLOR 0.9% 1000 ML INJ 1,000 ML IV SCH ×2 (15:36→16:27)
[2017-05-12] MEDS: HEPARIN-D5W 25,000 U/250 ML 250 ML IV PRN (15:38)
--- NOTE | 2017-05-12 16:26 | RADRPT ---
EXAM DATE/TIME: 05/12/2017 14:35 [facility] COMPARISON: CT ABDOMEN & PELVIS W/O CONTRAST, February 10, 2017, 18:04. INDICATIONS : Renal mass. CONTRAST: 8 cc Omniscan (gadodiamide) IV MEDICAL HISTORY : Dementia. SURGICAL HISTORY : Appendectomy. Hysterectomy. ENCOUNTER: Initial ACUITY: 1 day PAIN SCORE: 0/10 LOCATION: cranial TECHNIQUE: Multiplanar, multisequence magnetic resonance imaging of the abdomen was performed without and with i ntravenous contrast. FINDINGS: LIVER: Normal size with normal signal intensity. No lesion is identified. Portal vein is within normal limi ts. BILIARY: Multiple gallstones are identified the benign appearing gallbladder normal common duct. SPLEEN: Within normal limits. R KIDNEYS: Small 1 cm cyst is seen lower pole right kidney. L KIDNEYS There is 1.3 cm pedunculated enhancing soft tissue mass or pole left kidne y consistent with renal cell carcinoma. This would be amenable to cryoablation as pertains biopsy an d they single setting. Small low-density lesion, nonspecific is immediately adjacent to this. OTHER: Aorta is nonaneurysmal. There is no lymphadenopathy. CONCLUSION: MRI would be consistent with small 1.3 cm contrast enhancing left renal mass. This is consistent with renal cell carcinoma and could be biopsied and treated at the same time to cryoabl ation. Multiple large and small gallstones the benign appearing gallbladder with normal common duct. Jacinto Angeles MD FACR on May 12, 2017 at 16:19 Board Certified Radiologist. This report was verified electronically.
[2017-05-12] MEDS: WARFARIN SOD 5 MG TAB PO SCH (16:27)
[2017-05-12] MEDS ORDERED: METOPROLOL TARTRATE 5 MG/5 ML VIAL IV PUSH PRN (16:30)
[2017-05-12] MEDS ORDERED: CALCIUM GLUCONATE INJ 1 GM in DEXTROSE 5% IN WATER 100ML INJ 100 ML IV ONE ×2 (17:15)
[2017-05-12] MEDS ORDERED: GLUCAGON 1 MG/ML VIAL IV PUSH ONE (17:15)
[2017-05-12] MEDS: MAGNESIUM SULFATE 1 GM PREMIX 100 ML IV SCH ×2 (17:30→19:52)
[2017-05-12 18:13] LABS: APTT (PATIENT) 41.6 SEC (24.3-30.1)
[2017-05-12] MEDS: PRAVASTATIN SOD 40 MG TAB PO SCH (19:53)
[2017-05-12] MEDS: ACETYLCYSTEINE 20% 6,000 MG/30 ML ORAL SOLN VIAL PO SCH (19:53)
[2017-05-13] VITALS (13 sets, daily range): BP systolic 126–153; BP diastolic 59–77; PULSE 51–135; RESP 19–49; TEMP 98.3–99; O2SAT 91–96
[2017-05-13] MEDS ORDERED: MAGNESIUM SULFATE 1 GM PREMIX 100 ML ONE (00:09)
[2017-05-13] MEDS: MAGNESIUM SULFATE 1 GM PREMIX 100 ML IV SCH (00:12)
[2017-05-13] MEDS: CHLORHEXIDINE GLUCONATE 2 % 1 PACK (2 CLOTHS) TOP SCH ×2 (03:54→23:17)
[2017-05-13 05:45] LABS: HEMATOCRIT 36.1 % (35.0-46.0); MEAN CELL VOLUME 82.7 FL (80.0-100.0); MEAN CORPUSCULAR HEMOGLOBIN 26.7 PG (27.0-34.0); MEAN CORPUSCULAR HGB CONC 32.2 % (32.0-36.0); PLATELET COUNT 256 TH/MM3 (150-450); RED BLOOD COUNT 4.36 MIL/MM3 (4.00-5.30); RED CELL DISTRIBUTION WIDTH 14.5 % (11.6-17.2); REVIEW FLAG FINAL; WHITE BLOOD COUNT 9.1 TH/MM3 (4.0-11.0)
[2017-05-13 06:07] LABS: BICARBONATE 24.4 MEQ/L (21.0-32.0); MAGNESIUM 2.7 MG/DL (1.5-2.5); POTASSIUM 3.9 MEQ/L (3.5-5.1)
[2017-05-13 06:08] LABS: APTT (PATIENT) 46.6 SEC (24.3-30.1); INTERNATIONAL NORMALIZED RATIO 1.5 RATIO; PROTHROMBIN TIME - PATIENT 16.5 SEC (9.8-11.6)
[2017-05-13] MEDS: INSULIN NovoLIN REGULAR SUPPLEMENTAL SCALE SQ SCH ×4 (06:39→20:35)
[2017-05-13] MEDS: ARIPiprazole 2 MG TAB PO SCH (08:39)
[2017-05-13] MEDS: LACTOBACILLUS ACIDOPHILUS TAB PO SCH ×3 (08:39→16:15)
[2017-05-13] MEDS: FENOFIBRATE 145 MG TAB PO SCH (08:39)
[2017-05-13] MEDS: EZETIMIBE 10 MG TAB PO SCH (08:39)
[2017-05-13] MEDS: PANTOPRAZOLE SOD 40 MG DELAYED RELEASE TAB PO SCH (08:39)
[2017-05-13] MEDS: FERROUS SULFATE 325 MG (65 MG ELEMENTAL IRON) TAB PO SCH (08:39)
[2017-05-13] MEDS: MEMANTINE HCL 5 MG TAB PO SCH (08:39)
[2017-05-13] MEDS: ACETYLCYSTEINE 20% 6,000 MG/30 ML ORAL SOLN VIAL PO SCH ×2 (08:40→20:35)
[2017-05-13] MEDS: TOLTERODINE TARTRATE 2 MG CAP LA PO SCH (08:40)
[2017-05-13] MEDS: DOCUSATE SODIUM 50 MG/SENNA 8.6 MG TAB PO SCH ×2 (08:41→20:35)
[2017-05-13] MEDS: SODIUM CHLORIDE 0.9% FLUSH 10 ML FLUSH SCH ×2 (09:00→20:35)
--- NOTE | 2017-05-13 11:04 | HHI.CCPN ---
Subjective Remarks/Hospital Course 76-year-old female with history of A. fib, diabetes, brought in by ambulance after she called 911 from home complaining of shortness of breath. EMS noted her heart rate in the 20s. They administered 1 mg of atropine and it improved to the 40s. Upon arrival to the emergency department the patient feels improved. She states her shortness of breath has significantly improved. She denies chest pain. No fevers or recent illness. She is on Cardizem and amiodarone, however states she is taking them as prescribed. Her cut and print machine operator is Dr. Mercer. During my evaluation in the emergency department her blood pressure was 163/108. She was admitted here with the same issues February 07, 2017. 05/11: Heart rate currently in the 60s. Hemodynamically stable. Pleasantly confused. 05/12: Heart rate currently in the 140s. Hemodynamically stable however. Wants to go home. Denies chest pain or shortness of breath. Subjective 05/13: Appears to be tachybradycardia at the present time. Chart on Cardizem drip yesterday with bradycardia resultant. Previously on diltiazem 240 daily. We'll start on 30 4 times a day with when necessary metoprolol for breakthrough heart rate. Objective Vital Signs Date Time Temp Pulse Resp B/P (MAP) Pulse Ox O2 Delivery O2 Flow Rate FiO2 05/13/17 10:00 126 05/13/17 08:00 98.8 24 140/65 (90) 94 05/12/17 21:26 21 05/11/17 01:30 Nasal Cannula 3.00 Intake and Output 05/13/17 05/13/17 05/14/17 08:00 16:00 00:00 Intake Total 1820 ml Balance 1820 ml Result Diagram: 05/13/17 0503 05/13/17 0503 Other Results Microbiology Date/Time Source Procedure Growth Status 05/12/17 02:00 Urine Catheterized Urine Urine Culture Pending Received Imaging Last Impressions Abdomen MRI 05/12/17 0000 Signed Impressions: Service Date/Time: Friday, May 12, 2017 14:35 - CONCLUSION: MRI would be consistent with small 1.3 cm contrast enhancing left renal mass. This is consistent with renal cell carcinoma and could be biopsied and treated at the same time to cryoablation. Multiple large and small gallstones the benign appearing gallbladder with normal common duct. Jacinto Angeles MD FACR Chest X-Ray 05/11/17 0126 Signed Impressions: Service Date/Time: Thursday, May 11, 2017 01:54 - CONCLUSION: No acute cardiopulmonary abnormality is identified. Larry Christianson MD Renal Ultrasound 05/11/17 0000 Signed Impressions: Service Date/Time: Thursday, May 11, 2017 10:53 - CONCLUSION: 1. Concern for left renal mass. This measures 4.7 cm in greatest dimension. CT scan versus MRI would be better for characterizing this lesion. 2. Cholelithiasis. Armaan Suresh Jr., MD Objective Remarks GENERAL: 76-year-old female, pleasantly confused resting in bed in no acute distress SKIN: Warm and dry. Well perfused HEAD: Normocephalic. EYES: About 3 mm bilaterally and reactive. No injection or drainage. NECK: Supple, trachea midline. No JVD or lymphadenopathy. CARDIOVASCULAR: IRR. Tachycardia. S1, S2. No S4. Without murmurs, gallops, or rubs. RESPIRATORY: Breath sounds equal bilaterally. No accessory muscle use. GASTROINTESTINAL: Abdomen soft, non-tender, nondistended. Hypoactive bowel sounds are appreciated MUSCULOSKELETAL: No significant peripheral. Edema. Status post groin right groin area BACK: Nontender without obvious deformity. NEURO EXAM: Cranial nerves II through XII grossly intact. Strength is equal and symmetrical. Normal sensation. A/P Assessment and Plan Neuro/psych: Dementia disorder NOS Depression anxiety Migraine headaches A left frontal CVA Continue memantine 5 mill grams daily Continue aripiprazole 2 mg by mouth daily Acetaminophen 650 mg every 6 hours when necessary fever Hydrocodone/acetaminophen 10/325 one tablet every 6 hours when necessary pain 1 through 10 CV: Atrial fibrillation/low Bradycardia Hypertension Dyslipidemia CHADS-VASc score is 5. Needs VKA management, however noncompliant. oven worker consulted for compliance Cardiology/Dr. Mercer following Currently on diltiazem at 240 mg by mouth daily. This was held. In light of tachycardia/bradycardia On 180 mg daily home. Start diltiazem 30 mg 4 times a day with as needed beta gayla. Echocardiogram 02/24 revealed EF 55-60%. SHEBA 41 mmHg. Mild TR/MR. Continue lovastatin 40 mg by mouth daily/hospital substitution is pravastatin Continue fenofibrate 160 mg by mouth daily Continue ezetimibe 10 mg by mouth daily Amiodarone 200 mg by mouth daily on hold Resp: History of COPD/asthma with restrictive PFTs Nasal cannula to maintain saturations greater than or equal to 92% Incentive spirometry while awake As needed albuterol/ipratropium aerosols every 2 hours GI: Gastroesophageal reflux disease Elevated transaminases History of hepatitis C unknown genotype unknown treatment History of tubular adenoma Heart healthy diet Currently on pantoprazole 40 mg by mouth daily/omeprazole 30 mg by mouth daily at home Docusate sodium/senna 1 tablet by mouth twice a day for bowel regimen Check liver ultrasound in a.m. if liver function tests do not resolve. Check ammonia level in a.m. : Urge incontinence On with solifenacin 5 mg daily at home Currently on tolterodine 2 mg by mouth daily Endo: Diabetes mellitus Sliding-scale insulin with Accu-Cheks to maintain euglycemia/novulog medium regimen Renal: Acute kidney injury - resolving Left 4.7 renal mass - known history of RCC follows outpatient with urology Renal ultrasound/urine electrolytes and eosinophils negative Recheck BMP in a.m. 4.7 left renal mass on ultrasound. MRI revealed renal mass for known renal cell carcinoma. Heme: Leukocytosis Chronic warfarin use History of left RCC Warfarin 4 mg by mouth daily. Daily PT/INR. Currently 1.5. Pharmacy consultation. oven worker consultation for compliance. Heparin drip initiated bridge Monitor CBC daily. Follow trends On iron sulfate 325 mg by mouth daily ID: HIV Follow up patient. Currently not on medications Monitor for infection FEN: Hyperkalemia - resolved Monitor BMP in a.m. replace electrolytes as clinically indicated MSK: Osteoarthritis History of right femoral artery/vein pseudoaneurysm PT evaluate and treat. Access - Utilize peripheral IV. Central line if indicated Prophylaxis - GI -pantoprazole - DVT - SCD/heparin/warfarin Level III follow-up Twin Morris MD May 13, 2017 11:04
[2017-05-13] MEDS ORDERED: DILTIAZEM HCL 30 MG TAB PO SCH (12:00)
[2017-05-13] MEDS ORDERED: DILTIAZEM HCL 25 MG/5 ML VIAL IV ONE (13:00)
--- NOTE | 2017-05-13 13:55 | HHI.PR ---
Subjective Remarks Feeling ok Objective Vital Signs Date Time Temp Pulse Resp B/P (MAP) Pulse Ox O2 Delivery O2 Flow Rate FiO2 05/13/17 12:00 129 05/13/17 10:00 126 05/13/17 08:00 57 05/13/17 08:00 98.8 57 24 140/65 (90) 94 05/13/17 06:00 57 05/13/17 04:00 98.6 54 20 143/65 (91) 96 05/13/17 04:00 54 05/13/17 02:00 54 05/13/17 00:00 98.8 51 26 126/59 (81) 91 05/13/17 00:00 51 05/12/17 22:00 52 05/12/17 21:26 92 21 05/12/17 20:00 98.8 63 18 117/68 (84) 96 05/12/17 20:00 53 05/12/17 18:00 52 05/12/17 16:00 47 05/12/17 16:00 47 24 94 05/12/17 15:46 39 44 104/73 (83) 95 05/12/17 15:30 74 44 95 05/12/17 15:26 82 14 104/63 (77) 95 05/12/17 15:26 82 05/12/17 15:26 82 14 104/63 (77) 95 05/12/17 14:45 85/46 (59) 05/12/17 14:38 79 05/12/17 14:38 79 35 91/55 (67) 96 05/12/17 14:15 74 05/12/17 14:15 74 05/12/17 14:15 74 27 96/53 (67) 93 05/12/17 14:00 72 19 97/72 (80) 92 05/12/17 14:00 72 05/12/17 14:00 72 I/O 05/12/17 05/12/17 05/12/17 05/13/17 05/13/17 05/13/17 07:00 15:00 23:00 07:00 15:00 23:00 Intake Total 1466 ml 596 ml 2167 ml 1820 ml Output Total 2100 ml 500 ml Balance -634 ml 596 ml 1667 ml 1820 ml Intake Oral 480 ml 650 ml 720 ml IV Total 986 ml 596 ml 1517 ml 1100 ml Output Urine Total 2100 ml 500 ml # Voids 1 # Bowel Movements 3 2 Result Diagram: 05/13/17 0503 05/13/17 0503 Imaging Alert, fully oriented Lungs: ventilated Heart: S1, S2 irregular, no gallop Abdomen: soft, no mass Ext: no edema Last Impressions Abdomen MRI 05/12/17 0000 Signed Impressions: Service Date/Time: Friday, May 12, 2017 14:35 - CONCLUSION: MRI would be consistent with small 1.3 cm contrast enhancing left renal mass. This is consistent with renal cell carcinoma and could be biopsied and treated at the same time to cryoablation. Multiple large and small gallstones the benign appearing gallbladder with normal common duct. Jacinto Angeles MD FACR Chest X-Ray 05/11/17 0126 Signed Impressions: Service Date/Time: Thursday, May 11, 2017 01:54 - CONCLUSION: No acute cardiopulmonary abnormality is identified. Larry Christianson MD Renal Ultrasound 05/11/17 0000 Signed Impressions: Service Date/Time: Thursday, May 11, 2017 10:53 - CONCLUSION: 1. Concern for left renal mass. This measures 4.7 cm in greatest dimension. CT scan versus MRI would be better for characterizing this lesion. 2. Cholelithiasis. Armaan Suresh Jr., MD Current Medications Medications (Trade) Dose Ordered Sig/Brandon Route Start Time Stop Time Status Last Admin (Abilify) 2 mg DAILY PO 05/11/17 09:00 05/13/17 08:39 (Zetia) 10 mg DAILY PO 05/11/17 09:00 05/13/17 08:39 ([place] 10-325 Mg) 1 tab Q6H PRN PO 05/11/17 02:30 (Lactinex) 1 tab TIDAC PO 05/11/17 08:00 05/13/17 11:18 (Pravachol) 40 mg HS PO 05/11/17 21:00 05/12/17 19:53 (Namenda) 5 mg DAILY PO 05/11/17 09:00 05/13/17 08:39 (Tricor) 145 mg DAILY PO 05/11/17 09:00 05/13/17 08:39 (Ferrous Sulfate) 325 mg DAILY PO 05/11/17 02:45 05/13/17 08:39 (Protonix) 40 mg DAILY PO 05/11/17 09:00 05/13/17 08:39 ([place] La) 2 mg DAILY PO 05/11/17 09:00 05/13/17 08:40 (NS Flush) 2 ml UNSCH PRN .XX 05/11/17 02:30 (NS Flush) 2 ml BID .XX 05/11/17 09:00 05/13/17 09:00 (Tylenol) 650 mg Q6H PRN PO 05/11/17 02:30 (Zofran Inj) 4 mg Q6H PRN IV 05/11/17 02:30 05/12/17 10:13 (Ambien) 5 mg HS PRN PO 05/11/17 02:30 (Duoneb Neb) 1 ampule Q2HR NEB PRN INH 05/11/17 02:30 Miscellaneous Information 1 Q361D XX 05/11/17 02:30 (Chlorhexidine 2% Cloth) 3 pack Taper DAILY@04 TOP 05/11/17 04:00 05/07/18 03:59 05/13/17 03:54 (Chlorhexidine 2% Cloth) 3 pack UNSCH PRN TOP 05/11/17 02:30 (Masha-Colace) 1 tab BID PO 05/11/17 09:00 05/12/17 08:51 (Milk Of Magnesia Liq) 30 ml Q12H PRN PO 05/11/17 02:30 (Senokot) 17.2 mg Q12H PRN PO 05/11/17 02:30 (Dulcolax Supp) 10 mg DAILY PRN RECTAL 05/11/17 02:30 (Lactulose Liq) 30 ml DAILY PRN PO 05/11/17 02:30 Pharmacy Profile Note 0 ml @ 0 mls/hr UNSCH OTHER 05/11/17 03:30 (D50w (Vial) Inj) 50 ml UNSCH PRN IV 05/11/17 07:15 (Glucagon Inj) 1 mg UNSCH PRN OTHER 05/11/17 07:15 (NovoLIN R SUPPLEMENTAL SCALE) 1 ACHS SLIDING SCALE SQ 05/11/17 11:00 (Heparin Inj) 5,000 units UNSCH PRN IV 05/11/17 14:00 (Heparin Inj) 2,500 units UNSCH PRN IV 05/11/17 14:00 Heparin Sodium/ Dextrose 250 ml @ 9 mls/hr TITRATE PRN IV 05/11/17 09:00 05/12/17 15:38 (Mucomyst 20% Liq) 600 mg BID PO 05/12/17 21:00 05/14/17 09:01 05/13/17 08:40 (Coumadin) 5 mg DAILY@1600 PO 05/12/17 16:00 05/12/17 16:27 (Lopressor Inj) 2.5 mg Q6H PRN IV PUSH 05/12/17 16:30 05/13/17 13:42 (Cardizem) 30 mg Q6HR PO 05/13/17 12:00 05/13/17 11:18 Assessment and Plan Problem List: (1) Atrial fibrillation with slow ventricular response ICD Codes: I48.91 - Unspecified atrial fibrillation Status: Acute Plan: In atrial fibrillation HR high. Cardizem will be increased Digoxin will be added Case discussed with patient BP ok today (2) Acute respiratory failure ICD Codes: J96.00 - Acute respiratory failure, unspecified whether with hypoxia or hypercapnia Status: Acute Plan: Significantly improve No significant Amari Terry MD May 13, 2017 13:55
[2017-05-13] MEDS ORDERED: DIGOXIN 0.5 MG/2 ML VIAL IV PUSH ONE (14:00)
[2017-05-13] MEDS: WARFARIN SOD 5 MG TAB PO SCH (16:15)
[2017-05-13] MEDS: HEPARIN-D5W 25,000 U/250 ML 250 ML IV PRN (16:16)
[2017-05-13] MEDS: DILTIAZEM HCL 30 MG TAB PO SCH ×2 (17:50→23:16)
[2017-05-13] MEDS: PRAVASTATIN SOD 40 MG TAB PO SCH (20:35)
[2017-05-13] MEDS: ZOLPIDEM TARTRATE 5 MG TAB PO PRN (23:16)
[2017-05-14] VITALS (13 sets, daily range): BP systolic 131–154; BP diastolic 63–106; PULSE 65–127; RESP 19–39; TEMP 97.4–98.9; O2SAT 92–96
[2017-05-14] MEDS: INSULIN NovoLIN REGULAR SUPPLEMENTAL SCALE SQ SCH ×3 (06:03→15:48)
[2017-05-14] MEDS: DILTIAZEM HCL 30 MG TAB PO SCH ×3 (06:03→17:32)
[2017-05-14 06:20] LABS: HEMATOCRIT 40.7 % (35.0-46.0); MEAN CORPUSCULAR HEMOGLOBIN 27.2 PG (27.0-34.0); MEAN CORPUSCULAR HGB CONC 33.1 % (32.0-36.0); PLATELET COUNT 277 TH/MM3 (150-450); RED BLOOD COUNT 4.96 MIL/MM3 (4.00-5.30); RED CELL DISTRIBUTION WIDTH 14.1 % (11.6-17.2); REVIEW FLAG FINAL; WHITE BLOOD COUNT 8.1 TH/MM3 (4.0-11.0)
[2017-05-14 06:28] LABS: APTT (PATIENT) 46.8 SEC (24.3-30.1); INTERNATIONAL NORMALIZED RATIO 1.9 RATIO; PROTHROMBIN TIME - PATIENT 22.1 SEC (9.8-11.6)
[2017-05-14 07:16] LABS: ALKALINE PHOSPHATASE 125 U/L (45-117); ALT (GPT) 40 U/L (10-53); ANION GAP 10 MEQ/L (5-15); AST (GOT) 27 U/L (15-37); BLOOD UREA NITROGEN 12 MG/DL (7-18); CHLORIDE 106 MEQ/L (98-107); GLOMERULAR FILTRATION RATE 52 ML/MIN (>89); POTASSIUM 3.9 MEQ/L (3.5-5.1); SODIUM (NA) 138 MEQ/L (136-145); TOTAL BILIRUBIN ADULT 0.4 MG/DL (0.2-1.0)
[2017-05-14] MEDS: PANTOPRAZOLE SOD 40 MG DELAYED RELEASE TAB PO SCH (08:29)
[2017-05-14] MEDS: ARIPiprazole 2 MG TAB PO SCH (08:29)
[2017-05-14] MEDS: EZETIMIBE 10 MG TAB PO SCH (08:29)
[2017-05-14] MEDS: DOCUSATE SODIUM 50 MG/SENNA 8.6 MG TAB PO SCH ×2 (08:29→20:23)
[2017-05-14] MEDS: TOLTERODINE TARTRATE 2 MG CAP LA PO SCH (08:29)
[2017-05-14] MEDS: DIGOXIN 0.125 MG TAB PO SCH (08:29)
[2017-05-14] MEDS: MEMANTINE HCL 5 MG TAB PO SCH (08:29)
[2017-05-14] MEDS: FENOFIBRATE 145 MG TAB PO SCH (08:29)
[2017-05-14] MEDS: FERROUS SULFATE 325 MG (65 MG ELEMENTAL IRON) TAB PO SCH (08:29)
[2017-05-14] MEDS: LACTOBACILLUS ACIDOPHILUS TAB PO SCH ×3 (08:29→15:48)
[2017-05-14] MEDS: ACETYLCYSTEINE 20% 6,000 MG/30 ML ORAL SOLN VIAL PO SCH (08:30)
[2017-05-14] MEDS: SODIUM CHLORIDE 0.9% FLUSH 10 ML FLUSH SCH (08:30)
[2017-05-14] MEDS: ONDANSETRON HCL 4 MG/2 ML VIAL IV PRN ×2 (11:55→17:32)
--- NOTE | 2017-05-14 14:01 | HHI.CCPN ---
Subjective Remarks/Hospital Course 76-year-old female with history of A. fib, diabetes, brought in by ambulance after she called 911 from home complaining of shortness of breath. EMS noted her heart rate in the 20s. They administered 1 mg of atropine and it improved to the 40s. Upon arrival to the emergency department the patient feels improved. She states her shortness of breath has significantly improved. She denies chest pain. No fevers or recent illness. She is on Cardizem and amiodarone, however states she is taking them as prescribed. Her captain waiter/waitress is Dr. Mercer. During my evaluation in the emergency department her blood pressure was 163/108. She was admitted here with the same issues February 07, 2017. 05/11: Heart rate currently in the 60s. Hemodynamically stable. Pleasantly confused. 05/12: Heart rate currently in the 140s. Hemodynamically stable however. Wants to go home. Denies chest pain or shortness of breath. Subjective 05/13: Appears to be tachybradycardia at the present time. Chart on Cardizem drip yesterday with bradycardia resultant. Previously on diltiazem 240 daily. We'll start on 30 4 times a day with when necessary metoprolol for breakthrough heart rate. 05/14: HR in mid 70s with intermittent tachycardia. No bradycardia reported. Ocampo catheter had to be reinserted due to urinary retention-immediate urine output of 1 L after insertion Objective Vital Signs Date Time Temp Pulse Resp B/P (MAP) Pulse Ox O2 Delivery O2 Flow Rate FiO2 05/14/17 12:00 98.6 127 39 154/106 (122) 96 05/13/17 19:33 21 05/11/17 01:30 Nasal Cannula 3.00 Intake and Output 05/14/17 05/14/17 05/14/17 07:59 15:59 23:59 Intake Total 720 ml Output Total 700 ml Balance 20 ml Result Diagram: 05/14/17 0528 05/14/17 0528 Other Results Microbiology Date/Time Source Procedure Growth Status 05/12/17 02:00 Urine Catheterized Urine Urine Culture - Final NO GROWTH IN 48 HOURS. Complete Imaging Last Impressions Abdomen MRI 05/12/17 0000 Signed Impressions: Service Date/Time: Friday, May 12, 2017 14:35 - CONCLUSION: MRI would be consistent with small 1.3 cm contrast enhancing left renal mass. This is consistent with renal cell carcinoma and could be biopsied and treated at the same time to cryoablation. Multiple large and small gallstones the benign appearing gallbladder with normal common duct. Jacinto Angeles MD FACR Chest X-Ray 05/11/17 0126 Signed Impressions: Service Date/Time: Thursday, May 11, 2017 01:54 - CONCLUSION: No acute cardiopulmonary abnormality is identified. Larry Christianson MD Renal Ultrasound 05/11/17 0000 Signed Impressions: Service Date/Time: Thursday, May 11, 2017 10:53 - CONCLUSION: 1. Concern for left renal mass. This measures 4.7 cm in greatest dimension. CT scan versus MRI would be better for characterizing this lesion. 2. Cholelithiasis. Armaan Suresh Jr., MD Objective Remarks GENERAL: 76-year-old female, resting in bed in no acute distress SKIN: Warm and dry. Well perfused HEAD: Normocephalic. EYES: About 3 mm bilaterally and reactive. No injection or drainage. NECK: Supple, trachea midline. No JVD or lymphadenopathy. CARDIOVASCULAR: HR in 70s NSR. S1, S2. No S4. Without murmurs, gallops, or rubs. RESPIRATORY: Breath sounds equal bilaterally. No accessory muscle use. GASTROINTESTINAL: Abdomen soft, non-tender, nondistended. Hypoactive bowel sounds are appreciated MUSCULOSKELETAL: No significant peripheral. Edema. BACK: Nontender without obvious deformity. NEURO EXAM: Alert awake. Strength is equal and symmetrical. Normal sensation. A/P Assessment and Plan Neuro/psych: Dementia disorder NOS Depression anxiety Migraine headaches Prev left frontal CVA Continue memantine 5 mill grams daily Continue aripiprazole 2 mg by mouth daily Acetaminophen 650 mg every 6 hours when necessary fever Hydrocodone/acetaminophen 10/325 one tablet every 6 hours when necessary pain 1 through 10 CV: Chronic Atrial fibrillation Bradycardia Hypertension Dyslipidemia CHADS-VASc score is 5. Needs VKA management, however noncompliant. cellophane worker consulted for compliance Cardiology/Dr. Mercer following Was on diltiazem at 240 mg by mouth daily. This was held in light of tachycardia/bradycardia On 180 mg daily home. Started diltiazem 30 mg 4 times a day with as needed beta gayla, on 05/13/17 Echocardiogram 02/24 revealed EF 55-60%. SHEBA 41 mmHg. Mild TR/MR. Continue lovastatin 40 mg by mouth daily/hospital substitution is pravastatin Continue fenofibrate 160 mg by mouth daily Continue ezetimibe 10 mg by mouth daily Holding Amiodarone 200 mg by mouth daily Continue IV heparin until therapeutic on Coumadin Resp: History of COPD/asthma with restrictive PFTs Nasal cannula to maintain saturations greater than or equal to 92% Incentive spirometry while awake As needed albuterol/ipratropium aerosols every 2 hours GI: Gastroesophageal reflux disease Elevated transaminases History of hepatitis C unknown genotype unknown treatment History of tubular adenoma Heart healthy diet Currently on pantoprazole 40 mg by mouth daily/omeprazole 30 mg by mouth daily at home Docusate sodium/senna 1 tablet by mouth twice a day for bowel regimen Liver enzymes trending down, ammonia normal : Urge incontinence Urinary retention On with solifenacin 5 mg daily at home Currently on tolterodine 2 mg by mouth daily Ocampo catheter was reinserted due to urinary retention Endo: Diabetes mellitus Sliding-scale insulin with Accu-Cheks to maintain euglycemia/novulog medium regimen Renal: Acute kidney injury - resolving Left renal mass - known history of RCC follows outpatient with urology Renal ultrasound/urine electrolytes and eosinophils negative Recheck BMP in a.m. Left renal mass on ultrasound. MRI revealed renal mass for known renal cell carcinoma. Heme: Leukocytosis Chronic warfarin use History of left RCC Warfarin 4 mg by mouth daily. Daily PT/INR. Currently 1.9. Pharmacy consultation. cellophane worker consultation for compliance. Heparin drip initiated bridge Monitor CBC daily. Follow trends On iron sulfate 325 mg by mouth daily ID: HIV Follow up outpatient. Currently not on medications Monitor for infection FEN: Hyperkalemia - resolved Monitor BMP in a.m. replace electrolytes as clinically indicated MSK: Osteoarthritis History of right femoral artery/vein pseudoaneurysm PT evaluate and treat. Access - Utilize peripheral IV. Central line if indicated Prophylaxis - GI -pantoprazole - DVT - SCD/heparin/warfarin Level II follow-up Consult [facility] to assume care in am 05/15/17. Transfer to [facility] with Carol Boswell MD May 14, 2017 14:01
--- NOTE | 2017-05-14 15:08 | PD.CONS ---
HPI Service [place] [facility] Consult Requested By Dr. Juarez Reason for Consult Medical management Primary Care Physician Jurgen Lewis MD Diagnoses: History of Present Illness This is a 76-year-old female with history of A. fib, diabetes, brought in by ambulance after she called 911 from home complaining of shortness of breath. EMS noted her heart rate in the 20s. They administered 1 mg of atropine and it improved to the 40s. Upon arrival to the emergency department the patient felt improved. At home, pt. was taking Cardizem and amiodarone. Her INR was subtherapeutic. There is questionable compliance with pt. taking medications. She was also noted in acute kidney injury with hyperkalemia and lactic acidosis. Pt. was evaluated, and admitted to ICU under technical illustrator services. During hospitalization, her heart rate has been labile with tachybrady episodes. Today it has been stable, SR in the 80s. She is on Cardizem and Dig was added yesterday. She is on a heparin gtt. She was admitted here with the same issues February 07, 2017. During this evaluation, she was found with a left renal mass, she is known to have right renal cancer and follows up with Dr. Stevens. She is aware of findings and plans to follow up as outpatient. She had urinary retention and a reddy catheter was inserted yesterday. She had adequate urine output. Laboratory work up is stable, renal function improved. Patient is awake, alert and oriented x 3. Denies and CP, sob, dizziness. States that prior to admission, she started feeling very weak the night before admission but now feels much more improved. Hospitalist services are requested to assume medical management. (Landy Garner) Review of Systems Constitutional: DENIES: Diaphoretic episodes, Fatigue, Fever, Weight gain, Weight loss, Chills, Dizziness, Change in appetite, Night Sweats Endocrine: DENIES: Abnorml menstrual pattern, Heat/cold intolerance, Polydipsia , Polyuria, Polyphagia Eyes: DENIES: Blurred vision, Diplopia, Eye inflammation, Eye pain, Vision loss , Photosensitivity, Double Vision Ears, nose, mouth, throat: DENIES: Tinnitus, Hearing loss, Vertigo, Nasal discharge, Oral lesions, Throat pain, Hoarseness, Ear Pain, Running Nose, Epistaxis, Sinus Pain, Toothache, Odynophagia Respiratory: DENIES: Apneas, Cough, Snoring, Wheezing, Hemoptysis, Sputum production, Shortness of breath Cardiovascular: COMPLAINS OF: Syncope (now resolved ), DENIES: Chest pain, Palpitations, Dyspnea on Exertion, PND, Lower Extremity Edema, Orthopnea, Claudication Gastrointestinal: DENIES: Abdominal pain, Black stools, Bloody stools, Constipation, Diarrhea, Nausea, Vomiting, Difficulty Swallowing, Anorexia Genitourinary: DENIES: Abnormal vaginal bleeding, Dysmenorrhea, Dyspareunia, Sexual dysfunction, Urinary frequency, Urinary incontinence, Urgency, Hematuria , Dysuria, Nocturia, Vaginal discharge Musculoskeletal: COMPLAINS OF: Joint pain, DENIES: Muscle aches, Stiffness, Joint Swelling, Back pain, Neck pain Integumentary: DENIES: Abnormal pigmentation, Pruritus, Rash, Nail changes, Breast masses, Breast skin changes, Nipple discharge Hematologic/lymphatic: DENIES: Bruising, Lymphadenopathy Immunologic/allergic: DENIES: Eczema, Urticaria Neurologic: DENIES: Abnormal gait, Headache, Localized weakness, Paresthesias, Seizures, Speech Problems, Tremor, Poor Balance Psychiatric: DENIES: Anxiety, Confusion, Mood changes, Depression, Hallucinations, Agitation, Suicidal Ideation, Homicidal Ideation, Delusions ( Landy Garner) Past Family Social History Past Medical History Left kidney cancer-sees Dr. 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 bradycardia, Past Surgical History Appendectomy Hysterectomy Joint replacement 02/14/2017-Right SFA pseudoaneurysm repair/Right Femoral vein Repair Reported Medications Reported Meds & Active Scripts Active Lactobacillus Acidophilus 1 Tab Tab 1 Tab PO TIDAC Cardizem CD 24 HR (Diltiazem CD 24 HR) 180 Mg Caper 180 Mg PO DAILY Amiodarone (Amiodarone HCl) 200 Mg Tab 200 Mg PO DAILY Reported Warfarin 4 Mg Tab 4 Mg PO DAILY Vesicare (Solifenacin) 5 Mg Tab 5 Mg PO DAILY Ferrous Sulfate DR (Ferrous Sulfate) 325 Mg Tabdr 325 Mg PO DAILY Fenofibrate 160 Mg Tab 160 Mg PO DAILY Namenda (Memantine) 5 Mg Tab 5 Mg PO DAILY Zetia (Ezetimibe) 10 Mg Tab 10 Mg PO DAILY Omeprazole 20 Mg Tab 40 Mg PO DAILY Lovastatin 40 Mg Tab 40 Mg PO HS [place] (Hydrocodone-Acetaminophen) 10-325 Mg Tab 1 Tab PO Q6H PRN Biotin 1,000 Mcg Tab 1,000 Mg PO DAILY Aspirin Adult Low Strength (Aspirin) 81 Mg Tabdr 81 Mg PO DAILY Abilify (Aripiprazole) 2 Mg Tab 2 Mg PO DAILY (Landy Garner) Allergies: Coded Allergies: No Known Allergies (Verified , 05/11/17) Active Ordered Medications Inpatient Medications Acetaminophen (Tylenol) 650 mg Q6H PRN PO FEVER >101F; Start 05/11/17 at 02:30 Acetaminophen/ Hydrocodone Bitart ([place] 10-325 Mg) 1 tab Q6H PRN PO PAIN; Start 05/11/17 at 02:30 Acetylcysteine (Mucomyst 20% Liq) 600 mg BID PO Last administered on 05/14/17 08:30; Start 05/12/17 at 21:00; Stop 05/14/17 at 09:01; Status DC Albuterol/ Ipratropium (Duoneb Neb) 1 ampule Q2HR NEB PRN INH WHEEZING; Start 05/11/17 at 02:30 Aripiprazole (Abilify) 2 mg DAILY PO Last administered on 05/14/17 08:29; Start 05/11/17 at 09:00 Aspirin (Ecotrin Ec) 81 mg DAILY PO ; Start 05/11/17 at 09:00; Stop 05/11/17 at 09 :00; Status DC Atropine Sulfate (Atropine Inj) 0.5 mg ONCE ONCE IV PUSH Last administered on 05/11/17 01:46; Start 05/11/17 at 01:30; Stop 05/11/17 at 01:31; Status DC Bisacodyl (Dulcolax Supp) 10 mg DAILY PRN RECTAL SEVERE CONSITIPATION; Start at 02:30 Calcium Gluconate (Calcium Gluconate Inj) 1 gm ONCE ONCE SLOW IVP Last administered on 05/11/17 10:21; Start 05/11/17 at 08:30; Stop 05/11/17 at 09:08; Status DC Calcium Gluconate 1 gm/Dextrose 110 ml @ 110 mls/hr ONCE ONCE IV Last administered on 05/12/17 17:15; Start 05/12/17 at 17:15; Stop 05/12/17 at 18:14; Status DC Calcium Gluconate 2 gm/Sodium Chloride 120 ml @ 120 mls/hr ONCE ONCE IV Last administered on 05/11/17 03:52; Start 05/11/17 at 03:30; Stop 05/11/17 at 04:29; Status DC Chlorhexidine Gluconate (Chlorhexidine 2% Cloth) 3 pack UNSCH PRN TOP HYGIENIC CARE; Start 05/11/17 at 02:30 Dextrose (D50w (Syr) Inj) 25 ml ONCE ONCE IV PUSH Last administered on 03:52; Start 05/11/17 at 03:30; Stop 05/11/17 at 03:35; Status DC Dextrose (D50w (Vial) Inj) 50 ml ONCE ONCE IV PUSH Last administered on 08:30; Start 05/11/17 at 08:30; Stop 05/11/17 at 09:04; Status DC Digoxin (Lanoxin Inj) 0.5 mg ONCE ONCE IV PUSH Last administered on 05/13/17 14:41; Start 05/13/17 at 14:00; Stop 05/13/17 at 14:12; Status DC Digoxin (Lanoxin) 0.125 mg DAILY PO Last administered on 05/14/17 08:29; Start 05/14/17 at 09:00 Diltiazem HCl (Cardizem Cd) 240 mg DAILY PO Last administered on 05/12/17 08:51 ; Start 05/12/17 at 09:00; Stop 05/13/17 at 10:20; Status DC Diltiazem HCl (Cardizem Inj) 10 mg ONCE ONCE IV Last administered on 05/13/17 13:14; Start 05/13/17 at 13:00; Stop 05/13/17 at 13:01; Status DC Diltiazem HCl (Cardizem) 60 mg Q6HR PO Last administered on 05/14/17 11:55; Start 05/13/17 at 18:00 Diltiazem HCl 125 mg/Sodium Chloride 125 ml @ 5 mls/hr TITRATE PRN IV Tachycardia Last administered on 05/12/17 12:10; Start 05/12/17 at 10:45; Stop at 16:25; Status DC EZETIMIBE (Zetia) 10 mg DAILY PO Last administered on 05/14/17 08:29; Start 05/11/17 at 09:00 Fenofibrate (Tricor) 145 mg DAILY PO Last administered on 05/14/17 08:29; Start 05/11/17 at 09:00 Ferrous Sulfate (Ferrous Sulfate) 325 mg DAILY PO Last administered on 08:29; Start 05/11/17 at 02:45 Glucagon (Glucagon Inj) 5 mg BOLUS ONCE IV PUSH Last administered on 05/12/17 17:30; Start 05/12/17 at 17:15; Stop 05/12/17 at 17:16; Status DC Heparin Sodium (Porcine) (Heparin Inj) 2,500 units UNSCH PRN IV APTT 25 TO 39; Start 05/11/17 at 14:00 Heparin Sodium/ Dextrose 250 ml @ 9 mls/hr TITRATE PRN IV Coagulation management Last administered on 05/13/17 16:16; Start 05/11/17 at 09:00 Insulin Human Regular (NovoLIN R SUPPLEMENTAL SCALE) 1 ACHS SLIDING SCALE SQ ; Start 05/11/17 at 11:00 Insulin Human Regular (NovoLIN R INJ) 10 units ONCE ONCE IV PUSH Last administered on 05/11/17 08:45; Start 05/11/17 at 08:45; Stop 05/11/17 at 09:04; Status DC Lactobacillus Acidophilus (Lactinex) 1 tab TIDAC PO Last administered on 11:55; Start 05/11/17 at 08:00 Lactulose (Lactulose Liq) 30 ml DAILY PRN PO SEVERE CONSITIPATION; Start at 02:30 Magnesium Hydroxide (Milk Of Magnesia Liq) 30 ml Q12H PRN PO MILD - MODERATE CONSTIPATION; Start 05/11/17 at 02:30 Magnesium Sulfate/ Dextrose 100 ml @ 100 mls/hr Q1H IV Last administered on 00:12; Start 05/12/17 at 18:00; Stop 05/12/17 at 20:59; Status DC Memantine (Namenda) 5 mg DAILY PO Last administered on 05/14/17 08:29; Start at 09:00 Metoprolol Tartrate (Lopressor Inj) 2.5 mg Q6H PRN IV PUSH HR > 120, SBP > 120 Last administered on 05/13/17 13:42; Start 05/12/17 at 16:30 Miscellaneous Information 1 Q361D XX ; Start 05/11/17 at 02:30 Non-Formulary Medication 1,000 mg DAILY PO ; Start 05/11/17 at 09:00; Stop at 09:00; Status DC Ondansetron HCl (Zofran Inj) 4 mg Q6H PRN IV NAUSEA OR VOMITING Last administered on 05/14/17 11:55; Start 05/11/17 at 02:30 Pantoprazole Sodium (Protonix) 40 mg DAILY PO Last administered on 05/14/17 08: 29; Start 05/11/17 at 09:00 Patient Medication Teaching (Coumadin Booklet) 1 ONCE ONCE .XX ; Start 05/11/17 at 03:00; Stop 05/11/17 at 03:01; Status DC Pharmacy Profile Note 0 ml @ 0 mls/hr UNSCH OTHER ; Start 05/11/17 at 03:30 Potassium Chloride (KCl) 20 meq ONCE ONCE PO Last administered on 05/12/17 12: 00; Start 05/12/17 at 10:45; Stop 05/12/17 at 11:05; Status DC Pravastatin Sodium (Pravachol) 40 mg HS PO Last administered on 05/13/17 20:35 ; Start 05/11/17 at 21:00 Senna/Docusate Sodium (Masha-Colace) 1 tab BID PO Last administered on 05/14/17 08:29; Start 05/11/17 at 09:00 Sennosides (Senokot) 17.2 mg Q12H PRN PO MODERATE - SEVERE CONSTIPATION; Start 05/11/17 at 02:30 Sodium Bicarbonate 150 meq/Dextrose 1,150 ml @ 75 mls/hr [id number] IV Last administered on 05/11/17 05:00; Start 05/11/17 at 05:00; Stop 05/11/17 at 09:02; Status DC Sodium Bicarbonate 150 meq/Sterile Water 1,000 ml @ 1,500 mls/hr Q40M IV Last administered on 05/11/17 10:49; Start 05/11/17 at 10:00; Stop 05/11/17 at 11:19; Status DC Sodium Polystyrene Sulfonate (Kayexalate Liq) 15 gm ONCE ONCE PO Last administered on 05/11/17 10:20; Start 05/11/17 at 08:30; Stop 05/11/17 at 09:06; Status DC Sodium Bicarbonate (Sodium Bicarbonate 8.4% Inj) 50 meq ONCE ONCE SLOW IVP Last administered on 05/11/17 08:30; Start 05/11/17 at 08:30; Stop 05/11/17 at 09: 06; Status DC Sodium Chloride 1,000 ml @ 84 mls/hr [id number] IV Last administered on 05/12/17 16:27; Start 05/12/17 at 18:00; Stop 05/13/17 at 05:54; Status DC Sodium Chloride (NS Flush) 2 ml BID .XX Last administered on 05/14/17 08:30; Start 05/11/17 at 09:00 Tolterodine Tartrate (Detrol La) 2 mg DAILY PO Last administered on 05/14/17 08 :29; Start 05/11/17 at 09:00 Warfarin Sodium (Coumadin) 4 mg DAILY@1600 PO ; Start 05/14/17 at 16:00 Zolpidem Tartrate (Ambien) 5 mg HS PRN PO INSOMNIA Last administered on 23:16; Start 05/11/17 at 02:30 Family History No family history of early coronary artery disease or malignancy Social History She denies smoking, alcohol or illicit drug abuse (Landy Garner) Physical Exam Vital Signs Vital Signs Date Time Temp Pulse Resp B/P (MAP) Pulse Ox O2 Delivery O2 Flow Rate FiO2 05/14/17 14:00 77 05/14/17 12:00 98.6 127 39 154/106 (122) 96 05/14/17 12:00 127 05/14/17 10:00 101 05/14/17 10:00 76 05/14/17 08:00 98.1 76 19 131/78 (95) 92 05/14/17 08:00 76 05/14/17 06:00 115 05/14/17 04:00 98.4 106 34 152/86 (108) 94 05/14/17 04:00 106 05/14/17 02:00 94 05/14/17 00:00 98.9 100 23 153/78 (103) 93 05/14/17 00:00 100 05/13/17 22:00 120 05/13/17 20:00 99.0 135 19 149/71 (97) 92 05/13/17 20:00 135 05/13/17 19:33 94 21 05/13/17 18:00 125 05/13/17 16:00 98.6 118 23 153/70 (97) 95 05/13/17 16:00 118 Physical Exam GENERAL: This is a well-nourished, well-developed patient, in no apparent distress. SKIN: No rashes, ecchymoses or lesions. Cool and dry. HEAD: Atraumatic. Normocephalic. No temporal or scalp tenderness. EYES: Pupils equal round and reactive. Extraocular motions intact. No scleral icterus. No injection or drainage. ENT: Nose without bleeding, purulent drainage or septal hematoma. Throat without erythema, tonsillar hypertrophy or exudate. Uvula midline. Airway patent. NECK: Trachea midline. No JVD or lymphadenopathy. Supple, nontender, no meningeal signs. CARDIOVASCULAR: Regular rate and rhythm without murmurs, gallops, or rubs. RESPIRATORY: Diminished at bases GASTROINTESTINAL: Abdomen soft, non-tender, nondistended. No hepato-splenomegaly , or palpable masses. No guarding. MUSCULOSKELETAL: Extremities without clubbing, cyanosis, or edema. No joint tenderness, effusion, or edema noted. No calf tenderness. Negative Homans sign bilaterally. NEUROLOGICAL: Awake and alert, oriented x 3. No focal deficits. Grossly intact. Laboratory Laboratory Tests Test 05/14/17 05:28 White Blood Count 8.1 Red Blood Count 4.96 Hemoglobin 13.5 Hematocrit 40.7 Mean Corpuscular Volume 82.0 Mean Corpuscular Hemoglobin 27.2 Mean Corpuscular Hemoglobin Concent 33.1 Red Cell Distribution Width 14.1 Platelet Count 277 Mean Platelet Volume 7.7 Prothrombin Time 22.1 Prothromb Time International Ratio 1.9 Activated Partial Thromboplast Time 46.8 Blood Urea Nitrogen 12 Creatinine 1.03 Random Glucose 95 Total Protein 7.6 Albumin 3.0 Calcium Level 8.8 Phosphorus Level 3.2 Magnesium Level 2.0 Alkaline Phosphatase 125 Aspartate Amino Transf (AST/SGOT) 27 Alanine Aminotransferase (ALT/SGPT) 40 Total Bilirubin 0.4 Sodium Level 138 Potassium Level 3.9 Chloride Level 106 Carbon Dioxide Level 22.0 Anion Gap 10 Estimat Glomerular Filtration Rate 52 Thyroid Stimulating Hormone 3rd Gen 5.960 Date/Time Source Procedure Growth Status 05/12/17 02:00 Urine Catheterized Urine Urine Culture - Final NO GROWTH IN 48 HOURS. Complete (Landy Garner) Result Diagram: 05/14/1728 05/14/17 05 Imaging Last Impressions Abdomen MRI 05/12/17 0000 Signed Impressions: Service Date/Time: Friday, May 12, 2017 14:35 - CONCLUSION: MRI would be consistent with small 1.3 cm contrast enhancing left renal mass. This is consistent with renal cell carcinoma and could be biopsied and treated at the same time to cryoablation. Multiple large and small gallstones the benign appearing gallbladder with normal common duct. Jacinto Angeles MD FACR Chest X-Ray 05/11/17 0126 Signed Impressions: Service Date/Time: Thursday, May 11, 2017 01:54 - CONCLUSION: No acute cardiopulmonary abnormality is identified. Larry Christianson MD Renal Ultrasound 05/11/17 0000 Signed Impressions: Service Date/Time: Thursday, May 11, 2017 10:53 - CONCLUSION: 1. Concern for left renal mass. This measures 4.7 cm in greatest dimension. CT scan versus MRI would be better for characterizing this lesion. 2. Cholelithiasis. Armaan Suresh Jr., MD (Landy Garner) A/P Diagnosis: (1) Symptomatic bradycardia ICD Codes: R00.1 - Bradycardia, unspecified Status: Acute (2) Atrial fibrillation with slow ventricular response ICD Codes: I48.91 - Unspecified atrial fibrillation Status: Acute (3) Tachy-eduardo syndrome ICD Codes: I49.5 - Sick sinus syndrome Status: Acute (4) Urinary retention ICD Codes: R33.9 - Retention of urine, unspecified Status: Acute (5) Left renal mass ICD Codes: N28.89 - Other specified disorders of kidney and ureter Status: Acute (6) hx right renal cancer Status: Resolved (7) KARISSA (acute kidney injury) ICD Codes: N17.9 - Acute kidney failure, unspecified Status: Acute (8) Depression ICD Codes: F32.9 - Major depressive disorder, single episode, unspecified Status: Chronic (9) Memory deficit ICD Codes: R41.3 - Other amnesia Status: Chronic (10) Weakness ICD Codes: R53.1 - Weakness Status: Acute Assessment and Plan Thank you for this consultation, we will assume medical management 76 yo female admitted with weakness, SOB. Was found with symptomatic bradycardia , KARISSA, metabolic acidosis, hyperkalemia. HR has been labile. Found with subtherapeutic INR. Symptomatic bradycardia Tachybrady syndrome Afib -currently stable on Cardizem 60 mg po q 6 and Dig 0.125 mg PO daily. -continue with heparin drip, dc when INR > 2. Continue Coumadin -Continue cardiac telemetry -Cardiology following. KARISSA Metabolic acidosis -Renal function improving -follow BMP daily Urinary retention new findings of left renal mass Hx right renal carcinoma -follow up with Dr. Stevens as outpatient -continue with reddy now. -continue Detrol HTN -continue present medications Depression, Anxiety previous CVA Memory deficits -continue home meds-Memantine, Aripiprazole. Subtherapeutic INR -continue heparin, Coumadin -INR 1.9 continue with heparin for DVT prophylaxis PT eval and treatment Ok to transfer out of ICU Plan of care discussed with RN, attending, pt. Further management of the patient will be dependent on the hospital course. This patient was seen by myself and Dr. Shen, this consultation is written on his behalf. (Landy Garner) Assessment and Plan pt was seen and examined by undersigned on day of consultation with son matilde chart was reviwed plan of care was kvng gallegos agree withabove plan of care (Evelyn Shen MD) Problem Qualifiers (1) Depression: Qualified Codes: F32.9 - Major depressive disorder, single episode, unspecified Landy Garner May 14, 2017 15:08 Evelyn Shen MD May 15, 2017 21:14
--- NOTE | 2017-05-14 15:24 | HHI.PR ---
Subjective Remarks doing better Objective Vital Signs Date Time Temp Pulse Resp B/P (MAP) Pulse Ox O2 Delivery O2 Flow Rate FiO2 05/14/17 14:00 77 05/14/17 12:00 98.6 127 39 154/106 (122) 96 05/14/17 12:00 127 05/14/17 10:00 101 05/14/17 10:00 76 05/14/17 08:00 98.1 76 19 131/78 (95) 92 05/14/17 08:00 76 05/14/17 06:00 115 05/14/17 04:00 98.4 106 34 152/86 (108) 94 05/14/17 04:00 106 05/14/17 02:00 94 05/14/17 00:00 98.9 100 23 153/78 (103) 93 05/14/17 00:00 100 05/13/17 22:00 120 05/13/17 20:00 99.0 135 19 149/71 (97) 92 05/13/17 20:00 135 05/13/17 19:33 94 21 05/13/17 18:00 125 05/13/17 16:00 98.6 118 23 153/70 (97) 95 05/13/17 16:00 118 I/O 05/13/17 05/13/17 05/13/17 05/14/17 05/14/17 05/14/17 06:59 14:59 22:59 06:59 14:59 22:59 Intake Total 1820 ml 870 ml 720 ml Output Total 3500 ml 700 ml Balance 1820 ml -2630 ml 20 ml Intake Oral 720 ml 620 ml 720 ml IV Total 1100 ml 250 ml Output Urine Total 3500 ml 700 ml Bladder Scan Volume Amount 800 ml 800 ml # Voids 1 16 # Bowel Movements 0 Result Diagram: 05/14/17 0528 05/14/17 0528 Imaging Alert, fully oriented Lungs: ventilated Heart: S1, S2 regular, no gallop Abdomen: soft, no mass Ext: no edema Last Impressions Abdomen MRI 05/12/17 0000 Signed Impressions: Service Date/Time: Friday, May 12, 2017 14:35 - CONCLUSION: MRI would be consistent with small 1.3 cm contrast enhancing left renal mass. This is consistent with renal cell carcinoma and could be biopsied and treated at the same time to cryoablation. Multiple large and small gallstones the benign appearing gallbladder with normal common duct. Jacinto Angeles MD FACR Chest X-Ray 05/11/17 0126 Signed Impressions: Service Date/Time: Thursday, May 11, 2017 01:54 - CONCLUSION: No acute cardiopulmonary abnormality is identified. Larry Christianson MD Renal Ultrasound 05/11/17 0000 Signed Impressions: Service Date/Time: Thursday, May 11, 2017 10:53 - CONCLUSION: 1. Concern for left renal mass. This measures 4.7 cm in greatest dimension. CT scan versus MRI would be better for characterizing this lesion. 2. Cholelithiasis. Armaan Suresh Jr., MD Current Medications Medications (Trade) Dose Ordered Sig/Brandon Route Start Time Stop Time Status Last Admin (Abilify) 2 mg DAILY PO 05/11/17 09:00 05/14/17 08:29 (Zetia) 10 mg DAILY PO 05/11/17 09:00 05/14/17 08:29 ([place] 10-325 Mg) 1 tab Q6H PRN PO 05/11/17 02:30 (Lactinex) 1 tab TIDAC PO 05/11/17 08:00 05/14/17 11:55 (Pravachol) 40 mg HS PO 05/11/17 21:00 05/13/17 20:35 (Namenda) 5 mg DAILY PO 05/11/17 09:00 05/14/17 08:29 (Tricor) 145 mg DAILY PO 05/11/17 09:00 05/14/17 08:29 (Ferrous Sulfate) 325 mg DAILY PO 05/11/17 02:45 05/14/17 08:29 (Protonix) 40 mg DAILY PO 05/11/17 09:00 05/14/17 08:29 (Detrol La) 2 mg DAILY PO 05/11/17 09:00 05/14/17 08:29 (NS Flush) 2 ml UNSCH PRN .XX 05/11/17 02:30 (NS Flush) 2 ml BID .XX 05/11/17 09:00 05/14/17 08:30 (Tylenol) 650 mg Q6H PRN PO 05/11/17 02:30 (Zofran Inj) 4 mg Q6H PRN IV 05/11/17 02:30 05/14/17 11:55 (Ambien) 5 mg HS PRN PO 05/11/17 02:30 05/13/17 23:16 (Duoneb Neb) 1 ampule Q2HR NEB PRN INH 05/11/17 02:30 Miscellaneous Information 1 Q361D XX 05/11/17 02:30 (Chlorhexidine 2% Cloth) 3 pack Taper DAILY@04 TOP 05/11/17 04:00 05/07/18 03:59 05/13/17 23:17 (Chlorhexidine 2% Cloth) 3 pack UNSCH PRN TOP 05/11/17 02:30 (Masha-Colace) 1 tab BID PO 05/11/17 09:00 05/14/17 08:29 (Milk Of Magnesia Liq) 30 ml Q12H PRN PO 05/11/17 02:30 (Senokot) 17.2 mg Q12H PRN PO 05/11/17 02:30 (Dulcolax Supp) 10 mg DAILY PRN RECTAL 05/11/17 02:30 (Lactulose Liq) 30 ml DAILY PRN PO 05/11/17 02:30 Pharmacy Profile Note 0 ml @ 0 mls/hr UNSCH OTHER 05/11/17 03:30 (D50w (Vial) Inj) 50 ml UNSCH PRN IV 05/11/17 07:15 (Glucagon Inj) 1 mg UNSCH PRN OTHER 05/11/17 07:15 (NovoLIN R SUPPLEMENTAL SCALE) 1 ACHS SLIDING SCALE SQ 05/11/17 11:00 (Heparin Inj) 5,000 units UNSCH PRN IV 05/11/17 14:00 (Heparin Inj) 2,500 units UNSCH PRN IV 05/11/17 14:00 Heparin Sodium/ Dextrose 250 ml @ 9 mls/hr TITRATE PRN IV 05/11/17 09:00 05/13/17 16:16 (Lopressor Inj) 2.5 mg Q6H PRN IV PUSH 05/12/17 16:30 05/13/17 13:42 (Cardizem) 60 mg Q6HR PO 05/13/17 18:00 05/14/17 11:55 (Lanoxin) 0.125 mg DAILY PO 05/14/17 09:00 05/14/17 08:29 (Coumadin) 4 mg DAILY@1600 PO 05/14/17 16:00 Assessment and Plan Problem List: (1) Atrial fibrillation with slow ventricular response ICD Codes: I48.91 - Unspecified atrial fibrillation Status: Acute Plan: Back into sinus rhythm Continue on medical management until compliance can be verified (2) Acute respiratory failure ICD Codes: J96.00 - Acute respiratory failure, unspecified whether with hypoxia or hypercapnia Status: Acute Plan: Significantly improve Amari Fuentes MD May 14, 2017 15:24
[2017-05-14] MEDS ORDERED: WARFARIN SOD 4 MG TAB PO SCH (16:00)
[2017-05-14 17:55] LABS: BLOOD, URINE NEG (NEG); COMMENT (UR) CATH-CULT NOT IND; CULTURE IF INDICATED CATH CULTURE NOT IND; GLUCOSE,URINE NEG (NEG); KETONE, URINE NEG (NEG); NITRITE,URINE NEG (NEG); URINE COLOR LIGHT-YELLOW (YELLW/STRAW)
[2017-05-14] MEDS: HEPARIN-D5W 25,000 U/250 ML 250 ML IV PRN (18:48)
[2017-05-14] MEDS: PRAVASTATIN SOD 40 MG TAB PO SCH (20:23)
[2017-05-15] VITALS (12 sets, daily range): BP systolic 140–154; BP diastolic 65–70; PULSE 58–70; RESP 16–28; TEMP 94.7–98.2; O2SAT 92–100
[2017-05-15] MEDS: DILTIAZEM HCL 30 MG TAB PO SCH ×6 (00:40→23:06)
[2017-05-15] MEDS: ZOLPIDEM TARTRATE 5 MG TAB PO PRN ×2 (00:40→22:38)
[2017-05-15] MEDS: SODIUM CHLORIDE 0.9% FLUSH 10 ML FLUSH SCH ×3 (00:40→20:48)
[2017-05-15] MEDS: CHLORHEXIDINE GLUCONATE 2 % 1 PACK (2 CLOTHS) TOP SCH (04:00)
[2017-05-15 06:06] LABS: APTT (PATIENT) 57.8 SEC (24.3-30.1); INTERNATIONAL NORMALIZED RATIO 2.7 RATIO; PROTHROMBIN TIME - PATIENT 31.4 SEC (9.8-11.6)
--- NOTE | 2017-05-15 08:45 | PD.CARD.PN ---
Subjective Subjective Remarks Pt without complaints Objective Medications Current Medications Medications (Trade) Dose Ordered Sig/Brandon Route Start Time Stop Time Status Last Admin (Abilify) 2 mg DAILY PO 05/11/17 09:00 05/14/17 08:29 (Zetia) 10 mg DAILY PO 05/11/17 09:00 05/14/17 08:29 (Pillager 10-325 Mg) 1 tab Q6H PRN PO 05/11/17 02:30 (Lactinex) 1 tab TIDAC PO 05/11/17 08:00 05/14/17 15:48 (Pravachol) 40 mg HS PO 05/11/17 21:00 05/14/17 20:23 (Namenda) 5 mg DAILY PO 05/11/17 09:00 05/14/17 08:29 (Tricor) 145 mg DAILY PO 05/11/17 09:00 05/14/17 08:29 (Ferrous Sulfate) 325 mg DAILY PO 05/11/17 02:45 05/14/17 08:29 (Protonix) 40 mg DAILY PO 05/11/17 09:00 05/14/17 08:29 (Detrol La) 2 mg DAILY PO 05/11/17 09:00 05/14/17 08:29 (NS Flush) 2 ml UNSCH PRN .XX 05/11/17 02:30 (NS Flush) 2 ml BID .XX 05/11/17 09:00 05/15/17 00:40 (Tylenol) 650 mg Q6H PRN PO 05/11/17 02:30 (Zofran Inj) 4 mg Q6H PRN IV 05/11/17 02:30 05/14/17 17:32 (Ambien) 5 mg HS PRN PO 05/11/17 02:30 05/15/17 00:40 (Duoneb Neb) 1 ampule Q2HR NEB PRN INH 05/11/17 02:30 Miscellaneous Information 1 Q361D XX 05/11/17 02:30 (Chlorhexidine 2% Cloth) 3 pack Taper DAILY@04 TOP 05/11/17 04:00 05/07/18 03:59 05/15/17 04:00 (Chlorhexidine 2% Cloth) 3 pack UNSCH PRN TOP 05/11/17 02:30 (Masha-Colace) 1 tab BID PO 05/11/17 09:00 05/14/17 20:23 (Milk Of Magnesia Liq) 30 ml Q12H PRN PO 05/11/17 02:30 (Senokot) 17.2 mg Q12H PRN PO 05/11/17 02:30 (Dulcolax Supp) 10 mg DAILY PRN RECTAL 05/11/17 02:30 (Lactulose Liq) 30 ml DAILY PRN PO 05/11/17 02:30 Pharmacy Profile Note 0 ml @ 0 mls/hr UNSCH OTHER 05/11/17 03:30 (Heparin Inj) 5,000 units UNSCH PRN IV 05/11/17 14:00 (Heparin Inj) 2,500 units UNSCH PRN IV 05/11/17 14:00 Heparin Sodium/ Dextrose 250 ml @ 9 mls/hr TITRATE PRN IV 05/11/17 09:00 05/14/17 18:48 (Lopressor Inj) 2.5 mg Q6H PRN IV PUSH 05/12/17 16:30 05/13/17 13:42 (Cardizem) 60 mg Q6HR PO 05/13/17 18:00 05/15/17 05:47 (Lanoxin) 0.125 mg DAILY PO 05/14/17 09:00 05/14/17 08:29 (Coumadin) 4 mg DAILY@1600 PO 05/14/17 16:00 05/14/17 15:48 Vital Signs / I&O Vital Signs Date Time Temp Pulse Resp B/P (MAP) Pulse Ox O2 Delivery O2 Flow Rate FiO2 05/15/17 06:00 60 05/15/17 04:00 58 05/15/17 04:00 98.2 58 21 151/68 (95) 93 05/15/17 02:00 59 05/15/17 00:00 58 05/15/17 00:00 97.4 58 28 142/66 (91) 96 05/14/17 22:00 65 05/14/17 21:35 96 21 05/14/17 20:00 97.4 69 24 139/65 (89) 95 05/14/17 20:00 69 05/14/17 18:00 68 05/14/17 16:00 98.4 70 21 138/63 (88) 95 05/14/17 16:00 70 05/14/17 14:00 77 05/14/17 12:00 98.6 127 39 154/106 (122) 96 05/14/17 12:00 127 05/14/17 10:00 101 05/14/17 10:00 76 I/O 05/14/17 05/14/17 05/14/17 05/15/17 05/15/17 05/15/17 06:59 14:59 22:59 06:59 14:59 22:59 Intake Total 720 ml 640 ml 1600 ml Output Total 700 ml 925 ml 600 ml Balance 20 ml -285 ml 1000 ml Intake Oral 720 ml 640 ml 1200 ml IV Total 400 ml Output Urine Total 700 ml 925 ml 600 ml Stool Total 0 ml Bladder Scan Volume Amount 800 ml 800 ml 800 ml 800 ml # Bowel Movements 0 Physical Exam GENERAL: Well developed, well nourished. No acute distress. HEENT: Jugular venous pressure is normal. CHEST: Lungs clear to auscultation bilaterally. Unlabored respiratory effort. CARDIAC: Regular rate and rhythm without S3, S4, or murmur. ABDOMEN: Soft, nontender, no hepatosplenomegaly. Bowel sounds present. EXTREMITIES: No clubbing, cyanosis, or edema. Laboratory Laboratory Tests Test 05/14/17 12:22 05/15/17 04:59 Urine Color LIGHT-YELLOW Urine Turbidity CLEAR Urine pH 7.0 Urine Specific [place] 1.008 Urine Protein NEG mg/dL Urine Glucose (UA) NEG mg/dL Urine Ketones NEG mg/dL Urine Occult Blood NEG Urine Nitrite NEG Urine Bilirubin NEG Urine Urobilinogen LESS THAN 2.0 MG/DL Urine Leukocyte Esterase NEG Urine WBC 2 /hpf Microscopic Urinalysis Comment CATH-CULT NOT IND Prothrombin Time 31.4 SEC Prothromb Time International Ratio 2.7 RATIO Activated Partial Thromboplast Time 57.8 SEC Assessment and Plan Assessment and Plan AF - in NSR, continue diltiazem on coumadin with INR> 2, stop heparin HTN - fair control Noncompliance- she reports her granddaughter is again going to help her with her meds Evi Mercer MD May 15, 2017 08:45
[2017-05-15] MEDS: PANTOPRAZOLE SOD 40 MG DELAYED RELEASE TAB PO SCH (11:41)
[2017-05-15] MEDS: TOLTERODINE TARTRATE 2 MG CAP LA PO SCH (11:41)
[2017-05-15] MEDS: EZETIMIBE 10 MG TAB PO SCH (11:41)
[2017-05-15] MEDS: FERROUS SULFATE 325 MG (65 MG ELEMENTAL IRON) TAB PO SCH (11:41)
[2017-05-15] MEDS: FENOFIBRATE 145 MG TAB PO SCH (11:41)
[2017-05-15] MEDS: DIGOXIN 0.125 MG TAB PO SCH (11:42)
[2017-05-15] MEDS: MEMANTINE HCL 5 MG TAB PO SCH (11:42)
[2017-05-15] MEDS: ARIPiprazole 2 MG TAB PO SCH (11:42)
[2017-05-15] MEDS: LACTOBACILLUS ACIDOPHILUS TAB PO SCH ×3 (11:42→17:00)
[2017-05-15] MEDS: DOCUSATE SODIUM 50 MG/SENNA 8.6 MG TAB PO SCH ×2 (11:42→20:48)
--- NOTE | 2017-05-15 13:19 | HHI.PR ---
Subjective Subjective Remarks Sitting up in chair Decreased appetite with hospital food family bring in outside food in Afebrile Rhythm is regular (Clover Meyers) Review of Systems Constitutional Constitutional: Fatigue (mild improvement), Weakness Constitutional Remarks 10 point ROS initiated, simple responses (Clover Meyers) Genitourinary Remarks Urinary retention Ocampo catheter maintained for now (Clover Meyers) Vitals/Results Vital Signs Vital Signs Date Time Temp Pulse Resp B/P (MAP) Pulse Ox O2 Delivery O2 Flow Rate FiO2 05/15/17 12:27 98 21 05/15/17 12:00 97.9 05/15/17 08:00 98.0 05/15/17 06:00 60 05/15/17 04:00 58 05/15/17 04:00 98.2 58 21 151/68 (95) 93 05/15/17 02:00 59 05/15/17 00:00 58 05/15/17 00:00 97.4 58 28 142/66 (91) 96 05/14/17 22:00 65 05/14/17 21:35 96 21 05/14/17 20:00 97.4 69 24 139/65 (89) 95 05/14/17 20:00 69 05/14/17 18:00 68 05/14/17 16:00 98.4 70 21 138/63 (88) 95 05/14/17 16:00 70 05/14/17 14:00 77 (Clover Meyers) CBC/BMP: 05/14/17 0528 05/14/17 0528 Lab Results Laboratory Tests Test 05/15/17 04:59 Prothrombin Time 31.4 SEC Prothromb Time International Ratio 2.7 RATIO Activated Partial Thromboplast Time 57.8 SEC Imaging Remarks Last Impressions Abdomen MRI 05/12/17 0000 Signed Impressions: Service Date/Time: Friday, May 12, 2017 14:35 - CONCLUSION: MRI would be consistent with small 1.3 cm contrast enhancing left renal mass. This is consistent with renal cell carcinoma and could be biopsied and treated at the same time to cryoablation. Multiple large and small gallstones the benign appearing gallbladder with normal common duct. Jacinto Angeles MD FACR Chest X-Ray 05/11/17 0126 Signed Impressions: Service Date/Time: Thursday, May 11, 2017 01:54 - CONCLUSION: No acute cardiopulmonary abnormality is identified. Larry Christianson MD Renal Ultrasound 05/11/17 0000 Signed Impressions: Service Date/Time: Thursday, May 11, 2017 10:53 - CONCLUSION: 1. Concern for left renal mass. This measures 4.7 cm in greatest dimension. CT scan versus MRI would be better for characterizing this lesion. 2. Cholelithiasis. Armaan Suresh Jr., MD Current Medications Administered Medications Medications (Trade) Dose Ordered Sig/Brandon Route PRN Reason Start Time Stop Time Status Last Admin Dose Admin Aripiprazole (Abilify) 2 mg DAILY PO 05/11/17 09:00 05/15/17 11:42 EZETIMIBE (Zetia) 10 mg DAILY PO 05/11/17 09:00 05/15/17 11:41 Lactobacillus Acidophilus (Lactinex) 1 tab TIDAC PO 05/11/17 08:00 05/15/17 11:42 Pravastatin Sodium (Pravachol) 40 mg HS PO 05/11/17 21:00 05/14/17 20:23 Memantine (Namenda) 5 mg DAILY PO 05/11/17 09:00 05/15/17 11:42 Fenofibrate (Tricor) 145 mg DAILY PO 05/11/17 09:00 05/15/17 11:41 Ferrous Sulfate (Ferrous Sulfate) 325 mg DAILY PO 05/11/17 02:45 05/15/17 11:41 Pantoprazole Sodium (Protonix) 40 mg DAILY PO 05/11/17 09:00 05/15/17 11:41 Tolterodine Tartrate (Detrol La) 2 mg DAILY PO 05/11/17 09:00 05/15/17 11:41 Sodium Chloride (NS Flush) 2 ml BID .XX 05/11/17 09:00 05/15/17 11:46 Ondansetron HCl (Zofran Inj) 4 mg Q6H PRN IV NAUSEA OR VOMITING 05/11/17 02:30 05/14/17 17:32 Zolpidem Tartrate (Ambien) 5 mg HS PRN PO INSOMNIA 05/11/17 02:30 05/15/17 00:40 Chlorhexidine Gluconate (Chlorhexidine 2% Cloth) 3 pack Taper DAILY@04 TOP 05/11/17 04:00 05/07/18 03:59 05/15/17 04:00 Senna/Docusate Sodium (Masha-Colace) 1 tab BID PO 05/11/17 09:00 05/15/17 11:42 Metoprolol Tartrate (Lopressor Inj) 2.5 mg Q6H PRN IV PUSH HR > 120, SBP > 120 05/12/17 16:30 05/13/17 13:42 Diltiazem HCl (Cardizem) 60 mg Q6HR PO 05/13/17 18:00 05/15/17 11:41 Digoxin (Lanoxin) 0.125 mg DAILY PO 05/14/17 09:00 05/15/17 11:42 Warfarin Sodium (Coumadin) 4 mg DAILY@1600 PO 05/14/17 16:00 Future Hold 05/14/17 15:48 (Clover Meyers) Physical Exam General General Appearance: No Acute Distress (Clover Meyers) Eyes Eye Exam: Pupils Reactive (Clover Meyers) Ears & Nose Ears & Nose Exam: Nasal Mucosa [place] (Clover Meyers) Throat Throat Exam: Oral Mucosa [place] & Moist (pale pale) (Clover Meyers) Neck Neck Exam: Neck Supple (Clover Meyers) Pulmonary Resp Exam: Diminished Breath Sounds (no acute cough noted) (Clover Meyers) Cardiology CV Exam: Regular (Clover Meyers) Gastrointestinal/Abdomen GI Exam: Soft, Non-Tender (Clover MeyersP) Musculoskeletal MS Exam: Joints Intact (Clover MeyersP) Integumentary Skin Exam: Warm, Dry (pale) (Clover Meyers) Extremeties Extremities Exam: No Edema (Clover Meyers) Neurologic Neuro Exam: Awake, Speech Clear (Clover Meyers) Assessment/Plan Assessment/Plan Symptomatic bradycardia Tachybrady syndrome Afib, now resolved -currently stable on Cardizem 60 mg po q 6 and Dig 0.125 mg PO daily. INR > 2. Continue Coumadin , heparin drip off now, INR 2.7 cardiac telemetry, monitor shows sinus rhythm, 60s -70s Appreciate cardiology input KARISSA Initially had Metabolic acidosis -Renal function improving, encourage by mouth fluids Urinary retention new findings of left renal mass Hx right renal carcinoma -follow up with Dr. Stevens as outpatient Patient requesting Ocampo to be removed, but will continue for now continue Detrol HTN -continue present medications Depression, Anxiety previous CVA Memory deficits, continue medical management, patient's affect is appropriate Subtherapeutic INR, now INR 2.7 Heparin drip off today continue with heparin for DVT prophylaxis PT eval and treatment Monitor bowel regimen, no BM since hospital admission patient states, laxative today Discussed with patient Discussed with nurse Discussed with Dr. Shen, seen on his behalf (Clover Meyers) Assessment/Plan Patient seen and examined as above Labs reviewed Appreciate supply chain consultant help Medications reviewed Continue current management discussed with patient Hopefully DC planning for tomorrow (Evelyn Shen MD) Clover Meyers May 15, 2017 13:19 Evelyn Shen MD May 15, 2017 16:42
[2017-05-15] MEDS: POLYETHYLENE GLYCOL 17 GM PKG PO SCH (15:58)
[2017-05-15] MEDS: PRAVASTATIN SOD 40 MG TAB PO SCH (20:48)
[2017-05-16] VITALS (7 sets, daily range): BP systolic 112–143; BP diastolic 65–77; PULSE 54–100; RESP 12–18; TEMP 97.9–98.4; O2SAT 95–97
[2017-05-16] MEDS: CHLORHEXIDINE GLUCONATE 2 % 1 PACK (2 CLOTHS) TOP SCH (04:00)
[2017-05-16] MEDS: DILTIAZEM HCL 30 MG TAB PO SCH ×4 (06:10→22:59)
[2017-05-16 08:50] LABS: APTT (PATIENT) 38.9 SEC (24.3-30.1); INTERNATIONAL NORMALIZED RATIO 2.8 RATIO; PROTHROMBIN TIME - PATIENT 32.7 SEC (9.8-11.6)
[2017-05-16] MEDS: EZETIMIBE 10 MG TAB PO SCH (09:07)
[2017-05-16] MEDS: DIGOXIN 0.125 MG TAB PO SCH (09:07)
[2017-05-16] MEDS: DOCUSATE SODIUM 50 MG/SENNA 8.6 MG TAB PO SCH ×2 (09:08→21:00)
[2017-05-16] MEDS: PANTOPRAZOLE SOD 40 MG DELAYED RELEASE TAB PO SCH (09:08)
[2017-05-16] MEDS: LACTOBACILLUS ACIDOPHILUS TAB PO SCH ×3 (09:08→17:44)
[2017-05-16] MEDS: FERROUS SULFATE 325 MG (65 MG ELEMENTAL IRON) TAB PO SCH (09:08)
[2017-05-16] MEDS: FENOFIBRATE 145 MG TAB PO SCH (09:08)
[2017-05-16] MEDS: SODIUM CHLORIDE 0.9% FLUSH 10 ML FLUSH SCH ×2 (09:11→21:00)
[2017-05-16] MEDS: POLYETHYLENE GLYCOL 17 GM PKG PO SCH (09:13)
--- NOTE | 2017-05-16 09:30 | HHI.PR ---
Subjective Subjective Remarks Patient's resting in the bed Alert oriented hoping to go home Reddy catheter still in place, patient denies any urinary retention she does state frequency, would like to trial Reddy catheter out. No shortness of breath heart rate ranges between the 60s in the 90s (Clover Meyers) Review of Systems Constitutional Constitutional: Fatigue (mild improvement), Weakness Constitutional Remarks 10 point ROS initiated, simple responses (Clover Meyers) Pulmonary Respiratory: Shortness of Breath (none) (Clover Meyers) Genitourinary Remarks Urinary retention Reddy catheter maintained for now Patient states urinary frequency but no urinary retention (Clover Meyers) Psychiatric Psychiatric: Normal Mood, Anxiety (mild) (Clover Meyers) Vitals/Results Vital Signs Vital Signs Date Time Temp Pulse Resp B/P (MAP) Pulse Ox O2 Delivery O2 Flow Rate FiO2 05/16/17 08:00 98.1 95 18 124/73 (90) 96 05/16/17 04:00 98.4 61 12 138/65 (89) 96 05/16/17 04:00 Room Air 05/16/17 00:00 Room Air 05/16/17 00:00 98.0 63 16 120/77 (91) 97 05/15/17 23:00 Room Air 05/15/17 23:00 61 05/15/17 21:35 94.7 66 16 154/70 (98) 100 05/15/17 20:36 97 05/15/17 20:00 70 05/15/17 16:02 60 21 148/69 (95) 97 05/15/17 12:27 98 21 05/15/17 12:00 97.9 05/15/17 12:00 61 26 140/65 (90) 98 (Clover Meyers) CBC/BMP: 05/14/17 0528 05/14/17 0528 Lab Results Laboratory Tests Test 05/15/17 19:42 05/16/17 08:05 Free Thyroxine 1.49 NG/DL Prothrombin Time 32.7 SEC Prothromb Time International Ratio 2.8 RATIO Activated Partial Thromboplast Time 38.9 SEC Imaging Remarks Last Impressions Abdomen MRI 05/12/17 0000 Signed Impressions: Service Date/Time: Friday, May 12, 2017 14:35 - CONCLUSION: MRI would be consistent with small 1.3 cm contrast enhancing left renal mass. This is consistent with renal cell carcinoma and could be biopsied and treated at the same time to cryoablation. Multiple large and small gallstones the benign appearing gallbladder with normal common duct. Jacinto Angeles MD FACR Chest X-Ray 05/11/17 0126 Signed Impressions: Service Date/Time: Thursday, May 11, 2017 01:54 - CONCLUSION: No acute cardiopulmonary abnormality is identified. Larry Christianson MD Renal Ultrasound 05/11/17 Signed Impressions: Service Date/Time: Thursday, May 11, 2017 10:53 - CONCLUSION: 1. Concern for left renal mass. This measures 4.7 cm in greatest dimension. CT scan versus MRI would be better for characterizing this lesion. 2. Cholelithiasis. Armaan Suresh Jr., MD (Clover Meyers M. INCIDENT COORDINATOR) Physical Exam General General Appearance: No Acute Distress, Comfortable (Luigi,Clover M. INCIDENT COORDINATOR) Eyes Eye Exam: Pupils Reactive (Luigi,Clover M. INCIDENT COORDINATOR) Ears & Nose Ears & Nose Exam: Nasal Mucosa [place] ([place],Clover M. INCIDENT COORDINATOR) Throat Throat Exam: Oral Mucosa [place] & Moist (pale pale) ([place],Clover M. INCIDENT COORDINATOR) Neck Neck Exam: Neck Supple (Luigi,Clover M. INCIDENT COORDINATOR) Pulmonary Resp Exam: Diminished Breath Sounds (no acute cough noted) Resp Remarks No shortness of breath noted (Ashley Meyersan M. INCIDENT COORDINATOR) Cardiology CV Exam: Regular CV Remarks Heart rate steady between the 60s in the 90s ([place],Clover M. INCIDENT COORDINATOR) Gastrointestinal/Abdomen GI Exam: Soft, Non-Tender ([place],Clover M. INCIDENT COORDINATOR) Genitourinary Remarks Reddy catheter draining clear yellow urine ([place],Clover M. INCIDENT COORDINATOR) Musculoskeletal MS Exam: Joints Intact (Luigi,Clover M. INCIDENT COORDINATOR) Integumentary Skin Exam: Warm, Dry (pale) (LuigiClover M. INCIDENT COORDINATOR) Extremeties Extremities Exam: No Edema ([place],Clover M. INCIDENT COORDINATOR) Neurologic Neuro Exam: Awake, Speech Clear (Clover Meyers) Assessment/Plan Assessment/Plan Symptomatic bradycardia Tachybrady syndrome Afib, now resolved, she denies any chest pain Telemetry shows heart rate between the 60s in the 90s, medical management with Cardizem INR 2.8 with Coumadin therapy KARISSA Initially had Metabolic acidosis, B UN normal range, creatinine mild elevation stable, probably her baseline patient probable to some mild chronic kidney disease Taking by mouth fluids and eating well Urinary retention withnew findings of left renal mass Hx right renal carcinoma, -follow up with Dr. Stevens as outpatient Reddy catheter draining clear yellow urine Medical management with Detrol HTN, stable -continue present medications Depression, Anxiety, stable for now with her medical management previous CVA, patient is alert, oriented to person place and time, and most of situation Date she lives at home with her-2 sons continue with heparin for DVT prophylaxis PT eval and treatment Monitor bowel regimen, bowel movement last p.m. after laxative given Discussed with patient Discussed with nurse Discussed with Dr. Shen, seen on his behalf, After discussing with Dr. Shen, dc reddy and monitor void before dc. If patient cant void, may f/u as OP urology. Spoke to nurse ROJELIO Reyes planning possible today (Clover Meyers) Assessment/Plan pt seen and dominant as above next and [id number] time spent with patient Labs reviewed Radiological data reviewed Discussed with patient Plan of care discussed with INCIDENT COORDINATOR Plan to discharge her home to be followed by primary care doctor and urologist as outpatient. She will follow cardiology as outpatient. Patient understood very well. And she will follow Dr. Stevens urology as outpatient for her renal cancerous. (Evelyn Shen MD) Clover Meyers May 16, 2017 09:30 Evelyn Shen MD May 16, 2017 14:11
[2017-05-16] MEDS: TOLTERODINE TARTRATE 2 MG CAP LA PO SCH (13:10)
[2017-05-16] MEDS: ARIPiprazole 2 MG TAB PO SCH (13:10)
[2017-05-16] MEDS: MEMANTINE HCL 5 MG TAB PO SCH (13:10)
[2017-05-16] MEDS ORDERED: FERR325T20 PO (14:17)
[2017-05-16] MEDS ORDERED: DIGO0.12 PO (14:17)
--- NOTE | 2017-05-16 14:20 | HHI.FF ---
Face to Face Verification Diagnosis: (1) Atrial fibrillation (2) Urinary retention (3) Left renal mass Occupational Therapy Order: Evaluate and Treat Home Health Nursing Order: Medical education I have seen patient Susannah Pryor on 05/16/17. My clinical findings support the need for the requested home health care services because: Ltd mobility - disease progression Deconditioned w/ increased weakness I certify that my clinical findings support that this patient is homebound because: Unsafe to leave home unassisted Evelyn Shen MD May 16, 2017 14:20
--- NOTE | 2017-05-16 14:25 | HHI.DS ---
Discharge Summary Admission Date May 11, 2017 at 02:12 Admitting Diagnosis A fib with slow ventricular response (1) Symptomatic bradycardia ICD Codes: R00.1 - Bradycardia, unspecified Diagnosis: Principal Status: Acute (2) Atrial fibrillation with slow ventricular response ICD Codes: I48.91 - Unspecified atrial fibrillation Diagnosis: Principal Status: Acute (3) Tachy-eduardo syndrome ICD Codes: I49.5 - Sick sinus syndrome Diagnosis: Principal Status: Acute (4) Urinary retention ICD Codes: R33.9 - Retention of urine, unspecified Diagnosis: Principal Status: Acute (5) Left renal mass ICD Codes: N28.89 - Other specified disorders of kidney and ureter Diagnosis: Principal Status: Acute (6) hx right renal cancer Diagnosis: Secondary Status: Resolved (7) KARISSA (acute kidney injury) ICD Codes: N17.9 - Acute kidney failure, unspecified Diagnosis: Principal Status: Acute (8) Depression ICD Codes: F32.9 - Major depressive disorder, single episode, unspecified Diagnosis: Secondary Status: Chronic (9) Memory deficit ICD Codes: R41.3 - Other amnesia Diagnosis: Secondary Status: Chronic (10) Weakness ICD Codes: R53.1 - Weakness Diagnosis: Secondary Status: Acute Brief History This is a 76-year-old female with history of A. fib, diabetes, brought in by ambulance after she called 911 from home complaining of shortness of breath. EMS noted her heart rate in the 20s. They administered 1 mg of atropine and it improved to the 40s. Upon arrival to the emergency department the patient felt improved. At home, pt. was taking Cardizem and amiodarone. Her INR was subtherapeutic. There is questionable compliance with pt. taking medications. She was also noted in acute kidney injury with hyperkalemia and lactic acidosis. Pt. 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 During hospitalization, her heart rate has been labile with tachybrady episodes. Then converted to SR in the 80s. She is on Cardizem and Dig was added. She was on a heparin gtt. now with therapeutic INR she is off of heparin patient has left renal mass, she is known to have right renal cancer and follows up with Dr. Stevens. She is aware of findings and plans to follow up as outpatient. She had urinary retention and a reddy catheter was inserted yesterday. She had adequate urine output. Laboratory work up is stable, renal function improved. Patient is awake, alert and oriented x 3. Denies and CP, sob , dizziness. As patient is overall stable plan discharge her home with home health care CBC/BMP: 05/14/1728 05/14/17 0528 Significant Findings Laboratory Tests Test 05/14/17 05:28 05/14/17 12:22 05/15/17 04:59 05/15/17 19:42 Prothrombin Time 22.1 SEC (9.8-11.6) 31.4 SEC (9.8-11.6) Activated Partial Thromboplast Time 46.8 SEC (24.3-30.1) 57.8 SEC (24.3-30.1) Creatinine 1.03 MG/DL (0.50-1.00) Albumin 3.0 GM/DL (3.4-5.0) Alkaline Phosphatase 125 U/L (45-117) Estimat Glomerular Filtration Rate 52 ML/MIN (>89) Thyroid Stimulating Hormone 3rd Gen 5.960 uIU/ML (0.358-3.740) Free Thyroxine 1.49 NG/DL (0.76-1.46) Test 05/16/17 08:05 Prothrombin Time 32.7 SEC (9.8-11.6) Activated Partial Thromboplast Time 38.9 SEC (24.3-30.1) Pt Condition on Discharge: Good Discharge Disposition: Disch w/ Home Health Serv Discharge Instructions DIET: Follow Instructions for: Heart Healthy Diet Activities you can perform: Weight Bearing as Natalie Follow up Referrals: Cardiology - 2 Weeks PCP Follow-up - 1 Week Urology - 2 Weeks New Medications: Digoxin (Digoxin) 0.125 Mg Tab 0.125 MG PO DAILY for heart rhythm, #30 TAB Ferrous Sulfate (Ferosul) 325 Mg (65 Mg Iron) Tablet 325 MG PO DAILY for supplement deficiency for 30 Days, #30 TAB Continued Medications: Aripiprazole (Abilify) 2 Mg Tab 2 MG PO DAILY, #30 TAB 0 Refills Biotin (Biotin) 1,000 Mcg Tab 1000 MG PO DAILY, #1 BOTTLE Diltiazem CD 24 HR (Cardizem CD 24 HR) 180 Mg Caper 180 MG PO DAILY for afib, #31 CAP Ezetimibe (Zetia) 10 Mg Tab 10 MG PO DAILY, #30 TAB 0 Refills Fenofibrate (Fenofibrate) 160 Mg Tab 160 MG PO DAILY, #30 TAB 0 Refills Hydrocodone-Acetaminophen ([place]) 10-325 Mg Tab 1 TAB PO Q6H PRN for PAIN, TAB 0 Refills Lactobacillus Acidophilus (Lactobacillus Acidophilus) 1 Tab Tab 1 TAB PO TIDAC for Nutritional Supplement, #30 TAB 0 Refills Lovastatin (Lovastatin) 40 Mg Tab 40 MG PO HS for Cholesterol Management, #30 TAB 0 Refills Memantine (Namenda) 5 Mg Tab 5 MG PO DAILY for Alzheimer's Dementia, #30 TAB 0 Refills Omeprazole (Omeprazole) 20 Mg Tab 40 MG PO DAILY, #30 TAB 0 Refills Solifenacin (Vesicare) 5 Mg Tab 5 MG PO DAILY for Urinary Symptom Managemen, #30 TAB 0 Refills Warfarin (Warfarin) 4 Mg Tab 4 MG PO DAILY for Blood Clot Prevention, #30 TAB 0 Refills Discontinued Medications: Amiodarone (Amiodarone) 200 Mg Tab 200 MG PO DAILY for afib, #[address] (Aspirin Adult Low Strength) 81 Mg Tabdr 81 MG PO DAILY, TAB Ferrous Sulfate DR (Ferrous Sulfate DR) 325 Mg Tabdr 325 MG PO DAILY Evelyn Shen MD May 16, 2017 14:25
[2017-05-16] MEDS: PRAVASTATIN SOD 40 MG TAB PO SCH (21:11)
[2017-05-16] MEDS: ZOLPIDEM TARTRATE 5 MG TAB PO PRN (21:11)
[2017-05-17] VITALS: BP 107/63; PULSE 52; RESP 16; TEMP 97.9; O2SAT 93
[2017-05-17 04:00] VITALS: BP 163/82; PULSE 65; RESP 18; TEMP 97; O2SAT 95
[2017-05-17] MEDS: CHLORHEXIDINE GLUCONATE 2 % 1 PACK (2 CLOTHS) TOP SCH (04:00)
[2017-05-17] MEDS: DILTIAZEM HCL 30 MG TAB PO SCH (05:35)
--- NOTE | 2017-05-17 07:10 | PD.CARD.PN ---
Subjective Subjective Remarks Pt without complaints Objective Medications Current Medications Medications (Trade) Dose Ordered Sig/Brandon Route Start Time Stop Time Status Last Admin (Abilify) 2 mg DAILY PO 05/11/17 09:00 05/16/17 13:10 (Zetia) 10 mg DAILY PO 05/11/17 09:00 05/16/17 09:07 ([place] 10-325 Mg) 1 tab Q6H PRN PO 05/11/17 02:30 (Lactinex) 1 tab TIDAC PO 05/11/17 08:00 05/16/17 17:44 (Pravachol) 40 mg HS PO 05/11/17 21:00 05/16/17 21:11 (Namenda) 5 mg DAILY PO 05/11/17 09:00 05/16/17 13:10 (Tricor) 145 mg DAILY PO 05/11/17 09:00 05/16/17 09:08 (Ferrous Sulfate) 325 mg DAILY PO 05/11/17 02:45 05/16/17 09:08 (Protonix) 40 mg DAILY PO 05/11/17 09:00 05/16/17 09:08 (Det[place] La) 2 mg DAILY PO 05/11/17 09:00 05/16/17 13:10 (NS Flush) 2 ml UNSCH PRN .XX 05/11/17 02:30 (NS Flush) 2 ml BID .XX 05/11/17 09:00 05/16/17 21:00 (Tylenol) 650 mg Q6H PRN PO 05/11/17 02:30 (Zofran Inj) 4 mg Q6H PRN IV 05/11/17 02:30 05/14/17 17:32 (Ambien) 5 mg HS PRN PO 05/11/17 02:30 05/16/17 21:11 (Duoneb Neb) 1 ampule Q2HR NEB PRN INH 05/11/17 02:30 Miscellaneous Information 1 Q361D XX 05/11/17 02:30 (Chlorhexidine 2% Cloth) Taper DAILY@04 TOP 05/11/17 04:00 05/07/18 03:59 05/16/17 04:00 (Chlorhexidine 2% Cloth) 3 pack UNSCH PRN TOP 05/11/17 02:30 (Masha-Colace) 1 tab BID PO 05/11/17 09:00 05/16/17 09:08 (Milk Of Magnesia Liq) 30 ml Q12H PRN PO 05/11/17 02:30 (Senokot) 17.2 mg Q12H PRN PO 05/11/17 02:30 (Dulcolax Supp) 10 mg DAILY PRN RECTAL 05/11/17 02:30 (Lactulose Liq) 30 ml DAILY PRN PO 05/11/17 02:30 Pharmacy Profile Note 0 ml @ 0 mls/hr UNSCH OTHER 05/11/17 03:30 (Lopressor Inj) 2.5 mg Q6H PRN IV PUSH 05/12/17 16:30 05/13/17 13:42 (Cardizem) 60 mg Q6HR PO 05/13/17 18:00 05/17/17 05:35 (Lanoxin) 0.125 mg DAILY PO 05/14/17 09:00 05/16/17 09:07 (Coumadin) 4 mg DAILY@1600 PO 05/14/17 16:00 Future Hold 05/14/17 15:48 (Miralax) 17 gm DAILY PO 05/15/17 15:00 05/15/17 15:58 Vital Signs / I&O Vital Signs Date Time Temp Pulse Resp B/P (MAP) Pulse Ox O2 Delivery O2 Flow Rate FiO2 05/17/17 04:00 97.0 65 18 163/82 (109) 95 05/17/17 00:11 Room Air 05/17/17 00:00 97.9 52 16 107/63 (78) 93 05/16/17 20:00 97.9 54 18 116/66 (83) 95 05/16/17 20:00 Room Air 05/16/17 16:00 98.1 56 18 143/66 (91) 95 05/16/17 15:46 100 05/16/17 12:00 98.3 56 18 112/68 (83) 95 05/16/17 09:22 Room Air 05/16/17 08:00 98.1 95 18 124/73 (90) 96 I/O 05/16/17 05/16/17 05/16/17 05/17/17 05/17/17 05/17/17 07:00 15:00 23:00 07:00 15:00 23:00 Intake Total 480 ml 1770 ml Output Total 1275 ml 1350 ml Balance -795 ml 420 ml Intake Oral 480 ml 1770 ml Output Urine Total 1275 ml 1350 ml Bladder Scan Volume Amount 33 ml # Bowel Movements 2 1 Physical Exam GENERAL: Well developed, well nourished. No acute distress. HEENT: Jugular venous pressure is normal. CHEST: Lungs clear to auscultation bilaterally. Unlabored respiratory effort. CARDIAC: Regular rate and rhythm without S3, S4, or murmur. ABDOMEN: Soft, nontender, no hepatosplenomegaly. Bowel sounds present. EXTREMITIES: No clubbing, cyanosis, or edema. Laboratory Laboratory Tests Test 05/16/17 08:05 Prothrombin Time 32.7 SEC Prothromb Time International Ratio 2.8 RATIO Activated Partial Thromboplast Time 38.9 SEC Assessment and Plan Assessment and Plan AF -cahnge back to long acting cardizem and stop digoxin on coumadin with INR> 2, stop heparin HTN - fair control Noncompliance- she reports her granddaughter is again going to help her with her meds ok for d/c and follow up as an out patient Evi Mercer MD May 17, 2017 07:10
[2017-05-17] MEDS ORDERED: DILTIAZEM-CD 240 MG CAP ER PO SCH (09:00)
[2017-05-17] MEDS ORDERED: DILTIAZEM-CD 180 MG CAP ER PO SCH (09:00)
== END 2017-05-17 07:45 | disposition home health service (06) | DRG 308 ==
LOC: NEPE 01:18 → NEDA 02:12 → HIME 04:30 → N04A 05-15 21:27
PROVIDERS: ADMIT Specialist; ATTEND Specialist
PROC: 0T9B70Z Drainage of Bladder with Drainage Device, Via Natural or Artificial Opening (ICD-10-PCS; principal; 2017-05-12)
DX: I49.5 Sick sinus syndrome (principal); J96.00 Acute respiratory failure, unspecified whether with hypoxia or hypercapnia; N17.9 Acute kidney failure, unspecified; E87.2 Acidosis; E86.0 Dehydration; C64.1 Malignant neoplasm of right kidney, except renal pelvis; I50.9 Heart failure, unspecified; I48.2 Chronic atrial fibrillation; E87.5 Hyperkalemia; I11.0 Hypertensive heart disease with heart failure; G30.9 Alzheimer's disease, unspecified; F02.80 Dementia in other diseases classified elsewhere, unspecified severity, without behavioral disturbance, psychotic disturbance, mood disturbance, and anxiety; J44.9 Chronic obstructive pulmonary disease, unspecified; F20.9 Schizophrenia, unspecified; E11.9 Type 2 diabetes mellitus without complications; Z96.641 Presence of right artificial hip joint; Z21 Asymptomatic human immunodeficiency virus [HIV] infection status; T46.2X5A Adverse effect of other antidysrhythmic drugs, initial encounter; J45.909 Unspecified asthma, uncomplicated; E78.5 Hyperlipidemia, unspecified; T46.1X5A Adverse effect of calcium-channel blockers, initial encounter; F31.9 Bipolar disorder, unspecified; I34.0 Nonrheumatic mitral (valve) insufficiency; K21.9 Gastro-esophageal reflux disease without esophagitis; M47.9 Spondylosis, unspecified; N39.41 Urge incontinence; R33.9 Retention of urine, unspecified; Z85.528 Personal history of other malignant neoplasm of kidney; I69.311 Memory deficit following cerebral infarction; Z91.19 Patient's noncompliance with other medical treatment and regimen
CPT/HCPCS: 71010; 74183; 76775; 80048; 80053; 81001; 82140; 82550; 82552; 82570; 82948; 83735; 83880; 84100; 84132; 84300; 84439; 84443; 84484; 85025; 85027; 85610; 85730; 87086; 87205; 87641; 93005; 96374; 96375; A9577; J0461; J0610; J1160; J1610; J1644; J1815; J2405; J3475; J7030; J7070

== ENCOUNTER → 2017-06-26 | Outpatient (CLI) | payer MEDICARE, MEDICAID ==
[~2017-06-26] MED LIST changes: -AMIO200T PO; -ASPI1TAB91 PO; +DIGO0.12 PO; -FERR325T2 PO; +FERR325T20 PO; -LEVA500T20 PO; +WARF-20 PO
--- NOTE | 2017-06-27 08:40 | RADRPT ---
EXAM DATE/TIME: 06/26/2017 15:00 [facility] COMPARISON : No previous studies available for comparison. INDICATIONS : Evaluate for renal cryoablation OBJECTIVE: Temperature: Heart Rate: Blood Pressure: / Respiratory: Oximetry: HISTORY OF PRESENT ILLNESS: 3 cm left renal mass. IMAGING STUDIES: Prior MRI, CTA and most recent multiphase CT scan of the abdomen was reviewed ASSESSMENT: 3 cm left renal mass appears to be amenable to percutaneous cryoablation PLAN: Cryoablation of left renal mass Delvin Salmeron MD on June 27, 2017 at 8:36 Board Certified Radiologist. This report was verified electronically.
== END ==
LOC: HRAD 14:47
PROVIDERS: ATTEND Urology
DX: N28.89 Other specified disorders of kidney and ureter (principal)

== ENCOUNTER 2017-08-14 07:58 | Day surgery (SDC) | payer MEDICAID, MEDICARE ==
[~2017-08-14] VITALS: Ht 165.1 cm; Wt 68.2 kg
[2017-08-14] VITALS (7 sets, daily range): BP systolic 96–150; BP diastolic 65–98; PULSE 50–89; RESP 20; TEMP 97.5–98; O2SAT 95–99
[~2017-08-14 07:58] MED LIST changes: -ABIL2TAB2 PO; +ARIP2 PO; +EZET10 PO; -OMEP20TA PO; +OMEP20TA93 PO; -VESI5TAB PO; +VESI5TAB2 PO; -ZETI10TA5 PO
[2017-08-14] MEDS ORDERED: CHLORHEXIDINE GLUCONATE 2 % 1 PACK (2 CLOTHS) TOPICAL PRN (08:30)
[2017-08-14] MEDS ORDERED: SODIUM CHLOR 0.9% 1000 ML INJ 1,000 ML IV SCH (08:30)
[2017-08-14] MEDS ORDERED: METOPROLOL TARTRATE 25 MG TAB PO PRN (08:30)
[2017-08-14] MEDS ORDERED: SODIUM CHLORID 0.9% 500 ML IV PRN (08:30)
[2017-08-14] MEDS ORDERED: ceFAZolin 2 GM PREMIX 50 ML IV SCH (08:30)
[2017-08-14] MEDS ORDERED: POVIDONE IODINE 5% (ANTISEPSIS KIT) 4 APPLICATIONS EACH NARE PRN (08:30)
[2017-08-14] MEDS ORDERED: LACTATED RINGER'S 1000 ML IV PRN (08:30)
[2017-08-14 08:37] LABS: AUTOMATED NEUTROPHIL # 7.2 TH/MM3 (1.8-7.7); BASOPHIL # 0.1 TH/MM3 (0-0.2); BASOPHIL % 0.5 % (0.0-2.0); EOSINOPHIL # 0.1 TH/MM3 (0-0.4); EOSINOPHIL % 1.2 % (0.0-4.0); HEMATOCRIT 43.5 % (35.0-46.0); HEMO FLAGS DIFF FINAL; LYMPH % 20.4 % (9.0-44.0); MEAN CELL VOLUME 84.2 FL (80.0-100.0); MEAN CORPUSCULAR HEMOGLOBIN 27.6 PG (27.0-34.0); MEAN CORPUSCULAR HGB CONC 32.8 % (32.0-36.0); MONO % 4.8 % (0.0-8.0); NEUT % 73.1 % (16.0-70.0); PLATELET COUNT 352 TH/MM3 (150-450); RED BLOOD COUNT 5.16 MIL/MM3 (4.00-5.30); RED CELL DISTRIBUTION WIDTH 15.6 % (11.6-17.2); WHITE BLOOD COUNT 9.8 TH/MM3 (4.0-11.0)
[2017-08-14 08:48] LABS: APTT (PATIENT) 23.6 SEC (24.3-30.1); PROTHROMBIN TIME - PATIENT 10.2 SEC (9.8-11.6)
[2017-08-14 09:10] LABS: BICARBONATE 17.3 MEQ/L (21.0-32.0); POTASSIUM 4.6 MEQ/L (3.5-5.1)
[2017-08-14] MEDS ORDERED: LIDOCAINE 1%/EPINEPHrine 1:100,000 SOLN 20 ML VIAL ONE (11:13)
--- NOTE | 2017-08-14 13:28 | PD.RAD ---
Post CT Procedure Prog Note Pre Procedure Diagnosis: (1) Left renal mass Post Procedure Diagnosis: (1) Left renal mass Procedure Date: Aug 14, 2017 Supervising Radiologist: Alber Marcus Anesthesia: General Plan of Activity Patient to Unit: ROPU Patient Condition: Good See PACS Report for procedural detail/treatment Alber Marcus MD Aug 14, 2017 13:28
[2017-08-14] MEDS ORDERED: oxyCODONE/ACETAMINOPHEN 5 MG/325 MG TAB PO PRN (13:30)
[2017-08-14] MEDS ORDERED: DO NOT ADM ANY ANTICOAGULANT DRUGS PRN (14:00)
--- NOTE | 2017-08-14 14:16 | RADRPT ---
EXAM DATE/TIME: 08/14/2017 11:54 [facility] COMPARISON: No previous studies available for comparison. INDICATIONS : History of recurrent left renal mass following cryoablation many years ago. Results of prior ablation are not available. Plan is for biopsy and ablation. BIOPSY SITE: Left renal Anesthesia and pain control was provided by the Anesthesia department. Prophylactic antibiotics were administered with appropriate pre-procedure timing. Vancomycin within 2 hrs of procedure, Ancef (or alternative) within 1 hr of procedure start. Intra-procedural antibiotics were given as prescribed above. DEVICE(S): 1.) 17 gauge Temno Coaxial 2.) 18 gauge Temno core biopsy needle MEDICAL HISTORY : Renal cell carcinoma. SURGICAL HISTORY : Appendectomy. Hysterectomy. ENCOUNTER: Initial ACUITY: 1 day PAIN SCORE: 0/10 LOCATION: Left renal A total of one core specimen(s) were obtained and sent to the laboratory for pathologic evaluation. PROCEDURE: 1. CT guided renal biopsy. Prior to the procedure informed consent was obtained. Any appropriate prior imaging studies were rev iewed. Using automated exposure control and adjustment of the mA and/or kV according to patient size, radiat ion dose was kept as low as reasonably achievable to obtain optimal diagnostic quality images. DICOM format image data is available electronically for review and comparison. The site was prepped in a sterile fashion. Full sterile technique was used, including cap, mask, maurisio rile gloves and gown and a large sterile sheet. Hand hygiene and 2% chlorhexidine and/or betadine/al cohol prep was utilized per protocol for cutaneous antisepsis. The skin and subcutaneous tissues wer e infiltrated with local anesthetic solution. With CT guidance the previously identified target was localized. Biopsy was performed using the presc ribed needle as above. Adequate hemostasis was obtained with compression at the puncture site. Follow-up CT scan reveals no hemorrhage. The patient tolerated the procedure well and there were no complications. The patient was returned to the Radiology Outpatient Unit in stable condition. CONCLUSION: Uncomplicated CT guided biopsy. Alber Marcus MD on August 14, 2017 at 14:11 Board Certified Radiologist. This report was verified electronically.
--- NOTE | 2017-08-14 14:20 | RADRPT ---
EXAM DATE/TIME: 08/14/2017 11:54 INDICATIONS : History of recurrent left renal mass following ablation many years ago. Although there is a definite exophytic component. There are endophytic and possibly track deposits. Therefore, a more complex abla tion geometry is anticipated. Anesthesia and pain control was provided by the Anesthesia department. Prophylactic antibiotics were administered with appropriate pre-procedure timing. Vancomycin within 2 hrs of procedure, Ancef (or alternative) within 1 hr of procedure start. Intra-procedural antibiotics were given as prescribed above. DEVICE(S): 1.) Cryoablation probe 14G MEDICAL HISTORY : Renal cell carcinoma. SURGICAL HISTORY : Appendectomy. Hysterectomy. ENCOUNTER: Initial ACUITY: 1 day PAIN SCORE: 0/10 LOCATION: Left renal PROCEDURE : 1. CT guided cryoablation. Under sterile conditions and using aseptic technique with CT guidance the mass was localized and sati sfactory approach was taken to access the lesion. Using automated exposure control and adjustment of the mA and/or kV according to patient size, radiation dose was kept as low as reasonably achievable to obtain optimal diagnostic quality images. DICOM format image data is available electronically for review and comparison. Wagon Cryoprobes were employed using percutaneous technique employing the prescribed probes. A freeze-thaw, freeze-thaw technique was employed and serial imaging demonstrated an ice ball encomp assing the entire lesion. This was performed at nearly right angles to achieve adequate coverage of both medially and laterally along the prior tumor bed given somewhat limited window by adjacent colon and posterior rib. Post procedure images demonstrate expected postoperative changes without evidence of hematoma. CONCLUSION: Uncomplicated cryoablation as above. Alber Marcus MD on August 14, 2017 at 14:14 Board Certified Radiologist. This report was verified electronically.
[2017-08-14] MEDS ORDERED: *ONDANSETRON 4 MG VIAL PERIprocedural Use ONLY ONE (14:30)
[2017-08-14] MEDS ORDERED: BALANCED SALT SOLN OPHT IRRIG 15 ML BTL ONE (14:39)
[2017-08-14] MEDS ORDERED: TETRACAINE 0.5% OPTH SOLN 4 ML BTL ONE (14:40)
[2017-08-14] MEDS ORDERED: BALANCED SALT SOLN OPHT IRRIG 15 ML BTL LEFT EYE ONE (14:45)
[2017-08-14] MEDS ORDERED: TETRACAINE 0.5% OPTH SOLN 4 ML BTL LEFT EYE ONE (14:45)
[2017-08-14 15:19] LABS: HEMATOCRIT 41.8 % (35.0-46.0); REVIEW FLAG FINAL
[2017-08-14 17:06] LABS: HEMATOCRIT 39.6 % (35.0-46.0); REVIEW FLAG FINAL
== END 2017-08-14 17:50 | disposition home or self-care (01) ==
LOC: HSDC 07:58 → HRIP 08:01 → HSDC 17:50
PROVIDERS: ATTEND Urology
DX: C64.2 Malignant neoplasm of left kidney, except renal pelvis (principal); E11.9 Type 2 diabetes mellitus without complications; R31.9 Hematuria, unspecified; I10 Essential (primary) hypertension; Z01.818 Encounter for other preprocedural examination
CPT/HCPCS: 50200; 50593; 77012; 77013; 80048; 85014; 85018; 85025; 85610; 85730; 88305; C2618; J2405; J7030

== ENCOUNTER 2017-08-21 13:24 | Day surgery (SDC) | payer MEDICARE ==
[~2017-08-21 13:24] MED LIST changes: -BIOT1000 PO; -DIGO0.12 PO; -LACTTAB8 PO; -LOVA40TA PO; -VESI5TAB2 PO
[2017-08-21 14:00] VITALS: BP 145/70; PULSE 58; RESP 20; TEMP 97.9; O2SAT 97
--- NOTE | 2017-08-22 09:45 | RADRPT ---
EXAM DATE/TIME: 08/21/2017 00:00 [facility] COMPARISON : INDICATIONS : F/U RENAL CRYO OBJECTIVE: Temperature: 97.9 Heart Rate: 58 Blood Pressure: 145/70 Respiratory: 22 Oximetry: 97 HISTORY OF PRESENT ILLNESS: 76-year-old female with history of 3 cm recurrent left renal mass following cryoablation many years a go. Patient is status post repeat cryoablation and biopsy on 08/14/2017. Biopsy demonstrated clear lazaro l renal cell carcinoma, Laura grade 2. She has had an uneventful postoperative course in today has no complaints and denies any flank pain or hematuria. 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 PLAN: Patient will require followup imaging in approximately 2-3 months to serve as new baseline. TIME SPENT: 15 minutes. Alber Marcus MD on August 22, 2017 at 9:31 Board Certified Radiologist. This report was verified electronically.
== END 2017-08-21 13:40 | disposition home or self-care (01) ==
LOC: HRIP 13:24 → HROP 13:24
PROVIDERS: ATTEND Radiology Diagnostic Radiology
DX: C64.2 Malignant neoplasm of left kidney, except renal pelvis (principal)

== ENCOUNTER 2017-12-15 07:20 | Inpatient (IN) | payer MEDICARE, MEDICAID ==
[2017-12-15] VITALS (14 sets, daily range): BP systolic 100–219; BP diastolic 56–117; PULSE 32–101; RESP 14–26; TEMP 97.8–99.3; O2SAT 95–100
[~2017-12-15] VITALS: Ht 162.6 cm; Wt 76.0 kg
[2017-12-15] MEDS ORDERED: SODIUM CHLORID 0.9% 500 ML INJ 500 ML IV ONE ×2 (07:45→14:00)
[2017-12-15] MEDS ORDERED: ATROPINE SULFATE 1 MG/ML VIAL IV PUSH ONE (07:45)
[2017-12-15 08:11] LABS: AUTOMATED NEUTROPHIL # 7.9 TH/MM3 (1.8-7.7); BASOPHIL % 0.3 % (0.0-2.0); EOSINOPHIL % 0.2 % (0.0-4.0); HEMATOCRIT 38.1 % (35.0-46.0); HEMOGLOBIN 12.4 GM/DL (11.6-15.3); LYMPHOCYTE # 1.1 TH/MM3 (1.0-4.8); MEAN CELL VOLUME 83.2 FL (80.0-100.0); MEAN CORPUSCULAR HGB CONC 32.4 % (32.0-36.0); MEAN PLATELET VOLUME 7.9 FL (7.0-11.0); MONO % 3.2 % (0.0-8.0); MONOCYTE # 0.3 TH/MM3 (0-0.9); NEUT % 84.3 % (16.0-70.0); PLATELET COUNT 279 TH/MM3 (150-450); RED BLOOD COUNT 4.58 MIL/MM3 (4.00-5.30); RED CELL DISTRIBUTION WIDTH 14.9 % (11.6-17.2); WHITE BLOOD COUNT 9.3 TH/MM3 (4.0-11.0)
--- NOTE | 2017-12-15 08:24 | PD ---
HPI Chief Complaint: General Weakness Time Seen by Provider: 07:27 Travel History International Travel<30 days: No Contact w/Intl Traveler<30days: No Traveled to known affect area: No History of Present Illness HPI Is a 76-year-old woman who presents to the emergency department complaining of feeling weak ongoing for the past several days, diarrhea starting yesterday. She has a history of A. fib diabetes hypertension and depression. She has had 2 previous admissions for significant bradycardia. She is followed by Dr. Mercer. She is still on metoprolol and Cardizem. She states prior to the onset of this weakness she felt generally well. Denies any respiratory problems. No other complaints. History Past Medical History Narrative Medical A. 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 Tetanus Vaccination: > 5 Years Influenza Vaccination: Yes Social History Alcohol Use: No Tobacco Use: No Allergies-Medications (Allergen,Severity, Reaction): Coded Allergies: No Known Allergies (Verified Allergy, Unknown, 12/15/17) Reported Meds & Prescriptions Reported Meds & Active Scripts Active Ferosul (Ferrous Sulfate) 325 Mg (65 Mg Iron) Tablet 325 Mg PO DAILY 30 Days Cardizem CD 24 HR (Diltiazem CD 24 HR) 180 Mg Caper 180 Mg PO DAILY Reported Belsomra (Suvorexant) 10 Mg Tab 10 Mg PO HS Metoprolol Tartrate 25 Mg Tab 25 Mg PO DAILY Warfarin 3 Mg Tab 3 Mg PO DAILY Vitamin D3 (Cholecalciferol (Vitamin D3)) 5,000 Unit Tab.rapdis Vitamin B-6 (Pyridoxine HCl) 100 Mg Tab 100 Mg PO DAILY Vitamin B-12 (Cyanocobalamin) 500 Mcg Tab 500 Mcg PO DAILY Memantine 10 Mg Tab 10 Mg PO BID Lisinopril 10 Mg Tab 10 Mg PO DAILY Esomeprazole DR 20 Mg Capdr 20 Mg PO DAILY Bupropion HCl ER 12 HR (Bupropion HCl) 150 Mg Tab 150 Mg PO DAILY Atorvastatin (Atorvastatin Calcium) 40 Mg Tab 40 Mg PO HS Zetia (Ezetimibe) 10 Mg Tab 10 Mg PO DAILY Review of Systems Except as stated in HPI: all other systems reviewed are Neg Physical Exam Narrative GENERAL: 76-year-old woman, generally well-appearing, no acute distress. SKIN: Focused skin assessment warm/dry. HEAD: Atraumatic. Normocephalic. EYES: Pupils equal and round. No scleral icterus. No injection or drainage. ENT: No nasal bleeding or discharge. Mucous membranes pink and moist. NECK: Trachea midline. No JVD. CARDIOVASCULAR: Heart rate extremely slow. No murmurs. RESPIRATORY: A little bit tachypnea. Lungs are clear to auscultation. No rales or rhonchi. GASTROINTESTINAL: Abdomen soft, non-tender, nondistended. Hepatic and splenic margins not palpable. MUSCULOSKELETAL: No obvious deformities. No edema. NEUROLOGICAL: Awake and alert. No obvious cranial nerve deficits. Motor grossly within normal limits. Normal speech. PSYCHIATRIC: Appropriate mood and affect; insight and judgment normal. Data Data Last Documented VS Vital Signs Date Time Temp Pulse Resp B/P (MAP) Pulse Ox O2 Delivery O2 Flow Rate FiO2 12/15/17 07:44 33 18 141/69 (93) 100 Room Air 12/15/17 07:27 97.8 Orders Orders Complete Blood Count With Diff (12/15/17 07:39) Comprehensive Metabolic Panel (12/15/17 07:39) Troponin I (12/15/17 07:39) Lactic Acid (12/15/17 07:39) Iv Access Insert/Monitor (12/15/17 07:39) Sodium Chlorid 0.9% 500 Ml Inj (Ns 500 M (12/15/17 07:45) Chest, Single Ap (12/15/17 ) Electrocardiogram (12/15/17 ) Atropine Inj (Atropine Inj) (12/15/17 07:45) Ecg Monitoring (12/15/17 07:39) Oximetry (12/15/17 07:39) Oxygen Administration (12/15/17 07:39) Glucagon Inj (Glucagon Inj) (12/15/17 08:30) Ondansetron Inj (Zofran Inj) (12/15/17 08:30) Admit Order (Ed Use Only) (12/15/17 ) Labs Laboratory Tests Test 12/15/17 07:45 12/15/17 07:50 White Blood Count 9.3 TH/MM3 Red Blood Count 4.58 MIL/MM3 Hemoglobin 12.4 GM/DL Hematocrit 38.1 % Mean Corpuscular Volume 83.2 FL Mean Corpuscular Hemoglobin 27.0 PG Mean Corpuscular Hemoglobin Concent 32.4 % Red Cell Distribution Width 14.9 % Platelet Count 279 TH/MM3 Mean Platelet Volume 7.9 FL Neutrophils (%) (Auto) 84.3 % Lymphocytes (%) (Auto) 12.0 % Monocytes (%) (Auto) 3.2 % Eosinophils (%) (Auto) 0.2 % Basophils (%) (Auto) 0.3 % Neutrophils # (Auto) 7.9 TH/MM3 Lymphocytes # (Auto) 1.1 TH/MM3 Monocytes # (Auto) 0.3 TH/MM3 Eosinophils # (Auto) 0.0 TH/MM3 Basophils # (Auto) 0.0 TH/MM3 CBC Comment DIFF FINAL Differential Comment Blood Urea Nitrogen 47 MG/DL Creatinine 2.74 MG/DL Random Glucose 144 MG/DL Total Protein 7.6 GM/DL Albumin 3.2 GM/DL Calcium Level 8.9 MG/DL Alkaline Phosphatase 206 U/L Aspartate Amino Transf (AST/SGOT) 36 U/L Alanine Aminotransferase (ALT/SGPT) 35 U/L Total Bilirubin 0.4 MG/DL Sodium Level 136 MEQ/L Potassium Level 7.3 MEQ/L Chloride Level 109 MEQ/L Carbon Dioxide Level 16.7 MEQ/L Anion Gap 10 MEQ/L Estimat Glomerular Filtration Rate 17 ML/MIN Troponin I LESS THAN 0.02 NG/ML Lactic Acid Level 2.9 mmol/L MDM Medical Decision Making Medical Screen Exam Complete: Yes Emergency Medical Condition: Yes Interpretation(s) My review of EKG: A. fib with narrow complex bradycardia at a rate in the 30s. No definite evidence of acute ischemia. LABS: CBC unremarkable. CMP potassium 7.3, elevated BUN and creatinine, metabolic acidosis Lactate 2.9 Troponin negative Chest x-ray negative. Differential Diagnosis Bradycardia, electrolyte abnormality, adverse effect to medication, heart failure, other Narrative Course Medical decision making 76-year-old woman presents emergency department complaint of generalized weakness, found to have marked bradycardia, history of similar episodes in the past. She is on a beta-gayla and a calcium channel gayla. She is a little bit tachypneic but appears otherwise well. No real response to atropine. Will discuss with cardiology, plan on admission to the hospital, check labs, reassess. Physician Communication Physician Communication Spoke with Dr. Wong Hicks. We will consult on patient. Recommends admission to the unit. Spoke with Dr. Suresh. Will admit patient. Diagnosis Primary Impression: Tachy-eduardo syndrome Additional Impression: Hyperkalemia Admitting Information Admitting Physician Requests: Admit Travis Sainz MD Dec 15, 2017 08:24
[2017-12-15] MEDS ORDERED: GLUCAGON 1 MG/ML VIAL IV PUSH ONE (08:30)
[2017-12-15] MEDS ORDERED: ONDANSETRON HCL 4 MG/2 ML VIAL IV PUSH ONE (08:30)
[2017-12-15 08:43] LABS: ALBUMIN 3.2 GM/DL (3.4-5.0); ALKALINE PHOSPHATASE 206 U/L (45-117); ALT (GPT) 35 U/L (10-53); AST (GOT) 36 U/L (15-37); BICARBONATE 16.7 MEQ/L (21.0-32.0); BLOOD UREA NITROGEN 47 MG/DL (7-18); CALCIUM 8.9 MG/DL (8.5-10.1); CHLORIDE 109 MEQ/L (98-107); CREATININE 2.74 MG/DL (0.50-1.00); GLOMERULAR FILTRATION RATE 17 ML/MIN (>89); GLUCOSE,RANDOM 144 MG/DL (74-106); SODIUM (NA) 136 MEQ/L (136-145); TOTAL BILIRUBIN ADULT 0.4 MG/DL (0.2-1.0); TOTAL PROTEIN 7.6 GM/DL (6.4-8.2); TROPONIN I LESS THAN 0.02 NG/ML (0.02-0.05)
--- NOTE | 2017-12-15 08:51 | RADRPT ---
EXAM DATE/TIME: 12/15/2017 07:58 [facility] COMPARISON: CHEST SINGLE AP, May 11, 2017, 1:54. INDICATIONS : Short of breath. MEDICAL HISTORY : Renal cell carcinoma. Dementia. SURGICAL HISTORY : Appendectomy. Hysterectomy. ENCOUNTER: Initial ACUITY: 1 day PAIN SCORE: 0/10 LOCATION: Bilateral chest FINDINGS: A single view of the chest demonstrates the lungs to be symmetrically aerated without evidence of mas s, infiltrate or effusion. The cardiomediastinal contours are unremarkable. Osseous structures demo nstrate degenerative change. CONCLUSION: No acute disease. Dai Frias MD on December 15, 2017 at 8:48 Board Certified Radiologist. This report was verified electronically.
[2017-12-15] MEDS ORDERED: VITA500T4 PO (08:52)
[2017-12-15] MEDS ORDERED: PYRI100T PO (08:52)
[2017-12-15] MEDS ORDERED: WARF-58 PO (08:52)
[2017-12-15] MEDS ORDERED: BUPR150T5 PO (08:52)
[2017-12-15] MEDS ORDERED: SUVO1TAB2 PO (08:52)
[2017-12-15] MEDS ORDERED: [UNRECOGNIZED DRUG - CODE] (08:52)
[2017-12-15] MEDS ORDERED: MEMA1TAB2 PO (08:52)
[2017-12-15] MEDS ORDERED: ESOM0.1C PO (08:52)
[2017-12-15] MEDS ORDERED: METO25TA3 PO (08:52)
[2017-12-15] MEDS ORDERED: LISI10TA3 PO (08:52)
[2017-12-15] MEDS ORDERED: ATOR40TA16 PO (08:52)
[2017-12-15] MEDS ORDERED: POTASSIUM PHOSPHATE MONOBASIC 500 MG TAB PO/TUBE PRN (09:00)
[2017-12-15] MEDS ORDERED: DEXTROSE 50% IN WATER 50 ML VIAL(D50) IV PUSH ONE (09:00)
[2017-12-15] MEDS ORDERED: MAGNESIUM SULFATE INJ 4 GM in SODIUM CHLORIDE 0.9% INJ 92 ML IV PRN (09:00)
[2017-12-15] MEDS ORDERED: CHLORHEXIDINE GLUCONATE 2 % 1 PACK (2 CLOTHS) TOP PRN (09:00)
[2017-12-15] MEDS ORDERED: CALCIUM GLUCONATE INJ 2 GM in SODIUM CHLORIDE 0.9% INJ 100 ML IV ONE (09:00)
[2017-12-15] MEDS ORDERED: POTASSIUM CHLORIDE 25 MEQ EFFERVESCENT TAB PO PRN (09:00)
[2017-12-15] MEDS ORDERED: SODIUM POLYSTYRENE SULFONATE SUSP 15 GM/60 ML CUP PO ONE ×2 (09:00→22:00)
[2017-12-15] MEDS ORDERED: DEXTROSE 50% IN WATER 50 ML VIAL(D50) IV PUSH PRN (09:00)
[2017-12-15] MEDS ORDERED: MISCELLANEOUS NURSING INFORMATION XX SCH (09:00)
[2017-12-15] MEDS ORDERED: SODIUM PHOSPHATE INJ 30 MMOL in SODIUM CHLOR 0.9% 250 ML INJ 240 ML IV PRN (09:00)
[2017-12-15] MEDS ORDERED: INSULIN HUMAN REGULAR 1,000 UNITS/10 ML VIAL IV PUSH ONE ×2 (09:00→22:00)
[2017-12-15] MEDS ORDERED: MAGNESIUM SULFATE INJ 2 GM in SODIUM CHLORIDE 0.9% INJ 96 ML IV PRN (09:00)
[2017-12-15] MEDS ORDERED: POTASSIUM PHOSPHATE MONOBASIC 500 MG TAB PO PRN (09:00)
[2017-12-15] MEDS ORDERED: RESP: ALBUTEROL 2.5 MG/IPRATROPIUM 0.5 MG NEB (PRN) INH (09:00)
[2017-12-15] MEDS ORDERED: MAGNESIUM OXIDE 400 MG TAB PO PRN (09:00)
[2017-12-15] MEDS ORDERED: POTASSIUM CHLOR 40 MEQ PREMIX 100 ML IV-CENTRAL PRN ×2 (09:00)
[2017-12-15] MEDS: FAMOTIDINE 20 MG TAB PO SCH ×2 (09:00→21:43)
[2017-12-15] MEDS ORDERED: POTASSIUM CHLOR 20 MEQ PREMIX 100 ML IV PRN ×2 (09:00)
[2017-12-15] MEDS ORDERED: HEPARIN SODIUM - SQ 10,000 UNITS/ML VIAL SQ SCH (09:00)
[2017-12-15] MEDS ORDERED: CALCIUM CHLORIDE 10% SOLN 1 GRAM/10 ML SYR IV PUSH ONE (09:00)
[2017-12-15] MEDS ORDERED: POTASSIUM PHOSPHATE INJ 30 MMOL in SODIUM CHLOR 0.9% 250 ML INJ 250 ML IV PRN (09:00)
[2017-12-15] MEDS ORDERED: DOBUTamine PREMIX DRIP 250 ML IV SCH (09:00)
[2017-12-15] MEDS ORDERED: hydrALAZINE HCL 20 MG/ML VIAL ONE (09:32)
[2017-12-15] MEDS ORDERED: PILL SPLITTER OTHER PRN (09:45)
--- NOTE | 2017-12-15 09:46 | HHI.HP ---
HPI Service Critical Care Medicine Primary Care Physician Jurgen Lewis MD Admission Diagnosis Bradycardia Diagnosis: Chief Complaint: fatigue Travel History International Travel<30 Days: No Contact w/Intl Traveler <30 Da: No Traveled to Known Affected Are: No History of Present Illness 76yF with history of atrial fibrillation and 2 prior admissions for symptomatic bradycardia who presents with 3 days of weakness and fatigue. found in the ER to be in afib with severe bradycardia, HR in the 30s, not responsive to atropine or glucagon. takes diltiazem at home and when off her AVN blockade, goes quickly into RVR on prior admissions. Also evidence of cardiogenic shock with lactate 2.9, Cr 2.7, K 7.3, co2 16.7. trop negative. subjectively nauseated and vomiting. endorses significant SOB and fatigue going x 3 days. denies chest pain. I remained at bedside and gave 1gm calcium chloride, 2 gm calcium gluconate, insulin, d50, kayexalate and started a dobutamine drip and titrated up to 20 mcg/kg/min until her HR improved to 70s. Also severely hypertensive with sbp > 220. given 10mg iv hydralazine with improvement. cardiology consulted and will evaluate. Review of Systems ROS Limitations: Clinical Condition, Poor Historian Constitutional: COMPLAINS OF: Fatigue, DENIES: Chills Ears, nose, mouth, throat: DENIES: Vertigo Respiratory: COMPLAINS OF: Shortness of breath, DENIES: Cough, Wheezing Cardiovascular: COMPLAINS OF: Dyspnea on Exertion, DENIES: Chest pain, Syncope Gastrointestinal: COMPLAINS OF: Nausea, Vomiting, DENIES: Abdominal pain, Diarrhea Neurologic: COMPLAINS OF: Headache Past Family Social History Allergies: Coded Allergies: No Known Allergies (Verified Allergy, Unknown, 12/15/17) Past Medical History A. 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 Reported Medications Ferosul (Ferrous Sulfate) 325 Mg (65 Mg Iron) Tablet 325 Mg PO DAILY 30 Days Cardizem CD 24 HR (Diltiazem CD 24 HR) 180 Mg Caper 180 Mg PO DAILY Belsomra (Suvorexant) 10 Mg Tab 10 Mg PO HS Metoprolol Tartrate 25 Mg Tab 25 Mg PO DAILY Warfarin 3 Mg Tab 3 Mg PO DAILY Vitamin D3 (Cholecalciferol (Vitamin D3)) 5,000 Unit Tab.rapdis Vitamin B-6 (Pyridoxine HCl) 100 Mg Tab 100 Mg PO DAILY Vitamin B-12 (Cyanocobalamin) 500 Mcg Tab 500 Mcg PO DAILY Memantine 10 Mg Tab 10 Mg PO BID Lisinopril 10 Mg Tab 10 Mg PO DAILY Esomeprazole DR 20 Mg Capdr 20 Mg PO DAILY Bupropion HCl ER 12 HR (Bupropion HCl) 150 Mg Tab 150 Mg PO DAILY Atorvastatin (Atorvastatin Calcium) 40 Mg Tab 40 Mg PO HS Zetia (Ezetimibe) 10 Mg Tab 10 Mg PO DAILY Active Ordered Medications See MAR Family History reviewed and found to be noncontributory to her acute illness Social History denies tob, etoh. Physical Exam Vital Signs Vital Signs Date Time Temp Pulse Resp B/P (MAP) Pulse Ox O2 Delivery O2 Flow Rate FiO2 12/15/17 07:44 33 18 141/69 (93) 100 Room Air 12/15/17 07:34 32 20 99 Room Air 12/15/17 07:27 97.8 32 20 100/68 (79) 100 Physical Exam gen: elderly female, in acute distress. actively dry heaving. heent: pupils 3mm, round, reactive. normocephalic. atraumatic.mucous membranes moist. neck: no jvd. trachea midline. chest: labored. tachypneic. 2L o2 by NC. cv: bradycardic rate in the 30s, irregular rhythm. appears atrial fibrillation by tele and EKG. hypertensive 220s/120s. abd: soft, nontender, nondistended. no guarding. extr: cool and poorly perfused. pulse is bradycardic but 2+ in all extremities. neuro: RASS 0. CAM -. follows commands. no focal deficits. Laboratory Laboratory Tests Test 12/15/17 07:45 12/15/17 07:50 White Blood Count 9.3 Red Blood Count 4.58 Hemoglobin 12.4 Hematocrit 38.1 Mean Corpuscular Volume 83.2 Mean Corpuscular Hemoglobin 27.0 Mean Corpuscular Hemoglobin Concent 32.4 Red Cell Distribution Width 14.9 Platelet Count 279 Mean Platelet Volume 7.9 Neutrophils (%) (Auto) 84.3 Lymphocytes (%) (Auto) 12.0 Monocytes (%) (Auto) 3.2 Eosinophils (%) (Auto) 0.2 Basophils (%) (Auto) 0.3 Neutrophils # (Auto) 7.9 Lymphocytes # (Auto) 1.1 Monocytes # (Auto) 0.3 Eosinophils # (Auto) 0.0 Basophils # (Auto) 0.0 CBC Comment DIFF FINAL Differential Comment Blood Urea Nitrogen 47 Creatinine 2.74 Random Glucose 144 Total Protein 7.6 Albumin 3.2 Calcium Level 8.9 Alkaline Phosphatase 206 Aspartate Amino Transf (AST/SGOT) 36 Alanine Aminotransferase (ALT/SGPT) 35 Total Bilirubin 0.4 Sodium Level 136 Potassium Level 7.3 Chloride Level 109 Carbon Dioxide Level 16.7 Anion Gap 10 Estimat Glomerular Filtration Rate 17 Troponin I LESS THAN 0.02 Lactic Acid Level 2.9 Result Diagram: 12/15/17 0745 12/15/17 0745 Caprini VTE Risk Assessment Caprini VTE Risk Assessment: Mod/High Risk (score >= 2) Caprini Risk Assessment Model Point Value = 1 Point Value = 2 Point Value = 3 Point Value = 5 Age 41-60 Minor surgery BMI > 25 kg/m2 Swollen legs Varicose veins or History of unexplained or recurrent spontaneous Oral contraceptives or hormone replacement Sepsis (< 1 month) Serious lung disease, including pneumonia (< 1 month) Abnormal pulmonary function Acute myocardial infarction Congestive heart failure (< 1 month) History of inflammatory bowel disease Medical patient at bed rest Age 61-74 Arthroscopic surgery Major open surgery (> 45 min) Laparoscopic surgery (> 45 min) Malignancy Confined to bed (> 72 hours) Immobilizing plaster cast Central venous access Age >= 75 History of VTE Family history of VTE Factor V Leiden Prothrombin [id number] Lupus anticoagulant Anticardiolipin antibodies Elevated serum homocysteine Heparin-induced thrombocytopenia Other congenital or acquired thrombophilia Stroke (< 1 month) Elective arthroplasty Hip, pelvis, or leg fracture Acute spinal cord injury (< 1 month) Prophylaxis Regimen Total Risk Factor Score Risk Level Prophylaxis Regimen 0-1 Low Early ambulation 2 Moderate Order ONE of the following: *Sequential Compression Device (SCD) *Heparin 5000 units SQ BID 3-4 Higher Order ONE of the following medications: *Heparin 5000 units SQ TID *Enoxaparin/Lovenox 40 mg SQ daily (WT < 150 kg, CrCl > 30 mL/min) *Enoxaparin/Lovenox 30 mg SQ daily (WT < 150 kg, CrCl > 10-29 mL/min) *Enoxaparin/Lovenox 30 mg SQ BID (WT < 150 kg, CrCl > 30 mL/min) AND/OR *Sequential Compression Device (SCD) 5 or more Highest Order ONE of the following medications: *Heparin 5000 units SQ TID (Preferred with Epidurals) *Enoxaparin/Lovenox 40 mg SQ daily (WT < 150 kg, CrCl > 30 mL/min) *Enoxaparin/Lovenox 30 mg SQ daily (WT < 150 kg, CrCl > 10-29 mL/min) *Enoxaparin/Lovenox 30 mg SQ BID (WT < 150 kg, CrCl > 30 mL/min) AND *Sequential Compression Device (SCD) Assessment and Plan Assessment and Plan Assessment: 76yF with history of atrial fibrillation and prior episodes of severe symptomatic bradycardia presents with Cardiogenic Shock, acute kidney injury, severe life-threatening hyperkalemia, lactic acidosis secondary to recurrent severe symptomatic bradycardia. 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 I have spoken with Dr. Hicks, and he will evaluate her. Her troponins are negative and given the 3 day time- course for this, it is unlikely that this is her presentation of acute coronary syndrome. Will continue inotropes and management for hyperkalemia. will keep NPO and may require emergent transvenous pacing (will attempt to hold off as long as possible due to hyperkalemia and dysrhythmia concerns). remains very critically ill. Active Problems: Severe symptomatic Bradycardia Tachy-eduardo syndrome Atrial fibrillation Acute kidney injury Cardiogenic Shock Lactic Acidosis Life-threatening Hyperkalemia Nausea/vomiting Plan: - frequent neuro checks - dobutamine currently at 20 mcg/kg/min. keep and titrate for goal HR > 70 - hydralazine prn for sbp < 180 - will obtain head CT to rule out head bleed given that she is fully anticoagulated on coumadin and has a constellation of symptoms including hypertension, bradycardia, headache, and nausea/vomiting. - iv calcium, insulin, d50, kayexalate. recheck K. - check stat coags - admit to ICU - close uop monitoring - keep on tele. - low threshold for transvenous pacing - trend lactates. - hold pharmacologic dvt prophylaxis until coags. - SCDs - pepcid. Critical care time: 95 minutes, exclusive of separately billable procedures. remained at bedside until HR improved and life-threatening potassium treated. frequent re-evaluations. multiple conversations with consultants. Henrique Kline MD Dec 15, 2017 09:46
[2017-12-15 10:07] LABS: INTERNATIONAL NORMALIZED RATIO 1.4 RATIO; PROTHROMBIN TIME - PATIENT 13.8 SEC (9.8-11.6)
[2017-12-15] MEDS: DOBUTamine PREMIX DRIP 250 ML IV SCH ×3 (10:30→16:56)
--- NOTE | 2017-12-15 11:08 | RADRPT ---
EXAM DATE/TIME: 12/15/2017 10:48 [facility] COMPARISON: CT BRAIN W/O CONTRAST, February 07, 2017, 17:54. INDICATIONS : General weakness today. RADIATION DOSE: 56.35 CTDIvol (mGy) MEDICAL HISTORY : HIV. Alzheimer's. Stroke. SURGICAL HISTORY : Hysterectomy. ENCOUNTER: Initial ACUITY: 1 day PAIN SCALE: 0/10 LOCATION: Bilateral head TECHNIQUE: Multiple contiguous axial images were obtained of the head. Using automated exposure control and adj ustment of the mA and/or kV according to patient size, radiation dose was kept as low as reasonably a chievable to obtain optimal diagnostic quality images. DICOM format image data is available electro nically for review and comparison. FINDINGS: CEREBRUM: The ventricles are normal for age. No evidence of midline shift, mass lesion, hemorrhage or acute in farction. Stable appearance of old encephalomalacic changes involving the left frontal lobe. No extr a-axial fluid collections are seen. POSTERIOR FOSSA: The cerebellum and brainstem are intact. The 4th ventricle is midline. The cerebellopontine angle i s unremarkable. EXTRACRANIAL: The visualized portion of the orbits is intact. SKULL: The calvaria is intact. No evidence of skull fracture. CONCLUSION: Evidence of prior left frontal infarct. No acute abnormality seen.. Dai Frias MD on December 15, 2017 at 11:05 Board Certified Radiologist. This report was verified electronically.
[2017-12-15] MEDS: INSULIN NovoLIN REGULAR SUPPLEMENTAL SCALE SQ SCH ×3 (12:00→21:00)
[2017-12-15] MEDS: ONDANSETRON HCL 4 MG/2 ML VIAL IV PUSH PRN ×2 (12:45→21:43)
[2017-12-15] MEDS ORDERED: HALOPERIDOL LACTATE 5 MG/ML AMP IV PUSH PRN (14:00)
[2017-12-15] MEDS ORDERED: FUROSEMIDE 40 MG/4 ML VIAL IV PUSH ONE (14:00)
[2017-12-15 20:53] LABS: BICARBONATE 16.7 MEQ/L (21.0-32.0); CREATININE 2.3 MG/DL (0.50-1.00)
--- NOTE | 2017-12-15 21:07 | MB ---
cc: Sreedhar Hicks Vincent G DO DATE: 12/15/2017 REASON FOR CONSULTATION: Significant bradycardia. HISTORY OF PRESENT ILLNESS: Susannah Pryor is a pleasant 76-year-old female who sees my partner, Dr. Mercer in the office, and presented due to 3 days of weakness and fatigue. Upon arrival, she was found to be in acute kidney injury, hyperkalemia and significant bradycardia. I was called as her atrial fibrillation with slow ventricular response was around 30 beats per minute. They attempted to give her atropine and Glucagon with no further response. She was seen by critical care who gave her medications for her hyperkalemia and started her on a dobutamine drip at 20 mcg/kg/min with an improvement of her heart rate to the 70s. She has since been admitted to the unit and, upon my evaluation, she is now in atrial fibrillation with rapid ventricular response and so I have stopped her dobutamine. Apparently looking back, she has had 2 other prior admissions with similar tachy/eduardo events with difficulty getting her heart rate controlled. PAST MEDICAL HISTORY: 1. Atrial fibrillation, on Coumadin. 2. Diabetes. 3. Hypertension. 4. Depression/anxiety. 5. Degenerative arthritis in the spine. PAST SURGICAL HISTORY: 1. Appendectomy. 2. Hysterectomy. ALLERGIES: NO KNOWN DRUG ALLERGIES MEDICATIONS: 1. Iron 325 mg daily. 2. Coumadin 3 mg daily. 3. Zetia 10 mg daily. 4. Lipitor 40 mg every night. 5. Metoprolol tartrate 25 mg daily. 6. Cardizem-CD 180 mg daily. 7. Lisinopril 10 mg daily. 8. Bupropion 150 mg daily. 9. Belsomra 10 mg every night. 10. ____ 10 mg b.i.d. 11. Omeprazole 20 mg daily. FAMILY HISTORY: Denies premature coronary artery disease or sudden cardiac within the family. SOCIAL HISTORY: The patient denies tobacco, alcohol or drug abuse. REVIEW OF SYSTEMS: Fourteen systems were reviewed including osteopathic. Pertinent positives and negatives above, otherwise negative. PHYSICAL EXAMINATION: VITAL SIGNS: Temperature 97.9, heart rate 113, blood pressure 154/62, respirations 24, pulse oximetry 97% on 2 liters. GENERAL: In general, the patient appears in mild distress due to nauseousness. Alert, awake and oriented x3. HEENT: Extraocular muscles intact. Mucous membranes moist. NECK: Supple. No JVD at 45 degrees. No carotid bruits heard bilaterally. Carotid upstroke is brisk in nature. HEART: Irregularly irregular and tachycardic. No murmurs, gallops or rubs are noted. LUNGS: Decreased breath sounds bilaterally but no overt wheezes, rales or rhonchi. ABDOMEN: Soft, nontender, nondistended. No organomegaly noted. EXTREMITIES: Show no clubbing, cyanosis or edema. Femoral and distal pulses are intact bilaterally. NEUROLOGIC: No focal deficits. SKIN: Warm, dry and intact. OSTEOPATHIC: No kyphoscoliosis, lordosis or paraspinal tender points. LABORATORY DATA: Hemoglobin 12.4, hematocrit 38.1, platelets 279. INR 1.4, potassium 7.3, BUN 47, creatinine 2.74. Lactic acid 2.9, troponin less than 0.02. CARDIOLOGY STUDIES: Electrocardiogram (12/15/2017 at 0757): Supraventricular bradycardia, possible atrial fibrillation with slow ventricular response. IMPRESSION: 1. Severe symptomatic bradycardia. 2. Atrial fibrillation with rapid ventricular response. 3. Tachybrady syndrome. 4. Acute kidney injury. 5. Cardiogenic shock due to significant bradycardia. 6. Lactic acidosis. 7. Hyperkalemia. 8. Nausea and vomiting, most likely secondary to bradycardia, hyperkalemia and acute kidney injury. RECOMMENDATIONS: 1. Ms. Pryor presented with significant bradycardia and was started on a dobutamine drip. Now, she appears to be in atrial fibrillation with rapid ventricular response and so dobutamine drip will be stopped. 2. If after the dobutamine drip is stopped and she is still significantly tachycardic, we may have to add back some of her medications. 3. Overall, it is difficult to ascertain exactly how her acute illness started, but her significant bradycardia and cardiogenic shock most likely caused acute kidney injury and hyperkalemia which further potentiated her bradycardia and cardiogenic shock. 4. We will plan to discuss with electrophysiologic cardiology about consideration of permanent pacemaker placement as this is her third such episode. 5. Hyperkalemia will be treated by the critical care team. 6. Further recommendations will be made based on the hospital course. Thank you for allowing me to see Susannah Pryor. If there are any questions, please do not hesitate to call. Greater than 60 minutes critical care time in the treatment of the patient as well as discussion with critical care team. DO DONNY Rivero/SA/rh , 05:08 PM , 08:03 PM MAGDIEL
[2017-12-15] MEDS: MELATONIN 5 MG TAB PO SCH (21:42)
[2017-12-15] MEDS ORDERED: DEXTROSE 50% IN WATER 50 ML SYRINGE IV PUSH ONE (22:00)
[2017-12-15] MEDS ORDERED: CALCIUM GLUCONATE INJ 1 GM in DEXTROSE 5% IN WATER 100ML INJ 100 ML IV ONE ×2 (22:00)
[2017-12-15] MEDS ORDERED: SODIUM BICARBONATE 8.4% INJ 50 MEQ/50 ML SYR IV PUSH ONE (22:00)
[2017-12-15] MEDS ORDERED: OLANZapine ODT 5 MG TAB PO PRN (23:00)
[2017-12-16] VITALS (9 sets, daily range): BP systolic 106–142; BP diastolic 64–87; PULSE 65–129; RESP 16–18; TEMP 98.2–98.8; O2SAT 95–97
[2017-12-16] MEDS: INSULIN NovoLIN REGULAR SUPPLEMENTAL SCALE SQ SCH (03:00)
[2017-12-16] MEDS: CHLORHEXIDINE GLUCONATE 2 % 1 PACK (2 CLOTHS) TOP SCH (03:54)
[2017-12-16 04:17] LABS: HEMATOCRIT 33.3 % (35.0-46.0); MEAN CELL VOLUME 80.5 FL (80.0-100.0); MEAN CORPUSCULAR HEMOGLOBIN 26.6 PG (27.0-34.0); MEAN PLATELET VOLUME 7.5 FL (7.0-11.0); PLATELET COUNT 259 TH/MM3 (150-450); RED BLOOD COUNT 4.14 MIL/MM3 (4.00-5.30); RED CELL DISTRIBUTION WIDTH 14.6 % (11.6-17.2); WHITE BLOOD COUNT 7.1 TH/MM3 (4.0-11.0)
[2017-12-16 04:52] LABS: BICARBONATE 21.9 MEQ/L (21.0-32.0); CALCIUM 8.9 MG/DL (8.5-10.1); CREATININE 2.28 MG/DL (0.50-1.00)
--- NOTE | 2017-12-16 06:28 | HHI.CCPN ---
Subjective Remarks/Hospital Course 76yF with history of atrial fibrillation and 2 prior admissions for symptomatic bradycardia who presents with 3 days of weakness and fatigue. found in the ER to be in afib with severe bradycardia, HR in the 30s, not responsive to atropine or glucagon. takes diltiazem at home and when off her AVN blockade, goes quickly into RVR on prior admissions. Also evidence of cardiogenic shock with lactate 2.9, Cr 2.7, K 7.3, co2 16.7. trop negative. subjectively nauseated and vomiting. endorses significant SOB and fatigue going x 3 days. denies chest pain. I remained at bedside and gave 1gm calcium chloride, 2 gm calcium gluconate, insulin, d50, kayexalate and started a dobutamine drip and titrated up to 20 mcg/kg/min until her HR improved to 70s. Also severely hypertensive with sbp > 220. given 10mg iv hydralazine with improvement. cardiology consulted and will evaluate. SUBJECTIVE: 12/16: Resting in bed on 2L NC in NAD. HR 90s. Retaining urine. Objective Vital Signs Date Time Temp Pulse Resp B/P (MAP) Pulse Ox O2 Delivery O2 Flow Rate FiO2 12/16/17 03:00 98.7 96 16 131/64 (86) 95 12/16/17 03:00 Nasal Cannula 2.00 12/15/17 09:20 Intake and Output 12/16/17 12/16/17 12/17/17 08:00 16:00 00:00 Intake Total 110 ml Balance 110 ml Result Diagram: 12/16/17 0330 12/16/17 0330 Imaging Last Impressions Head CT 12/15/17 0000 Signed Impressions: Service Date/Time: Friday, December 15, 2017 10:48 - CONCLUSION: Evidence of prior left frontal infarct. No acute abnormality seen.. Dai Frias MD Chest X-Ray 12/15/17 0000 Signed Impressions: Service Date/Time: Friday, December 15, 2017 07:58 - CONCLUSION: No acute disease. Dai Frias MD Objective Remarks gen: elderly female, in acute distress. actively dry heaving. heent: pupils 3mm, round, reactive. normocephalic. atraumatic.mucous membranes moist. neck: no jvd. trachea midline. chest: labored. tachypneic. 2L o2 by NC. cv: bradycardic rate in the 30s, irregular rhythm. appears atrial fibrillation by tele and EKG. hypertensive 220s/120s. abd: soft, nontender, nondistended. no guarding. extr: cool and poorly perfused. pulse is bradycardic but 2+ in all extremities. neuro: RASS 0. CAM -. follows commands. no focal deficits. Urinary Catheter: Yes Assessment to: Continue Ocampo insert reason: Prolonged Immobilization Vascular Central Line Catheter: No Assessment to: Continue A/P Assessment and Plan Assessment and Plan Neuro/psych: Dementia disorder NOS Depression anxiety Migraine headaches A left frontal CVA Continue memantine 5 mill grams daily Continue aripiprazole 2 mg by mouth daily Acetaminophen 650 mg every 6 hours when necessary fever Hydrocodone/acetaminophen 10/325 one tablet every 6 hours when necessary pain 1 through 10 CV: Atrial fibrillation/low Bradycardia Hypertension Dyslipidemia CHADS-VASc score is 5. Needs VKA management, however noncompliant. personal care worker consulted for compliance Cardiology/Dr. Mercer following Currently on diltiazem at 240 mg by mouth daily Echocardiogram 02/24 revealed EF 55-60%. SHEBA 41 mmHg. Mild TR/MR. Continue lovastatin 40 mg by mouth daily/hospital substitution is pravastatin Continue fenofibrate 160 mg by mouth daily Continue ezetimibe 10 mg by mouth daily Amiodarone 200 mg by mouth daily on hold Resp: History of COPD/asthma with restrictive PFTs Nasal cannula to maintain saturations greater than or equal to 92% Incentive spirometry while awake As needed albuterol/ipratropium aerosols every 2 hours GI: Gastroesophageal reflux disease Elevated transaminases History of hepatitis C unknown genotype unknown treatment History of tubular adenoma Heart healthy diet Currently on pantoprazole 40 mg by mouth daily/omeprazole 30 mg by mouth daily at home Docusate sodium/senna 1 tablet by mouth twice a day for bowel regimen Check liver ultrasound in a.m. if liver function tests do not resolve. Check ammonia level in a.m. : Urge incontinence On with solifenacin 5 mg daily at home Currently on tolterodine 2 mg by mouth daily Endo: Diabetes mellitus Sliding-scale insulin with Accu-Cheks to maintain euglycemia/novulog medium regimen Renal: Acute kidney injury Renal ultrasound/urine electrolytes and eosinophils pending Currently normal saline at 42 cc an hour. Recheck BMP in a.m. Heme: Leukocytosis Chronic warfarin use History of left RCC Warfarin 4 mg by mouth daily. Daily PT/INR. Pharmacy consultation. personal care worker consultation for compliance. Monitor CBC daily. Follow trends On iron sulfate 325 mg by mouth daily ID: HIV Follow up patient. Currently not onmedications Monitor for infection FEN: Hyperkalemia Calcium gluconate 1 g, D 50/insulin, Kayexalate 15 g 1. Recheck potassium in 3 hours MSK: Osteoarthritis History of right femoral artery/vein pseudoaneurysm PT evaluate and treat. Twin Morris MD Dec 16, 2017 06:28
[2017-12-16] MEDS ORDERED: PROCHLORPERAZINE INJ 10 MG/2 ML VIAL IV PUSH PRN (06:30)
[2017-12-16] MEDS ORDERED: RESP: ALBUTEROL 2.5 MG/3 ML NEB (PRN) NEB (06:30)
[2017-12-16] MEDS ORDERED: NITROGLYCERIN 2% OINT 1 GM PACKET TOPICAL PRN (06:45)
[2017-12-16] MEDS ORDERED: hydrALAZINE HCL 20 MG/ML VIAL IV PUSH PRN (06:45)
[2017-12-16] MEDS ORDERED: DO NOT ADM ANY ANTICOAGULANT DRUGS OTHER PRN (07:00)
--- NOTE | 2017-12-16 07:15 | HHI.CCPN ---
Subjective Remarks/Hospital Course 76yF with history of atrial fibrillation and 2 prior admissions for symptomatic bradycardia who presents with 3 days of weakness and fatigue. found in the ER to be in afib with severe bradycardia, HR in the 30s, not responsive to atropine or glucagon. takes diltiazem at home and when off her AVN blockade, goes quickly into RVR on prior admissions. Also evidence of cardiogenic shock with lactate 2.9, Cr 2.7, K 7.3, co2 16.7. trop negative. subjectively nauseated and vomiting. endorses significant SOB and fatigue going x 3 days. denies chest pain. I remained at bedside and gave 1gm calcium chloride, 2 gm calcium gluconate, insulin, d50, kayexalate and started a dobutamine drip and titrated up to 20 mcg/kg/min until her HR improved to 70s. Also severely hypertensive with sbp > 220. given 10mg iv hydralazine with improvement. cardiology consulted and will evaluate. SUBJECTIVE: 12/16: Resting in bed on 2L NC in NAD. HR c currently in the 60s-90s. Off dobutamine.. Requesting chocolate shake. Retaining urine. Objective Vital Signs Date Time Temp Pulse Resp B/P (MAP) Pulse Ox O2 Delivery O2 Flow Rate FiO2 12/16/17 03:00 68 12/16/17 03:00 98.7 16 131/64 (86) 95 12/16/17 03:00 Nasal Cannula 2.00 12/15/17 09:20 Intake and Output 12/16/17 12/16/17 12/17/17 08:00 16:00 00:00 Intake Total 570 ml Output Total 0 ml Balance 570 ml Result Diagram: 12/16/17 0330 12/16/17 0330 Imaging Last Impressions Head CT 12/15/17 0000 Signed Impressions: Service Date/Time: Friday, December 15, 2017 10:48 - CONCLUSION: Evidence of prior left frontal infarct. No acute abnormality seen.. Dai Frias MD Chest X-Ray 12/15/17 0000 Signed Impressions: Service Date/Time: Friday, December 15, 2017 07:58 - CONCLUSION: No acute disease. Dai Frias MD Objective Remarks gen: 76-year-old female resting in bed in no acute distress on nasal cannula heent: pupils 3mm, round, reactive. normocephalic. atraumatic.mucous membranes moist and pink. Oropharynx without erythema or exudate. neck: no jvd. trachea midline. chest: Symmetrical excursion. Diminished throughout. No wheezing appreciated cv: Currently in a normal sinus rhythm. S1, S2. No S4. Without murmur abd: soft, nontender, nondistended. Hypoactive bowel sounds appreciated. extr: Warm and well-perfused. No significant peripheral edema neuro: Cranial nerves II through XII grossly intact. Strength is equal symmetric. Normal sensation. Urinary Catheter: Yes Assessment to: Continue Ocampo insert reason: Prolonged Immobilization Vascular Central Line Catheter: No Assessment to: Continue A/P Assessment and Plan Assessment and Plan Neuro/Psych: Dementia disorder NOS Depression anxiety Schizophrenia disorder NOS Bipolar disorder NOS Migraine headaches History of left frontal CVA Continue memantine 5 mill grams daily Continue bupropion 150 mg p.o. daily Holding Suvorexant 10 mg daily. Acetaminophen 650 mg every 6 hours when necessary fever Hydrocodone/acetaminophen 5/325 one tablet every 6 hours when necessary pain 1 through 10 CV: Paroxysmal atrial fibrillation currently normal sinus rhythm Bradycardia currently normal sinus rhythm Hypertension Dyslipidemia CHADS-VASc score is 5. Needs VKA management, however noncompliant. 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 INR 1.4 admission Cardiology/Dr. Mercer following Holding home medications of metoprolol tartrate 25 mg daily, diltiazem 240 mg daily with bradycardia Previous history of bradycardia on amiodarone Holding home medication lisinopril 10 mg daily with acute kidney injury As needed hydralazine/Nitropaste for hypertension Echocardiogram 02/24 revealed EF 55-60%. SHEBA 41 mmHg. Mild TR/MR. Continue atorvastatin 40 mg p.o. daily/home medication Continue ezetimibe 10 mg by mouth daily Resp: History of COPD/asthma with restrictive PFTs Nasal cannula to maintain saturations greater than or equal to 92% Incentive spirometry while awake Scheduled albuterol/ipratropium aerosols every 6 hours with albuterol aerosols every 2 hours as needed dyspnea Chest x-ray 12/25 revealed no acute cardiopulmonary findings GI: Gastroesophageal reflux disease Hypoalbuminemia History of hepatitis C unknown genotype unknown treatment History of tubular adenoma Heart healthy diet Currently on pantoprazole 40 mg by mouth daily/esomeprazole 20 mg by mouth daily at home Docusate sodium/senna 1 tablet by mouth twice a day for bowel regimen : Urge incontinence/retention Currently on no medications Place Ocampo catheter Endo: Diabetes mellitus Sliding-scale insulin with Accu-Cheks to maintain euglycemia/novulog medium regimen Renal: Acute kidney injury Renal ultrasound/urine electrolytes and eosinophils pending Recheck BMP in a.m. Creatinine 2.7 admission. Currently 2.28 Avoid nephrotoxic drugs Heme: Normocytic anemia Chronic warfarin use History of left RCC/clear cell Warfarin 3 mg by mouth daily. Daily PT/INR. Monitor CBC daily. Follow trends On iron sulfate 325 mg by mouth daily ID: HIV Follow up patient. Currently not on medications Monitor for infection FEN: Hyperkalemia Received multiple dosages of hyperkalemia protocol. Currently 5.1 MSK: Osteoarthritis History of right femoral artery/vein pseudoaneurysm PT evaluate and treat. Continue vitamin B 12/B6 Access -Utilize peripheral IV. Central line if indicated Prophylaxis -GI -PPI ordered. -DVT -SCD/warfarin Level 2 follow-up Twin Morris MD Dec 16, 2017 07:15
[2017-12-16] MEDS ORDERED: DEXTROSE 50% IN WATER 50 ML VIAL(D50) IV PUSH PRN (07:30)
[2017-12-16] MEDS ORDERED: GLUCAGON 1 MG/ML VIAL OTHER PRN (07:30)
[2017-12-16] MEDS ORDERED: ACETAMINOPHEN 325 MG TAB PO PRN (07:30)
[2017-12-16] MEDS ORDERED: ACETAMINOPHEN/HYDROcodone 325 MG/5 MG TAB PO PRN (07:30)
[2017-12-16 08:49] LABS: INTERNATIONAL NORMALIZED RATIO 1.4 RATIO; PROTHROMBIN TIME - PATIENT 14.5 SEC (9.8-11.6)
[2017-12-16] MEDS: RESP: ALBUTEROL 2.5 MG/IPRATROPIUM 0.5 MG NEB (SCH) NEB ×3 (09:08→19:46)
[2017-12-16] MEDS: MEMANTINE HCL 10 MG TAB PO SCH ×2 (09:32→21:37)
[2017-12-16] MEDS: PANTOPRAZOLE SOD 20 MG DELAYED RELEASE TAB PO SCH (09:32)
[2017-12-16] MEDS: EZETIMIBE 10 MG TAB PO SCH (09:32)
[2017-12-16] MEDS: INSULIN ASPART SUPPLEMENTAL SCALE SQ SCH ×4 (09:32→21:00)
[2017-12-16] MEDS: FERROUS SULFATE 325 MG (65 MG ELEMENTAL IRON) TAB PO SCH (09:32)
[2017-12-16] MEDS: PYRIDOXINE HCL 50 MG TAB PO SCH (10:01)
[2017-12-16] MEDS: CYANOCOBALAMIN 1,000 MCG TAB PO SCH (10:02)
[2017-12-16] MEDS: buPROPion HCL 150 MG SUSTAINED RELEASE TAB PO SCH (10:02)
[2017-12-16] MEDS ORDERED: DIGOXIN 0.5 MG/2 ML VIAL IV PUSH ONE (11:00)
[2017-12-16 11:57] LABS: CREATININE, RANDOM URINE 43.4 MG/DL
--- NOTE | 2017-12-16 13:13 | PD.CARD.PN ---
Subjective Subjective Remarks Overall feels better Still having episodes of bradycardia into the 40s and AFib with RVR Currently Afib with HRs of 110-130 Objective Medications Current Medications Medications (Trade) Dose Ordered Sig/Brandon Route Start Time Stop Time Status Last Admin (Zofran Inj) 4 mg Q6H PRN IV PUSH 12/15/17 09:00 12/15/17 21:43 (Heparin Inj) 5,000 units Q8H SQ 12/15/17 09:00 Future Hold Miscellaneous Information 1 Q361D XX 12/15/17 09:00 12/15/17 09:00 (Chlorhexidine 2% Cloth) 3 pack Taper DAILY@04 TOP 12/16/17 04:00 12/12/18 03:59 (Chlorhexidine 2% Cloth) 3 pack UNSCH PRN TOP 12/15/17 09:00 (Pill Splitter) 1 ea UNSCH PRN OTHER 12/15/17 09:45 Dobutamine HCl/ Dextrose 250 ml @ 78 mls/hr Q3H13M IV 12/15/17 10:30 Future Hold 12/15/17 13:43 (Melatonin) 5 mg HS PO 12/15/17 21:00 12/15/17 21:42 (ZyPREXA ZYDIS ODT) 5 mg Q24H PRN PO 12/15/17 23:00 (Duoneb Neb) 1 ampule Q6HR NEB NEB 12/16/17 10:00 12/16/17 09:08 (Albuterol Neb) 2.5 mg Q2HR NEB PRN NEB 12/16/17 06:30 (Compazine Inj) 5 mg Q6H PRN IV PUSH 12/16/17 06:30 (Lipitor) 40 mg HS PO 12/16/17 21:00 (Vitamin B12) 500 mcg DAILY PO 12/16/17 09:00 12/16/17 10:02 (Zetia) 10 mg DAILY PO 12/16/17 09:00 12/16/17 09:32 (Ferrous Sulfate) 325 mg DAILY PO 12/16/17 09:00 12/16/17 09:32 (Namenda) 10 mg BID PO 12/16/17 09:00 12/16/17 09:32 (Vitamin B6) 100 mg DAILY PO 12/16/17 09:00 4/8/18 10:01 (Coumadin) 3 mg DAILY@1600 PO 12/16/17 16:00 (Protonix) 20 mg DAILY PO 12/16/17 09:00 12/16/17 09:32 (Apresoline Inj) 10 mg Q1HR PRN IV PUSH 12/16/17 06:45 (Nitroglycerin 2% Oint) 2 inch Q6HR PRN TOPICAL 12/16/17 06:45 Miscellaneous Information ALL NURSING DEPARTME... UNSCH PRN OTHER 12/16/17 07:00 12/17/17 06:59 (Coumadin Booklet) 1 ONCE ONCE OTHER 12/16/17 16:00 12/16/17 16:01 (Wellbutrin Sr) 150 mg DAILY PO 12/16/17 09:00 12/16/17 10:02 (D50w (Vial) Inj) 50 ml UNSCH PRN IV PUSH 12/16/17 07:30 (Glucagon Inj) 1 mg UNSCH PRN OTHER 12/16/17 07:30 (NovoLOG SUPPLEMENTAL SCALE) 1 ACHS SLIDING SCALE SQ 12/16/17 08:00 12/16/17 09:32 (Tylenol) 650 mg Q6H PRN PO 12/16/17 07:30 ([place] 5-325 Mg) 1 tab Q4H PRN PO 12/16/17 07:30 (Imodium Liq) 2 mg UNSCH PRN PO 12/16/17 07:30 Vital Signs / I&O Vital Signs Date Time Temp Pulse Resp B/P (MAP) Pulse Ox O2 Delivery O2 Flow Rate FiO2 12/16/17 11:00 98.2 129 16 124/87 (99) 97 12/16/17 11:00 116 12/16/17 09:08 97 Nasal Cannula 2.00 12/16/17 07:00 96 Nasal Cannula 2.00 12/16/17 07:00 98.3 65 16 134/76 (95) 96 12/16/17 07:00 65 12/16/17 03:00 68 12/16/17 03:00 98.7 96 16 131/64 (86) 95 12/16/17 03:00 96 Nasal Cannula 2.00 12/16/17 00:00 95 Nasal Cannula 2.00 12/15/17 23:00 78 12/15/17 23:00 99.3 52 16 123/68 (86) 95 12/15/17 20:00 97 Nasal Cannula 2.00 12/15/17 20:00 98.8 54 14 107/68 (81) 97 12/15/17 19:21 95 Nasal Cannula 2.00 12/15/17 19:00 53 12/15/17 16:00 88 119/57 12/15/17 15:22 99 Nasal Cannula 2.00 12/15/17 15:00 101 12/15/17 15:00 97.9 101 24 154/62 (92) 97 12/15/17 15:00 97 Nasal Cannula 2.00 12/15/17 13:43 100 166/65 I/O 12/15/17 12/15/17 12/15/17 12/16/17 12/16/17 12/16/17 07:00 15:00 23:00 07:00 15:00 23:00 Intake Total 850 ml 518 ml 570 ml Output Total 1700 ml 0 ml Balance 850 ml -1182 ml 570 ml Intake Oral 460 ml IV Total 850 ml 518 ml 110 ml Output Urine Total 1700 ml 0 ml # Bowel Movements 0 Physical Exam GENERAL: NAD, AAOx3 SKIN: Warm and dry. HEAD: Atraumatic. Normocephalic. EYES: Pupils equal and round. No scleral icterus. No injection or drainage. ENT: No nasal bleeding or discharge. Mucous membranes pink and moist. NECK: Trachea midline. No JVD. CARDIOVASCULAR: Irregularly irregular RESPIRATORY: No accessory muscle use. Clear to auscultation. Breath sounds equal bilaterally. GASTROINTESTINAL: Abdomen soft, non-tender, nondistended. Hepatic and splenic margins not palpable. MUSCULOSKELETAL: Extremities without clubbing, cyanosis, or edema. No obvious deformities. NEUROLOGICAL: Awake and alert. No obvious cranial nerve deficits. Motor grossly within normal limits. Five out of 5 muscle strength in the arms and legs. Normal speech. PSYCHIATRIC: Appropriate mood and affect; insight and judgment normal. Laboratory Laboratory Tests Test 12/15/17 16:04 12/15/17 20:11 12/15/17 20:20 12/16/17 03:30 Lactic Acid Level 1.9 mmol/L Blood Urea Nitrogen 45 MG/DL 42 MG/DL Creatinine 2.30 MG/DL 2.28 MG/DL Random Glucose 78 MG/DL 75 MG/DL Calcium Level 9.0 MG/DL 8.9 MG/DL Sodium Level 137 MEQ/L 141 MEQ/L Potassium Level 6.5 MEQ/L 5.1 MEQ/L Chloride Level 111 MEQ/L 109 MEQ/L Carbon Dioxide Level 16.7 MEQ/L 21.9 MEQ/L Anion Gap 9 MEQ/L 10 MEQ/L Estimat Glomerular Filtration Rate 21 ML/MIN 21 ML/MIN Nasal Screen MRSA (PCR) MRSA NOT DETECTED White Blood Count 7.1 TH/MM3 Red Blood Count 4.14 MIL/MM3 Hemoglobin 11.0 GM/DL Hematocrit 33.3 % Mean Corpuscular Volume 80.5 FL Mean Corpuscular Hemoglobin 26.6 PG Mean Corpuscular Hemoglobin Concent 33.0 % Red Cell Distribution Width 14.6 % Platelet Count 259 TH/MM3 Mean Platelet Volume 7.5 FL Test 12/16/17 07:53 12/16/17 11:05 Prothrombin Time 14.5 SEC Prothromb Time International Ratio 1.4 RATIO Urine Eosinophils NONE SEEN /HPF Urine Random Creatinine 43.4 MG/DL Urine Random Sodium 96 MEQ/L Assessment and Plan Problem List: (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 Status: Acute (2) Atrial fibrillation ICD Codes: I48.91 - Unspecified atrial fibrillation Status: Acute (3) Symptomatic bradycardia ICD Codes: R00.1 - Bradycardia, unspecified Status: Acute (4) KARISSA (acute kidney injury) ICD Codes: N17.9 - Acute kidney failure, unspecified Status: Acute (5) Hyperkalemia ICD Codes: E87.5 - Hyperkalemia Status: Acute (6) Cardiogenic shock ICD Codes: R57.0 - Cardiogenic shock Status: Acute Assessment and Plan 1) Afib with RVR Plan to restart some meds for rate control Cardizem 30mg PO q6hrs 2) Symptomatic bradycardia Dobutamine drip stopped 3) Tachybrady syndrome Will have her evaluated by EP cardiology for further consideration of PPM 4) KARISSA Somewhat better [place] to be due to cardiogenic shock from significant bradycardia 5) Hyperkalemia Resolved Due to KARISSA Sreedhar Hicks DO Dec 16, 2017 13:13
[2017-12-16] MEDS: DILTIAZEM HCL 30 MG TAB PO SCH ×2 (13:57→17:26)
--- NOTE | 2017-12-16 15:59 | RADRPT ---
EXAM DATE/TIME: 12/16/2017 14:57 [facility] COMPARISON: No previous studies available for comparison. EXTERNAL COMPARISON : [facility], CT ABDOMEN & PEL[facility] & W[facility] August 11, 2016. [facility], US KIDNEY BILATERAL, June 07, 2015. INDICATIONS : Increased BUN/Creatinine. MEDICAL HISTORY : Hypercholesterolemia. Congestive heart failure. Alzheimer's. Migraines. Dementia. Diabetes. Cerebrova scular accident. Seizures. Anticoagulant therapy. Afib. Hypertension. COPD. Incontinence. Left renal carcinoma. Degenerative arthritis. Schizophrenia. Bipolar disorder. Depression. Anxiety. HIV. Hepati tis C. Blood transfusion. SURGICAL HISTORY : Tonsillectomy. Hysterectomy. Appendectomy. Right hip replacement. ENCOUNTER: Subsequent ACUITY: 1 day PAIN SCORE: 1/10 LOCATION: Bilateral flank MEASUREMENTS: RIGHT KIDNEY: 10.4 x 5.0 x 4.9 cm LEFT KIDNEY: 9.4 x 5.7 x 5.7 cm FINDINGS: Right kidney contains 2 cysts measuring up to 1.7 cm and 2.1 cm in the lower pole. Left kidney has a 3 cm solid mass in the lower pole recently treated with cryoablation in August 2017. No hydronephro sis. Bladder decompressed. CONCLUSION: 1. 3 cm solid mass left kidney recently treated with cryoablation. Small cyst right kidney. No hydron ephrosis. Jose L Bridges MD on December 16, 2017 at 15:53 Board Certified Radiologist. This report was verified electronically.
--- NOTE | 2017-12-16 16:05 | EKG ---
Date Performed: 12/15/2017 Time Performed: 07:53:07 PTAGE: 76 years EKG: JUNCTIONAL BRADYCARDIA SMALL INFERIOR Q WAVES OF UNDETERMINED SIGNIFICANCE Clinical correla tion is recommended Compared to previous tracing, HR has decreased from 63 to 32. The T wave changes seen previously have improved. Small inferior Q waves persist ABNORMAL RHYTHM ECG PREVIOUS TRACING : 05/11/2017 10.11 DOCTOR: Syd Okeefe Interpretating Date/Time 12/16/2017 16:03:59
[2017-12-16] MEDS: WARFARIN SOD 3 MG TAB PO SCH (16:06)
[2017-12-16] MEDS: LOPERAMIDE HCL SOLN 2 MG/10 ML UDC PO PRN ×2 (16:24→21:50)
[2017-12-16] MEDS: MELATONIN 5 MG TAB PO SCH (21:37)
[2017-12-16] MEDS: ATORVASTATIN 40 MG TAB PO SCH (21:37)
[2017-12-17] VITALS (11 sets, daily range): BP systolic 95–127; BP diastolic 54–89; PULSE 44–123; RESP 16–18; TEMP 98.4–99.2; O2SAT 95–100
[2017-12-17] MEDS: DILTIAZEM HCL 30 MG TAB PO SCH ×4 (00:16→18:00)
[2017-12-17] MEDS: ONDANSETRON HCL 4 MG/2 ML VIAL IV PUSH PRN (00:16)
[2017-12-17] MEDS: RESP: ALBUTEROL 2.5 MG/IPRATROPIUM 0.5 MG NEB (SCH) NEB ×4 (03:21→21:44)
[2017-12-17] MEDS: CHLORHEXIDINE GLUCONATE 2 % 1 PACK (2 CLOTHS) TOP SCH (04:00)
[2017-12-17 04:02] LABS: AUTOMATED NEUTROPHIL # 5.3 TH/MM3 (1.8-7.7); BASOPHIL % 0.4 % (0.0-2.0); EOSINOPHIL # 0.2 TH/MM3 (0-0.4); EOSINOPHIL % 2.2 % (0.0-4.0); HEMOGLOBIN 11.8 GM/DL (11.6-15.3); LYMPH % 21.2 % (9.0-44.0); LYMPHOCYTE # 1.6 TH/MM3 (1.0-4.8); MEAN CELL VOLUME 82.2 FL (80.0-100.0); MEAN CORPUSCULAR HEMOGLOBIN 26.8 PG (27.0-34.0); MEAN CORPUSCULAR HGB CONC 32.7 % (32.0-36.0); MEAN PLATELET VOLUME 7.4 FL (7.0-11.0); MONO % 7.6 % (0.0-8.0); MONOCYTE # 0.6 TH/MM3 (0-0.9); NEUT % 68.6 % (16.0-70.0); PLATELET COUNT 256 TH/MM3 (150-450); RED BLOOD COUNT 4.38 MIL/MM3 (4.00-5.30); RED CELL DISTRIBUTION WIDTH 14.3 % (11.6-17.2); WHITE BLOOD COUNT 7.7 TH/MM3 (4.0-11.0)
[2017-12-17 04:29] LABS: INTERNATIONAL NORMALIZED RATIO 1.4 RATIO; PROTHROMBIN TIME - PATIENT 14.6 SEC (9.8-11.6)
[2017-12-17 04:30] LABS: ALBUMIN 2.7 GM/DL (3.4-5.0); ALKALINE PHOSPHATASE 162 U/L (45-117); ALT (GPT) 27 U/L (10-53); AST (GOT) 28 U/L (15-37); BICARBONATE 21.8 MEQ/L (21.0-32.0); BLOOD UREA NITROGEN 24 MG/DL (7-18); CALCIUM 8.5 MG/DL (8.5-10.1); CHLORIDE 109 MEQ/L (98-107); CREATININE 1.54 MG/DL (0.50-1.00); GLOMERULAR FILTRATION RATE 33 ML/MIN (>89); GLUCOSE,RANDOM 96 MG/DL (74-106); MAGNESIUM 1.7 MG/DL (1.5-2.5); PHOSPHORUS 3.7 MG/DL (2.5-4.9); SODIUM (NA) 141 MEQ/L (136-145); TOTAL BILIRUBIN ADULT 0.5 MG/DL (0.2-1.0); TOTAL PROTEIN 6.7 GM/DL (6.4-8.2)
--- NOTE | 2017-12-17 07:41 | HHI.CCPN ---
Subjective Remarks/Hospital Course 76yF with history of atrial fibrillation and 2 prior admissions for symptomatic bradycardia who presents with 3 days of weakness and fatigue. found in the ER to be in afib with severe bradycardia, HR in the 30s, not responsive to atropine or glucagon. takes diltiazem at home and when off her AVN blockade, goes quickly into RVR on prior admissions. Also evidence of cardiogenic shock with lactate 2.9, Cr 2.7, K 7.3, co2 16.7. trop negative. subjectively nauseated and vomiting. endorses significant SOB and fatigue going x 3 days. denies chest pain. I remained at bedside and gave 1gm calcium chloride, 2 gm calcium gluconate, insulin, d50, kayexalate and started a dobutamine drip and titrated up to 20 mcg/kg/min until her HR improved to 70s. Also severely hypertensive with sbp > 220. given 10mg iv hydralazine with improvement. cardiology consulted and will evaluate. 12/16: Resting in bed on 2L NC in NAD. HR c currently in the 60s-90s. Off dobutamine.. Requesting chocolate shake. Retaining urine. SUBJECTIVE: 12/17: Resting in bed on nasal cannula in no acute distress. Heart rate in A. fib up to 120s yesterday. Started on diltiazem 30 mg p.o. every 6 hours per cardiology. Received 1 dose of digoxin up to 5 mg IV 1. Receiving 2 g of magnesium sulfate. Denies headache, shortness of breath or palpitations currently. Objective Vital Signs Date Time Temp Pulse Resp B/P (MAP) Pulse Ox O2 Delivery O2 Flow Rate FiO2 12/17/17 06:24 95 Nasal Cannula 2.00 12/17/17 03:00 98.7 110 16 95/54 (68) 12/15/17 09:20 Intake and Output 12/17/17 12/17/17 12/18/17 08:00 16:00 00:00 Intake Total 630 ml Output Total 1425 ml Balance -795 ml Result Diagram: 12/17/17 0329 12/17/17 0329 Imaging Last Impressions Renal Ultrasound 12/16/17 0000 Signed Impressions: Service Date/Time: Saturday, December 16, 2017 14:57 - CONCLUSION: 1. 3 cm solid mass left kidney recently treated with cryoablation. Small cyst right kidney. No hydronephrosis. Jose L Bridges MD Head CT 12/15/17 0000 Signed Impressions: Service Date/Time: Friday, December 15, 2017 10:48 - CONCLUSION: Evidence of prior left frontal infarct. No acute abnormality seen.. Dai Frias MD Chest X-Ray 12/15/17 0000 Signed Impressions: Service Date/Time: Friday, December 15, 2017 07:58 - CONCLUSION: No acute disease. Dai Frias MD Objective Remarks gen: 76-year-old female resting in bed in no acute distress on nasal cannula heent: pupils 3mm, round, reactive. normocephalic. atraumatic.mucous membranes moist and pink. Oropharynx without erythema or exudate. neck: no jvd. trachea midline. chest: Symmetrical excursion. Diminished throughout. No wheezing appreciated cv: Tachycardia, IR. S1, S2. No S4. Without murmur abd: soft, nontender, nondistended. Hypoactive bowel sounds appreciated. extr: Warm and well-perfused. No significant peripheral edema neuro: Cranial nerves II through XII grossly intact. Strength is equal symmetric. Normal sensation. Urinary Catheter: Yes Assessment to: Continue Ocampo insert reason: Prolonged Immobilization Vascular Central Line Catheter: No Assessment to: Continue A/P Assessment and Plan Neuro/Psych: Dementia disorder NOS Depression anxiety Schizophrenia disorder NOS Bipolar disorder NOS Migraine headaches History of left frontal CVA Continue memantine 5 milligrams daily Continue bupropion 150 mg p.o. daily Holding Suvorexant 10 mg daily. Acetaminophen 650 mg every 6 hours when necessary fever Hydrocodone/acetaminophen 5/325 one tablet every 6 hours when necessary pain 1 through 10 CV: Paroxysmal atrial fibrillation currently normal sinus rhythm Bradycardia currently normal sinus rhythm Hypertension Dyslipidemia CHADS-VASc score is 5. 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 INR 1.4 Cardiology/Dr. Hicks following Initially holding home medications of metoprolol tartrate 25 mg daily, diltiazem 240 mg daily with bradycardia Currently on diltiazem 30 mg p.o. every 6 hours. Received 1 dose digoxin with 0.25 mg IV 1 yesterday 12/16 Previous history of bradycardia on amiodarone Holding home medication lisinopril 10 mg daily with acute kidney injury As needed hydralazine/Nitropaste for hypertension Echocardiogram 02/24 revealed EF 55-60%. SHEBA 41 mmHg. Mild TR/MR. Continue atorvastatin 40 mg p.o. daily/home medication Continue ezetimibe 10 mg by mouth daily Resp: History of COPD/asthma with restrictive PFTs Nasal cannula to maintain saturations greater than or equal to 92% Incentive spirometry while awake Scheduled albuterol/ipratropium aerosols every 6 hours with albuterol aerosols every 2 hours as needed dyspnea Chest x-ray 12/15 revealed no acute cardiopulmonary findings GI: Gastroesophageal reflux disease Hypoalbuminemia History of hepatitis C unknown genotype unknown treatment History of tubular adenoma Heart healthy diet Currently on pantoprazole 40 mg by mouth daily/esomeprazole 20 mg by mouth daily at home Docusate sodium/senna 1 tablet by mouth twice a day for bowel regimen : Urge incontinence/retention Currently on no medications Place Ocampo catheter Endo: Diabetes mellitus Sliding-scale insulin with Accu-Cheks to maintain euglycemia/novulog medium regimen Renal: Acute kidney injury Renal ultrasound revealed ablated left renal mass 3 cm/renal cell carcinoma/ urine electrolytes and eosinophils negative Recheck BMP in a.m. Creatinine 2.7 admission. Currently 1.6 Avoid nephrotoxic drugs Heme: Normocytic anemia Chronic warfarin use History of left RCC/clear cell Warfarin 3 mg by mouth daily. Daily PT/INR. Monitor CBC daily. Follow trends On iron sulfate 325 mg by mouth daily ID: HIV Follow up patient. Currently not on medications Monitor for infection FEN: Hyperkalemia Received multiple dosages of hyperkalemia protocol. Currently 5.1 MSK: Osteoarthritis History of right femoral artery/vein pseudoaneurysm PT evaluate and treat. Continue vitamin B 12/B6 Access -Utilize peripheral IV. Central line if indicated Prophylaxis -GI -PPI ordered. -DVT -SCD/warfarin Level 2 follow-up Okay by Dr. Hicks to transfer to [facility]. Assign care to hospitalist in a.m. Twin Morris MD Dec 17, 2017 07:41
[2017-12-17] MEDS: INSULIN ASPART SUPPLEMENTAL SCALE SQ SCH ×4 (08:00→21:00)
[2017-12-17] MEDS: MAGNESIUM SULFATE 1 GM PREMIX 100 ML IV SCH ×2 (08:00→09:00)
[2017-12-17] MEDS ORDERED: HEPARIN-NS/PF FLUSH BAG 1,000 ML IV FLUSH ONE (09:15)
[2017-12-17] MEDS ORDERED: HEPARIN SODIUM - IV 10,000 UNITS/10 ML VIAL ONE (09:15)
[2017-12-17] MEDS: PYRIDOXINE HCL 50 MG TAB PO SCH (13:48)
[2017-12-17] MEDS: EZETIMIBE 10 MG TAB PO SCH (13:48)
[2017-12-17] MEDS: buPROPion HCL 150 MG SUSTAINED RELEASE TAB PO SCH (13:48)
[2017-12-17] MEDS: FERROUS SULFATE 325 MG (65 MG ELEMENTAL IRON) TAB PO SCH (13:48)
[2017-12-17] MEDS: MEMANTINE HCL 10 MG TAB PO SCH ×2 (13:48→21:34)
[2017-12-17] MEDS: PANTOPRAZOLE SOD 20 MG DELAYED RELEASE TAB PO SCH (13:49)
[2017-12-17] MEDS: CYANOCOBALAMIN 1,000 MCG TAB PO SCH (13:49)
[2017-12-17] MEDS ORDERED: MAGNESIUM SULFATE 1 GM PREMIX 100 ML ONE (14:18)
--- NOTE | 2017-12-17 15:07 | PD.CARD.PN ---
Subjective Subjective Remarks Overall feels better Afib with RVR Objective Medications Current Medications Medications (Trade) Dose Ordered Sig/Brandon Route Start Time Stop Time Status Last Admin (Zofran Inj) 4 mg Q6H PRN IV PUSH 12/15/17 09:00 12/17/17 00:16 (Heparin Inj) 5,000 units Q8H SQ 12/15/17 09:00 Future Hold Miscellaneous Information 1 Q361D XX 12/15/17 09:00 12/15/17 09:00 (Chlorhexidine 2% Cloth) 3 pack Taper DAILY@04 TOP 12/16/17 04:00 12/12/18 03:59 12/17/17 04:00 (Chlorhexidine 2% Cloth) 3 pack UNSCH PRN TOP 12/15/17 09:00 (Pill Splitter) 1 ea UNSCH PRN OTHER 12/15/17 09:45 Dobutamine HCl/ Dextrose 250 ml @ 78 mls/hr Q3H13M IV 12/15/17 10:30 Future Hold 12/15/17 13:43 (Melatonin) 5 mg HS PO 12/15/17 21:00 12/16/17 21:37 (ZyPREXA ZYDIS ODT) 5 mg Q24H PRN PO 12/15/17 23:00 (Duoneb Neb) 1 ampule Q6HR NEB NEB 12/16/17 10:00 12/17/17 08:55 (Albuterol Neb) 2.5 mg Q2HR NEB PRN NEB 12/16/17 06:30 (Compazine Inj) 5 mg Q6H PRN IV PUSH 12/16/17 06:30 (Lipitor) 40 mg HS PO 12/16/17 21:00 12/16/17 21:37 (Vitamin B12) 500 mcg DAILY PO 12/16/17 09:00 12/17/17 13:49 (Zetia) 10 mg DAILY PO 12/16/17 09:00 12/17/17 13:48 (Ferrous Sulfate) 325 mg DAILY PO 12/16/17 09:00 12/17/17 13:48 (Namenda) 10 mg BID PO 12/16/17 09:00 12/17/17 13:48 (Vitamin B6) 100 mg DAILY PO 12/16/17 09:00 12/17/17 13:48 (Coumadin) 3 mg DAILY@1600 PO 12/16/17 16:00 12/16/17 16:06 (Protonix) 20 mg DAILY PO 12/16/17 09:00 12/17/17 13:49 (Apresoline Inj) 10 mg Q1HR PRN IV PUSH 12/16/17 06:45 (Nitroglycerin 2% Oint) 2 inch Q6HR PRN TOPICAL 12/16/17 06:45 (Wellbutrin Sr) 150 mg DAILY PO 12/16/17 09:00 12/17/17 13:48 (D50w (Vial) Inj) 50 ml UNSCH PRN IV PUSH 12/16/17 07:30 (Glucagon Inj) 1 mg UNSCH PRN OTHER 12/16/17 07:30 (NovoLOG SUPPLEMENTAL SCALE) 1 ACHS SLIDING SCALE SQ 12/16/17 08:00 12/16/17 12:00 (Tylenol) 650 mg Q6H PRN PO 12/16/17 07:30 ([place] 5-325 Mg) 1 tab Q4H PRN PO 12/16/17 07:30 (Imodium Liq) 2 mg UNSCH PRN PO 12/16/17 07:30 12/16/17 21:50 (Cardizem) 30 mg Q6HR PO 12/16/17 13:15 12/17/17 13:48 Vital Signs / I&O Vital Signs Date Time Temp Pulse Resp B/P (MAP) Pulse Ox O2 Delivery O2 Flow Rate FiO2 12/17/17 12:00 98.7 116 18 127/89 (102) 95 12/17/17 12:00 95 Nasal Cannula 2.00 12/17/17 12:00 123 12/17/17 08:59 98 Nasal Cannula 2.00 12/17/17 07:00 96 Nasal Cannula 2.00 12/17/17 07:00 99 12/17/17 07:00 98.4 101 18 119/88 (98) 96 12/17/17 06:24 95 Nasal Cannula 2.00 12/17/17 03:00 96 Nasal Cannula 2.00 12/17/17 03:00 98.7 110 16 95/54 (68) 95 12/17/17 03:00 96 12/16/17 23:18 95 Nasal Cannula 2.00 4/8/18 23:00 98.2 87 16 106/75 (85) 96 12/16/17 23:00 118 12/16/17 20:00 98.8 97 16 107/69 (82) 95 12/16/17 20:00 95 Nasal Cannula 2.00 12/16/17 19:49 97 Nasal Cannula 2.00 12/16/17 19:00 118 12/16/17 15:06 97 Nasal Cannula 2.00 12/16/17 15:05 98.2 120 18 142/81 (101) 97 12/16/17 15:05 120 I/O 12/16/17 12/16/17 12/16/17 12/17/17 12/17/17 12/17/17 07:00 15:00 23:00 07:00 15:00 23:00 Intake Total 570 ml 1300 ml 630 ml 100 ml Output Total 0 ml 1745 ml 1425 ml Balance 570 ml -445 ml -795 ml 100 ml Intake Oral 460 ml 1300 ml 630 ml IV Total 110 ml 100 ml Output Urine Total 0 ml 1745 ml 1425 ml # Bowel Movements 0 2 2 Physical Exam GENERAL: NAD, AAOx3 SKIN: Warm and dry. HEAD: Atraumatic. Normocephalic. EYES: Pupils equal and round. No scleral icterus. No injection or drainage. ENT: No nasal bleeding or discharge. Mucous membranes pink and moist. NECK: Trachea midline. No JVD. CARDIOVASCULAR: Irregularly irregular RESPIRATORY: No accessory muscle use. Clear to auscultation. Breath sounds equal bilaterally. GASTROINTESTINAL: Abdomen soft, non-tender, nondistended. Hepatic and splenic margins not palpable. MUSCULOSKELETAL: Extremities without clubbing, cyanosis, or edema. No obvious deformities. NEUROLOGICAL: Awake and alert. No obvious cranial nerve deficits. Motor grossly within normal limits. Five out of 5 muscle strength in the arms and legs. Normal speech. PSYCHIATRIC: Appropriate mood and affect; insight and judgment normal. Laboratory Laboratory Tests Test 12/17/17 03:29 White Blood Count 7.7 TH/MM3 Red Blood Count 4.38 MIL/MM3 Hemoglobin 11.8 GM/DL Hematocrit 36.0 % Mean Corpuscular Volume 82.2 FL Mean Corpuscular Hemoglobin 26.8 PG Mean Corpuscular Hemoglobin Concent 32.7 % Red Cell Distribution Width 14.3 % Platelet Count 256 TH/MM3 Mean Platelet Volume 7.4 FL Neutrophils (%) (Auto) 68.6 % Lymphocytes (%) (Auto) 21.2 % Monocytes (%) (Auto) 7.6 % Eosinophils (%) (Auto) 2.2 % Basophils (%) (Auto) 0.4 % Neutrophils # (Auto) 5.3 TH/MM3 Lymphocytes # (Auto) 1.6 TH/MM3 Monocytes # (Auto) 0.6 TH/MM3 Eosinophils # (Auto) 0.2 TH/MM3 Basophils # (Auto) 0.0 TH/MM3 CBC Comment DIFF FINAL Differential Comment Prothrombin Time 14.6 SEC Prothromb Time International Ratio 1.4 RATIO Blood Urea Nitrogen 24 MG/DL Creatinine 1.54 MG/DL Random Glucose 96 MG/DL Total Protein 6.7 GM/DL Albumin 2.7 GM/DL Calcium Level 8.5 MG/DL Phosphorus Level 3.7 MG/DL Magnesium Level 1.7 MG/DL Alkaline Phosphatase 162 U/L Aspartate Amino Transf (AST/SGOT) 28 U/L Alanine Aminotransferase (ALT/SGPT) 27 U/L Total Bilirubin 0.5 MG/DL Sodium Level 141 MEQ/L Potassium Level 5.1 MEQ/L Chloride Level 109 MEQ/L Carbon Dioxide Level 21.8 MEQ/L Anion Gap 10 MEQ/L Estimat Glomerular Filtration Rate 33 ML/MIN Assessment and Plan Problem List: (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 Status: Acute (2) Atrial fibrillation ICD Codes: I48.91 - Unspecified atrial fibrillation Status: Acute (3) Symptomatic bradycardia ICD Codes: R00.1 - Bradycardia, unspecified Status: Acute (4) KARISSA (acute kidney injury) ICD Codes: N17.9 - Acute kidney failure, unspecified Status: Acute (5) Hyperkalemia ICD Codes: E87.5 - Hyperkalemia Status: Acute (6) Cardiogenic shock ICD Codes: R57.0 - Cardiogenic shock Status: Acute Assessment and Plan 1) Afib with RVR Plan to restart some meds for rate control Will increase meds to try to help rate control 2) Symptomatic bradycardia Dobutamine drip stopped 3) Tachybrady syndrome Will have her evaluated by EP cardiology for further consideration of PPM 4) KARISSA Better [place] to be due to cardiogenic shock from significant bradycardia 5) Hyperkalemia Resolved Due to KARISSA 6) Will defer to Dr. Fuentes for further management Sreedhar Hicks DO Dec 17, 2017 15:07
[2017-12-17] MEDS ORDERED: DILTIAZEM HCL 30 MG TAB PO ONE (15:15)
[2017-12-17] MEDS: WARFARIN SOD 3 MG TAB PO SCH (16:45)
[2017-12-17] MEDS: MELATONIN 5 MG TAB PO SCH (21:34)
[2017-12-17] MEDS: ATORVASTATIN 40 MG TAB PO SCH (21:34)
--- NOTE | 2017-12-17 21:38 | EKG ---
Date Performed: 12/17/2017 Time Performed: 11:51:36 PTAGE: 76 years EKG: Possible atrial flutter with rapid ventricular response Inferior infarct - age undetermined Abnormal ECG Compared to prior electrocardiogram, atrial flutter and Nonspecific ST and T wave abnor malities are now present PREVIOUS TRACING : 12/15/2017 07.53 DOCTOR: Jayy Sanchez Interpretating Date/Time 12/17/2017 21:36:59
[2017-12-18] VITALS (26 sets, daily range): BP systolic 91–147; BP diastolic 44–98; PULSE 36–113; RESP 17–20; TEMP 98.1–99.2; O2SAT 94–100
[2017-12-18] MEDS: DILTIAZEM HCL 30 MG TAB PO SCH ×4 (00:17→17:12)
[2017-12-18] MEDS: RESP: ALBUTEROL 2.5 MG/IPRATROPIUM 0.5 MG NEB (SCH) NEB ×3 (03:20→21:03)
[2017-12-18] MEDS: CHLORHEXIDINE GLUCONATE 2 % 1 PACK (2 CLOTHS) TOP SCH (04:00)
[2017-12-18 04:50] LABS: HEMATOCRIT 34.2 % (35.0-46.0); HEMOGLOBIN 10.9 GM/DL (11.6-15.3); MEAN CELL VOLUME 82.1 FL (80.0-100.0); MEAN CORPUSCULAR HEMOGLOBIN 26.1 PG (27.0-34.0); MEAN CORPUSCULAR HGB CONC 31.8 % (32.0-36.0); MEAN PLATELET VOLUME 7.6 FL (7.0-11.0); PLATELET COUNT 285 TH/MM3 (150-450); RED BLOOD COUNT 4.16 MIL/MM3 (4.00-5.30); RED CELL DISTRIBUTION WIDTH 14.3 % (11.6-17.2); WHITE BLOOD COUNT 11.2 TH/MM3 (4.0-11.0)
[2017-12-18 05:05] LABS: INTERNATIONAL NORMALIZED RATIO 1.8 RATIO; PROTHROMBIN TIME - PATIENT 17.9 SEC (9.8-11.6)
[2017-12-18 05:17] LABS: ALBUMIN 2.6 GM/DL (3.4-5.0); BICARBONATE 20.1 MEQ/L (21.0-32.0); CALCIUM 8.1 MG/DL (8.5-10.1); CREATININE 2.5 MG/DL (0.50-1.00); DIRECT BILIRUBIN ADULT 0.2 MG/DL (0.0-0.2); MAGNESIUM 2.3 MG/DL (1.5-2.5)
[2017-12-18 05:21] LABS: INDIRECT BILIRUBIN 0.4 MG/DL (0.0-0.8); PHOSPHORUS 4.6 MG/DL (2.5-4.9); TOTAL BILIRUBIN ADULT 0.6 MG/DL (0.2-1.0); TOTAL PROTEIN 6.6 GM/DL (6.4-8.2)
[2017-12-18] MEDS ORDERED: CALCIUM GLUCONATE INJ 1 GM in SODIUM CHLORIDE 0.9% INJ 100 ML IV ONE (08:00)
[2017-12-18] MEDS: INSULIN ASPART SUPPLEMENTAL SCALE SQ SCH ×4 (08:00→21:00)
[2017-12-18] MEDS ORDERED: INSULIN REGULAR IV SCH (08:15)
[2017-12-18] MEDS ORDERED: RESP: ALBUTEROL CONC 2.5 MG/0.5 ML NEB INH ONE (08:15)
[2017-12-18] MEDS ORDERED: DEXTROSE 10% IV SCH (08:15)
[2017-12-18] MEDS ORDERED: INSULIN HUMAN REGULAR 1,000 UNITS/10 ML VIAL IV PUSH ONE (08:45)
[2017-12-18] MEDS ORDERED: DEXTROSE 50% IN WATER 50 ML VIAL(D50) IV PUSH ONE (08:45)
[2017-12-18] MEDS: FERROUS SULFATE 325 MG (65 MG ELEMENTAL IRON) TAB PO SCH (08:56)
[2017-12-18] MEDS: EZETIMIBE 10 MG TAB PO SCH (08:56)
[2017-12-18] MEDS: buPROPion HCL 150 MG SUSTAINED RELEASE TAB PO SCH (08:57)
[2017-12-18] MEDS: PANTOPRAZOLE SOD 20 MG DELAYED RELEASE TAB PO SCH (08:57)
[2017-12-18] MEDS: PYRIDOXINE HCL 50 MG TAB PO SCH (08:57)
[2017-12-18] MEDS: MEMANTINE HCL 10 MG TAB PO SCH ×2 (08:57→21:27)
[2017-12-18] MEDS: CYANOCOBALAMIN 1,000 MCG TAB PO SCH (08:57)
[2017-12-18] MEDS: SODIUM POLYSTYRENE SULFONATE SUSP 15 GM/60 ML CUP PO SCH ×4 (09:00→21:00)
[2017-12-18] MEDS: WARFARIN SOD 3 MG TAB PO SCH (16:28)
--- NOTE | 2017-12-18 19:29 | HHI.PR ---
Subjective Remarks Follow up for tachy-eduardo syndrome. Patient was seen earlier this morning. She is doing well. No CP, SOB, fever, chills. Later in the afternoon, when she went to the bathroom, she had a rectal prolapse. Nurses were able to push it back in except about quarter inch. Objective Vitals Vital Signs Date Time Temp Pulse Resp B/P (MAP) Pulse Ox O2 Delivery O2 Flow Rate FiO2 12/18/17 18:00 103 12/18/17 17:00 113 12/18/17 16:00 86 12/18/17 15:00 94 Nasal Cannula 3.00 12/18/17 15:00 79 12/18/17 15:00 98.2 98 20 147/52 (83) 94 12/18/17 14:00 79 12/18/17 13:25 110 12/18/17 12:00 91 12/18/17 11:00 79 12/18/17 11:00 98 Nasal Cannula 3.00 12/18/17 11:00 98.4 71 20 101/51 (68) 98 12/18/17 10:00 72 12/18/17 09:09 100 Nasal Cannula 2.00 12/18/17 09:00 60 12/18/17 08:00 48 12/18/17 07:15 42 12/18/17 07:15 97 Nasal Cannula 3.00 12/18/17 07:15 98.1 42 20 91/51 (64) 97 12/18/17 06:00 42 12/18/17 05:00 40 12/18/17 04:00 43 12/18/17 04:00 98.9 37 18 92/44 (60) 98 12/18/17 04:00 98 Nasal Cannula 3.00 12/18/17 03:00 36 12/18/17 02:00 38 12/18/17 01:00 42 12/18/17 00:00 41 12/18/17 00:00 97 Nasal Cannula 3.00 12/18/17 00:00 98.9 43 18 115/52 (73) 97 12/17/17 23:00 44 12/17/17 22:00 46 12/17/17 21:47 Nasal Cannula 3.00 12/17/17 21:00 45 12/17/17 20:00 98 Nasal Cannula 3.00 12/17/17 20:00 45 12/17/17 20:00 99.2 48 18 123/57 (79) 98 I/O 12/17/17 12/17/17 12/17/17 12/18/17 12/18/17 12/18/17 07:00 15:00 23:00 07:00 15:00 23:00 Intake Total 630 ml 100 ml 840 ml 480 ml 720 ml Output Total 1425 ml 850 ml 350 ml 350 ml Balance -795 ml 100 ml -10 ml 130 ml 370 ml Intake Oral 630 ml 840 ml 480 ml 720 ml IV Total 100 ml Output Urine Total 1425 ml 850 ml 350 ml 350 ml # Bowel Movements 2 0 0 2 Result Diagram: 12/18/17 0345 12/18/17 0345 Imaging Last Impressions Renal Ultrasound 12/16/17 0000 Signed Impressions: Service Date/Time: Saturday, December 16, 2017 14:57 - CONCLUSION: 1. 3 cm solid mass left kidney recently treated with cryoablation. Small cyst right kidney. No hydronephrosis. Jose L Bridges MD Head CT 12/15/17 0000 Signed Impressions: Service Date/Time: Friday, December 15, 2017 10:48 - CONCLUSION: Evidence of prior left frontal infarct. No acute abnormality seen.. Dai Frias MD Chest X-Ray 12/15/17 0000 Signed Impressions: Service Date/Time: Friday, December 15, 2017 07:58 - CONCLUSION: No acute disease. Dai Frias MD Objective Remarks GENERAL: Alert, Oriented x 3, NAD. SKIN: Warm and dry. HEAD: Normocephalic. EYES: No scleral icterus. No injection or drainage. NECK: Supple, trachea midline. No JVD or lymphadenopathy. CARDIOVASCULAR: Reg rhythm, bradycardic without murmurs, gallops, or rubs. RESPIRATORY: Breath sounds equal bilaterally. No accessory muscle use. GASTROINTESTINAL: Abdomen soft, non-tender, nondistended. MUSCULOSKELETAL: No cyanosis, or edema. BACK: Nontender without obvious deformity. No CVA tenderness. 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 Pryor is a pleasant 76 year old female with a history of Afib who was admitted to the hospital due to weakness, fatigue. She was admitted with KARISSA, hyperkalemia, symptomatic bradycardia. Patient was initially managed in the ICU where she received dobutamine drip. Cardiology was consulted for further eval. Cardiology recommended permanent pacemaker placement. Tachy-eduardo syndrome Atrial fibrillation - Cardiology following. EP will eval patient. Likely need PPM - Diltiazem 60mg Q6hrs with holding parameters. - Currently on Warfarin 3mg Qday. INR 1.8 on 12/18/2017. Acute kidney injury Hyperkalemia Baseline is probably below 2.0, currently 2.5 Potassium today is 5.9. Will give Kayexalate, Albuterol treatments as well as Regular insulin + D50. Check K+ this evening. Repeat BMP in the AM. Hyperlipidemia Dementia Continue statin, Memantine. Rectal prolapse - Call schedule says we should call General surgery. I called Dr. Kay who requested me to contact Colorectal surgery. I have been unable to contact Dr. Gaona from Colorectal surgery. I will place a CRS consult. Full code. Warfarin. INR 1.8. Discussed with Dr. Hicks (Cardiology). Frida Cosby DO Dec 18, 2017 19:29
[2017-12-18] MEDS: ATORVASTATIN 40 MG TAB PO SCH (21:27)
[2017-12-18] MEDS: MELATONIN 5 MG TAB PO SCH (21:27)
--- NOTE | 2017-12-18 22:36 | HHI.PR ---
Subjective Remarks feeling ok Objective Vital Signs Date Time Temp Pulse Resp B/P (MAP) Pulse Ox O2 Delivery O2 Flow Rate FiO2 12/18/17 21:04 99 21 12/18/17 20:18 99.2 108 17 101/98 (99) 98 12/18/17 20:18 102 12/18/17 20:18 98 Room Air 12/18/17 18:00 103 12/18/17 17:00 113 12/18/17 16:00 86 12/18/17 15:00 94 Nasal Cannula 3.00 12/18/17 15:00 79 12/18/17 15:00 98.2 98 20 147/52 (83) 94 12/18/17 14:00 79 12/18/17 13:25 110 12/18/17 12:00 91 12/18/17 11:00 79 12/18/17 11:00 98 Nasal Cannula 3.00 12/18/17 11:00 98.4 71 20 101/51 (68) 98 12/18/17 10:00 72 12/18/17 09:09 100 Nasal Cannula 2.00 12/18/17 09:00 60 12/18/17 08:00 48 12/18/17 07:15 42 12/18/17 07:15 97 Nasal Cannula 3.00 12/18/17 07:15 98.1 42 20 91/51 (64) 97 12/18/17 06:00 42 12/18/17 05:00 40 12/18/17 04:00 43 12/18/17 04:00 98.9 37 18 92/44 (60) 98 12/18/17 04:00 98 Nasal Cannula 3.00 12/18/17 03:00 36 12/18/17 02:00 38 12/18/17 01:00 42 12/18/17 00:00 41 12/18/17 00:00 97 Nasal Cannula 3.00 12/18/17 00:00 98.9 43 18 115/52 (73) 97 12/17/17 23:00 44 I/O 12/17/17 12/17/17 12/17/17 12/18/17 12/18/17 12/18/17 07:00 15:00 23:00 07:00 15:00 23:00 Intake Total 630 ml 100 ml 840 ml 480 ml 720 ml Output Total 1425 ml 850 ml 350 ml 350 ml Balance -795 ml 100 ml -10 ml 130 ml 370 ml Intake Oral 630 ml 840 ml 480 ml 720 ml IV Total 100 ml Output Urine Total 1425 ml 850 ml 350 ml 350 ml # Bowel Movements 2 0 0 2 Result Diagram: 12/18/17 0345 12/18/172046 Imaging Alert, fully oriented, in bed lungs: ventilated Heart: S1, S2 irregular Abdomen: soft, no mass Ext: no edema Last Impressions Renal Ultrasound 12/16/17 0000 Signed Impressions: Service Date/Time: Saturday, December 16, 2017 14:57 - CONCLUSION: 1. 3 cm solid mass left kidney recently treated with cryoablation. Small cyst right kidney. No hydronephrosis. Jose L Bridges MD Head CT 12/15/17 0000 Signed Impressions: Service Date/Time: Friday, December 15, 2017 10:48 - CONCLUSION: Evidence of prior left frontal infarct. No acute abnormality seen.. Dai Frias MD Chest X-Ray 12/15/17 0000 Signed Impressions: Service Date/Time: Friday, December 15, 2017 07:58 - CONCLUSION: No acute disease. Dai Frias MD Current Medications Medications (Trade) Dose Ordered Sig/Brandon Route Start Time Stop Time Status Last Admin (Zofran Inj) 4 mg Q6H PRN IV PUSH 12/15/17 09:00 12/17/17 00:16 (Heparin Inj) 5,000 units Q8H SQ 12/15/17 09:00 Future Hold Miscellaneous Information 1 Q361D XX 12/15/17 09:00 12/15/17 09:00 (Chlorhexidine 2% Cloth) 3 pack Taper DAILY@04 TOP 12/16/17 04:00 12/12/18 03:59 12/17/17 04:00 (Chlorhexidine 2% Cloth) 3 pack UNSCH PRN TOP 12/15/17 09:00 (Pill Splitter) 1 ea UNSCH PRN OTHER 12/15/17 09:45 Dobutamine HCl/ Dextrose 250 ml @ 78 mls/hr Q3H13M IV 12/15/17 10:30 Future Hold 12/15/17 13:43 (Melatonin) 5 mg HS PO 12/15/17 21:00 12/18/17 21:27 (ZyPREXA ZYDIS ODT) 5 mg Q24H PRN PO 12/15/17 23:00 12/18/17 00:20 (Duoneb Neb) 1 ampule Q6HR NEB NEB 12/16/17 10:00 12/18/17 21:03 (Albuterol Neb) 2.5 mg Q2HR NEB PRN NEB 12/16/17 06:30 (Compazine Inj) 5 mg Q6H PRN IV PUSH 12/16/17 06:30 (Lipitor) 40 mg HS PO 12/16/17 21:00 12/18/17 21:27 (Vitamin B12) 500 mcg DAILY PO 12/16/17 09:00 12/18/17 08:57 (Zetia) 10 mg DAILY PO 12/16/17 09:00 12/18/17 08:56 (Ferrous Sulfate) 325 mg DAILY PO 12/16/17 09:00 12/18/17 08:56 (Namenda) 10 mg BID PO 12/16/17 09:00 12/18/17 21:27 (Vitamin B6) 100 mg DAILY PO 12/16/17 09:00 12/18/17 08:57 (Coumadin) 3 mg DAILY@1600 PO 12/16/17 16:00 12/18/17 16:28 (Protonix) 20 mg DAILY PO 12/16/17 09:00 12/18/17 08:57 (Apresoline Inj) 10 mg Q1HR PRN IV PUSH 12/16/17 06:45 (Nitroglycerin 2% Oint) 2 inch Q6HR PRN TOPICAL 12/16/17 06:45 (Wellbutrin Sr) 150 mg DAILY PO 12/16/17 09:00 12/18/17 08:57 (D50w (Vial) Inj) 50 ml UNSCH PRN IV PUSH 12/16/17 07:30 (Glucagon Inj) 1 mg UNSCH PRN OTHER 12/16/17 07:30 (NovoLOG SUPPLEMENTAL SCALE) 1 ACHS SLIDING SCALE SQ 12/16/17 08:00 12/16/17 12:00 (Tylenol) 650 mg Q6H PRN PO 12/16/17 07:30 ([place] 5-325 Mg) 1 tab Q4H PRN PO 12/16/17 07:30 (Imodium Liq) 2 mg UNSCH PRN PO 12/16/17 07:30 12/16/17 21:50 (Cardizem) 60 mg Q6HR PO 12/18/17 12:00 12/18/17 17:12 Assessment and Plan Problem List: (1) Symptomatic bradycardia ICD Codes: R00.1 - Bradycardia, unspecified Status: Acute Plan: Patient in atrial fibrillation An episode of eduardo last night while patient was sleeping asymptomatic. 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
[2017-12-19] VITALS (26 sets, daily range): BP systolic 105–127; BP diastolic 56–76; PULSE 60–109; RESP 17–20; TEMP 97.6–98.7; O2SAT 94–100
[2017-12-19] MEDS: DILTIAZEM HCL 30 MG TAB PO SCH ×2 (01:29→06:00)
[2017-12-19] MEDS: RESP: ALBUTEROL 2.5 MG/IPRATROPIUM 0.5 MG NEB (SCH) NEB ×4 (03:03→21:15)
[2017-12-19] MEDS: CHLORHEXIDINE GLUCONATE 2 % 1 PACK (2 CLOTHS) TOP SCH (04:00)
[2017-12-19 04:56] LABS: HEMATOCRIT 34.6 % (35.0-46.0); HEMOGLOBIN 11.4 GM/DL (11.6-15.3); MEAN CELL VOLUME 81.9 FL (80.0-100.0); MEAN PLATELET VOLUME 7.9 FL (7.0-11.0); PLATELET COUNT 220 TH/MM3 (150-450); RED BLOOD COUNT 4.22 MIL/MM3 (4.00-5.30); RED CELL DISTRIBUTION WIDTH 14.4 % (11.6-17.2); WHITE BLOOD COUNT 10.4 TH/MM3 (4.0-11.0)
[2017-12-19 05:01] LABS: INTERNATIONAL NORMALIZED RATIO 2.1 RATIO; PROTHROMBIN TIME - PATIENT 21.4 SEC (9.8-11.6)
[2017-12-19 05:16] LABS: BICARBONATE 19.9 MEQ/L (21.0-32.0); CALCIUM 8.4 MG/DL (8.5-10.1); CREATININE 1.66 MG/DL (0.50-1.00)
[2017-12-19] MEDS: INSULIN ASPART SUPPLEMENTAL SCALE SQ SCH ×4 (08:00→21:00)
[2017-12-19] MEDS: EZETIMIBE 10 MG TAB PO SCH (08:55)
[2017-12-19] MEDS: PYRIDOXINE HCL 50 MG TAB PO SCH (08:55)
[2017-12-19] MEDS: FERROUS SULFATE 325 MG (65 MG ELEMENTAL IRON) TAB PO SCH (08:55)
[2017-12-19] MEDS: CYANOCOBALAMIN 1,000 MCG TAB PO SCH (08:56)
[2017-12-19] MEDS: buPROPion HCL 150 MG SUSTAINED RELEASE TAB PO SCH (08:56)
[2017-12-19] MEDS: MEMANTINE HCL 10 MG TAB PO SCH ×2 (08:56→21:24)
[2017-12-19] MEDS: PANTOPRAZOLE SOD 20 MG DELAYED RELEASE TAB PO SCH (08:56)
--- NOTE | 2017-12-19 09:39 | MB ---
cc: Amari Fuentes MD DATE: 12/17/2017 REASON FOR CONSULTATION: Tachybrady syndrome versus atrial fibrillation for possible permanent pacemaker insertion. HISTORY OF PRESENT ILLNESS: Mrs. Pryor is a 76-year-old female with history of atrial fibrillation, diabetes mellitus, high blood pressure, renal insufficiency, admitted to the emergency room due to tachybrady syndrome. She was found in severe bradycardia. Her potassium was elevated. She was having hyperkalemia. Dopamine was administered and hyperkalemia was corrected. She subsequently developed atrial fibrillation with rapid ventricular response. I was consulted for evaluation for possible . The chart was reviewed. The patient was evaluated. I discussed the case on multiple occasions with Dr. Hicks, the gallery or museum guide. ALLERGIES: NONE. SOCIAL HISTORY: The patient denies smoking and drinking. FAMILY HISTORY: Noncontributory to her current medical condition. MEDICATIONS: She is on Coumadin, Zetia, Lipitor, metoprolol, Cardizem, lisinopril, omeprazole. She is also on dobutamine. REVIEW OF SYSTEMS: She refers tired, also dizziness and she is also tired of her multiple ER visits. PHYSICAL EXAMINATION: GENERAL: Alert, fully oriented. VITAL SIGNS: Her blood pressure 122/73, pulse 79, irregular, respiratory rate 18. LUNGS: Ventilated. CARDIOVASCULAR: S1, S2, irregular. ABDOMEN: Soft. No masses. EXTREMITIES: No edema. ELECTROCARDIOGRAM: On hospitalization indicated a junctional rhythm, around 20 beats per minute. Subsequent electrocardiogram indicates atrial fibrillation with ventricular response. LABORATORY DATA: Hemoglobin is 11.8, white blood cell 7.7. Potassium is 5.1, it was 6.5 on hospitalization. Creatinine 1.5, it was 2.30 on hospitalization. ASSESSMENT AND RECOMMENDATIONS: Mrs. Pryor has a junctional rhythm and bradycardia in the setting of hyperkalemia, that resolved. She was receiving dobutamine. In all of those hospitalizations, she was having hyperkalemia. The main reason she was having a bradycardia. She is on TANYA inhibitor, that should be discontinued. I discussed again the case with Dr. Hicks. My recommendations at this point is observation. The hyperkalemia is the main cause of the bradycardia. There is no need for intervention. The patient will be observed. Further decision will be taken during hospitalization. Case also discussed with the patient. MD NAN Sorensen , 10:32 PM , 11:15 PM
[2017-12-19] MEDS ORDERED: IODIXANOL 320 MG/ML 50 ML VIAL (for Cath Lab) OTHER ONE (10:34)
[2017-12-19] MEDS ORDERED: PROPOFOL 200 MG/20 ML AMP OTHER ONE (10:35)
--- NOTE | 2017-12-19 11:14 | HHI.PR ---
Subjective Remarks C/R Surg afebrile, VSS UO good less diarrhea Objective - Vital Signs Date Time Temp Pulse Resp B/P (MAP) Pulse Ox O2 Delivery O2 Flow Rate FiO2 12/19/17 10:34 96 21 12/19/17 10:00 99 12/19/17 07:15 98.1 20 107/56 (73) 12/19/17 07:15 Room Air 12/18/17 15:00 3.00 Result Diagram: 12/19/1731012/19/17310 Objective Remarks PE alert Abd - soft, flat, no prolapse A/P Assessment and Plan Imp: for pacemaker today hold lax w/u after pacemaker for prolapse Nadir Gaona MD Dec 19, 2017 11:14
--- NOTE | 2017-12-19 12:45 | MB ---
cc: Nadir Gaona MD, Andrew H MD DATE: 12/18/2017 REASON FOR CONSULTATION: Rectal prolapse. HISTORY OF PRESENT ILLNESS: Ms. Pryor is a pleasant 76-year-old female with multiple medical problems admitted with bradycardia and weakness. She has been evaluated by cardiology and is presently planning to have a pacemaker inserted. While in the hospital, she has been complaining of urinary incontinence and had a [place] catheter placed and has had progressive fecal incontinence more recently with prolapse of either mucosa or hemorrhoids or her full rectum. She was given some Kayexalate earlier today and with increased diarrhea and straining, the nurses noted what appeared to be her rectum to be fully prolapsed. Attempts at reduction of the rectum was unsuccessful and the undersigned was consulted. She does not complain of any diarrhea, but has to wear a pad for protection. She has had 6 children by normal vaginal deliveries years ago. She does not remember when her last colonoscopy was. She denies any nausea or vomiting. No abdominal distention. The patient has been on blood thinners for atrial fibrillation. Please see the history and physical and multiple consultations for a more complete past medical and surgical history. PERTINENT PHYSICAL EXAMINATION: GENERAL: A very pleasant, heavyset female in no acute distress. HEENT: Remarkable for somewhat dry, pale membranes, nonicteric sclerae. NECK: A little stiff without adenopathy. CHEST: Diminished in the bases. HEART: Had a regular rhythm. ABDOMEN: Doughy and soft, not distended. No tympany. No rebound, guarding or masses. ANAL INSPECTION: Revealed a patulous anal canal with quite a bit of liquid stool and no sign of bleeding. Digital exam revealed almost no tone with no rectal masses, but a very large rectal lumen size and very little active contraction of the sphincter. EXTREMITIES: No cyanosis or clubbing and 1 to 2+ pedal edema. LABORATORY STUDIES: Hemoglobin 12, platelet count was 220,000. Electrolytes remarkable for a BUN of 21 and creatinine of 1.66. Coagulation studies show an INR of 2.1. IMPRESSION AND PLAN: A 76-year-old female with multiple medical problems and appears to be either rectal or mucosal prolapse. At the bedside, only mucosal prolapse was seen today, but the exam was suboptimal due to the copious amounts of liquid stool and the patient's positioning. Would hold the Kayexalate and proceed with a cardiac workup if she does indeed need a pacemaker prior to any colonic evaluation. Reviewed perineal exercises such as Kegel exercises with the patient and maybe some Imodium to slow the stools down to help her with better control. After her pacemaker, I would be happy to arrange for either outpatient workup or continued evaluation of her incontinence. MD KYLE Reeves/SANTINO , 12:02 PM , 12:44 PM
--- NOTE | 2017-12-19 13:10 | HHI.PR ---
Subjective Remarks Follow up for tachy-eduardo syndrome. Patient is currently doing well. No acute concerns. No chest pain, shortness of breath, fever or chills. She had rectal prolapse yesterday but resolved. Objective Vitals Vital Signs Date Time Temp Pulse Resp B/P (MAP) Pulse Ox O2 Delivery O2 Flow Rate FiO2 12/19/17 12:00 89 12/19/17 11:00 97 Room Air 12/19/17 11:00 98.2 89 18 109/72 (84) 97 12/19/17 11:00 95 12/19/17 10:34 96 21 12/19/17 10:00 99 12/19/17 09:00 81 12/19/17 08:00 76 12/19/17 07:15 98.1 77 20 107/56 (73) 97 12/19/17 07:15 97 Room Air 12/19/17 07:15 72 12/19/17 06:46 66 12/19/17 05:07 61 12/19/17 04:24 60 12/19/17 03:42 73 12/19/17 03:42 95 Room Air 12/19/17 03:42 98.7 91 18 124/58 (80) 98 12/19/17 02:11 109 12/19/17 01:47 89 12/19/17 00:10 96 12/18/17 23:15 98.8 80 18 114/61 (78) 95 12/18/17 23:15 95 Room Air 12/18/17 23:04 92 12/18/17 22:00 102 12/18/17 21:04 99 21 12/18/17 21:00 96 12/18/17 20:18 99.2 108 17 101/98 (99) 98 12/18/17 20:18 102 12/18/17 20:18 98 Room Air 12/18/17 18:00 103 12/18/17 17:00 113 12/18/17 16:00 86 12/18/17 15:00 94 Nasal Cannula 3.00 12/18/17 15:00 79 12/18/17 15:00 98.2 98 20 147/52 (83) 94 12/18/17 14:00 79 12/18/17 13:25 110 I/O 4/10/18 4/10/12/18/17 12/19/17 12/19/17 12/19/17 07:00 15:00 23:00 07:00 15:00 23:00 Intake Total 480 ml 720 ml 702 ml Output Total 350 ml 350 ml 1050 ml Balance 130 ml 370 ml -348 ml Intake Oral 480 ml 720 ml 702 ml Output Urine Total 350 ml 350 ml 1050 ml # Bowel Movements 0 2 2 Result Diagram: 12/19/17 0311 12/19/17 0311 Imaging Last Impressions Renal Ultrasound 12/16/17 0000 Signed Impressions: Service Date/Time: Saturday, December 16, 2017 14:57 - CONCLUSION: 1. 3 cm solid mass left kidney recently treated with cryoablation. Small cyst right kidney. No hydronephrosis. Jose L Bridges MD Head CT 12/15/17 0000 Signed Impressions: Service Date/Time: Friday, December 15, 2017 10:48 - CONCLUSION: Evidence of prior left frontal infarct. No acute abnormality seen.. Dai Frias MD Chest X-Ray 12/15/17 0000 Signed Impressions: Service Date/Time: Friday, December 15, 2017 07:58 - CONCLUSION: No acute disease. Dai Frias MD Objective Remarks GENERAL: Alert, Oriented x 3, NAD. SKIN: Warm and dry. HEAD: Normocephalic. EYES: No scleral icterus. No injection or drainage. NECK: Supple, trachea midline. No JVD or lymphadenopathy. CARDIOVASCULAR: Reg rhythm, bradycardic without murmurs, gallops, or rubs. RESPIRATORY: Breath sounds equal bilaterally. No accessory muscle use. GASTROINTESTINAL: Abdomen soft, non-tender, nondistended. MUSCULOSKELETAL: No cyanosis, or edema. BACK: Nontender without obvious deformity. No CVA tenderness. 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 Pryor is a pleasant 76 year old female with a history of Afib who was admitted to the hospital due to weakness, fatigue. She was admitted with KARISSA, hyperkalemia, symptomatic bradycardia. Patient was initially managed in the ICU where she received dobutamine drip. Cardiology was consulted for further eval. Cardiology recommended permanent pacemaker placement. Tachy-eduardo syndrome Atrial fibrillation - Cardiology following. Likely PPM this afternoon. Will keep patient NPO per Dr. Fuentes's plan. - Patient was somewhat bradycardic last night. I discussed with luncheonette operator who recommended no beta-gayla or calcium channel gayla for now. - Currently on Warfarin 3mg Qday. INR 2.1 on 12/19/2017 Acute kidney injury Hyperkalemia Baseline is probably below 2.0. Creatinine improved from 2.5 --> 1.66. Potassium improved from 5.9 --> 4.4. No further Kayexalate. Hyperlipidemia Dementia Continue statin, Memantine. Rectal prolapse -appreciate colorectal surgery input. Patient can likely be followed in the outpatient setting. Full code. Warfarin. INR 2.[address] Fuentes. Frida Cosby DO Dec 19, 2017 1:10 pm
[2017-12-19] MEDS: WARFARIN SOD 3 MG TAB PO SCH (15:55)
[2017-12-19] MEDS ORDERED: MIDAZOLAM HCL 2 MG/2 ML VIAL ONE (18:43)
[2017-12-19] MEDS ORDERED: PROPOFOL 200 MG/20 ML AMP ONE (18:43)
--- NOTE | 2017-12-19 19:16 | HHI.PR ---
Subjective Remarks NOT SEEN Objective Vitals Vital Signs Date Time Temp Pulse Resp B/P (MAP) Pulse Ox O2 Delivery O2 Flow Rate FiO2 12/19/17 18:00 96 12/19/17 17:00 100 12/19/17 16:00 96 12/19/17 15:00 94 Room Air 12/19/17 15:00 92 12/19/17 15:00 97.6 79 20 124/74 (91) 94 12/19/17 14:00 83 12/19/17 13:00 98 12/19/17 12:00 89 12/19/17 11:00 97 Room Air 12/19/17 11:00 98.2 89 18 109/72 (84) 97 12/19/17 11:00 95 12/19/17 10:34 96 21 12/19/17 10:00 99 12/19/17 09:00 81 12/19/17 08:00 76 12/19/17 07:15 98.1 77 20 107/56 (73) 97 12/19/17 07:15 97 Room Air 12/19/17 07:15 72 12/19/17 06:46 66 12/19/17 05:07 61 12/19/17 04:24 60 12/19/17 03:42 73 12/19/17 03:42 95 Room Air 12/19/17 03:42 98.7 91 18 124/58 (80) 98 12/19/17 02:11 109 12/19/17 01:47 89 12/19/17 00:10 96 12/18/17 23:15 98.8 80 18 114/61 (78) 95 12/18/17 23:15 95 Room Air 12/18/17 23:04 92 12/18/17 22:00 102 12/18/17 21:04 99 21 12/18/17 21:00 96 12/18/17 20:18 99.2 108 17 101/98 (99) 98 12/18/17 20:18 102 12/18/17 20:18 98 Room Air I/O 12/18/17 12/18/17 12/18/17 12/19/17 12/19/17 12/19/17 07:00 15:00 23:00 07:00 15:00 23:00 Intake Total 480 ml 720 ml 702 ml 240 ml Output Total 350 ml 350 ml 1050 ml 1350 ml Balance 130 ml 370 ml -348 ml -1110 ml Intake Oral 480 ml 720 ml 702 ml 240 ml Output Urine Total 350 ml 350 ml 1050 ml 1350 ml # Bowel Movements 0 2 2 Result Diagram: 12/19/17 0311 12/19/17 0311 Imaging Last Impressions Renal Ultrasound 12/16/17 0000 Signed Impressions: Service Date/Time: Saturday, December 16, 2017 14:57 - CONCLUSION: 1. 3 cm solid mass left kidney recently treated with cryoablation. Small cyst right kidney. No hydronephrosis. Jose L Bridges MD Head CT 12/15/17 0000 Signed Impressions: Service Date/Time: Friday, December 15, 2017 10:48 - CONCLUSION: Evidence of prior left frontal infarct. No acute abnormality seen.. Dai Frias MD Chest X-Ray 12/15/17 0000 Signed Impressions: Service Date/Time: Friday, December 15, 2017 07:58 - CONCLUSION: No acute disease. Dai Frias MD Objective Remarks GENERAL: Alert, Oriented x 3, NAD. SKIN: Warm and dry. HEAD: Normocephalic. EYES: No scleral icterus. No injection or drainage. NECK: Supple, trachea midline. No JVD or lymphadenopathy. CARDIOVASCULAR: Reg rhythm, bradycardic without murmurs, gallops, or rubs. RESPIRATORY: Breath sounds equal bilaterally. No accessory muscle use. GASTROINTESTINAL: Abdomen soft, non-tender, nondistended. MUSCULOSKELETAL: No cyanosis, or edema. BACK: Nontender without obvious deformity. No CVA tenderness. 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 Pryor is a pleasant 76 year old female with a history of Afib who was admitted to the hospital due to weakness, fatigue. She was admitted with KARISSA, hyperkalemia, symptomatic bradycardia. Patient was initially managed in the ICU where she received dobutamine drip. Cardiology was consulted for further eval. Cardiology recommended permanent pacemaker placement. Tachy-eduardo syndrome Atrial fibrillation - Cardiology following. Likely PPM this afternoon. Will keep patient NPO per Dr. Gina's plan. - Patient was somewhat bradycardic last night. I discussed with cotton factor who recommended no beta-gayla or calcium channel gayla for now. - Currently on Warfarin 3mg Qday. INR 2.1 on 12/19/2017 Acute kidney injury Hyperkalemia Baseline is probably below 2.0. Creatinine improved from 2.5 --> 1.66. Potassium improved from 5.9 --> 4.4. No further Kayexalate. Hyperlipidemia Dementia Continue statin, Memantine. Rectal prolapse -appreciate colorectal surgery input. Patient can likely be followed in the outpatient setting. Full code. Warfarin. INR 2.1 Clyde Sagastume MD Dec 19, 2017 19:15
[2017-12-19] MEDS ORDERED: LIDOCAINE HCL 1% PF 30 ML VIAL ONE (19:20)
[2017-12-19] MEDS ORDERED: HEPARIN SODIUM - IV 10,000 UNITS/10 ML VIAL ONE (19:23)
--- NOTE | 2017-12-19 19:26 | HHI.FF ---
Face to Face Verification Diagnosis: (1) Symptomatic bradycardia Physical Therapy Order: Evaluate and Treat, Improve ambulation, Strength and gait training Home Health Nursing Order: Medical education Medication education-adverse effect Wound care and dressing changes Nursing assessment with vital signs I have seen patient Susannah Pryor on 12/19/17. My clinical findings support the need for the requested home health care services because: Deconditioned w/ increased weakness I certify that my clinical findings support that this patient is homebound because: Unsafe to leave home unassisted Clyde Sagastume MD Dec 19, 2017 19:26
--- NOTE | 2017-12-19 19:26 | HHI.DCPOC ---
Discharge Care Plan Diagnosis: (1) KARISSA (acute kidney injury) (2) Atrial fibrillation (3) Symptomatic bradycardia Your Health Problems Are: Difficulty with ADL Exercise Tolerance Goals to Promote Your Health * To prevent worsening of your condition and complications * To maintain your health at the optimal level Directions to Meet Your Goals Take your medications as prescribed Follow your dietary instruction Follow activity as directed Keep your appointments as scheduled Take your immunizations and boosters as scheduled If your symptoms worsen call your PCP, if no PCP go to Urgent Care Center or Emergency Room Smoking is Dangerous to Your Health. Avoid second hand smoke Call the 24-hour hour crisis hotline for domestic abuse at Clyde Sagastume MD Dec 19, 2017 19:26
[2017-12-19] MEDS ORDERED: WALKER WHEELS/F1 MIS (19:30)
[2017-12-19] MEDS ORDERED: ceFAZolin INJ 1,000 MG VIAL ONE (19:38)
[2017-12-19] MEDS ORDERED: BACITRACIN OINT 0.9 GM PKT TOP ONE (20:15)
[2017-12-19] MEDS ORDERED: oxyCODONE/ACETAMINOPHEN 5 MG/325 MG TAB PO PRN ×2 (20:15)
[2017-12-19] MEDS ORDERED: ATROPINE SULFATE 1 MG/ML VIAL IV PUSH PRN (20:15)
[2017-12-19] MEDS ORDERED: ONDANSETRON HCL 4 MG/2 ML VIAL IV PUSH PRN (20:15)
[2017-12-19] MEDS ORDERED: LIDOCAINE HCL 1% 50 ML VIAL INFIL PRN (20:15)
[2017-12-19] MEDS ORDERED: LORazepam 2 MG/ML VIAL IV PUSH PRN (20:15)
[2017-12-19] MEDS ORDERED: SODIUM CHLOR 0.9% 250 ML INJ 250 ML IV PRN (20:15)
--- NOTE | 2017-12-19 20:21 | CATHPROC ---
[employer] HIS Report Study Information Study Number Admission Scheduled Start Study Start [id number] Dec 15 2017 8:44AM 12/19/2017 Dec 19 2017 4:01PM [place] [facility] Cardiac Pacer/ICD Admit Source Facility Department Other [facility] - Operation Manager Physician and Clinical Staff Initial Amari Vogel Procedures Performed Procedure Location (Site) Vessel Name Cardioversion Venogram RV Ventricle Wire insertion Fem Vein (right) Femoral Vein Equipment Time Lab Associate Description Size Mfg Part Number Used/Scraped [employer] [id number] 19:26 SET, TUBING COOLFLOW * Used INC. *[id number] 16:05 COOK/PACER DILATOR SET (MICRA) FR8-12 Used *[id number] WIRE, GUIDE AMPLATZ STIFF [id number] 16:05 COOK/PACER 3MMJ Used 180CM *[id number] 16:05 [employer] INDUSTRIES PACK, CCL CUSTOM * Used *[id number] 16:05 [employer] PACER MCKEON, LIMB * 2530 *[id number] Used [id number] 16:05 NAMIC TUBING, HIGH PRESSURE 20" 20" Used *[id number] 19:33 NAMIC TUBING, HIGH PRESSURE 20" 20" Used *[id number] 16:05 NYCOMED OMNIPAQUE, 300 MG, 50ML 50ML [id number] Used SUTURE, 0 ETHIBOND [CT1] (CX21D), 8pk [id number] 16:05 [employer] BL[employer],WARM AIR CCL * Used *[id number] 20:15 VITATRON MEDTRONIC MONITOR, PACEMAKER\\ICD 19013 *[id number] Used 16:05 VITATRON MEDTRON[employer] MONITOR, PACEMAKER\\ICD 35283 *[id number] Used SYSTEM, TRANS-CATHETER [id number] 16:05 VITATRON [employer]ON[employer] Used PACING (MICRA) *[id number] History: Allergies Allergy Reaction No Known Allergies History: Risk Factors Hypertension Yes Cerebrovascular Diabetes Disease Labs Hgb (g/dl) Hct (%) RBC (MIL/MM3) WBC (l/cumm) Platelets (thousands) 11.60-17.00 35.00-51.00 4.00-5.90 4.00-11.00 150.00-450.00 11.0 34 4.2 10 220 Glucose (mg/dl) BUN (mg/dl) Creatinine (mg/dl) BUN:Creatinine (1:x) 74.00-106.00 7.00-18.00 0.50-1.30 10.00-20.00 107 21 1.6 13.1 Na (meq/l) K (meq/l) 136.00-145.00 3.50-5.10 133 4.4 INR (PTT:PT) 0.90-1.10 2.1 Medication Medication Total Dose (Bolus/Oral) Medication Total Dosage/Unit 2% XYLOCAINE 50 mL Medications (Bolus/Oral) Medication Time Given Dosage/Unit Administered By Reason 2% XYLOCAINE 12/19/2017 7:39:49 PM 50 mL Amari Fuentes 50 mL 1% XYLOCAINE given in lab by Amari Fuentes in Right Groin via Subcutaneous. Initial Case Assessment Cardiovascular HR Rhythm NIBP Chest Pain 109 sf 125/73 0 Edema Present Skin color Skin None Normal Warm Dry Circulatory - Right Pulses Dorsalis Pedis 1 Scale (0,1,2,3,4,d) Circulatory - Left Pulses Dorsalis Pedis 1 Scale (0,1,2,3,4,d) Circulatory - Lower Extremities Color Lower Right Color Lower Left Normal Normal Neurological State Oriented to time-place- Alert Moves all extremities person Respiration - General Respiration Rate SpO2 (%) O2 (lpm) (B/min) 16 95 4 Final Case Assessment Cardiovascular HR NIBP 75 143/71 Circulatory - Right Pulses Dorsalis Pedis 1 Scale (0,1,2,3,4,d) Scale (0,1,2,3,4,d) Neurological State Oriented to time-place- Alert Moves all extremities person Respiration - General SpO2 (%) 98 Chronological Log Time Study Chronological Log 19:03:10 Patient arrived via Bed. 19:03:11 Patient Name, D.O.B, / Armband Verified By R.N. 19:03:12 Consent signed by the physician and the patient and verified by the Operation Manager staff. 19:03:12 Pre-op and post- op instructions given; patient acknowledges understanding of instructions. 19:03:13 Verbal Stimulation=2 Physical Stimulation=2 Airway=2 Respiration=2 TOTAL=8. (0=absent, 1=li mited, 2=present) 19:03:21 Anesthesia at bedside. Assumes care of patient. Phil 19:03:26 Patient has been NPO for More than 6Hrs. 19:03:27 Skin Breakdown- generalized bruising 19:03:36 Patient Warmer Placed on the Table. 19:03:37 Disposable Defibrillator Pads Placed On Patient. 19:03:37 Thoa Prominences Protected 19:03:39 A # 20 IV was noted in the Antecubital (right). Grade = 0 0.9ns kvo 19:03:40 A # 22 IV was noted in the Forearm (right). Grade = 0 0.9ns kvo initiated by anesthesia 19:03:41 History and physical on the chart or being dictated. Assessment: Initial Case, BY=340 BPM, Rhythm=sf, HFOI=447/73 mmhg, Chest Pain=0, Edema=None, [place]=Normal, Skin = Warm, Dry Right Pulses: Tian Ped=1 Left Pulses: Tian Ped=1 19:15:27 Lower Right Extremities: Color=Normal Lower Left Extremities: Color=Normal Neurological: State=Alert, Ox3, SORENSEN Respiration: Resp=16 B/min, SpO2=95 %, O2=4 lpm 19:22:11 Bilateral groins prepped with 2% chlorhexidine, and draped after a 3 minute waiting time. 19:22:25 Reference ECG taken 19:24:06 Table restraints applied according to hospital policy 19:24:10 2% CHLORHEXIDINE GLUCONATE WASH AND NASAL SWIPE DONE PRIOR TO PROCEDURE. 19:26:20 MD paged 19:37:05 MD arrived. Time Out. Correct patient, procedure, procedure equipment, site and side verified with physicia n present. Time 19:39:00 concurred by MD, individual staff and MARKETING DIRECTOR ASSISTED LIVING. Time Out #2 - Consents verified, patient in correct position, all results are labled and displa yed, safety precautions 19:39:24 taken, antibiotics administered. Time out concurred by MD, individual staff and MARKETING DIRECTOR ASSISTED LIVING in procedu re 19:39:40 Case Start 19:39:49 50 mL 1% XYLOCAINE given in lab by Amari Fuentes in Right Groin via Subcutaneous. 19:41:16 Vascular access was obtained in the Fem Vein (right). 19:41:45 Wire inserted 19:41:50 A WIRE, GUIDE AMPLATZ STIFF 180CM 3MMJ was inserted via Fem Vein (right). 19:42:00 Figure 8 knot placed to right fem vein. 19:42:28 A DILATOR SET (MICRA) FR8-12 was advanced into the Fem Vein (right) using the Modified Seld lance technique. 8 19:42:48 A DILATOR SET (MICRA) FR8-12 was advanced into the Fem Vein (right) using the Modified Seld lance technique. 12 19:43:01 A DILATOR SET (MICRA) FR8-12 was advanced into the Fem Vein (right) using the Modified Seld lance technique. 16 19:43:19 A DILATOR SET (MICRA) FR8-12 was advanced into the Fem Vein (right) using the Modified Seld lance technique. 20 19:45:21 A sheath was exchanged in the Fem Vein (right). This was necessary in order to accomodate a larger catheter. 24 fr 19:46:06 Dilator and wire removed. 19:47:27 Micra device prepped and set up. 19:48:49 A SYSTEM, TRANS-CATHETER PACING (MICRA) was advanced via right fem vein and placed in the RV under fluoro. The RV was manually injected with 10 cc's of contrast to visualize septal placement. OMNIPAQUE , 300 MG, 50ML 50ML 19:50:33 used. 19:51:16 Micra deployed and visualized under fluoro in 2 views 19:51:57 The RV/Micra device impedance and threshold being tested. 19:57:00 Delivery system and introducer was removed. 19:57:50 [address] Pressure held 20' by HH. Figure 8 knot to be removed in am. 19:58:48 ECG rhythm of AF noted. Patient cardioverted at 200 joules. Success synch 20:01:09 [facility] called. Spoke to Felice 20:01:28 Bedside Report will be given. 20:01:40 Implantable Device card placed in patient's chart. 20:01:50 Implant Procedure was performed. 20:01:55 A PPM Implant . (Single) Micra Assessment: Final Case, HR=75 BPM, BITX=009/71 mmhg Right Pulses: Tian Ped=1 20:19:26 Neurological: State=Alert, Ox3, SORENSEN Respiration: SpO2=98 % 20:20:39 No case complications noted. 20:20:54 [facility] Steri-strips and a sterile dressing applied to site. Site WNL. 20:22:44 Case End End Study - Maximum Contrast Load Max Contrast Load (mL) 228.1 End Study - Radiation Exposure Fluoro Time (minutes) 2.9 End Study - Patient Disposition Complications Transferred To Interventional Outcome No Telemetry Bed successful
[2017-12-19] MEDS: ATORVASTATIN 40 MG TAB PO SCH (21:24)
[2017-12-19] MEDS: MELATONIN 5 MG TAB PO SCH (21:24)
--- NOTE | 2017-12-19 21:39 | EKG ---
Date Performed: 12/18/2017 Time Performed: 13:21:14 PTAGE: 76 years EKG: Atrial fibrillation with rapid ventricular response Possible inferior infarct - age undeter mined Lateral ST-T changes are nonspecific Abnormal ECG PREVIOUS TRACING : 12/17/2017 11.51 Since the previous tracing, no significant change noted DOCTOR: Zac Ortiz Interpretating Date/Time 12/19/2017 21:37:22
[2017-12-19] MEDS: DILTIAZEM-CD 240 MG CAP ER PO SCH (21:51)
[2017-12-20] VITALS (20 sets, daily range): BP systolic 105–125; BP diastolic 52–62; PULSE 60–83; RESP 17–20; TEMP 97.8–98.3; O2SAT 95–99
[2017-12-20] MEDS: CHLORHEXIDINE GLUCONATE 2 % 1 PACK (2 CLOTHS) TOP SCH (02:18)
[2017-12-20] MEDS: RESP: ALBUTEROL 2.5 MG/IPRATROPIUM 0.5 MG NEB (SCH) NEB ×3 (03:38→15:20)
[2017-12-20 06:07] LABS: HEMATOCRIT 33.6 % (35.0-46.0); HEMOGLOBIN 11.2 GM/DL (11.6-15.3); MEAN CELL VOLUME 81.3 FL (80.0-100.0); MEAN CORPUSCULAR HEMOGLOBIN 27.2 PG (27.0-34.0); MEAN CORPUSCULAR HGB CONC 33.4 % (32.0-36.0); MEAN PLATELET VOLUME 7.2 FL (7.0-11.0); PLATELET COUNT 268 TH/MM3 (150-450); RED BLOOD COUNT 4.13 MIL/MM3 (4.00-5.30); RED CELL DISTRIBUTION WIDTH 14.1 % (11.6-17.2); WHITE BLOOD COUNT 8.8 TH/MM3 (4.0-11.0)
[2017-12-20 06:19] LABS: INTERNATIONAL NORMALIZED RATIO 2.2 RATIO; PROTHROMBIN TIME - PATIENT 22.4 SEC (9.8-11.6)
[2017-12-20 06:34] LABS: BICARBONATE 20.7 MEQ/L (21.0-32.0); CALCIUM 8.5 MG/DL (8.5-10.1); CREATININE 1.37 MG/DL (0.50-1.00)
[2017-12-20] MEDS: INSULIN ASPART SUPPLEMENTAL SCALE SQ SCH ×3 (08:00→16:24)
--- NOTE | 2017-12-20 09:03 | HHI.PR ---
Subjective Remarks Follow-up arrhythmia. States she is doing better no shortness of breath. Has not been out of bed uses cane and walker at home. Discussed with nursing, medically stable for discharge pending cardiology follow-up. Objective Vitals Vital Signs Date Time Temp Pulse Resp B/P (MAP) Pulse Ox O2 Delivery O2 Flow Rate FiO2 12/20/17 08:29 98 Nasal Cannula 21 12/20/17 08:00 72 12/20/17 07:00 98.3 68 20 122/56 (78) 97 12/20/17 07:00 65 12/20/17 06:18 63 12/20/17 05:20 64 12/20/17 04:19 60 12/20/17 03:49 64 12/20/17 03:20 95 Room Air 12/20/17 03:20 98.0 62 17 105/52 (69) 95 12/20/17 02:06 67 12/20/17 01:51 66 12/20/17 00:51 67 12/19/17 23:36 98.4 69 18 105/57 (73) 95 12/19/17 23:36 95 Room Air 12/19/17 23:00 73 12/19/17 22:45 74 12/19/17 21:36 76 12/19/17 21:15 100 21 12/19/17 20:30 98.6 75 17 127/76 (93) 99 12/19/17 20:30 74 12/19/17 20:30 99 Room Air 12/19/17 18:00 96 12/19/17 17:00 100 12/19/17 16:00 96 12/19/17 15:00 94 Room Air 12/19/17 15:00 92 12/19/17 15:00 97.6 79 20 124/74 (91) 94 12/19/17 14:00 83 12/19/17 13:00 98 12/19/17 12:00 89 12/19/17 11:00 97 Room Air 12/19/17 11:00 98.2 89 18 109/72 (84) 97 12/19/17 11:00 95 12/19/17 10:34 96 21 12/19/17 10:00 99 I/O 12/19/17 12/19/17 12/19/17 12/20/17 12/20/1718 07:00 15:00 23:00 07:00 15:00 23:00 Intake Total 702 ml 240 ml 600 ml Output Total 1050 ml 1350 ml 525 ml Balance -348 ml -1110 ml 75 ml Intake Oral 702 ml 240 ml 600 ml Output Urine Total 1050 ml 1350 ml 525 ml # Bowel Movements 2 Result Diagram: 12/20/17 0547 12/20/17 0547 Imaging Last Impressions Renal Ultrasound 12/16/17 0000 Signed Impressions: Service Date/Time: Saturday, December 16, 2017 14:57 - CONCLUSION: 1. 3 cm solid mass left kidney recently treated with cryoablation. Small cyst right kidney. No hydronephrosis. Jose L Bridges MD Head CT 12/15/17 0000 Signed Impressions: Service Date/Time: Friday, December 15, 2017 10:48 - CONCLUSION: Evidence of prior left frontal infarct. No acute abnormality seen.. Dai Frias MD Chest X-Ray 12/15/17 0000 Signed Impressions: Service Date/Time: Friday, December 15, 2017 07:58 - CONCLUSION: No acute disease. Dai Frias MD Objective Remarks GENERAL: Alert, Oriented x 3, NAD. SKIN: Warm and dry. HEAD: Normocephalic. EYES: No scleral icterus. No injection or drainage. NECK: Supple, trachea midline. No JVD or lymphadenopathy. CARDIOVASCULAR: Reg rate and rhythm without murmurs, gallops, or rubs. RESPIRATORY: Breath sounds equal bilaterally. No accessory muscle use. GASTROINTESTINAL: Abdomen soft, non-tender, nondistended. MUSCULOSKELETAL: No cyanosis, or edema. BACK: Nontender without obvious deformity. No CVA tenderness. 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 Pryor is a pleasant 76 year old female with a history of Afib who was admitted to the hospital due to weakness, fatigue. She was admitted with KARISSA, hyperkalemia, symptomatic bradycardia. Patient was initially managed in the ICU where she received dobutamine drip. Cardiology was consulted for further eval. Cardiology recommended permanent pacemaker placement. Tachy-eduardo syndrome Atrial fibrillation - S/p PPM . Stable - Currently on Warfarin 3mg Qday. Acute kidney injury Hyperkalemia Baseline is probably below 2.0. Creatinine improved from 2.5 --> 1.66. Potassium improved from 5.9 --> 4.4. No further Kayexalate. Hyperlipidemia Dementia Continue statin, Memantine. Rectal prolapse -appreciate colorectal surgery input. Patient can be followed in the outpatient setting. Acute on CKD stage 3. Improving. Nonoliguric. Full code. Warfarin. INR 2.1 Discharge Planning Stable for dc refused [facility] Clyde Sagastume MD Dec 20, 2017 09:03
[2017-12-20] MEDS ORDERED: DILT240C44 PO (09:06)
[2017-12-20] MEDS: FERROUS SULFATE 325 MG (65 MG ELEMENTAL IRON) TAB PO SCH (09:12)
[2017-12-20] MEDS: CYANOCOBALAMIN 1,000 MCG TAB PO SCH (09:13)
[2017-12-20] MEDS: PANTOPRAZOLE SOD 20 MG DELAYED RELEASE TAB PO SCH (09:13)
[2017-12-20] MEDS: EZETIMIBE 10 MG TAB PO SCH (09:13)
[2017-12-20] MEDS: PYRIDOXINE HCL 50 MG TAB PO SCH (09:13)
[2017-12-20] MEDS: buPROPion HCL 150 MG SUSTAINED RELEASE TAB PO SCH (09:13)
[2017-12-20] MEDS: MEMANTINE HCL 10 MG TAB PO SCH (09:13)
[2017-12-20] MEDS: DILTIAZEM-CD 240 MG CAP ER PO SCH (09:15)
[2017-12-20] MEDS ORDERED: AMIO200T PO (13:56)
[2017-12-20] MEDS: WARFARIN SOD 3 MG TAB PO SCH (16:22)
--- NOTE | 2017-12-20 16:44 | HHI.DS ---
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 found in the ER to be in afib with severe bradycardia, HR in the 30s, not responsive to atropine or glucagon. takes diltiazem at home and when off her AVN blockade, goes quickly into RVR on prior admissions. Also evidence of cardiogenic shock with lactate 2.9, Cr 2.7, K 7.3, co2 16.7. trop negative. subjectively nauseated and vomiting. endorses significant SOB and fatigue going x 3 days. denies chest pain. I remained at bedside and gave 1gm calcium chloride, 2 gm calcium gluconate, insulin, d50, kayexalate and started a dobutamine drip and titrated up to 20 mcg/kg/min until her HR improved to 70s. Also severely hypertensive with sbp > 220. given 10mg iv hydralazine with improvement. cardiology consulted and will evaluate. CBC/BMP: 12/20/17 0547 12/20/17 0547 Significant Findings Laboratory Tests Test 12/18/17 03:45 12/18/17 20:47 12/19/17 03:11 12/20/17 05:47 White Blood Count 11.2 TH/MM3 (4.0-11.0) Hemoglobin 10.9 GM/DL (11.6-15.3) 11.4 GM/DL (11.6-15.3) 11.2 GM/DL (11.6-15.3) Hematocrit 34.2 % (35.0-46.0) 34.6 % (35.0-46.0) 33.6 % (35.0-46.0) Mean Corpuscular Hemoglobin 26.1 PG (27.0-34.0) Mean Corpuscular Hemoglobin Concent 31.8 % (32.0-36.0) Prothrombin Time 17.9 SEC (9.8-11.6) 21.4 SEC (9.8-11.6) 22.4 SEC (9.8-11.6) Blood Urea Nitrogen 28 MG/DL (7-18) 21 MG/DL (7-18) Creatinine 2.50 MG/DL (0.50-1.00) 1.66 MG/DL (0.50-1.00) 1.37 MG/DL (0.50-1.00) Albumin 2.6 GM/DL (3.4-5.0) Calcium Level 8.1 MG/DL (8.5-10.1) 8.4 MG/DL (8.5-10.1) Alkaline Phosphatase 162 U/L (45-117) Sodium Level 135 MEQ/L (136-145) 133 MEQ/L (136-145) 135 MEQ/L (136-145) Potassium Level 5.9 MEQ/L (3.5-5.1) Carbon Dioxide Level 20.1 MEQ/L (21.0-32.0) 19.9 MEQ/L (21.0-32.0) 20.7 MEQ/L (21.0-32.0) Estimat Glomerular Filtration Rate 19 ML/MIN (>89) 30 ML/MIN (>89) 37 ML/MIN (>89) Random Glucose 107 MG/DL (74-106) 114 MG/DL (74-106) Activated Partial Thromboplast Time 33.4 SEC (24.3-30.1) Imaging Last Impressions Renal Ultrasound 12/16/17 0000 Signed Impressions: Service Date/Time: Saturday, December 16, 2017 14:57 - CONCLUSION: 1. 3 cm solid mass left kidney recently treated with cryoablation. Small cyst right kidney. No hydronephrosis. Jose L Bridges MD Head CT 12/15/17 0000 Signed Impressions: Service Date/Time: Friday, December 15, 2017 10:48 - CONCLUSION: Evidence of prior left frontal infarct. No acute abnormality seen.. Dai Frias MD Chest X-Ray 12/15/17 0000 Signed Impressions: Service Date/Time: Friday, December 15, 2017 07:58 - CONCLUSION: No acute disease. Dai Frias MD PE at Discharge GENERAL: Alert, Oriented x 3, NAD. SKIN: Warm and dry. HEAD: Normocephalic. EYES: No scleral icterus. No injection or drainage. NECK: Supple, trachea midline. No JVD or lymphadenopathy. CARDIOVASCULAR: Reg rate and rhythm without murmurs, gallops, or rubs. RESPIRATORY: Breath sounds equal bilaterally. No accessory muscle use. GASTROINTESTINAL: Abdomen soft, non-tender, nondistended. MUSCULOSKELETAL: No cyanosis, or edema. BACK: Nontender without obvious deformity. No CVA tenderness. Hospital Course Ms. Pryor is a pleasant 76 year old female with a history of Afib who was admitted to the hospital due to weakness, fatigue. She was admitted with KARISSA, hyperkalemia, symptomatic bradycardia. Patient was initially managed in the ICU where she received dobutamine drip. Cardiology was consulted for further eval. Cardiology recommended permanent pacemaker placement. Tachy-eduardo syndrome Atrial fibrillation - S/p PPM . Stable - Currently on Warfarin 3mg Qday. Cardiology recommended amiodarone and cleared patient for discharge Acute on CKD stage 3. Improving. Nonoliguric. Even Hyperkalemia Baseline is probably below 2.0. Creatinine improved from 2.5 --> 1.66. Potassium improved from 5.9 --> 4.4. No further Kayexalate. Hyperlipidemia Dementia Continue statin, Memantine. Rectal prolapse -appreciate colorectal surgery input. Patient can be followed in the outpatient setting. Full code. Warfarin. Pt Condition on Discharge: Stable Discharge Disposition: Disch w/ Home Health Serv Discharge Time: > 30 minutes Discharge Instructions DIET: Follow Instructions for: Heart Healthy Diet Activities you can perform: Regular-No Restrictions Activities to Avoid: Driving Follow up Referrals: Cardiology - 1 Week PCP Follow-up - 1 Week New Orders: PT/INR New Medications: Amiodarone (Amiodarone) 200 Mg Tab 200 MG PO DAILY for Regulate Heart Beat, #30 TAB 0 Refills Walker with Front Wheels (Walker with Front Wheels) 1 Mis Mis EA .XX DIRECTED, #1 0 Refills Diltiazem CD 24 HR (Diltiazem CD 24 HR) 240 Mg Caper 240 MG PO DAILY for Regulate Heart Beat, #30 CAP Continued Medications: Atorvastatin (Atorvastatin) 40 Mg Tab 40 MG PO HS for Cholesterol Management, #30 TAB 0 Refills Bupropion HCl ER 12 HR (Bupropion HCl ER 12 HR) 150 Mg Tab 150 MG PO DAILY, #60 TAB Cholecalciferol (Vitamin D3) (Vitamin D3) 5,000 Unit Tab.rapdis Cyanocobalamin (Vitamin B-12) 500 Mcg Tab 500 MCG PO DAILY for Nutritional Supplement, #1 BOTTLE [address] (Esomeprazole DR) 20 Mg Capdr 20 MG PO DAILY, #30 CAP 0 Refills Ezetimibe (Zetia) 10 Mg Tab 10 MG PO DAILY, #30 TAB 0 Refills Ferrous Sulfate (Ferosul) 325 Mg (65 Mg Iron) Tablet 325 MG PO DAILY for supplement deficiency for 30 Days, #30 TAB Memantine (Memantine) 10 Mg Tab 10 MG PO BID for Alzheimer's Dementia, TAB 0 Refills Pyridoxine (Vitamin B-6) 100 Mg Tab 100 MG PO DAILY for Nutritional Supplement, #30 TAB 0 Refills Suvorexant (Belsomra) 10 Mg Tab 10 MG PO HS for Provide Good Sleep, #30 TAB 0 Refills Warfarin (Warfarin) 3 Mg Tab 3 MG PO DAILY for Blood Clot Prevention, #30 TAB 0 Refills Discontinued Medications: Diltiazem CD 24 HR (Cardizem CD 24 HR) 180 Mg Caper 180 MG PO DAILY for afib, #31 CAP Metoprolol Tartrate (Metoprolol Tartrate) 25 Mg Tab 25 MG PO DAILY, #30 TAB 0 Refills Clyde Sagastume MD Dec 20, 2017 16:44
--- NOTE | 2017-12-20 20:09 | HHI.PR ---
Subjective Remarks C/R Surg afebrile, VSS UO good less diarrhea Objective - Vital Signs Date Time Temp Pulse Resp B/P (MAP) Pulse Ox O2 Delivery O2 Flow Rate FiO2 12/20/17 17:00 62 12/20/17 15:00 97.8 19 121/62 (81) 95 12/20/17 15:00 Room Air 12/20/17 08:29 21 12/18/17 15:00 3.00 Result Diagram: 12/20/17 0547 12/20/17 0547 Objective Remarks PE alert Abd - soft, flat, no prolapse, still loose stool A/P Assessment and Plan Imp: hold lax w/u after pacemaker for prolapse fu in office if necessary Nadir Gaona MD Dec 20, 2017 20:09
--- NOTE | 2017-12-20 22:18 | PD.CARD.PN ---
Subjective Subjective Remarks Patient was seen earlier today, late entry note Overall feels better Sinus rhythm Objective Vital Signs / I&O Vital Signs Date Time Temp Pulse Resp B/P (MAP) Pulse Ox O2 Delivery O2 Flow Rate FiO2 12/20/17 17:00 62 12/20/17 16:00 63 12/20/17 15:00 97.8 65 19 121/62 (81) 95 12/20/17 15:00 95 Room Air 12/20/17 15:00 60 12/20/17 14:00 67 12/20/17 13:00 83 12/20/17 12:00 73 12/20/17 11:00 98.0 72 19 125/60 (81) 99 12/20/17 11:00 99 Room Air 12/20/17 11:00 70 12/20/17 10:00 72 12/20/17 09:00 80 12/20/17 08:29 98 Nasal Cannula 21 12/20/17 08:00 72 12/20/17 07:00 98.3 68 20 122/56 (78) 97 12/20/17 07:00 65 12/20/17 07:00 97 Room Air 12/20/17 06:18 63 12/20/17 05:20 64 12/20/17 04:19 60 12/20/17 03:49 64 12/20/17 03:20 95 Room Air 12/20/17 03:20 98.0 62 17 105/52 (69) 95 12/20/17 02:06 67 12/20/17 01:51 66 12/20/17 00:51 67 12/19/17 23:36 98.4 69 18 105/57 (73) 95 12/19/17 23:36 95 Room Air 12/19/17 23:00 73 12/19/17 22:45 74 I/O 12/19/17 12/19/17 12/19/17 12/20/17 12/20/17 12/20/17 07:00 15:00 23:00 07:00 15:00 23:00 Intake Total 702 ml 240 ml 600 ml 1200 ml Output Total 1050 ml 1350 ml 525 ml Balance -348 ml -1110 ml 75 ml 1200 ml Intake Oral 702 ml 240 ml 600 ml 1200 ml Output Urine Total 1050 ml 1350 ml 525 ml # Voids 1 # Bowel Movements 2 Physical Exam GENERAL: NAD, AAOx3 SKIN: Warm and dry. HEAD: Atraumatic. Normocephalic. EYES: Pupils equal and round. No scleral icterus. No injection or drainage. ENT: No nasal bleeding or discharge. Mucous membranes pink and moist. NECK: Trachea midline. No JVD. CARDIOVASCULAR: Irregularly irregular RESPIRATORY: No accessory muscle use. Clear to auscultation. Breath sounds equal bilaterally. GASTROINTESTINAL: Abdomen soft, non-tender, nondistended. Hepatic and splenic margins not palpable. MUSCULOSKELETAL: Extremities without clubbing, cyanosis, or edema. No obvious deformities. NEUROLOGICAL: Awake and alert. No obvious cranial nerve deficits. Motor grossly within normal limits. Five out of 5 muscle strength in the arms and legs. Normal speech. PSYCHIATRIC: Appropriate mood and affect; insight and judgment normal. Laboratory Laboratory Tests Test 12/20/17 05:47 White Blood Count 8.8 TH/MM3 Red Blood Count 4.13 MIL/MM3 Hemoglobin 11.2 GM/DL Hematocrit 33.6 % Mean Corpuscular Volume 81.3 FL Mean Corpuscular Hemoglobin 27.2 PG Mean Corpuscular Hemoglobin Concent 33.4 % Red Cell Distribution Width 14.1 % Platelet Count 268 TH/MM3 Mean Platelet Volume 7.2 FL Prothrombin Time 22.4 SEC Prothromb Time International Ratio 2.2 RATIO Activated Partial Thromboplast Time 33.4 SEC Blood Urea Nitrogen 18 MG/DL Creatinine 1.37 MG/DL Random Glucose 114 MG/DL Calcium Level 8.5 MG/DL Sodium Level 135 MEQ/L Potassium Level 4.3 MEQ/L Chloride Level 105 MEQ/L Carbon Dioxide Level 20.7 MEQ/L Anion Gap 9 MEQ/L Estimat Glomerular Filtration Rate 37 ML/MIN Assessment and Plan Problem List: (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 Status: Acute (2) Atrial fibrillation ICD Codes: I48.91 - Unspecified atrial fibrillation Status: Acute (3) Symptomatic bradycardia ICD Codes: R00.1 - Bradycardia, unspecified Status: Acute (4) KARISSA (acute kidney injury) ICD Codes: N17.9 - Acute kidney failure, unspecified Status: Acute (5) Hyperkalemia ICD Codes: E87.5 - Hyperkalemia Status: Acute (6) Cardiogenic shock ICD Codes: R57.0 - Cardiogenic shock Status: Acute Assessment and Plan 1) Afib with RVR Follow up for Dr. Fuentes To be discharged on Cardizem 240mg and Amiodarone 200mg Follow up with Dr. Fuentes for consideration of AFib ablation Coumadin 2) Symptomatic bradycardia s/p Micra PPM 3) Tachybrady syndrome s/p Micra PPM Cardizem/Amio 4) KARISSA Better Calvin to be due to cardiogenic shock from significant bradycardia 5) Hyperkalemia Resolved Due to KARISSA 6) Cardiovascularly stable for discharge Follow up with Dr. Fuentes in 3 weeks for consideration of Afib ablation Sreedhar Hicks DO Dec 20, 2017 22:18
--- NOTE | 2017-12-31 00:40 | MP ---
cc: Amari Fuentes MD DATE OF OPERATION: 12/19/2017 INDICATIONS FOR PROCEDURE: Mrs. Pryor is a 76-year-old female, tachybrady syndrome, severe bradycardia, in need of ____ inotropic medication, will undergo pacemaker insertion. The risks, the nature, and the benefits of the procedure are clearly stated to her. Risks include pneumothorax, cardiac perforation, stroke, inguinal hematoma, and even . The patient understood and agreed to proceed. DESCRIPTION OF PROCEDURE: After written informed consent was obtained, the patient was brought to the EP lab, where she was prepped and draped in the usual sterile fashion. Conscious sedation was initiated and maintained throughout the procedure by the anesthesiologist. Once sedation was verified, the right inguinal area was anesthetized with 2% Xylocaine. Using modified Seldinger technique, the right femoral vein was cannulated on one occasion and a stiff Amplatz was advanced all the way to the superior vena cava. Then an 11 cm incision was made. Then 2-0 Ethibond suture was placed at the exit point to prevent backbleeding in a pursestring fashion. Then, the area was previously predilated using an 8, 12, 16 and 20-Malay dilator. Then, the micro sheath was advanced. Then, the delivery system was advanced and the system was placed at the right ventricular septal area. After adequate pacing and sensing thresholds were obtained and there was good attachment of the system in the wall, the lead was released. Then, the sheath and the delivery system were removed. At that point, the procedure was complete. The patient will be transferred to the recovery room. No incident to report. IMPRESSION: 1. Implanted hardware: The implanted Micra permanent pacemaker is a [employer] model number [id number], serial number [id number]. 2. Threshold: The right ventricular pacing threshold in bipolar mode was 0.12 volts at 0.23 millisecond, lead impedance 790 ohms, R-wave at 18 millivolt, setting the device in a VVI 60. CONCLUSION: Successful Micra insertion. COMMENT AND RECOMMENDATION: The patient is going to be transferred to the recovery room. Will be observed, can be discharged whenever it is okay with the managing team. MD ERASTO Sorensen/LISA , 11:07 PM , 12:39 AM
== END 2017-12-20 17:55 | disposition home health service (06) | DRG 228 ==
LOC: NEPE 07:20 → NEDA 08:44 → HCVI 11:22 → HCPC 12-17 14:25
PROVIDERS: ADMIT Internal Medicine; ATTEND Internal Medicine
PROC: 02HK3NZ Insertion of Intracardiac Pacemaker into Right Ventricle, Percutaneous Approach (ICD-10-PCS; principal; 2017-12-19 15:30)
DX: I49.5 Sick sinus syndrome (principal); R57.0 Cardiogenic shock; N17.9 Acute kidney failure, unspecified; E87.2 Acidosis; E11.22 Type 2 diabetes mellitus with diabetic chronic kidney disease; I48.0 Paroxysmal atrial fibrillation; F03.90 Unspecified dementia, unspecified severity, without behavioral disturbance, psychotic disturbance, mood disturbance, and anxiety; I12.9 Hypertensive chronic kidney disease with stage 1 through stage 4 chronic kidney disease, or unspecified chronic kidney disease; E87.5 Hyperkalemia; R19.7 Diarrhea, unspecified; N18.3 Chronic kidney disease, stage 3 (moderate); F41.9 Anxiety disorder, unspecified; M47.9 Spondylosis, unspecified; R51 Headache; N39.41 Urge incontinence; K62.3 Rectal prolapse; E78.5 Hyperlipidemia, unspecified; R15.9 Full incontinence of feces; F41.8 Other specified anxiety disorders; D64.9 Anemia, unspecified; E88.09 Other disorders of plasma-protein metabolism, not elsewhere classified; F20.9 Schizophrenia, unspecified; F31.9 Bipolar disorder, unspecified; J44.9 Chronic obstructive pulmonary disease, unspecified; B19.20 Unspecified viral hepatitis C without hepatic coma; K21.9 Gastro-esophageal reflux disease without esophagitis; M19.90 Unspecified osteoarthritis, unspecified site; Z21 Asymptomatic human immunodeficiency virus [HIV] infection status; Z91.19 Patient's noncompliance with other medical treatment and regimen; Z86.73 Personal history of transient ischemic attack (TIA), and cerebral infarction without residual deficits; Z85.528 Personal history of other malignant neoplasm of kidney; Z79.01 Long term (current) use of anticoagulants
CPT/HCPCS: 0387T; 33207; 70450; 71045; 76775; 76937; 80048; 80053; 80076; 82570; 82948; 83605; 83735; 84100; 84132; 84300; 84484; 85025; 85027; 85610; 85730; 87205; 87641; 93005; 94150; 94640; 94664; 94667; 94668; 96361; 96374; C1786; J0360; J0461; J0610; J0690; J1160; J1250; J1610; J1644; J1815; J1940; J2250; J2405; J3010; J3475; J7040; J7611; Q9967

== ENCOUNTER 2018-03-17 15:33 | Inpatient (IN) ==
--- NOTE | 2018-03-17 16:04 | ED ---
HPI General Chief Complaint: Chest Pain Stated Complaint: Chest pain/SOB Time Seen by Provider: 03/17/18 15:49 Source: patient Mode of arrival: ambulatory Limitations: no limitations History of Present Illness HPI narrative: Patient is a 2 hour history of substernal area and nonradiating continuous chest pressure, associated with shortness of breath. Patient states that she is anticoagulated on Coumadin. Due to a history of atrial fibrillation. She also has an AICD and pacemaker for tachybradycardia syndrome cardio: dr mercer pcp dr nikki MEHTA complaint: chest pain Complete Quality Measures for STEMI Alert Patients STEMI Alert: No Onset (ago): hour(s) (2) Duration: constant Onset: during rest Pain location: substernal Severity: moderate Severity scale (1-10): 5 Quality: heaviness Pain radiation: none Relieving factors: nothing Exacerbating factors: nothing Treatments prior to arrival chest pain: none Related Data On Oral Contraceptives: No Home Medications Medication Instructions Recorded Confirmed cyanocobalamin (vitamin B-12) 1,000 mcg IM Q2W 03/17/18 03/17/18 suvorexant [Belsomra] 20 mg PO HS 03/17/18 03/17/18 Previous Rx's Medication Instructions Recorded diltiazem HCl [Cardizem LA] 240 mg PO DAILY #30 tab 03/20/18 warfarin [Coumadin] 3 mg PO DAILY@1600 #30 tab 03/20/18 zolpidem 5 mg PO HS PRN tab 03/20/18 Allergies Allergy/AdvReac Type Severity Reaction Status Date / Time No Known Allergies Allergy Unknown Uncoded 12/15/17 07:39 Review of Systems Except as stated in HPI: all other systems reviewed are negative PMFSH History History Provided By: Patient Social History Social History Substance History: No History of Abuse Second Hand Smoke Exposure: No Smoking Status: Never smoker How Often Do You Have a Drink Containing Alcohol: Never Recent Travel in [facility] within the Last 8 Weeks: No Exam Narrative Exam Narrative: GENERAL: Elderly female in mild distress secondary to chest pain SKIN: Warm and dry. HEAD: Atraumatic. Normocephalic. EYES: Pupils equal and round. No scleral icterus. No injection or drainage. ENT: No nasal bleeding or discharge. Mucous membranes pink and moist. NECK: Trachea midline. No JVD. CARDIOVASCULAR: Regular rate and rhythm. no rubs or gallops RESPIRATORY: No accessory muscle use. Bibasilar crackles. Decreased tidal volume breath sounds bilaterally GASTROINTESTINAL: Abdomen soft, non-tender, nondistended. No rebound or guarding MUSCULOSKELETAL: Extremities without clubbing, cyanosis, or 1+ pitting edema bilaterally . No obvious deformities. NEUROLOGICAL: Awake and alert. No obvious cranial nerve deficits. Motor grossly within normal limits. Five out of 5 muscle strength in the arms and legs. Normal speech. PSYCHIATRIC: Appropriate mood and affect; insight and judgment normal. Course Initial Documented Vital Signs Temperature 97.4 F L 03/17/18 15:41 Pulse Rate 60 03/17/18 15:41 Respiratory Rate 26 H 03/17/18 15:41 Blood Pressure 171/80 H 03/17/18 15:41 Pulse Oximetry 98 03/17/18 15:41 Last Documented Vital Signs Temperature 98.1 F 03/20/18 07:00 Pulse Rate 100 H 03/20/18 08:00 Respiratory Rate 20 03/20/18 07:00 Blood Pressure 114/65 03/20/18 03:00 Pulse Oximetry 95 03/20/18 08:00 Critical Care Time Critical Care Time: Yes Total Critical Care Time: 30 Attestation: Aggregate critical care time was 30 minutes. Time to perform other separately billable procedures was not included in the critical care time. My time did not include minutes spent treating any other patients simultaneously or on activities that did not directly contribute to the patient's treatment. The services I provided to this patient were to treat and/or prevent clinically significant deterioration that could result in: Permanent disability or I provided critical care services requiring my management, as noted below: Chart data review, documentation time, medication orders and management, vital sign assessments/reviewing monitor data, ordering and reviewing lab tests, ordering and interpreting/reviewing x-rays and diagnostic studies, care of the patient and discussion of the patient with the admitting physicians. Medical Decision Making Differential Diagnosis Differential Diagnosis: CHF versus pulmonary embolus versus pneumonia versus STEMI versus non-STEMI Lab Data Result diagrams: 03/19/18 07:13 03/20/18 03:38 Lab Results 03/17/18 03/17/18 03/17/18 Range/Units 16:14 16:14 16:14 WBC 8.0 (4.0-11.0) th/mm3 RBC 4.03 (4.00-5.30) mil/mm3 Hgb 10.9 L (11.6-15.3) gm/dL Hct 33.4 L (35.0-46.0) % MCV 82.7 (80.0-100.0) fL MCH 27.1 (27.0-34.0) pg MCHC 32.8 (32.0-36.0) % RDW 15.4 (11.6-17.2) % Plt Count 314 (150-450) th/mm3 MPV 7.0 (7.0-11.0) fL Neut % (Auto) 79.7 H (16.0-70.0) % Lymph % (Auto) 12.4 (9.0-44.0) % Ness % (Auto) 5.4 (0.0-8.0) % Eos % (Auto) 1.8 (0.0-4.0) % Baso % (Auto) 0.7 (0.0-2.0) % Neut # (Auto) 6.4 (1.8-7.7) th/mm3 Lymph # (Auto) 1.0 (1.0-4.8) th/mm3 Ness # (Auto) 0.4 (0.0-0.9) th/mm3 Eos # (Auto) 0.1 (0.0-0.4) th/mm3 Baso # (Auto) 0.1 (0.0-0.2) th/mm3 WBC Differential . Differential Comment Auto diff final PT 14.1 H (9.8-11.6) sec INR 1.4 Ratio APTT 28.3 (24.3-30.1) sec Sodium 139 (136-145) meq/L Potassium 5.0 (3.5-5.1) meq/L Chloride 109 H (98-107) meq/L Carbon Dioxide 16.7 L (21.0-32.0) meq/L Anion Gap 13 (5-15) meq/L BUN 14 (7-18) mg/dL Creatinine 1.42 H (0.50-1.00) mg/dL Estimated GFR 36 L (>89) mL/min Random Glucose 124 H (74-106) mg/dL Hemoglobin A1c (4.3-6.0) % Calcium 8.3 L (8.5-10.1) mg/dL Phosphorus (2.5-4.9) mg/dL Magnesium (1.5-2.5) mg/dL Total Bilirubin 0.3 (0.2-1.0) mg/dL AST 27 (15-37) U/L ALT 24 (10-53) U/L Alkaline Phosphatase 158 H (45-117) U/L Total Creatine Kinase 89 (26-192) U/L CK-MB (CK-2) (0.5-3.6) ng/mL CK-MB (CK-2) % (0.0-4.0) % Troponin I 0.09 H (0.02-0.05) ng/mL B-Natriuretic Peptide (0-100) pg/mL Total Protein 7.1 (6.4-8.2) g/dL Albumin 3.3 L (3.4-5.0) g/dL Triglycerides (42-150) mg/dL Cholesterol (120-200) mg/dL LDL Cholesterol, Calc (0-99) mg/dL HDL Cholesterol (40.0-60.0) mg/dL Cholesterol/HDL Ratio Ratio TSH (0.358-3.740) uIU/mL Free T4 (0.76-1.46) ng/dL 03/17/18 03/17/18 03/17/18 Range/Units 16:14 16:14 22:15 WBC (4.0-11.0) th/mm3 RBC (4.00-5.30) mil/mm3 Hgb (11.6-15.3) gm/dL Hct (35.0-46.0) % MCV (80.0-100.0) fL MCH (27.0-34.0) pg MCHC (32.0-36.0) % RDW (11.6-17.2) % Plt Count (150-450) th/mm3 MPV (7.0-11.0) fL Neut % (Auto) (16.0-70.0) % Lymph % (Auto) (9.0-44.0) % Ness % (Auto) (0.0-8.0) % Eos % (Auto) (0.0-4.0) % Baso % (Auto) (0.0-2.0) % Neut # (Auto) (1.8-7.7) th/mm3 Lymph # (Auto) (1.0-4.8) th/mm3 Ness # (Auto) (0.0-0.9) th/mm3 Eos # (Auto) (0.0-0.4) th/mm3 Baso # (Auto) (0.0-0.2) th/mm3 WBC Differential Differential Comment PT (9.8-11.6) sec INR Ratio APTT (24.3-30.1) sec Sodium (136-145) meq/L Potassium (3.5-5.1) meq/L Chloride (98-107) meq/L Carbon Dioxide (21.0-32.0) meq/L Anion Gap (5-15) meq/L BUN (7-18) mg/dL Creatinine (0.50-1.00) mg/dL Estimated GFR (>89) mL/min Random Glucose (74-106) mg/dL Hemoglobin A1c (4.3-6.0) % Calcium (8.5-10.1) mg/dL Phosphorus (2.5-4.9) mg/dL Magnesium (1.5-2.5) mg/dL Total Bilirubin (0.2-1.0) mg/dL AST (15-37) U/L ALT (10-53) U/L Alkaline Phosphatase (45-117) U/L Total Creatine Kinase 270 H (26-192) U/L CK-MB (CK-2) 26.9 H (0.5-3.6) ng/mL CK-MB (CK-2) % 10.0 H* (0.0-4.0) % Troponin I 5.03 H* D (0.02-0.05) ng/mL B-Natriuretic Peptide 130 H (0-100) pg/mL Total Protein (6.4-8.2) g/dL Albumin (3.4-5.0) g/dL Triglycerides 464 H (42-150) mg/dL Cholesterol 173 (120-200) mg/dL LDL Cholesterol, Calc (0-99) mg/dL HDL Cholesterol 34.5 L (40.0-60.0) mg/dL Cholesterol/HDL Ratio 5.01 Ratio TSH (0.358-3.740) uIU/mL Free T4 (0.76-1.46) ng/dL 03/18/18 03/18/18 03/18/18 Range/Units 04:06 04:06 08:55 WBC 8.3 (4.0-11.0) th/mm3 RBC 4.01 (4.00-5.30) mil/mm3 Hgb 10.7 L (11.6-15.3) gm/dL Hct 32.9 L (35.0-46.0) % MCV 82.1 (80.0-100.0) fL MCH 26.8 L (27.0-34.0) pg MCHC 32.6 (32.0-36.0) % RDW 15.3 (11.6-17.2) % Plt Count 289 (150-450) th/mm3 MPV 7.2 (7.0-11.0) fL Neut % (Auto) 72.0 H (16.0-70.0) % Lymph % (Auto) 18.2 (9.0-44.0) % Ness % (Auto) 7.3 (0.0-8.0) % Eos % (Auto) 1.9 (0.0-4.0) % Baso % (Auto) 0.6 (0.0-2.0) % Neut # (Auto) 6.0 (1.8-7.7) th/mm3 Lymph # (Auto) 1.5 (1.0-4.8) th/mm3 Ness # (Auto) 0.6 (0.0-0.9) th/mm3 Eos # (Auto) 0.2 (0.0-0.4) th/mm3 Baso # (Auto) 0.0 (0.0-0.2) th/mm3 WBC Differential . Differential Comment Auto diff final PT (9.8-11.6) sec INR Ratio APTT (24.3-30.1) sec Sodium 141 (136-145) meq/L Potassium 5.6 H (3.5-5.1) meq/L Chloride 112 H (98-107) meq/L Carbon Dioxide 18.5 L (21.0-32.0) meq/L Anion Gap 11 (5-15) meq/L BUN 14 (7-18) mg/dL Creatinine 1.21 H (0.50-1.00) mg/dL Estimated GFR 43 L (>89) mL/min Random Glucose 92 (74-106) mg/dL Hemoglobin A1c (4.3-6.0) % Calcium 8.5 (8.5-10.1) mg/dL Phosphorus (2.5-4.9) mg/dL Magnesium (1.5-2.5) mg/dL Total Bilirubin (0.2-1.0) mg/dL AST (15-37) U/L ALT (10-53) U/L Alkaline Phosphatase (45-117) U/L Total Creatine Kinase 489 H (26-192) U/L CK-MB (CK-2) 59.6 H (0.5-3.6) ng/mL CK-MB (CK-2) % 12.2 H* (0.0-4.0) % Troponin I 20.90 H* D (0.02-0.05) ng/mL B-Natriuretic Peptide (0-100) pg/mL Total Protein (6.4-8.2) g/dL Albumin (3.4-5.0) g/dL Triglycerides (42-150) mg/dL Cholesterol (120-200) mg/dL LDL Cholesterol, Calc (0-99) mg/dL HDL Cholesterol (40.0-60.0) mg/dL Cholesterol/HDL Ratio Ratio TSH (0.358-3.740) uIU/mL Free T4 (0.76-1.46) ng/dL 03/19/18 03/19/18 03/19/18 Range/Units 07:13 07:13 07:13 WBC 6.7 (4.0-11.0) th/mm3 RBC 4.08 (4.00-5.30) mil/mm3 Hgb 11.0 L (11.6-15.3) gm/dL Hct 33.9 L (35.0-46.0) % MCV 83.0 (80.0-100.0) fL MCH 27.0 (27.0-34.0) pg MCHC 32.6 (32.0-36.0) % RDW 15.5 (11.6-17.2) % Plt Count 294 (150-450) th/mm3 MPV 7.5 (7.0-11.0) fL Neut % (Auto) 67.3 (16.0-70.0) % Lymph % (Auto) 20.9 (9.0-44.0) % Ness % (Auto) 8.7 H (0.0-8.0) % Eos % (Auto) 2.5 (0.0-4.0) % Baso % (Auto) 0.6 (0.0-2.0) % Neut # (Auto) 4.5 (1.8-7.7) th/mm3 Lymph # (Auto) 1.4 (1.0-4.8) th/mm3 Ness # (Auto) 0.6 (0.0-0.9) th/mm3 Eos # (Auto) 0.2 (0.0-0.4) th/mm3 Baso # (Auto) 0.0 (0.0-0.2) th/mm3 WBC Differential . Differential Comment Auto diff final PT 17.2 H (9.8-11.6) sec INR 1.7 Ratio APTT (24.3-30.1) sec Sodium (136-145) meq/L Potassium (3.5-5.1) meq/L Chloride (98-107) meq/L Carbon Dioxide (21.0-32.0) meq/L Anion Gap (5-15) meq/L BUN (7-18) mg/dL Creatinine (0.50-1.00) mg/dL Estimated GFR (>89) mL/min Random Glucose (74-106) mg/dL Hemoglobin A1c 5.4 (4.3-6.0) % Calcium (8.5-10.1) mg/dL Phosphorus (2.5-4.9) mg/dL Magnesium (1.5-2.5) mg/dL Total Bilirubin (0.2-1.0) mg/dL AST (15-37) U/L ALT (10-53) U/L Alkaline Phosphatase (45-117) U/L Total Creatine Kinase (26-192) U/L CK-MB (CK-2) (0.5-3.6) ng/mL CK-MB (CK-2) % (0.0-4.0) % Troponin I (0.02-0.05) ng/mL B-Natriuretic Peptide (0-100) pg/mL Total Protein (6.4-8.2) g/dL Albumin (3.4-5.0) g/dL Triglycerides (42-150) mg/dL Cholesterol (120-200) mg/dL LDL Cholesterol, Calc (0-99) mg/dL HDL Cholesterol (40.0-60.0) mg/dL Cholesterol/HDL Ratio Ratio TSH (0.358-3.740) uIU/mL Free T4 (0.76-1.46) ng/dL 03/19/18 03/20/18 03/20/18 Range/Units 07:13 03:38 03:38 WBC (4.0-11.0) th/mm3 RBC (4.00-5.30) mil/mm3 Hgb (11.6-15.3) gm/dL Hct (35.0-46.0) % MCV (80.0-100.0) fL MCH (27.0-34.0) pg MCHC (32.0-36.0) % RDW (11.6-17.2) % Plt Count (150-450) th/mm3 MPV (7.0-11.0) fL Neut % (Auto) (16.0-70.0) % Lymph % (Auto) (9.0-44.0) % Ness % (Auto) (0.0-8.0) % Eos % (Auto) (0.0-4.0) % Baso % (Auto) (0.0-2.0) % Neut # (Auto) (1.8-7.7) th/mm3 Lymph # (Auto) (1.0-4.8) th/mm3 Ness # (Auto) (0.0-0.9) th/mm3 Eos # (Auto) (0.0-0.4) th/mm3 Baso # (Auto) (0.0-0.2) th/mm3 WBC Differential Differential Comment PT 21.3 H (9.8-11.6) sec INR 2.1 Ratio APTT (24.3-30.1) sec Sodium 142 137 (136-145) meq/L Potassium 4.8 D 4.9 (3.5-5.1) meq/L Chloride 111 H 106 (98-107) meq/L Carbon Dioxide 21.9 21.5 (21.0-32.0) meq/L Anion Gap 9 10 (5-15) meq/L BUN 13 11 (7-18) mg/dL Creatinine 1.10 H 1.04 H (0.50-1.00) mg/dL Estimated GFR 48 L 51 L (>89) mL/min Random Glucose 87 91 (74-106) mg/dL Hemoglobin A1c (4.3-6.0) % Calcium 8.4 L 8.2 L (8.5-10.1) mg/dL Phosphorus 3.2 (2.5-4.9) mg/dL Magnesium 1.7 (1.5-2.5) mg/dL Total Bilirubin 0.4 (0.2-1.0) mg/dL AST 37 (15-37) U/L ALT 23 (10-53) U/L Alkaline Phosphatase 142 H (45-117) U/L Total Creatine Kinase (26-192) U/L CK-MB (CK-2) (0.5-3.6) ng/mL CK-MB (CK-2) % (0.0-4.0) % Troponin I (0.02-0.05) ng/mL B-Natriuretic Peptide (0-100) pg/mL Total Protein 6.6 (6.4-8.2) g/dL Albumin 3.0 L (3.4-5.0) g/dL Triglycerides 359 H (42-150) mg/dL Cholesterol 157 (120-200) mg/dL LDL Cholesterol, Calc 52 (0-99) mg/dL HDL Cholesterol 33.1 L (40.0-60.0) mg/dL Cholesterol/HDL Ratio 4.74 Ratio TSH 2.860 (0.358-3.740) uIU/mL Free T4 1.10 (0.76-1.46) ng/dL Imaging Data Radiologist's impression: Chest X-Ray 03/17/18 15:58 CONCLUSION: 1. Minimal airspace disease at the left lung base, likely atelectasis. Chest CTA 03/19/18 11:32 CONCLUSION: 1. No evidence of pulmonary embolism. 2. No acute pulmonary infiltrates. ECG Data EKG Prior to Arrival: No Attestation: I personally reviewed and interpreted this ECG as follows: Prior ECG tracings: not available for review Interpretation: Atrial fibrillation without any evidence of RVR or ST elevation MD Discharge Plan Discharge Disposition Patient Disposition: 30 Still Patient Discharge Condition Condition: Good Discharge Order Discharge Orders: Discharge Order (Routine); Ordered 03/20/18 Ordered By: Flex Chapa Cardiology Clear for Discharge (Routine); Ordered 03/20/18 Ordered By: Sreedhar Hicks Discharge Details Anticipated Discharge Date: 03/20/18 Discharge Comment: d/c after cleared by cardiology Diagnosis: NSTEMI (non-ST elevated myocardial infarction), Afib Physicians Team ED Provider: Isrrael Tang Primary Care Provider: Jurgen Lewis Attending Provider: Flex Chapa Other Providers: Evi Mercer Discharge Interventions Interventions: ED Discharge Assessment Last Done: 03/18/18 06:37 Vital Signs Last Done: 03/17/18 19:44 Status ED Status: Left Department Discharge Information Discharge Date/Time: 03/18/18 06:38
[2018-03-17] MEDS ORDERED: Morphine Inj 4 MG/ML Vial IV.PUSH ONE (16:06)
[2018-03-17 16:27] LABS: Baso # (Auto) 0.1 th/mm3 (0.0-0.2); Baso % (Auto) 0.7 % (0.0-2.0); Eos # (Auto) 0.1 th/mm3 (0.0-0.4); Eos % (Auto) 1.8 % (0.0-4.0); Hematocrit 33.4 % (35.0-46.0); Hemoglobin 10.9 gm/dL (11.6-15.3); Lymph % (Auto) 12.4 % (9.0-44.0); Mean Corpuscular HGB Conc 32.8 % (32.0-36.0); Mean Corpuscular Hemoglobin 27.1 pg (27.0-34.0); Mean Corpuscular Volume 82.7 fL (80.0-100.0); Mono # (Auto) 0.4 th/mm3 (0.0-0.9); Mono % (Auto) 5.4 % (0.0-8.0); Neut # (Auto) 6.4 th/mm3 (1.8-7.7); Neut % (Auto) 79.7 % (16.0-70.0); Platelet Count 314 th/mm3 (150-450); Red Blood Count 4.03 mil/mm3 (4.00-5.30); Red Cell Distribution Width 15.4 % (11.6-17.2)
[2018-03-17 16:32] LABS: Activated Partial Thrombo Time 28.3 sec (24.3-30.1); INR 1.4 Ratio; Prothrombin Time 14.1 sec (9.8-11.6)
[2018-03-17 16:45] LABS: Alanine Aminotransferase 24 U/L (10-53); Albumin 3.3 g/dL (3.4-5.0); Anion Gap 13 meq/L (5-15); Aspartate Aminotransferase 27 U/L (15-37); Blood Urea Nitrogen 14 mg/dL (7-18); Calcium 8.3 mg/dL (8.5-10.1); Carbon Dioxide 16.7 meq/L (21.0-32.0); Chloride 109 meq/L (98-107); Glomerular Filtration Rate 36 mL/min (>89); Glucose,Random 124 mg/dL (74-106); Sodium 139 meq/L (136-145)
--- NOTE | 2018-03-17 16:45 | XR ---
EXAM DATE: 03/17/2018 4:09 PM EDT AGE/SEX: 77 years / Female INDICATIONS: Shortness of breath and chest pain. CLINICAL DATA: This is the patient's initial encounter. Patient reports that signs and symptoms have been present for 1 day and indicates a pain score of 7/10. MEDICAL/SURGICAL HISTORY: . AFIB. Pacemaker. COMPARISON: POI, XR CHEST PA AND LAT, 03/12/2018. . FINDINGS: Stable cardiac event monitor. Mild airspace disease at the left lung base. Otherwise, no significant new focal pleural or parenchymal opacities. Cardiomediastinal contours are stable. Bony thorax is int act. CONCLUSION: 1. Minimal airspace disease at the left lung base, likely atelectasis. Electronically signed by: Alber Marcus MD 03/17/2018 4:44 PM EDT
[2018-03-17 16:46] LABS: Alkaline Phosphatase 158 U/L (45-117); Total Protein 7.1 g/dL (6.4-8.2); Troponin I 0.09 ng/mL (0.02-0.05)
[2018-03-17 16:53] LABS: Creatine Kinase 89 U/L (26-192)
[2018-03-17] MEDS ORDERED: Enoxaparin Inj 60 MG/0.6 ML Syringe SQ ONE (19:09)
[2018-03-17] MEDS ORDERED: Morphine Sulfate Inj 2 MG/ML Vial IV.PUSH PRN (21:41)
--- NOTE | 2018-03-17 22:25 | P.HP ---
History of Present Illness Service: [facility] Primary Care Physician: Jurgen Lewis Chief Complaint: Chest pain History of Present Illness: 77-year-old female with a past medical history significant for atrial fibrillation anticoagulated on Coumadin, coronary artery disease, hypertension and hyperlipidemia presents to the emergency department for the evaluation of chest pain. The patient reports that the chest pain started earlier today and did not resolve on its own. She states it is substernal and epigastric. She describes it as a pressure that is nonradiating. She endorses increasing weakness and nausea/vomiting that all began today. She has shortness of breath that is chronic and at her baseline. She denies any fever/chills. No lateralizing signs/symptoms. Inpatient Certification: I certify that the inpatient services were ordered in accordance with Medicare regulations governing the order. This includes certification that hospital inpatient services are reasonable and necessary and in the case of services not specified as inpatient-only under 42 CFR 419.22(n), that they are appropriately provided as inpatient services in accordance to with the 2-midnight benchmark under 43 CFR 412.3(e) Estimated Total Length of Stay (Days): 3 Plans for Post Hospital Care: Not yet determined Review of Systems All other systems reviewed negative except as stated in HPI PMFSH - History History Provided By: Patient - Medical History Medical History: Medical History (Last Updated 03/17/18 @ 16:09 by Grace Cardona) Anxiety Atrial fibrillation Cancer of left kidney Degenerative arthritis Depression Headache History of hysterectomy Hypertension Sinus bradycardia - Surgical History Surgical History: Surgical History (Last Updated 03/17/18 @ 16:09 by Grace Cardona) H/O joint replacement Hx of appendectomy - Tobacco History Second Hand Smoke Exposure: No Smoking Status: Never smoker - Alcohol History How Often Do You Have a Drink Containing Alcohol: Monthly or less - Substance Use History Substance History: No History of Abuse - Travel History Recent Travel in the [place] Within the Last 8 Weeks: No - Immunization History Tetanus Immunization: >5 Years Hx Influenza Vaccine This Season: Yes Medications and Allergies Active Medications: Active Medications Morphine Sulfate (Morphine Inj) 2 mg IV.PUSH Q3H PRN PRN Reason: pain > 4 Nitroglycerin (Nitrostat Sl) 0.4 mg SL Q5M PRN PRN Reason: CHEST PAIN Nitroglycerin (Nitro-Bid 2% Oint) 0.5 inch TOPICAL Q6HR LINDSEY Sodium Chloride (Ns Flush) 2 ml IV.FLUSH UNSCH PRN PRN Reason: FLUSH AFTER USING IV ACCESS Sodium Chloride (Ns Inj) 2 ml IV.FLUSH BID LINDSEY Sodium Chloride (Ns Inj) 2 ml IV.FLUSH UNSCH PRN PRN Reason: FLUSH AFTER USING IV ACCESS Zolpidem Tartrate (Ambien) 5 mg PO HS PRN PRN Reason: INSOMNIA Allergies Allergy/AdvReac Type Severity Reaction Status Date / Time No Known Allergies Allergy Unknown Uncoded 12/15/17 07:39 Home Medications Medication Instructions Recorded Confirmed Type cyanocobalamin (vitamin B-12) 1,000 mcg IM Q2W 03/17/18 03/17/18 History suvorexant [Belsomra] 20 mg PO HS 03/17/18 03/17/18 History Exam Vital signs: Vital Signs 03/17/18 15:41 03/17/18 16:07 03/17/18 16:16 Temperature 97.4 F L Pulse Rate 60 61 66 Respiratory Rate 26 H 18 Blood Pressure 171/80 H 156/59 H Pulse Oximetry 98 96 03/17/18 18:10 03/17/18 18:30 03/17/18 19:00 Temperature Pulse Rate 59 L 60 Respiratory Rate 24 24 Blood Pressure 182/130 H 153/72 H Pulse Oximetry 98 03/17/18 19:44 03/17/18 19:48 Temperature Pulse Rate 59 L 61 Respiratory Rate 16 16 Blood Pressure 162/72 H 158/101 H Pulse Oximetry 97 Intake & Output 03/17/18 03/17/18 03/18/18 06:59 18:59 06:59 Weight 74.843 kg Narrative: Gen.: No acute distress Head: Normocephalic. Atraumatic. EENT: Pupils equal round and reactive to light. Nose without drainage. Airway intact. Throat without injection. Cardiovascular: Regular rate and rhythm. No murmurs, rubs or gallops. Respiratory: Lungs clear to auscultation bilaterally. No wheezes or rhonchi. Abdomen: Soft, nontender, nondistended. No peritoneal signs. Musculoskeletal: No gross deformities. No edema. Skin: No obvious rashes or erythema. Neuro: Sensory and motor grossly intact. Cranial nerves II through XII grossly intact. Psych: Appropriate mood and affect Results - Labs CBC & Chem 7: 03/17/18 16:14 03/17/18 16:14 Labs: Laboratory Results - last 24 hr 03/17/18 03/17/18 03/17/18 16:14 16:14 16:14 WBC 8.0 RBC 4.03 Hgb 10.9 L Hct 33.4 L MCV 82.7 MCH 27.1 MCHC 32.8 RDW 15.4 Plt Count 314 MPV 7.0 Neut % (Auto) 79.7 H Lymph % (Auto) 12.4 Frontier % (Auto) 5.4 Eos % (Auto) 1.8 Baso % (Auto) 0.7 Neut # (Auto) 6.4 Lymph # (Auto) 1.0 Frontier # (Auto) 0.4 Eos # (Auto) 0.1 Baso # (Auto) 0.1 WBC Differential . Differential Comment Auto diff final PT 14.1 H INR 1.4 APTT 28.3 Sodium 139 Potassium 5.0 Chloride 109 H Carbon Dioxide 16.7 L Anion Gap 13 BUN 14 Creatinine 1.42 H Estimated GFR 36 L Random Glucose 124 H Calcium 8.3 L Total Bilirubin 0.3 AST 27 ALT 24 Alkaline Phosphatase 158 H Total Creatine Kinase 89 Troponin I 0.09 H B-Natriuretic Peptide Total Protein 7.1 Albumin 3.3 L 03/17/18 16:14 WBC RBC Hgb Hct MCV MCH MCHC RDW Plt Count MPV Neut % (Auto) Lymph % (Auto) Frontier % (Auto) Eos % (Auto) Baso % (Auto) Neut # (Auto) Lymph # (Auto) Frontier # (Auto) Eos # (Auto) Baso # (Auto) WBC Differential Differential Comment PT INR APTT Sodium Potassium Chloride Carbon Dioxide Anion Gap BUN Creatinine Estimated GFR Random Glucose Calcium Total Bilirubin AST ALT Alkaline Phosphatase Total Creatine Kinase Troponin I B-Natriuretic Peptide 130 H Total Protein Albumin - Imaging Impressions Chest X-Ray 03/17/18 15:58 CONCLUSION: 1. Minimal airspace disease at the left lung base, likely atelectasis. Caprini VTE Risk Assessment Caprini VTE Risk Assessment: Moderate/High Risk (score >= 2) Caprini Risk Assessment Model: Point Value = 1 Point Value = 2 Point Value = 3 Point Value = 5 Age 41-60 Minor surgery BMI > 25 kg/m2 Swollen legs Varicose veins or History of unexplained or recurrent spontaneous Oral contraceptives or hormone replacement Sepsis (< 1 month) Serious lung disease, including pneumonia (< 1 month) Abnormal pulmonary function Acute myocardial infarction Congestive heart failure (< 1 month) History of inflammatory bowel disease Medical patient at bed rest Age 61-74 Arthroscopic surgery Major open surgery (> 45 min) Laparoscopic surgery (> 45 min) Malignancy Confined to bed (> 72 hours) Immobilizing plaster cast Central venous access Age >= 75 History of VTE Family history of VTE Factor V Leiden Prothrombin [id number] Lupus anticoagulant Anticardiolipin antibodies Elevated serum homocysteine Heparin-induced thrombocytopenia Other congenital or acquired thrombophilia Stroke (< 1 month) Elective arthroplasty Hip, pelvis, or leg fracture Acute spinal cord injury (< 1 month) Prophylaxis Regimen: Total Risk Factor Score Risk Level Prophylaxis Regimen 0-1 Low Early ambulation 2 Moderate Order ONE of the following: *Sequential Compression Device (SCD) *Heparin 5000 units SQ BID 3-4 Higher Order ONE of the following medications: *Heparin 5000 units SQ TID *Enoxaparin/Lovenox 40 mg SQ daily (WT < 150 kg, CrCl > 30 mL/min) *Enoxaparin/Lovenox 30 mg SQ daily (WT < 150 kg, CrCl > 10-29 mL/min) *Enoxaparin/Lovenox 30 mg SQ BID (WT < 150 kg, CrCl > 30 mL/min) AND/OR *Sequential Compression Device (SCD) 5 or more Highest Order ONE of the following medications: *Heparin 5000 units SQ TID (Preferred with Epidurals) *Enoxaparin/Lovenox 40 mg SQ daily (WT < 150 kg, CrCl > 30 mL/min) *Enoxaparin/Lovenox 30 mg SQ daily (WT < 150 kg, CrCl > 10-29 mL/min) *Enoxaparin/Lovenox 30 mg SQ BID (WT < 150 kg, CrCl > 30 mL/min) AND *Sequential Compression Device (SCD) Assessment and Plan - Plan Assessment/plan: 1. NSTEMI/chest pain/CAD Patient with elevated troponin of 0.09 EKG showed ventricular pacing without ST segment elevation or depression, personally reviewed Patient continues to have chest pain Nitropaste Morphine Therapeutic Lovenox Cardiology consulted, appreciate recommendations 2. Acute kidney injury Creatinine 1.42, may be chronic component as no baseline for comparison Monitor renal function Elevated troponin may be secondary to renal function IV fluid hydration 3. Atrial fibrillation Patient reports anticoagulation with Coumadin however INR is subtherapeutic at 1.4 Therapeutic Lovenox as above Continue Coumadin once medication reconciliation completed Pharmacy to assist with Coumadin dosing 4. Hypertension/hyperlipidemia Continue home medications once reconciled FEN N.p.o. Electrolytes: Monitor and replete as needed NS at 84 cc/hour Therapeutic Lovenox
[2018-03-17 22:34] LABS: Chol/HDL Ratio 5.01 Ratio; HDL Cholesterol 34.5 mg/dL (40.0-60.0)
[2018-03-17] MEDS ORDERED: Warfarin Consult Pharmacy 1 EACH OTHER SCH (23:00)
[2018-03-17 23:11] LABS: Troponin I 5.03 ng/mL (0.02-0.05)
[2018-03-17] MEDS: Sod Chloride 0.9% Inj 1,000 ML IV.CONT SCH (23:15)
[2018-03-17 23:27] LABS: Creatine Kinase MB 26.9 ng/mL (0.5-3.6)
[2018-03-18] MEDS: Morphine Inj 4 MG/ML Vial IV.PUSH PRN (03:32)
[2018-03-18 05:50] LABS: Troponin I 20.9 ng/mL (0.02-0.05)
[2018-03-18 06:07] LABS: Creatine Kinase MB 59.6 ng/mL (0.5-3.6)
[2018-03-18 06:08] LABS: Calcium 8.5 mg/dL (8.5-10.1); Carbon Dioxide 18.5 meq/L (21.0-32.0); Potassium 5.6 meq/L (3.5-5.1)
[2018-03-18 06:22] LABS: CKMB Percent 12.2 % (0.0-4.0)
[2018-03-18] MEDS ORDERED: Nitroglycerin Drip Premix 50 MG/250 ML BOTTLE IV.CONT PRN ×2 (07:04→08:00)
[2018-03-18] MEDS ORDERED: Enoxaparin Inj 60 MG/0.6 ML Syringe SQ SCH (09:00)
[2018-03-18 09:18] LABS: Baso % (Auto) 0.6 % (0.0-2.0); Eos # (Auto) 0.2 th/mm3 (0.0-0.4); Eos % (Auto) 1.9 % (0.0-4.0); Hematocrit 32.9 % (35.0-46.0); Hemoglobin 10.7 gm/dL (11.6-15.3); Lymph # (Auto) 1.5 th/mm3 (1.0-4.8); Lymph % (Auto) 18.2 % (9.0-44.0); Mean Corpuscular HGB Conc 32.6 % (32.0-36.0); Mean Corpuscular Hemoglobin 26.8 pg (27.0-34.0); Mean Corpuscular Volume 82.1 fL (80.0-100.0); Mean Platelet Volume 7.2 fL (7.0-11.0); Mono # (Auto) 0.6 th/mm3 (0.0-0.9); Mono % (Auto) 7.3 % (0.0-8.0); Platelet Count 289 th/mm3 (150-450); Red Blood Count 4.01 mil/mm3 (4.00-5.30); Red Cell Distribution Width 15.3 % (11.6-17.2); White Blood Count 8.3 th/mm3 (4.0-11.0)
--- NOTE | 2018-03-18 09:49 | ECG ---
Date Performed: 03/18/2018 Time Performed: 04:31:58 PTAGE: 77 years EKG: ELECTRONIC VENTRICULAR PACEMAKER ABNORMAL RHYTHM ECG Since the PREVIOUS TRACING , no significant change noted PREVIOUS TRACIN03/17/2018 22.34 DOCTOR: Win Hill Interpretating Date/Time 03/18/2018 09:46:14
--- NOTE | 2018-03-18 09:49 | ECG ---
Date Performed: 03/17/2018 Time Performed: 22:34:10 PTAGE: 77 years EKG: ELECTRONIC VENTRICULAR PACEMAKER ABNORMAL RHYTHM ECG Since the PREVIOUS TRACING , no significant change noted PREVIOUS TRACIN03/17/2018 16.17 DOCTOR: Win Hill Interpretating Date/Time 03/18/2018 09:46:23
--- NOTE | 2018-03-18 10:42 | P.PNIM ---
Subjective Interval history: 77-year-old female with a past medical history significant for atrial fibrillation anticoagulated on Coumadin, coronary artery disease, hypertension and hyperlipidemia presents to the emergency department for the evaluation of chest pain. The patient reports that the chest pain started earlier today and did not resolve on its own. She states it is substernal and epigastric. She describes it as a pressure that is nonradiating. She endorses increasing weakness and nausea/vomiting that all began today. She has shortness of breath that is chronic and at her baseline. She denies any fever/chills. No lateralizing signs/symptoms. 7-9 PATIENT TO GO FOR CARDIAC CATH TODAY ON NITRO DRIP- BEING TITRATED UP DW RN AND PT WILL NEED AM LABS AM LABS Physical Exam Vital signs: Vital Signs 03/17/18 15:41 03/17/18 16:07 03/17/18 16:16 Temperature 97.4 F L Pulse Rate 60 61 66 Respiratory Rate 26 H 18 Blood Pressure 171/80 H 156/59 H Pulse Oximetry 98 96 03/17/18 18:10 03/17/18 18:30 03/17/18 19:00 Temperature Pulse Rate 59 L 60 Respiratory Rate 24 24 Blood Pressure 182/130 H 153/72 H Pulse Oximetry 98 03/17/18 19:44 03/17/18 19:48 03/17/18 21:41 Temperature Pulse Rate 59 L 61 61 Respiratory Rate 16 16 16 Blood Pressure 162/72 H 158/101 H 145/67 H Pulse Oximetry 97 96 03/18/18 03:55 03/18/18 07:00 03/18/18 08:00 Temperature 98.3 F 98 F Pulse Rate 66 64 60 Respiratory Rate 16 20 17 Blood Pressure 151/67 H 144/65 H 142/65 H Pulse Oximetry 96 97 97 03/18/18 09:00 03/18/18 10:00 Temperature Pulse Rate 58 L 58 L Respiratory Rate Blood Pressure Pulse Oximetry Intake & Output 03/17/18 03/18/18 03/18/18 18:59 06:59 18:59 Weight 74.843 kg 72.5 kg Other: Weight On Admission 72.5 kg Narrative: GENERAL: Awake alert and oriented 3 talkative and cooperative SKIN: Warm and dry. HEAD: Atraumatic. Normocephalic. EYES: Pupils equal and round. No scleral icterus. No injection or drainage. Extraocular muscles intact ENT: No nasal bleeding or discharge. Mucous membranes pink and moist. Tongue midline NECK: Trachea midline. No JVD. Supple CARDIOVASCULAR: Regular rate and rhythm. S1-S2 no S3 or S4 no heave or thrill or rub or gallop RESPIRATORY: No accessory muscle use. Clear to auscultation. Breath sounds equal bilaterally. GASTROINTESTINAL: Abdomen soft, non-tender, nondistended. Hepatic and splenic margins not palpable. MUSCULOSKELETAL: Extremities without clubbing, cyanosis, or edema. No obvious deformities. NEUROLOGICAL: Awake and alert. No obvious cranial nerve deficits. Motor grossly within normal limits. Five out of 5 muscle strength in the arms and legs. Normal speech. PSYCHIATRIC: Appropriate mood and affect; insight and judgment normal. Results - Labs CBC & Chem 7: 03/18/18 08:55 03/18/18 04:06 Laboratory Results - last 24 hr 03/17/18 03/17/18 03/17/18 16:14 16:14 16:14 WBC 8.0 RBC 4.03 Hgb 10.9 L Hct 33.4 L MCV 82.7 MCH 27.1 MCHC 32.8 RDW 15.4 Plt Count 314 MPV 7.0 Neut % (Auto) 79.7 H Lymph % (Auto) 12.4 [place] % (Auto) 5.4 Eos % (Auto) 1.8 Baso % (Auto) 0.7 Neut # (Auto) 6.4 Lymph # (Auto) 1.0 [place] # (Auto) 0.4 Eos # (Auto) 0.1 Baso # (Auto) 0.1 WBC Differential . Differential Comment Auto diff final PT 14.1 H INR 1.4 APTT 28.3 Sodium 139 Potassium 5.0 Chloride 109 H Carbon Dioxide 16.7 L Anion Gap 13 BUN 14 Creatinine 1.42 H Estimated GFR 36 L Random Glucose 124 H Calcium 8.3 L Total Bilirubin 0.3 AST 27 ALT 24 Alkaline Phosphatase 158 H Total Creatine Kinase 89 CK-MB (CK-2) CK-MB (CK-2) % Troponin I 0.09 H B-Natriuretic Peptide Total Protein 7.1 Albumin 3.3 L Triglycerides Cholesterol LDL Cholesterol, Calc HDL Cholesterol Cholesterol/HDL Ratio 03/17/18 03/17/18 03/17/18 16:14 16:14 22:15 WBC RBC Hgb Hct MCV MCH MCHC RDW Plt Count MPV Neut % (Auto) Lymph % (Auto) [place] % (Auto) Eos % (Auto) Baso % (Auto) Neut # (Auto) Lymph # (Auto) [place] # (Auto) Eos # (Auto) Baso # (Auto) WBC Differential Differential Comment PT INR APTT Sodium Potassium Chloride Carbon Dioxide Anion Gap BUN Creatinine Estimated GFR Random Glucose Calcium Total Bilirubin AST ALT Alkaline Phosphatase Total Creatine Kinase 270 H CK-MB (CK-2) 26.9 H CK-MB (CK-2) % 10.0 H* Troponin I 5.03 H* D B-Natriuretic Peptide 130 H Total Protein Albumin Triglycerides 464 H Cholesterol 173 LDL Cholesterol, Calc HDL Cholesterol 34.5 L Cholesterol/HDL Ratio 5.01 03/18/18 03/18/18 03/18/18 04:06 04:06 08:55 WBC 8.3 RBC 4.01 Hgb 10.7 L Hct 32.9 L MCV 82.1 MCH 26.8 L MCHC 32.6 RDW 15.3 Plt Count 289 MPV 7.2 Neut % (Auto) 72.0 H Lymph % (Auto) 18.2 [place] % (Auto) 7.3 Eos % (Auto) 1.9 Baso % (Auto) 0.6 Neut # (Auto) 6.0 Lymph # (Auto) 1.5 [place] # (Auto) 0.6 Eos # (Auto) 0.2 Baso # (Auto) 0.0 WBC Differential . Differential Comment Auto diff final PT INR APTT Sodium 141 Potassium 5.6 H Chloride 112 H Carbon Dioxide 18.5 L Anion Gap 11 BUN 14 Creatinine 1.21 H Estimated GFR 43 L Random Glucose 92 Calcium 8.5 Total Bilirubin AST ALT Alkaline Phosphatase Total Creatine Kinase 489 H CK-MB (CK-2) 59.6 H CK-MB (CK-2) % 12.2 H* Troponin I 20.90 H* D B-Natriuretic Peptide Total Protein Albumin Triglycerides Cholesterol LDL Cholesterol, Calc HDL Cholesterol Cholesterol/HDL Ratio - Imaging Impressions Chest X-Ray 03/17/18 15:58 CONCLUSION: 1. Minimal airspace disease at the left lung base, likely atelectasis. Assessment and Plan - Plan 1. NSTEMI/chest pain/CAD Patient with elevated troponin of 0.09 EKG showed ventricular pacing without ST segment elevation or depression, personally reviewed Patient continues to have chest pain Nitropaste Morphine Therapeutic Lovenox Cardiology consulted, appreciate recommendations 2. Acute kidney injury Creatinine 1.42, may be chronic component as no baseline for comparison Monitor renal function Elevated troponin may be secondary to renal function IV fluid hydration 3. Atrial fibrillation Patient reports anticoagulation with Coumadin however INR is subtherapeutic at 1.4 Therapeutic Lovenox as above Continue Coumadin once medication reconciliation completed Pharmacy to assist with Coumadin dosing 4. Hypertension/hyperlipidemia Continue home medications once reconciled FEN N.p.o. Electrolytes: Monitor and replete as needed NS at 84 cc/hour Therapeutic Lovenox Code Status: Full code Discussed Condition With: RN and patient Discharge Planning: Pending cardiac clearance
[2018-03-18] MEDS ORDERED: fentaNYL Citrate Inj 100 MCG/2 ML Ampul ONE (10:59)
[2018-03-18] MEDS ORDERED: Heparin/NS PF Inj 1,000 ML ONE (10:59)
[2018-03-18] MEDS ORDERED: Lidocaine PF 1% Inj 30 ML Vial ONE (11:08)
[2018-03-18] MEDS ORDERED: Heparin 10,000 UNITS/10 ML Vial (for IV use) ONE (11:41)
[2018-03-18] MEDS ORDERED: Enoxaparin Inj 100 MG/ML Syringe ONE (11:52)
--- NOTE | 2018-03-18 12:25 | CATHPROC ---
[facility] HIS Report Study Information Study Number Admission Scheduled Start Study Start [id number] Mar 17 2018 6:58PM 03/18/2018 Mar 18 2018 10:57AM [place] [facility] Cardiac Catheterization Admit Source Facility Department Other [facility] Physician and Clinical Staff Initial Sreedhar Vargas Professor Of Mechanical Engineering Herminio Jameson RN Professor Of Mechanical Engineering Michael Villar RN Other cathlab, cathlab Recorder Velvet Reddy,RECEPTIONIST SCHEDULER TECH2 Scrub Karlee Casas,RT(R) Procedures Performed Procedure Location (Site) Vessel Name Coronary Angiograms LCA Left Coronary Coronary Angiograms RCA Right Coronary L Heart Cath Wire insertion Fem Art (right) Femoral Art Equipment Time Forms Designer Description Size Mfg Part Number Used/Scraped TRANSDUCER, TRFixationalAVE [id number] 10:59 Dapt * Used W/DAYAN *[id number] INTRODUCER SET, [id number] 11:46 [employer]. FR 5 Used MICROPUNCTURE *[id number] *[id number] 12:06 DAIG/ST. AMOR MEDICAL ANGIOSEAL, FR6 VIP FR 6 Used *[id number] 10:59 [employer] BLANKET,WARM AIR CCL * Used *[id number] 10:59 [employer] PACK, CCL CUSTOM * Used *[id number] 10:59 [employer] SUPPORT, ARTERIAL ADULT [id number] *[id number] Used [id number] 11:57 MEDTRONIC JL 3.5 DXTERITY CATHETER FR 5 Used *[id number] 10:59 Manas [employer] WIRE, EXCHANGE 260CM 3MMJ 260CM Used *[id number] 10:59 NAMIC MANIFOLD, 4 PORT * Used *[id number] 10:59 NYCOMED OMNIPAQUE, 350 MG, 150ML 150ML [id number] Used [id number] 11:45 TERUMO MEDICAL SHEATH, FR5 TERUMO (10CM) FR 5 Used *[id number] SHEATH, FR6 TRANSRADIAL [id number] 10:59 TERUMO MEDICAL FR 6 Used SLENDER 10CM *[id number] History: Current Medications Medication Dosage/Unit Route Frequency Last Date/Time Taken Coumadin History: Allergies Allergy Reaction No Known Allergies History: Risk Factors Family History of Hypertension Dyslipidemia Previous SC Previous Heart Failure Premature CAD Yes Yes No No No Prior Valve Prior PCI Prior CABG Surgery No No No Cerebrovascular Peripheral Artery Chronic Lung On Dialysis Diabetes Disease Disease Disease No No No No No History: Stress Tests Stress or Imaging Studies Performed No History: Arrhythmias Selection Items Atrial fibrillation Labs Hgb (g/dl) Hct (%) RBC (MIL/MM3) WBC (l/cumm) Platelets (thousands) 11.60-17.00 35.00-51.00 4.00-5.90 4.00-11.00 150.00-450.00 10.7 32.9 4 8.3 289 Glucose (mg/dl) BUN (mg/dl) Creatinine (mg/dl) BUN:Creatinine (1:x) 74.00-106.00 7.00-18.00 0.50-1.30 10.00-20.00 92 14 1.2 11.7 Na (meq/l) K (meq/l) Cl (meq/l) CO2 (mmol/L) 136.00-145.00 3.50-5.10 98.00-107.00 21.00-32.00 141 5.6 112 18.5 PT (sec) PTT (sec) INR (PTT:PT) 9.80-11.60 24.30-30.10 0.90-1.10 14.1 28.3 1.4 Troponin I (ng/ml) CPK-MB (ng/ML) 0.02-0.05 0.50-3.60 20.9 12.2 Medication Medication Total Dose (Bolus/Oral) Medication Total Dosage/Unit 1% XYLOCAINE 25 mL FENTANYL 25 mcg VERSED 0.5 mg Medications (Bolus/Oral) Medication Time Given Dosage/Unit Administered By Reason 1% XYLOCAINE 03/18/2018 11:39:43 AM 10 mL Sreedhar Hicks 10 mL 1% XYLOCAINE given in lab by Sreedhar Hicks in Right Radial via Subcutaneous. Ordered by Sreedhar Rojas VERSED 03/18/2018 11:40:33 AM 0.5 mg Michael Villar 0.5 mg VERSED given in lab by Michael Villar RN in Right Antecubital via Peripheral IV. Ordered by Sreedhar Rojas FENTANYL 03/18/2018 11:41:30 AM 25 mcg Michael Villar 25 mcg FENTANYL given in lab by Michael Villar RN in Right Antecubital via Peripheral IV. Ordered by Sreedhar Hicks 1% XYLOCAINE 03/18/2018 11:47:37 AM 15 mL Sreedhar Hicks 15 mL 1% XYLOCAINE given in lab by Sreedhar Hicks in Right Groin via Subcutaneous. Ordered by Sreedhar Sun Medication (Drip) Medication Time Given Dosage/Unit Concentration/Unit Diluent (ml) Solution IV Solutions 03/18/2018 10:56:59 AM 0 mL (IV) 500 NaCl .9 IV Solutions given in lab by Herminio Jameson RN in Right Antecubital via Peripheral IV. Pump/Drip Flow = 20 ml/hr using NaCl .9. Ordered by Sreedhar Hicks Initial Case Assessment Cardiovascular HR NIBP 59 157/78 Edema Present Skin color Skin None Normal Warm Dry Circulatory - Right Pulses Dorsalis Pedis Femoral Radial 1 1 2 Scale (0,1,2,3,4,d) Circulatory - Left Pulses Dorsalis Pedis Femoral Radial 2 2 Scale (0,1,2,3,4,d) Neurological State Oriented to time-place- Alert Moves all extremities person Respiration - General Respiration Rate SpO2 (%) (B/min) 14 98 Final Case Assessment Cardiovascular HR NIBP 59 157/78 Edema Present Skin color Skin None Normal Warm Dry Circulatory - Right Pulses Dorsalis Pedis Femoral Radial 1 1 2 Scale (0,1,2,3,4,d) Circulatory - Left Pulses Dorsalis Pedis Femoral Radial 2 2 Scale (0,1,2,3,4,d) Neurological State Oriented to time-place- Alert Moves all extremities person Respiration - General Respiration Rate SpO2 (%) (B/min) 14 98 Chronological Log Time Study Chronological Log 10:50:43 Patient arrived via Bed. 10:56:49 Patient Name, D.O.B, / Armband Verified By R.N. 10:56:50 Consent signed by the physician and the patient and verified by the [facility] staff. 10:56:51 Pre-op and post- op instructions given; patient acknowledges understanding of instructions. 10:56:53 Patient has been NPO for More than 6Hrs. 10:56:54 Skin Breakdown- 10:56:56 Thao Prominences Protected 10:56:58 A # 20 IV was noted in the Antecubital (right). Grade = 0 IV Solutions given in lab by Herminio Jameson, BRUCE in Right Antecubital via Peripheral IV. Pump/Drip Flow = 20 ml/hr using 10:56:59 NaCl .9. Ordered by Sreedhar Hicks 10:57:00 History and physical on the chart or being dictated. Vitals capture started with the following parameters, Patient=Adult, Interval=5 min, Initial Pr furpro=752 mmHg, 10:57:56 Deflation Rate=5 mmHg, Cuff placed on Right Arm 10:59:16 HR=59 bpm, AKNJ=138/78 mmhg, SpO2=98 %, Resp=14 B/min, Pain=0, Liz=10, Velazquez=2 10:59:38 Reference ECG taken Assessment: Initial Case, HR=59 BPM, GPLU=092/78 mmhg, Edema=None, Color=Normal, Skin = Warm, D ry Right Pulses: Tian Ped=1, Femoral=1, Radial=2 10:59:52 Left Pulses: Tian Ped=2, Femoral=2 Neurological: State=Alert, Ox3, SORENSEN Respiration: Resp=14 B/min, SpO2=98 % 11:03:40 HR=69 bpm, PVYD=461/64 mmhg, SpO2=96.0 %, Resp=14 B/min, Pain=0, Liz=10, Velazquez=2 11:04:53 Allens test performed on the right radial and ulnar artery. 11:08:39 HR=61 bpm, UYQS=530/73 mmhg, SpO2=97 %, Resp=14 B/min, Pain=0, Liz=10, Velazquez=2 11:11:34 Right Radial and groin(s) prepped with 2% chlorhexidine, and draped after a 3 min. waiting time. 11:13:38 HR=60 bpm, SYGJ=950/77 mmhg, SpO2=96.0 %, Resp=13 B/min, Pain=0, Liz=10, Velazquez=2 11:18:39 HR=60 bpm, UWJX=539/77 mmhg, SpO2=95.0 %, Resp=13 B/min, Pain=0, Liz=10, Velazquez=2 11:20:24 Pressure channel 1 zeroed. 11:24:21 HR=59 bpm, PHDF=630/77 mmhg, TiJ3=347.0 %, Resp=13 B/min, Pain=0, Liz=10, Velazquez=2 11:28:35 HR=59 bpm, UCKN=425/76 mmhg, SpO2=95 %, Resp=15 B/min, Pain=0, Liz=10, Velazquez=2 11:33:39 HR=59 bpm, VFQN=308/75 mmhg, SpO2=96.0 %, Resp=15 B/min, Pain=0, Liz=10, Velazquez=2 11:39:29 HR=58 bpm, JIJF=185/73 mmhg, SpO2=95.0 %, Resp=14 B/min, Pain=0, Liz=10, Velazquez=2 Time Out. Correct patient, correct procedure, correct physician, labs, allergies, and equipment verified with veterinary laboratory diagnostician 11:39:37 team present. Fire risk assesment completed (see hard stop sheet for coding). Time Out Conc urred by MD and individual staff in procedure. 11:39:38 Case Start 10 mL 1% XYLOCAINE given in lab by Sreedhar Hicks in Right Radial via Subcutaneous. Ordere d by Kurt, 1139:43 Sreedhar Baird 11:40:33 0.5 mg VERSED given in lab by Michael Villar RN in Right Antecubital via Peripheral IV. Or dered by Sreedhar Hicks. 25 mcg FENTANYL given in lab by Michael Villar RN in Right Antecubital via Peripheral IV. Orde red by Sreedhar Hicks 11:41:30 G. 11:43:43 HR=60 bpm, YBTA=213/79 mmhg, SpO2=93.0 % 11:47:12 Could not obtain access in right radial. Moving to right groin. 15 mL 1% XYLOCAINE given in lab by Sreedhar Hicks in Right Groin via Subcutaneous. Ordered by Kurt, 11:47:37 Sreedhar Baird 11:49:21 HR=61 bpm, VXQE=129/80 mmhg, SpO2=94.0 % 11:49:53 Access site was Right Femoral Artery. 11:49:59 A wire was inserted via Fem Art (right). 11:50:01 A INTRODUCER SET, MICROPUNCTURE FR 5 was advanced into the Fem Art (right) using the Percut aneous technique. A SHEATH, FR5 TERUMO (10CM) FR 5 was exchanged in the Fem Art (right). This was necessary in or hugh to 11:50:07 accomodate a larger catheter. 11:51:25 An injection in the Fem Art (right) was made through the SHEATH, FR5 TERUMO (10CM) FR 5. A JR 4.0 INFINITI CATHETER FR 5 was advanced over a wire. OMNIPAQUE, 350 MG, 150ML 150ML was us ed for 11:52:50 injections. 11:53:43 HR=61 bpm, KDKF=314/77 mmhg, SpO2=94.0 % Recorded Pressure: LV, HR=60, Condition=Condition 1 11:54:31 (Left Ventricle) LV 150/2/9 Recorded Pressure: LV, Ao, HR=61, Condition=Condition 1 11:54:45 (Left Ventricle) LV 153/5/15, (Aorta) Ao 144/64/96 Recorded Pressure: Ao, HR=63, Condition=Condition 1 11:55:27 (Aorta) Ao 169/68/108 11:55:39 The RCA was injected and visualized at various angles. OMNIPAQUE, 350 MG, 150ML 150ML used . After removing the current catheter a JL 3.5 DXTERITY CATHETER FR 5 was advanced over a WIRE, E XCHANGE 260CM 11:56:14 3MMJ 260CM. 11:58:46 HR=59 bpm, UDII=447/70 mmhg, SpO2=94.0 % 11:58:58 The LCA was injected and visualized at various angles. OMNIPAQUE, 350 MG, 150ML 150ML used . 12:04:26 HR=59 bpm, PXET=621/76 mmhg, SpO2=96.0 % 12:05:28 Catheter was removed 12:05:42 ANGIOSEAL, FR6 VIP FR 6 placement in the Fem Art (right) 12:08:32 Case End (Physician broke scrub) 12:09:31 HR=59 bpm, RQGG=237/77 mmhg, SpO2=98.0 % 12:13:43 HR=62 bpm, DFXM=319/77 mmhg, SpO2=97.0 % Assessment: Final Case, HR=59 BPM, KHTB=283/78 mmhg, Edema=None, Color=Normal, Skin = Warm, Dr y Right Pulses: Tian Ped=1, Femoral=1, Radial=2 12:16:13 Left Pulses: Tian Ped=2, Femoral=2 Neurological: State=Alert, Ox3, SORENSEN Respiration: Resp=14 B/min, SpO2=98 % 12:16:23 Catheter(s) removed without difficulty 12:16:29 Sterile dressing applied to site 12:16:30 No case complications noted. 12:16:34 Cine recording checked. 12:16:36 Bedside Report will be given. 12:16:39 A Left Heart Cath was performed. 12:19:[address] [facility] End Study - Contrast Media Used In Study Contrast Total Opened (mL) Total Used (mL) Total Wasted (mL) Omnipaque 65 65 0 End Study - Maximum Contrast Load Max Contrast Load (mL) 302.1 End Study - Radiation Exposure Fluoro Time (minutes) 2.3 End Study - Sheaths Sheaths Pulled By Sheath Hold Time (min) Sreedhar Hicks End Study - Patient Disposition Complications Transferred To Interventional Outcome No Telemetry Bed No attempt made
--- NOTE | 2018-03-18 12:55 | MA ---
cc: Sreedhar Hicks DO DATE: 03/18/2018 PROCEDURE: Left heart catheterization, coronary angiogram, moderate sedation 30 minutes, Angioseal femoral closure PREPROCEDURE DIAGNOSIS: Chest pain, NSTEMI. POSTPROCEDURE DIAGNOSIS: Mild coronary artery disease. MEDICATIONS: Versed 0.5 mg, fentanyl 25 mcg, CONTRAST USED: 65 mL. FLUOROSCOPY TIME: 2.3 minutes. MODERATE SEDATION: 30 minutes. FRAILTY SCORE: 4. ESTIMATED BLOOD LOSS: 10 mL. PROCEDURAL SUMMARY: Susannah Winters is a pleasant 77-year-old female who sees my partner, Dr. Mercer, in the office and presented to [facility] due to chest pain. She was found to have an elevated troponin and because of this, she was recommended cardiac catheterization. Risks, benefits and alternatives were explained to her and she consented as such. She was brought to the lab and prepped in the usual sterile fashion. The right radial artery was attempted to be accessed, but was unable to thread the wire and so this was aborted. Pressure was held for hemostasis. Right femoral artery was accessed using a modified Seldinger technique and placement of a 5-Somali sheath. This was easily aspirated and flushed. A JR4 was advanced over a J-wire to the ascending aorta and across the aortic valve for measurement of left ventricular pressure. This back across the aortic valve showing no significant gradient of aortic stenosis. JR4 was advanced over a J-wire to the ascending aorta and across the aortic valve for measurement of left ventricular pressure. This was pulled back across the aortic valve showing no significant gradient of aortic stenosis. The right femoral artery was accessed using modified Seldinger technique and placement of a 5-Somali sheath. This was easily aspirated and flushed. A JR4 was advanced over a J-wire to the ascending aorta and across the aortic valve for measurement of left ventricular pressure. This was pulled back across the aortic valve showing no significant gradient of aortic stenosis. JR4 was used for selective angiography of the right coronary artery system. This was exchanged out for a JL4 which was used for selective angiography of the left coronary artery system. JL4 was removed over a J wire. As the patient had been given Lovenox, as well as needs to be on Coumadin for her atrial fibrillation, right femoral arteriotomy site was closed with an Angio-Seal. The patient left the research laboratory technician cardiovascularly stable. FINDINGS: The left main is a normal-sized vessel with adequate reflux. It trifurcates into an LAD, ramus and circumflex. LAD is a normal-sized vessel with moderate tortuosity throughout the mid to distal portion. There is diffuse 30% disease distally. It gives off 1 small diagonal with no significant disease. Ramus is a normal sized vessel. It splits into an upper and lower branch. Both vessels have significant tortuosity, but no disease. Left circumflex is a normal-sized vessel with 30% disease in the mid portion. Distally, it gives off 2 obtuse marginals with no significant disease. The RCA is a normal-sized vessel with mild luminal irregularities. It supplies a posterior descending artery and no significant disease. LVEDP 10. IMPRESSIONS: 1. Elevated troponin. 2. Mild coronary artery disease by cardiac catheterization. RECOMMENDATIONS: 1. Ms. Pryor does not appear to have significant disease which caused her chest pain and elevated her troponin. 2. We will check a 2-D echo to look at her overall left ventricular function, cardiac structure and possible valvulopathies. 3. We will have her pacemaker checked to make sure that she had no significant arrhythmias to cause this. 4. She can continue on her Coumadin therapy. 5. Further recommendations will be made based on the hospital course. Thank you for allowing me to see Susannah Pryor. If there are any questions, please do not hesitate to call. Sreedhar Hicks, VGP/DL , 12:33 PM , 12:53 PM MTDLatosha
[2018-03-18] MEDS: Sod Chloride 0.9% Inj 1,000 ML IV.CONT SCH (13:00)
[2018-03-18] MEDS ORDERED: Iohexol 350 MG/ML 100 ML Vial (for Cath Lab) IV.SIG ONE (14:04)
--- NOTE | 2018-03-18 14:09 | ECG ---
Date Performed: 03/17/2018 Time Performed: 16:17:16 PTAGE: 77 years EKG: ELECTRONIC VENTRICULAR PACEMAKER ABNORMAL RHYTHM ECG Compared to PREVIOUS TRACING PACED RYTHMN HAS REPLACED ATRIAL FIBRILLAION WITH RVR PREVIOUS TRACING 12/18/2017 DOCTOR: Win Hill Interpretating Date/Time 03/18/2018 14:09:12
--- NOTE | 2018-03-19 00:51 | MB ---
cc: Sreedhar Hicks DO DATE: 03/18/2018 REASON FOR CONSULTATION: NSTEMI. HISTORY OF PRESENT ILLNESS: Susannah Pryor is a pleasant 77-year-old female who sees my partner, Dr. Mercer, in the office and presented to [facility] due to chest pain. She states that she has had the chest pain on and off for the past few days and yesterday became more and did not go away after a while, so she came in. It is somewhat substernal in nature and is nonradiating. She has never had an episode like this before. Troponins were checked and they elevated to 20.9. In seeing her this morning, she states that she no longer has the chest pain and is feeling somewhat better. PAST MEDICAL HISTORY: 1. Atrial fibrillation, on anticoagulation. 2. Anxiety. 3. Cancer of the left kidney. 4. Degenerative arthritis. 5. Depression. 6. Headaches. 7. History of hysterectomy. 8. Hypertension. 9. History of significant bradycardia. PAST SURGICAL HISTORY: 1. Pacemaker placement (12/19/2017) with a [employer]onic Micra (model number [id number], serial number [id number]). 2. Repair of right superficial femoral pseudoaneurysm with a bovine patch, repair of right femoral vein with primary repair (02/10/2017). 3. History of appendectomy. ALLERGIES: NO KNOWN DRUG ALLERGIES. HOME MEDICATIONS: 1. Suvorexant 10 mg every night. 2. Coumadin 3 mg daily. The rest of her medications have not been recorded appropriately and so have to be reevaluated. FAMILY HISTORY: Denies premature coronary artery disease or sudden cardiac within the family. SOCIAL HISTORY: The patient denies tobacco, alcohol or drug abuse. REVIEW OF SYSTEMS: Fourteen systems were reviewed including osteopathic. Pertinent positives and negatives above, otherwise negative. PHYSICAL EXAMINATION: VITAL SIGNS: Temperature 98.0, heart rate 64, blood pressure 142/65, respirations 17, pulse oximetry 97% on room air. GENERAL: The patient appears well, in no acute distress, alert, awake and oriented x 3. HEENT: Extraocular muscles intact. Mucous membranes moist. NECK: Supple. No JVD at 45 degrees. No carotid bruits heard bilaterally. Carotid upstroke is brisk in nature. HEART: Regular rate and rhythm. Positive first and second heart sounds, with a 1/6 holosystolic murmur noted at the apex. LUNGS: Clear to auscultation bilaterally. No wheezes, rales or rhonchi. ABDOMEN: Soft, nontender, nondistended. No organomegaly noted. EXTREMITIES: Show no clubbing, cyanosis or edema. Femoral and distal pulses intact bilaterally. NEUROLOGIC: No focal deficits. SKIN: Warm, dry and intact. OSTEOPATHIC: No kyphoscoliosis, lordosis or paraspinal tender points. LABORATORY DATA: Hemoglobin 10.7, hematocrit 32.9, platelets 289. Potassium 5.6, BUN 14, creatinine 1.21. Troponin 20.9. ECHOCARDIOGRAM (03/18/2018 AT 0431): Ventricular paced, with probable underlying atrial fibrillation. IMPRESSION: 1. Chest pain concerning for coronary insufficiency. 2. Non-ST elevation myocardial infarction. 3. Acute kidney injury, which has since resolved. 4. Hyperkalemia. 5. Atrial fibrillation. 6. Subtherapeutic international normalized ratio. 7. History of hypertension. 8. History of hyperlipidemia. RECOMMENDATIONS: 1. Ms. Pryor presented with chest pain and was found to have an elevated troponin. Because of this, she will be recommended cardiac catheterization. Risks, benefits and alternatives were explained to her and she consented to such. 2. We will check a 2D echo to look at her overall left ventricular function, cardiac structure and possible valvulopathies. 3. At this time, her INR is 1.4 and she has received Lovenox. As she does have an elevated troponin of 20, I feel that she could undergo cardiac catheterization and not wait for the Lovenox to wear off, as this can be used for intervention. 4. We will also have her pacemaker interrogated to make sure she had no arrhythmias which may have caused this. Thank you for allowing me to see Susannah Pryor. If there are any questions, please do not hesitate to call. DO DONNY Rivero/APRIL , 11:51 PM , 12:50 AM
[2018-03-19] MEDS: Zolpidem Tartrate 5 MG Tablet PO PRN ×2 (01:49→23:35)
[2018-03-19] MEDS: Sod Chloride 0.9% Inj 1,000 ML IV.CONT SCH ×3 (06:20→23:35)
[2018-03-19 08:01] LABS: Baso % (Auto) 0.6 % (0.0-2.0); Eos # (Auto) 0.2 th/mm3 (0.0-0.4); Eos % (Auto) 2.5 % (0.0-4.0); Hematocrit 33.9 % (35.0-46.0); Lymph # (Auto) 1.4 th/mm3 (1.0-4.8); Lymph % (Auto) 20.9 % (9.0-44.0); Mean Corpuscular HGB Conc 32.6 % (32.0-36.0); Mean Platelet Volume 7.5 fL (7.0-11.0); Mono # (Auto) 0.6 th/mm3 (0.0-0.9); Mono % (Auto) 8.7 % (0.0-8.0); Neut # (Auto) 4.5 th/mm3 (1.8-7.7); Neut % (Auto) 67.3 % (16.0-70.0); Platelet Count 294 th/mm3 (150-450); Red Blood Count 4.08 mil/mm3 (4.00-5.30); Red Cell Distribution Width 15.5 % (11.6-17.2); White Blood Count 6.7 th/mm3 (4.0-11.0)
[2018-03-19 08:06] LABS: INR 1.7 Ratio; Prothrombin Time 17.2 sec (9.8-11.6)
[2018-03-19 08:23] LABS: Anion Gap 9 meq/L (5-15); Aspartate Aminotransferase 37 U/L (15-37); Blood Urea Nitrogen 13 mg/dL (7-18); Calcium 8.4 mg/dL (8.5-10.1); Carbon Dioxide 21.9 meq/L (21.0-32.0); Chloride 111 meq/L (98-107); Cholesterol 157 mg/dL (120-200); Glomerular Filtration Rate 48 mL/min (>89); Glucose,Random 87 mg/dL (74-106); Magnesium 1.7 mg/dL (1.5-2.5); Potassium 4.8 meq/L (3.5-5.1); Sodium 142 meq/L (136-145)
[2018-03-19 08:32] LABS: Alanine Aminotransferase 23 U/L (10-53); Alkaline Phosphatase 142 U/L (45-117); Chol/HDL Ratio 4.74 Ratio; HDL Cholesterol 33.1 mg/dL (40.0-60.0); LDL Cholesterol,Calculated 52 mg/dL (0-99); Phosphorus 3.2 mg/dL (2.5-4.9); Total Protein 6.6 g/dL (6.4-8.2); Triglycerides 359 mg/dL (42-150)
--- NOTE | 2018-03-19 12:34 | CT ---
EXAM DATE: 03/19/2018 12:21 PM EDT AGE/SEX: 77 years / Female INDICATIONS: Elevated troponin. CLINICAL DATA: This is the patient's initial encounter. Patient reports that signs and symptoms have been present for 1 day and indicates a pain score of Nonresponsive. MEDICAL/SURGICAL HISTORY: Hypertension. Renal carcinoma. A-fib. Hysterectomy. RADIATION DOSE: 9.96 CTDI (mGy) COMPARISON: No prior exams available for comparison. TECHNIQUE: Volumetric scanning was performed using a multi-row detector CT scanner during bolus infu rick of 73 ml Omnipaque 350 (iohexol) nonionic water-soluble contrast as a single exam dose. The zena a was post processed with a variety of visualization algorithms including full volume maximum intensi ty projection and sliding thin slab reformation. Using automated exposure control and adjustment of t he mA and/or kV according to patient size, radiation dose was kept as low as reasonably achievable to obtain optimal diagnostic quality images. DICOM format image data is available electronically for r eview and comparison. FINDINGS: Pulmonary Arteries: No filling defects are seen in the pulmonary arteries out to the subsegmental ve ssels. The left and right pulmonary arteries are normal in diameter. Lung: No infiltrates seen. Effusion: None. Mediastinum: No evidence of mediastinal or hilar adenopathy. Other: The axilla is unremarkable. CONCLUSION: 1. No evidence of pulmonary embolism. 2. No acute pulmonary infiltrates. Electronically signed by: Ted Ramos MD 03/19/2018 12:33 PM EDT
--- NOTE | 2018-03-19 12:55 | P.PNIM ---
Subjective Interval history: Eating lunch, no overnight events, just finished with CTA. No chest pain. No shortness of breath or palpitations. Physical Exam Vital signs: Vital Signs 03/18/18 15:00 03/18/18 19:00 03/18/18 20:00 Temperature 98.1 F 98.3 F Pulse Rate 68 71 Respiratory Rate 16 Blood Pressure 121/55 L 170/72 H Pulse Oximetry 96 96 96 03/18/18 21:00 03/18/18 22:00 03/18/18 23:00 Temperature 98.6 F Pulse Rate 66 67 65 Respiratory Rate Blood Pressure 137/64 Pulse Oximetry 95 03/19/18 00:00 03/19/18 01:00 03/19/18 02:00 Temperature Pulse Rate 64 68 67 Respiratory Rate Blood Pressure Pulse Oximetry 03/19/18 03:00 03/19/18 04:00 03/19/18 05:00 Temperature Pulse Rate 61 61 60 Respiratory Rate 16 Blood Pressure Pulse Oximetry 03/19/18 06:00 03/19/18 07:00 03/19/18 08:00 Temperature 97.9 F Pulse Rate 63 79 78 Respiratory Rate 17 Blood Pressure 143/69 H Pulse Oximetry 97 97 03/19/18 09:00 03/19/18 10:00 03/19/18 11:00 Temperature 97.9 F Pulse Rate 76 104 H 98 H Respiratory Rate 20 Blood Pressure 155/96 H Pulse Oximetry 98 Intake & Output 03/18/18 03/19/18 03/19/18 18:59 06:59 18:59 Intake Total 1720 / 1720 640 / 640 Output Total 425 / 425 350 / 350 Balance 1295 / 1295 290 / 290 Weight 72.5 kg 68.5 kg Intake: IV 1000 / 1000 NS Inj 1,000 ML @ 84 mls/hr IV. 1000 / 1000 CONT .[id number] [facility] Rx#:[id number] Oral 720 / 720 640 / 640 Output: Urine 425 / 425 350 / 350 Other: Weight On Admission 72.5 kg Narrative: GENERAL: Awake alert and oriented 3 talkative and cooperative CARDIOVASCULAR: Regular rate and rhythm. No murmurs. RESPIRATORY: No accessory muscle use. Clear to auscultation. Breath sounds equal bilaterally. GASTROINTESTINAL: Abdomen soft, non-tender, nondistended. Hepatic and splenic margins not palpable. MUSCULOSKELETAL: No edema. NEUROLOGICAL: Awake and alert. No obvious cranial nerve deficits. Motor grossly within normal limits. Five out of 5 muscle strength in the arms and legs. Normal speech. Results - Labs CBC & Chem 7: 03/19/18 07:13 03/19/18 07:13 Laboratory Results - last 24 hr 03/19/18 03/19/18 03/19/18 07:13 07:13 07:13 WBC 6.7 RBC 4.08 Hgb 11.0 L Hct 33.9 L MCV 83.0 MCH 27.0 MCHC 32.6 RDW 15.5 Plt Count 294 MPV 7.5 Neut % (Auto) 67.3 Lymph % (Auto) 20.9 [place] % (Auto) 8.7 H Eos % (Auto) 2.5 Baso % (Auto) 0.6 Neut # (Auto) 4.5 Lymph # (Auto) 1.4 [place] # (Auto) 0.6 Eos # (Auto) 0.2 Baso # (Auto) 0.0 WBC Differential . Differential Comment Auto diff final PT 17.2 H INR 1.7 Sodium 142 Potassium 4.8 D Chloride 111 H Carbon Dioxide 21.9 Anion Gap 9 BUN 13 Creatinine 1.10 H Estimated GFR 48 L Random Glucose 87 Calcium 8.4 L Phosphorus 3.2 Magnesium 1.7 Total Bilirubin 0.4 AST 37 ALT 23 Alkaline Phosphatase 142 H Total Protein 6.6 Albumin 3.0 L Triglycerides 359 H Cholesterol 157 LDL Cholesterol, Calc 52 HDL Cholesterol 33.1 L Cholesterol/HDL Ratio 4.74 TSH 2.860 Free T4 1.10 - Imaging Impressions Chest CTA 03/19/18 11:32 CONCLUSION: 1. No evidence of pulmonary embolism. 2. No acute pulmonary infiltrates. Assessment and Plan - Plan 1. NSTEMI/chest pain/CAD Patient with elevated troponin maxed at 20.9. EKG showed ventricular pacing without ST segment elevation or depression, personally reviewed, status post cardiac catheterization, unremarkable coronaries with mild coronary artery disease. Follow-up echocardiogram. Pacemaker interrogation to make sure there is no arrhythmia, further management per cardiology. CTA did not show any PE. 2. Acute kidney injury Creatinine 1.42, now 1.10, may be chronic component as no baseline for comparison, improving with IVF. 3. Atrial fibrillation Patient reports anticoagulation with Coumadin however INR is subtherapeutic at 1.4, now 1.7. Continue Coumadin. Pharmacy to assist with Coumadin dosing 4. Hypertension/hyperlipidemia -Start lisinopril. DVT prophylaxis: Coumadin Discharge planning: Discharge once cleared by cardiology.
[2018-03-19] MEDS ORDERED: amLODIPine 5 MG Tablet PO SCH (13:00)
--- NOTE | 2018-03-19 13:54 | P.PNCA ---
Subjective Interval history: No events overnight No further chest pain Wants to go home, but went into AFib with RVR this morning Physical Exam Vital signs: Vital Signs 03/18/18 15:00 03/18/18 19:00 03/18/18 20:00 Temperature 98.1 F 98.3 F Pulse Rate 68 71 Respiratory Rate 16 Blood Pressure 121/55 L 170/72 H Pulse Oximetry 96 96 96 03/18/18 21:00 03/18/18 22:00 03/18/18 23:00 Temperature 98.6 F Pulse Rate 66 67 65 Respiratory Rate Blood Pressure 137/64 Pulse Oximetry 95 03/19/18 00:00 03/19/18 01:00 03/19/18 02:00 Temperature Pulse Rate 64 68 67 Respiratory Rate Blood Pressure Pulse Oximetry 03/19/18 03:00 03/19/18 04:00 03/19/18 05:00 Temperature Pulse Rate 61 61 60 Respiratory Rate 16 Blood Pressure Pulse Oximetry 03/19/18 06:00 03/19/18 07:00 03/19/18 08:00 Temperature 97.9 F Pulse Rate 63 79 78 Respiratory Rate 17 Blood Pressure 143/69 H Pulse Oximetry 97 97 03/19/18 09:00 03/19/18 10:00 03/19/18 11:00 Temperature 97.9 F Pulse Rate 76 104 H 98 H Respiratory Rate 20 Blood Pressure 155/96 H Pulse Oximetry 98 03/19/18 12:00 03/19/18 13:00 Temperature Pulse Rate 122 H 124 H Respiratory Rate Blood Pressure Pulse Oximetry Intake & Output 03/18/18 03/19/18 03/19/18 18:59 06:59 18:59 Intake Total 1720 / 1720 640 / 640 Output Total 425 / 425 350 / 350 Balance 1295 / 1295 290 / 290 Weight 72.5 kg 68.5 kg Intake: IV 1000 / 1000 NS Inj 1,000 ML @ 84 mls/hr IV. 1000 / 1000 CONT .[id number] [facility] Rx#:[id number] Oral 720 / 720 640 / 640 Output: Urine 425 / 425 350 / 350 Other: Weight On Admission 72.5 kg Narrative: GENERAL: NAD, AAOx3 SKIN: Warm and dry. HEAD: Atraumatic. Normocephalic. EYES: Pupils equal and round. No scleral icterus. No injection or drainage. ENT: No nasal bleeding or discharge. Mucous membranes pink and moist. NECK: Trachea midline. No JVD. CARDIOVASCULAR: Irregularly irregular, tachycardic RESPIRATORY: No accessory muscle use. Clear to auscultation. Breath sounds equal bilaterally. GASTROINTESTINAL: Abdomen soft, non-tender, nondistended. Hepatic and splenic margins not palpable. MUSCULOSKELETAL: Extremities without clubbing, cyanosis, or edema. No obvious deformities. NEUROLOGICAL: Awake and alert. No obvious cranial nerve deficits. Motor grossly within normal limits. Five out of 5 muscle strength in the arms and legs. Normal speech. PSYCHIATRIC: Appropriate mood and affect; insight and judgment normal. Assessment and Plan - Assessment (1) NSTEMI (non-ST elevated myocardial infarction) Code(s): I21.4 - Non-ST elevation (NSTEMI) myocardial infarction Status: Acute (2) Chest pain Code(s): R07.9 - Chest pain, unspecified Status: Acute (3) Afib Code(s): I48.91 - Unspecified atrial fibrillation Status: Acute (4) CAD (coronary artery disease) Code(s): I25.10 - Atherosclerotic heart disease of [place] coronary artery without angina pectoris Status: Acute (5) Cardiac pacemaker in situ Code(s): Z95.0 - Presence of cardiac pacemaker Status: Acute - Plan 1) Chest pain/NSTEMI Cardiac cath negative for disease Echo showing normal function PPM interrogation showing no arrhythmias CTA showing no pulmonary embolism 2) Afib with RVR Con't Coumadin Not started back on her home meds Will place on Cardizem 60mg QID 3) Watch overnight and if stable tomorrow discharge home Follow up with Dr. Mercer
[2018-03-19] MEDS: dilTIAZem 60 MG Tablet PO SCH ×3 (14:45→20:52)
--- NOTE | 2018-03-19 15:16 | ECHRPT ---
Indication: CHEST PAIN CONCLUSIONS Normal left ventricular size. Wall thickness is normal. The left ventricular systolic function is hyperdynamic with an estimated ejection fraction in the ra nge of 65- 70%. Moderate mitral annular calcification. Mild mitral valve regurgitation. There is trace tricuspid valve regurgitation. The estimated pulmonary arterial pressure is 30.1 mmHg. BP: / HR: Rhythm: Atrial fibrillation MEASUREMENTS (Male / Female) Normal Values Technical Quality:Fair 2D ECHO LV Diastolic Diameter PLAX 5.7 cm 4.2 - 5.9 / 3.9 - 5.3 cm LV Systolic Diameter PLAX 3.9 cm IVS Diastolic Thickness 0.9 cm 0.6 - 1.0 / 0.6 - 0.9 cm LVPW Diastolic Thickness 0.9 cm 0.6 - 1.0 / 0.6 - 0.9 cm LV Relative Wall Thickness 0.3 RV Internal Dim ED PLAX 2.5 cm LVOT Diameter 1.8 cm Aortic Root Diameter 2.6 cm LA Systolic Diameter LX 3.8 cm 3.0 - 4.0 / 2.7 - 3.8 cm M-MODE AV Cusp Separation MM 2.1 cm DOPPLER AV Peak Velocity 138.3 cm/s AV Peak Gradient 7.7 mmHg AV Mean Gradient 4.0 mmHg AV Velocity Time Integral 21.0 cm LVOT Peak Velocity 56.4 cm/s LVOT Peak Gradient 1.3 mmHg LVOT Velocity Time Integral 8.5 cm AV Area Cont Eq vti 1.0 cm AV Area Cont Eq pk 1.0 cm Mitral E Point Velocity 95.3 cm/s LV E' Lateral Velocity 9.9 cm/s Mitral E to LV E' Lateral Ratio 9.6 LV E' Septal Velocity 8.9 cm/s Mitral E to LV E' Septal Ratio 10.7 TR Peak Velocity 224.0 cm/s TR Peak Gradient 20.1 mmHg Right Atrial Pressure 10.0 mmHg Pulmonary Artery Systolic Pressu 30.1 mmHg Right Ventricular Systolic Press 30.1 mmHg PV Peak Velocity 44.4 cm/s PV Peak Gradient 0.8 mmHg FINDINGS LEFT VENTRICLE Normal left ventricular size. Wall thickness is normal. The left ventricular systolic function is hyperdynamic with an estimated ejection fraction in the ra nge of 65- 70%. RIGHT VENTRICLE Normal right ventricular size and systolic function. LEFT ATRIUM The left atrial size is normal. RIGHT ATRIUM The right atrial size is normal. ATRIAL SEPTUM No atrial level shunt is demonstrated by color flow Doppler interrogation. AORTA The aortic root and proximal ascending aorta are not well visualized. MITRAL VALVE Moderate mitral annular calcification. Mild mitral valve regurgitation. AORTIC VALVE No aortic valve stenosis or regurgitation. TRICUSPID VALVE There is trace tricuspid valve regurgitation. The estimated pulmonary arterial pressure is 30.1 mmHg. PULMONARY VALVE No pulmonary valve regurgitation or stenosis. VESSELS The inferior vena cava is normal in size. PERICARDIUM No pericardial effusion. Polo Sanchez MD (Electronically Signed) Final Date:19 March 2018 15:15
[2018-03-19 16:02] LABS: Hemoglobin A1c 5.4 % (4.3-6.0)
[2018-03-19] MEDS: Morphine Inj 4 MG/ML Vial IV.PUSH PRN (20:53)
[2018-03-20 04:28] LABS: INR 2.1 Ratio; Prothrombin Time 21.3 sec (9.8-11.6)
[2018-03-20 04:45] LABS: Calcium 8.2 mg/dL (8.5-10.1); Carbon Dioxide 21.5 meq/L (21.0-32.0); Potassium 4.9 meq/L (3.5-5.1)
[2018-03-20] MEDS: dilTIAZem 60 MG Tablet PO SCH (08:40)
--- NOTE | 2018-03-20 11:20 | P.DS ---
Date of admission: 03/17/18 18:58 Primary care physician: Jurgen Lewis Brief History from admission: 77-year-old female with a past medical history significant for atrial fibrillation anticoagulated on Coumadin, coronary artery disease, hypertension and hyperlipidemia presents to the emergency department for the evaluation of chest pain. The patient reports that the chest pain started earlier today and did not resolve on its own. She states it is substernal and epigastric. She describes it as a pressure that is nonradiating. She endorses increasing weakness and nausea/vomiting that all began today. She has shortness of breath that is chronic and at her baseline. She denies any fever/chills. No lateralizing signs/symptoms. DS: Diagnosis - Discharge Diagnosis (1) NSTEMI (non-ST elevated myocardial infarction) Status: Acute (2) Afib Status: Chronic (3) CAD (coronary artery disease) Status: Chronic DS: Medications - Discharge Medications Prescriptions: diltiazem HCl [Cardizem LA] 240 mg PO DAILY #30 tab warfarin [Coumadin] 3 mg PO DAILY@1600 #30 tab DS: Summary Hospital Course: GENERAL: Awake alert and oriented 3 talkative and cooperative CARDIOVASCULAR: Regular rate and rhythm. No murmurs. RESPIRATORY: No accessory muscle use. Clear to auscultation. Breath sounds equal bilaterally. GASTROINTESTINAL: Abdomen soft, non-tender, nondistended. Hepatic and splenic margins not palpable. MUSCULOSKELETAL: No edema. NEUROLOGICAL: Awake and alert. No obvious cranial nerve deficits. Motor grossly within normal limits. Five out of 5 muscle strength in the arms and legs. Normal speech. Results - Labs CBC & Chem 7: 03/19/18 07:13 03/19/18 07:13 Laboratory Results - last 24 hr 03/19/18 03/19/18 03/19/18 07:13 07:13 07:13 WBC 6.7 RBC 4.08 Hgb 11.0 L Hct 33.9 L MCV 83.0 MCH 27.0 MCHC 32.6 RDW 15.5 Plt Count 294 MPV 7.5 Neut % (Auto) 67.3 Lymph % (Auto) 20.9 [place] % (Auto) 8.7 H Eos % (Auto) 2.5 Baso % (Auto) 0.6 Neut # (Auto) 4.5 Lymph # (Auto) 1.4 [place] # (Auto) 0.6 Eos # (Auto) 0.2 Baso # (Auto) 0.0 WBC Differential . Differential Comment Auto diff final PT 17.2 H INR 1.7 Sodium 142 Potassium 4.8 D Chloride 111 H Carbon Dioxide 21.9 Anion Gap 9 BUN 13 Creatinine 1.10 H Estimated GFR 48 L Random Glucose 87 Calcium 8.4 L Phosphorus 3.2 Magnesium 1.7 Total Bilirubin 0.4 AST 37 ALT 23 Alkaline Phosphatase 142 H Total Protein 6.6 Albumin 3.0 L Triglycerides 359 H Cholesterol 157 LDL Cholesterol, Calc 52 HDL Cholesterol 33.1 L Cholesterol/HDL Ratio 4.74 TSH 2.860 Free T4 1.10 - Imaging Impressions Chest CTA 03/19/18 11:32 CONCLUSION: 1. No evidence of pulmonary embolism. 2. No acute pulmonary infiltrates. Assessment and Plan - Plan This is a 77-year-old female with history of atrial fibrillation presented with chest pain. The patient was diagnosed to have non-ST elevated myocardial infarction. Troponin maxed at 20.9.EKG showed ventricular pacing without ST segment elevation or depression, status post cardiac catheterization, unremarkable coronaries with mild coronary artery disease. Pacemaker interrogation to make sure there is no arrhythmia. Patient however went into atrial fibrillation with RVR, Cardizem was restarted. Patient's atrial fibrillation was then controlled. CTA did not show any PE. Patient had mild DKA on admission, improved with IVF, on discharge, creatinine is almost back to normal. She will continue on Coumadin. - Time Spent with Patient Total time spent providing and/or coordinating discharge services: Greater than 30 minutes - Quality: VTE Deep Vein Thrombosis/Pulmonary Embolism Present on Admission: No Exam Vital signs: Vital Signs 03/19/18 12:00 03/19/18 13:00 03/19/18 14:00 Temperature Pulse Rate 122 H 124 H 102 H Respiratory Rate Blood Pressure Pulse Oximetry 03/19/18 15:00 03/19/18 16:00 03/19/18 17:00 Temperature 98 F Pulse Rate 104 H 102 H 104 H Respiratory Rate 16 Blood Pressure 120/81 Pulse Oximetry 98 03/19/18 18:00 03/19/18 19:00 03/19/18 20:00 Temperature 98.1 F Pulse Rate 80 81 82 Respiratory Rate Blood Pressure 116/91 H Pulse Oximetry 96 96 03/19/18 21:00 03/19/18 22:00 03/19/18 23:00 Temperature 97.8 F Pulse Rate 82 74 64 Respiratory Rate Blood Pressure 138/59 L Pulse Oximetry 96 03/20/18 00:00 03/20/18 01:00 03/20/18 02:00 Temperature Pulse Rate 66 61 61 Respiratory Rate Blood Pressure Pulse Oximetry 03/20/18 03:00 03/20/18 04:00 03/20/18 05:00 Temperature 98 F Pulse Rate 75 75 78 Respiratory Rate Blood Pressure 114/65 Pulse Oximetry 96 03/20/18 06:00 03/20/18 07:00 03/20/18 08:00 Temperature 98.1 F Pulse Rate 67 78 100 H Respiratory Rate 20 Blood Pressure Pulse Oximetry 95 Intake & Output 03/19/18 03/20/18 03/20/18 18:59 06:59 18:59 Intake Total 1200 / 1200 1080 / 1080 Output Total 450 / 450 Balance 1200 / 1200 630 / 630 Weight 70 kg Intake: Oral 1200 / 1200 1080 / 1080 Output: Urine 450 / 450 Other: # Voids 5 Date of Last Bowel Movement 03/16/18 Narrative: GENERAL: Awake alert and oriented 3 talkative and cooperative CARDIOVASCULAR: Irregular rhythm, regular rate. No murmurs. RESPIRATORY: No accessory muscle use. Clear to auscultation. Breath sounds equal bilaterally. GASTROINTESTINAL: Abdomen soft, non-tender, nondistended. Hepatic and splenic margins not palpable. MUSCULOSKELETAL: No edema. NEUROLOGICAL: Awake and alert. No obvious cranial nerve deficits. Motor grossly within normal limits. Five out of 5 muscle strength in the arms and legs. Normal speech. Results Procedures completed during hospitalization: Cardiac catheterization. Labs on day of discharge: Labs from last 24 hours 03/20/18 03/20/18 03/19/18 03:38 03:38 07:13 PT 21.3 H INR 2.1 Sodium 137 Potassium 4.9 Chloride 106 Carbon Dioxide 21.5 Anion Gap 10 BUN 11 Creatinine 1.04 H Estimated GFR 51 L Random Glucose 91 Hemoglobin A1c 5.4 Calcium 8.2 L - Impressions ITS Impressions Chest X-Ray 03/17/18 15:58 CONCLUSION: 1. Minimal airspace disease at the left lung base, likely atelectasis. Chest CTA 03/19/18 11:32 CONCLUSION: 1. No evidence of pulmonary embolism. 2. No acute pulmonary infiltrates. Discharge Plan - Discharge Disposition Patient Disposition: 01 Discharge Home - Discharge Condition Condition: Good - Discharge Order Discharge Orders: Discharge Order (Routine); Ordered 03/20/18 Ordered By: Flex Chapa Cardiology Clear for Discharge (Routine); Ordered 03/20/18 Ordered By: Sreedhar Hicks - Discharge Details Anticipated Discharge Date: 03/20/18 Discharge Comment: d/c after cleared by cardiology - Physicians Team Primary Care Provider: Jurgen Lewis Attending Provider: Flex Chapa Other Providers: Evi Mercer MD
--- NOTE | 2018-03-20 17:18 | P.PNCA ---
Subjective Interval history: Patient was seen earlier today No complaints Heart rates back controlled Physical Exam Vital signs: Vital Signs 03/19/18 18:00 03/19/18 19:00 03/19/18 20:00 Temperature 98.1 F Pulse Rate 80 81 82 Respiratory Rate Blood Pressure 116/91 H Pulse Oximetry 96 96 03/19/18 21:00 03/19/18 22:00 03/19/18 23:00 Temperature 97.8 F Pulse Rate 82 74 64 Respiratory Rate Blood Pressure 138/59 L Pulse Oximetry 96 03/20/18 00:00 03/20/18 01:00 03/20/18 02:00 Temperature Pulse Rate 66 61 61 Respiratory Rate Blood Pressure Pulse Oximetry 03/20/18 03:00 03/20/18 04:00 03/20/18 05:00 Temperature 98 F Pulse Rate 75 75 78 Respiratory Rate Blood Pressure 114/65 Pulse Oximetry 96 03/20/18 06:00 03/20/18 07:00 03/20/18 08:00 Temperature 98.1 F Pulse Rate 67 78 100 H Respiratory Rate 20 Blood Pressure Pulse Oximetry 95 Intake & Output 03/19/18 03/20/18 03/20/18 18:59 06:59 18:59 Intake Total 1200 / 1200 1080 / 1080 Output Total 450 / 450 Balance 1200 / 1200 630 / 630 Weight 70 kg Intake: Oral 1200 / 1200 1080 / 1080 Output: Urine 450 / 450 Other: # Voids 5 Date of Last Bowel Movement 03/16/18 Narrative: GENERAL: NAD, AAOx3 SKIN: Warm and dry. HEAD: Atraumatic. Normocephalic. EYES: Pupils equal and round. No scleral icterus. No injection or drainage. ENT: No nasal bleeding or discharge. Mucous membranes pink and moist. NECK: Trachea midline. No JVD. CARDIOVASCULAR: Regular rate and rhythm RESPIRATORY: No accessory muscle use. Clear to auscultation. Breath sounds equal bilaterally. GASTROINTESTINAL: Abdomen soft, non-tender, nondistended. Hepatic and splenic margins not palpable. MUSCULOSKELETAL: Extremities without clubbing, cyanosis, or edema. No obvious deformities. NEUROLOGICAL: Awake and alert. No obvious cranial nerve deficits. Motor grossly within normal limits. Five out of 5 muscle strength in the arms and legs. Normal speech. PSYCHIATRIC: Appropriate mood and affect; insight and judgment normal. Assessment and Plan - Assessment (1) NSTEMI (non-ST elevated myocardial infarction) Code(s): I21.4 - Non-ST elevation (NSTEMI) myocardial infarction Status: Acute (2) Chest pain Code(s): R07.9 - Chest pain, unspecified Status: Acute (3) Afib Code(s): I48.91 - Unspecified atrial fibrillation Status: Chronic (4) CAD (coronary artery disease) Code(s): I25.10 - Atherosclerotic heart disease of [place] coronary artery without angina pectoris Status: Chronic (5) Cardiac pacemaker in situ Code(s): Z95.0 - Presence of cardiac pacemaker Status: Acute - Plan 1) Chest pain/NSTEMI Cardiac cath negative for disease Echo showing normal function PPM interrogation showing no arrhythmias CTA showing no pulmonary embolism 2) Afib with RVR Con't Coumadin Now controlled, change to Cardizem CD 240mg 3) Cardiovascularly stable for discharge Follow up with Dr. Mercer
== END 2018-03-20 10:27 | disposition home or self-care (01) ==
LOC: NEPE 15:33 → NEDA 18:58 → HCPC 03-18 06:26
PROVIDERS: ADMIT Hospitalist; ATTEND Hospitalist